=== PATIENT | male | born 1935 | race Caucasian/White ===

== ENCOUNTER 2018-03-21 14:23 | Inpatient (IN) | payer MEDICARE ==
[~2018-03-21] VITALS: Ht 182.9 cm; Wt 83.4 kg
[2018-03-21 15:14] LABS: LYMPHOCYTES 14.1 % (15-50); MCV 91.5 fL (80.0-100.0); MEAN PLATELET VOLUME 10.5 fL (7.4-10.4); NEUTROPHILS 81.1 % (40-80); PLATELET COUNT 197 10x3/uL (130-400); RDW 14.1 % (11.5-14.5); WBC 7.9 10x3/uL (4.8-10.8)
[2018-03-21 15:19] LABS: HEMATOCRIT 18.3 % (42.0-54.0); HEMOGLOBIN 6.4 g/dL (13.5-17.5)
[2018-03-21 15:31] LABS: ALBUMIN 3.3 g/dL (3.4-5.0); ANION GAP 22.1 mmol/L (8-16); BILIRUBIN - TOTAL 0.8 mg/dL (0.2-1.3); CALCIUM 8.5 mg/dL (8.5-10.1); CARBON DIOXIDE 16.5 mmol/L (21.0-32.0); CREATININE - SERUM 2.5 mg/dL (0.6-1.3); POTASSIUM - SERUM 5.6 mmol/L (3.5-5.1); PROTEIN - SERUM 6.2 g/dL (6.4-8.2)
[2018-03-21 15:37] LABS: INR 1.58 (0.85-1.17); PROTIME 18.3 SECONDS (11.6-15.0)
[2018-03-21 16:29] VITALS: BP 97/53
[2018-03-21 17:20] LABS: TOTAL IRON BIND CAPACITY 242 ug/dl (260-445)
[2018-03-21 17:48] LABS: % SATURATION 71 % (15-55); IRON 172 ug/dl (35-150); UNSAT IRON BIND CAPACITY 70 ug/dl (150-375)
[2018-03-21 18:30] VITALS: BP 97/52
--- NOTE | 2018-03-21 18:30 | NUR ---
BLOOD TRANSFUSION CONTINUES. PT REMAINS PALE/WARM/DRY, BREATHING EUPNEIC. NO SIGNS OF TRANSFUSION REACTION AT THIS TIME. WILL CONTINUE TO MONITOR.
--- NOTE | 2018-03-21 19:20 | MORECARE ---
CASE MANAGEMENT DISCHARGE SUMMARY PATIENT: DEONTE DALE UNIT: [id number] ADM DATE: 03/21/18 AGE: 82 : 33 SEX: M ROOM/BED: D.T04 AUTHOR: GATITO SARAVIA PHYSICIAN: REFERRING PHYSICIAN: ABI MAGALLANES MD DATE OF SERVICE: 03/21/18 Discharge Plan Patient Name: DEONTE DALE Facility: [facility]:[place] : 1935 Planned Disposition: Anticipated Discharge Date: 03/23/18 Discharge Date: Expected LOS: 2 Initial Reviewer: [email or web address] Initial Review Date: 03/21/2018 Generated: 03/21/18 8:20 pm Patient Name: DEONTE DALE Page 05126 at 1920 All edits/amendments must be made on the electronic document DICTATION DATE: 03/21/181919 APPRAISAL COORDINATOR: [place] 03/21/181919 RPT#: [id number] DC DATE: STATUS: ADM IN [facility] [address] [place] [address] END OF REPORT
--- NOTE | 2018-03-21 19:33 | MORECARE ---
CASE MANAGEMENT DISCHARGE SUMMARY PATIENT: DEONTE OWENS WOOD UNIT: [id number] ADM DATE: 03/21/18 AGE: 82 : 33 SEX: M ROOM/BED: D.T04 AUTHOR: GATITO SARAVIA PHYSICIAN: REFERRING PHYSICIAN: ABI MAGALLANES MD DATE OF SERVICE: 03/21/18 Discharge Plan Patient Name: DEONTE OWENS Facility: [facility]:[place] : 1935 Planned Disposition: Anticipated Discharge Date: 03/23/18 Discharge Date: Expected LOS: 2 Initial Reviewer: [email or web address] Initial Review Date: 03/21/2018 Generated: 03/21/18 8:33 pm DCPIA - Discharge Planning Initial Assessment Updated by [email or web address]: Helen Minaya on 03/21/18 7:30 pm * Is the patient Alert and Oriented? Yes * PCP No PCP * [place] [facility] [place] * Preadmission Environment Home Alone * ADLs Independent * Equipment Rolling Walker * List name and contact numbers for known caregivers / representatives who currently or will assist patient after discharge: Danni Diana [facility] - [phone] Sergei Owens [facility] - [phone] * Verbal permission to speak to the caregivers and representatives has been obtained from the patient. Yes * Community resources currently utilized Private Duty Care * Please name any agencies selected above. [facility] has been seeing the patient for 3 years. Family lives out of state. If anything is needed she said she will be here. * Additional services required to return to the preadmission environment? No * Can the patient safely return to the preadmission environment? Yes * Has this patient been hospitalized within the prior 30 days at any hospital? No Last DP export: 03/21/18 6:20 p Patient Name: DEONTE OWENS Page [id number] at 1935 All edits/amendments must be made on the electronic document DICTATION DATE: 03/21/181931 STRANDING MACHINE OPERATOR HELPER: [place] 03/21/181931 RPT#: [id number] DC DATE: STATUS: ADM IN [facility] [address] [facility] [place] [address] END OF REPORT
--- NOTE | 2018-03-21 19:39 | MORECARE ---
CASE MANAGEMENT DISCHARGE SUMMARY PATIENT: DEONTE OWENS UNIT: [id number] ADM DATE: 03/21/18 AGE: 82 : 33 SEX: M ROOM/BED: D.T04 AUTHOR: RANI,DOC PHYSICIAN: REFERRING PHYSICIAN: ABI MAGALLANES MD DATE OF SERVICE: 03/21/18 Discharge Plan Patient Name: DEONTE OWENS Facility: [facility]:[place] : 1935 Planned Disposition: Anticipated Discharge Date: 03/23/18 Discharge Date: Expected LOS: 2 Initial Reviewer: [email or web address] Initial Review Date: 03/21/2018 Generated: 03/21/18 8:39 pm DCP- Discharge Planning Updated by [email or web address]: Helen Minaya on 03/21/18 6:[address] Patient Name: DEONTE OWENS Admission Status: ER Accout number: [id number] Admission Date: 03-21-2018 : 1935 Admission Diagnosis: Attending: ABI MAGALLANES Current LOS: 1 Anticipated DC Date: 03-23-2018 Planned Disposition: Primary Insurance: MEDICARE A & B Discharge Planning Comments: CM met with patient and his cg Danni Diana to complete initial dc planning assessment. CM educated patient on the CM role and verbal consent given by patient to complete assessment. Patient lives at home alone but has a cg that comes on Sunday and Sunday for 2 hours a day. At discharge patient plans to return home alone and feels this is a safe discharge. CM discussed availability of home health, rehab services, and medical equipment. CG feels that HH may be a good option since she is only there 2 days a week. CM will continue to follow and will assist as needed with dc plans/needs. Layout Former: Helen Minaya RN, CCM RN, [facility] DCPIA - Discharge Planning Initial Assessment Updated by [email or web address]: Helen Minaya on 03/21/18 7:30 pm * Is the patient Alert and Oriented? Yes * PCP No PCP * Pharmacy [facility] [place] * Preadmission Environment Home Alone * ADLs Independent * Equipment Rolling Walker * List name and contact numbers for known caregivers / representatives who currently or will assist patient after discharge: Danni ye - [phone] Sergei Owens - valerie - [phone] * Verbal permission to speak to the caregivers and representatives has been obtained from the patient. Yes * Community resources currently utilized Private Duty Care * Please name any agencies selected above. [facility] [place] has been seeing the patient for 3 years. Family lives out of state. If anything is needed she said she will be here. * Additional services required to return to the preadmission environment? No * Can the patient safely return to the preadmission environment? Yes * Has this patient been hospitalized within the prior 30 days at any hospital? No Last DP export: 03/21/18 6:33 p Patient Name: DEONTE OWENS Page 28458 at 1941 All edits/amendments must be made on the electronic document DICTATION DATE: 03/21/181938 RUGBY UNION FOOTBALLER: [place] 03/21/181938 RPT#: [id number] DC DATE: STATUS: ADM IN [facility] [address] [place] [address] END OF REPORT
--- NOTE | 2018-03-21 19:56 | NUR ---
DR. MAGALLANES AT PT'S BEDSIDE DISCUSSING PLAN OF CARE WITH PT.
--- NOTE | 2018-03-21 21:29 | NUR ---
PT RESTING, RR EVEN AND UNLABORED, VS WNL, PT AWAKES TO VERBAL STIMULI, DENIES ANY NEEDS AT THIS TIME, WILL CONTINUE TO MONITOR.
--- NOTE | 2018-03-21 23:05 | NUR ---
PT RECIEVED TO RM 2315 VIA STRETCHER FROM ED. AWAKE AND ALERT. DENIES PAIN. REPORTS HAVING LOWER GI BLEED A WEEK AGO BUT SAYS IT RESOLVED. VSS. DENIES PAIN OR NEEDS AT THIS TIME
[2018-03-21 23:22] VITALS: BP 105/64; BMI 21.1
[2018-03-22] VITALS (24 sets, daily range): BP systolic 90–128; BP diastolic 54–93; Ht 182.9 cm; Wt 83.4 kg
[2018-03-22 02:45] LABS: BASOPHILS 0.1 % (0-2); EOSINOPHILS 0 % (0-7); IMMATURE GRANULOCYTES 0.4 % (0-5); LYMPHOCYTES 7.4 % (15-50); MCH 29.9 pg (26.0-34.0); MCHC 33.6 g/dL (31.0-37.0); MEAN PLATELET VOLUME 10.9 fL (7.4-10.4); MONOCYTES 7.5 % (2-11); NEUTROPHILS 84.6 % (40-80); PLATELET COUNT 185 10x3/uL (130-400); RDW 15.6 % (11.5-14.5)
[2018-03-22 02:46] LABS: HEMATOCRIT 24.1 % (42.0-54.0); HEMOGLOBIN 8.1 g/dL (13.5-17.5); MCV 88.9 fL (80.0-100.0); RBC 2.71 10x6/uL (4.20-6.10)
[2018-03-22 02:54] LABS: ALBUMIN 3.5 g/dL (3.4-5.0); BILIRUBIN - TOTAL 1.02 mg/dL (0.2-1.3); CALCIUM 8.8 mg/dL (8.5-10.1); CARBON DIOXIDE 17.3 mmol/L (21.0-32.0); CREATININE - SERUM 2.3 mg/dL (0.6-1.3); PROTEIN - SERUM 6.3 g/dL (6.4-8.2)
[2018-03-22 03:00] LABS: ANION GAP 21.4 mmol/L (8-16); POTASSIUM - SERUM 4.7 mmol/L (3.5-5.1)
--- NOTE | 2018-03-22 08:01 | NUR ---
0700 ASLEEP EASILY AWAKENS SOME CONFUSIOIN NOTED ASSESSMENT COMPLETE
--- NOTE | 2018-03-22 09:37 | NUR ---
7333 DR PRYOR AT BEDSIDE UPDATING PT FOR PLANNED CARE
--- NOTE | 2018-03-22 09:38 | NUR ---
0910 STARTED PRBC UNIT #3
--- NOTE | 2018-03-22 11:24 | NUR ---
1100 PREOP MEDS WERE GIVEN
--- NOTE | 2018-03-22 15:36 | NUR ---
[address] PRYOR
--- NOTE | 2018-03-22 15:36 | NUR ---
1335 EGD COMPLETE INITIATED FREQUENT VS.
--- NOTE | 2018-03-22 15:37 | NUR ---
1510 STARTED 4TH PRBC INFUSION
--- NOTE | 2018-03-22 16:35 | NUR ---
5640 ECHOCARDIOGRAM COMPLETED
--- NOTE | 2018-03-22 19:45 | NUR ---
REPORT REC'D AND CARE ASSUMED, REC'D PT RESTING EYES CLOSED, RESP EVEN AND UNLABORED, BRIEFLY WOKE UP DURING ASSESSMENT AND WENT RIGHT BACK TO SLEEP, O2 @ 2 LITERS VIA NC, O2 SAT 97%, CM-SR WITH PAC'S AT TIMES, RIGHT FOREARM PIV X 2, PROXIMAL IV SALINE LOCKED, DISTAL FOREARM PIV PATENT WITH NS @ 75CC/HR AND PROTONIX @ 10CC/HR OR 8MG/HR, CASTILLO PATENT DRAINING CLEAR YELLOW URINE, PPP, SR UP X 2 , BED IN LOW POSITION, CALL LIGHT IN REACH..
--- NOTE | 2018-03-22 19:49 | NUR ---
1730 CASTILLO CATH PLACEMENT WITHOUT COMPLICATIONS
--- NOTE | 2018-03-22 21:10 | NUR ---
EVENING MEDS GIVEN, PT AWAKE CONFUSED TO TIME OF DAY AND PLACE, REORIENTED AT THIS TIME, PT REPOSITIONED UP IN BED FOR COMFORT, EVENING MEDS GIVEN WITH SIPS OF WATER, NO DIFFICULTY SWALLOWING NOTED, PT MORE ORIENTED AT THIS TIME, DENIES PAIN OR OTHER NEEDS, WILL CONT TO MONITOR FOR CHANGES.
[2018-03-22 21:41] LABS: APPEARANCE CLEAR (CLEAR); BILIRUBIN NEGATIVE (NEGATIVE); COLOR YELLOW (YELLOW); GLUCOSE NEGATIVE (NEGATIVE); KETONE NEGATIVE (NEGATIVE); NITRITE NEGATIVE (NEGATIVE); PROTEIN TRACE mg/dL (NEGATIVE); UROBILINOGEN NORMAL (NORMAL)
[2018-03-22 21:42] LABS: BACTERIA FEW /hpf (NONE SEEN); WHITE CELLS - URINE 0-5 /hpf (0-5)
--- NOTE | 2018-03-22 23:30 | NUR ---
REASSESSMENT COMPLETED, PT PULLING AT CATHETER, WHEN PT CAUTIONED NOT TO, CONFUSED TO TIME AND PLACE, REORIENTED AT THIS TIME, PT REQUESTING SOMETHING TO DRINK, CRANBERRY JUICE PROVIDED ON REQUEST, PT DENIES FURTHER NEEDS, CALL LIGHT IN REACH.
[2018-03-23] VITALS (24 sets, daily range): BP systolic 90–122; BP diastolic 54–94
--- NOTE | 2018-03-23 02:00 | NUR ---
PT PULLED OUT RIGHT FOREARM PIV'S X 2, ARM CLEANED AND DRSG APPLIED, PT DISORIENTED TO TIME AND PLACE ATTEMPTED TO REORIENT AT THIS TIME, REPOSITIONED UP IN BED FOR COMFORT, ICE CHIPS PROVIDED, 20 GAUGE RESITED TO RIGHT UPPER ARM X 1 ATTEMPT, NS AND PROTONIX RESUMED AT PREVIOUSLY STATED RATES, BP STABLE, BED ALARM TURNED ON, SR UP X 2, CALL LIGHT IN REACH.
--- NOTE | 2018-03-23 03:30 | NUR ---
REASSESSMENT COMPLETED, PT CONTINUES TO AWAKEN CONFUSED AND ATTEMPTING TO PULL LINES AND TUBES, REORIENTS EASILY, NO CHANGES FROM PREVIOUS ASSESSMENT, WILL CONT TO MONITOR FOR CHANGES.
--- NOTE | 2018-03-23 04:00 | NUR ---
LAB AT FOR AM LAB DRAW
[2018-03-23 04:32] LABS: MCH 30.5 pg (26.0-34.0); MCHC 34.2 g/dL (31.0-37.0); MCV 89.1 fL (80.0-100.0); MEAN PLATELET VOLUME 10.9 fL (7.4-10.4); PLATELET COUNT 156 10x3/uL (130-400); WBC 16.1 10x3/uL (4.8-10.8)
[2018-03-23 04:42] LABS: HEMATOCRIT 30.1 % (42.0-54.0); HEMOGLOBIN 10.3 g/dL (13.5-17.5); RBC 3.38 10x6/uL (4.20-6.10)
[2018-03-23 04:55] LABS: ALBUMIN 3.1 g/dL (3.4-5.0); ANION GAP 17.6 mmol/L (8-16); BILIRUBIN - TOTAL 1.22 mg/dL (0.2-1.3); CARBON DIOXIDE 19.5 mmol/L (21.0-32.0); CREATININE - SERUM 2.1 mg/dL (0.6-1.3); POTASSIUM - SERUM 4.1 mmol/L (3.5-5.1)
[2018-03-23 05:25] LABS: LYMPHOCYTES 7 % (15-50); MONOCYTES 4 % (2-11); NEUTROPHILS 88 % (40-80); PLATELET ESTIMATE NORMAL; PLATELET MORPHOLOGY GIANT PLTS PRESENT
--- NOTE | 2018-03-23 06:00 | NUR ---
NO VISITORS IN THIS MORNING, PT RESTING IN BED EYES CLOSED, RESP EVEN AND UNLABORED, WILL REPORT TO ONCOMING SHIFT.
[2018-03-23 07:23] LABS: HEPATITIS C ANTIBODY <0.1 (0.0-0.9)
[2018-03-23 08:22] LABS: INR 1.87 (0.85-1.17); PROTIME 21.5 SECONDS (11.6-15.0)
[2018-03-23 10:15] LABS: FOLATE (FOLIC ACID) - SERUM >20.0 ng/mL (>3.0)
--- NOTE | 2018-03-23 11:00 | NUR ---
RESTING WELL NO DISTRESS. DENIES PAIN. LUNCH TRAY SERVED
--- NOTE | 2018-03-23 13:00 | NUR ---
REPOSITIONED IN BED WITH ASSISTANCES. SON CHARLES CALLED UPDATE GIVEN. NO DISTRESS DENIES PAIN IV PATENT NO REDNESS OR SWELLING
--- NOTE | 2018-03-23 15:00 | NUR ---
AWAKES EASILY TO VERBAL STIMULI. HANDS AND FEET CONTINUE TO BE COLD TO TOUCH. BODY WARM. DENIES PAIN NO DISTRESS. ABD SOFT. REORIENTATED NEEDED. TO PLACE AND SITUATION
--- NOTE | 2018-03-23 17:00 | NUR ---
DINNER TRAY SERVED. AWAKES EASILY TO VERBAL STIMULI. NO DISTRESS. DENIES PAIN
--- NOTE | 2018-03-23 19:01 | NUR ---
DR. MAGALLANES HERE STATES OK TO TRANSFER TO FLOOR WITH PHYSICAL THERAPY CONSULT.
--- NOTE | 2018-03-23 19:30 | NUR ---
REPORT REC'D AND CARE ASSUMED, REC'D PT AWAKE, ALERT, ORIENTED TO PERSON AND YEAR, CONFUSED TO PLACE, REORIENTS WITH REMINDING, RIGHT UPPER ARM PIV WITH NS @ 75CC/HR AND PROTONIX @ 10CC/HR, SITE WITHOUT REDNESS OR EDEMA, ABD SOFT BS X 4, PT DENIES PAIN OR NAUSEA, BED IN LOW POSITION, CALL LIGHT IN REACH, BED ALARM ON.
--- NOTE | 2018-03-23 20:45 | NUR ---
PT'S CALL LIGHT ON , PT FRUSTRATED WITH STAFF FOR NOT COMING SOONER, EXPLAINED TO PT THAT CALL LIGHTS WERE ANSWERED QUICKLY POSSIBLE, PT ASSURED THAT HIS CALL LIGHT WAS WORKING CORRECTLY AND TESTED FOR PT COMFORT, PT REQUESTING LINENS STRAIGHTENED, LINENS STRAIGHTENED AND BLANKET OFFERED, PT DENIES NEED FOR BLANKET AT THIS TIME, ASSISTED PT WITH USING TV REMOTE AND PAGE FOR CHANNELS PROVIDED TO PATIENT.
--- NOTE | 2018-03-23 21:05 | NUR ---
EVENING MEDS GIVEN ORDERED, ANSWERED PT'S QUESTIONS REGARDING MEDICATION, PT DENIES FURTHER NEEDS, CALL LIGHT IN REACH, SR UP X 2, BED ALARM ON AND DOOR PULLED CLOSED PER PT REQUEST, WILL MONITOR CLOSELY FOR CHANGES.
--- NOTE | 2018-03-23 23:30 | NUR ---
REASSESSMENT COMPLETED, PT RESTING IN BED EYES CLOSED, EASILY AWAKENS TO VERBAL STIMULI, VSS, WILL CONT TO MONITOR FOR CHANGES.
[2018-03-24] VITALS (23 sets, daily range): BP systolic 99–136; BP diastolic 54–86
--- NOTE | 2018-03-24 02:00 | NUR ---
NO CHANGES IN STATUS AT THIS TIME
--- NOTE | 2018-03-24 04:15 | NUR ---
PT AWAKE ASKING "WHAT TIME IS IT?" TIME PROVIDED, PT REQUESTING SOMETHING TO DRINK, ICE WATER GIVEN, PT DENIES PAIN OR FURTHER NEEDS, BED IN LOW POSITION, CALL LIGHT IN REACH, BED ALARM ON.
--- NOTE | 2018-03-24 06:15 | NUR ---
CM-AFIB AT A RATE OF 130, BP 108/68, PT RESTING IN BED EYES CLOSED, WILL NOTIFY .
--- NOTE | 2018-03-24 06:30 | NUR ---
DR. MAGALLANES PAGED REGARDING AFIB
--- NOTE | 2018-03-24 07:15 | NUR ---
SPOKE WITH DR. GALAN REGARDING ATRIAL FIBRILLATION, NEW ORDERS REC'D, REPORT GIVEN TO ONCOMING SHIFT.
[2018-03-24 08:08] LABS: BASOPHILS 0.1 % (0-2); EOSINOPHILS 0.2 % (0-7); HEMATOCRIT 33.8 % (42.0-54.0); HEMOGLOBIN 11.4 g/dL (13.5-17.5); IMMATURE GRANULOCYTES 0.6 % (0-5); LYMPHOCYTES 10.5 % (15-50); MCH 30.5 pg (26.0-34.0); MCHC 33.7 g/dL (31.0-37.0); MCV 90.4 fL (80.0-100.0); MONOCYTES 9.3 % (2-11); NEUTROPHILS 79.3 % (40-80); PLATELET COUNT 126 10x3/uL (130-400); RBC 3.74 10x6/uL (4.20-6.10); RDW 17.2 % (11.5-14.5); WBC 10.2 10x3/uL (4.8-10.8)
--- NOTE | 2018-03-24 08:30 | NUR ---
CONTINUES GOING IN AND OUT OF ATRIAL FIB RATE 130 TO 70 . DENIES ANY SHORTNESS OF BREATH. DENIES EVER HAVING ANY CHEST PAIN OR PAIN AT ALL. STATES HE DOES GET LIGHT HEADED WHEN HE STANDS UP AND HE IS WEAK ONLY COMPLIANTS OR SYMPTOMS HE STATES HE HAS.
[2018-03-24 08:37] LABS: CALCIUM 7.7 mg/dL (8.5-10.1); CARBON DIOXIDE 18.1 mmol/L (21.0-32.0); CHLORIDE - SERUM 113 mmol/L (98-107); CKMB 9.8 U/L (0.0-3.6); CREATINE KINASE 180 UL (21-232); POTASSIUM - SERUM 3.6 mmol/L (3.5-5.1); SODIUM 143 mmol/L (136-145); THYROID STIMULATING HORMONE 1.49 uIU/mL (0.36-3.74)
[2018-03-24 08:39] LABS: CALC OSMOLALITY 302 mosm/kg (275-300); CREATININE - SERUM 1.4 mg/dL (0.6-1.3); GLUCOSE 105 mg/dL (74-106); UREA NITROGEN 64 mg/dL (7-18); eGFR NON AFRICAN AMERICAN 51 mL/min (90-120)
[2018-03-24 08:40] LABS: TROPONIN-I 16.676 ng/mL (0.000-0.060)
--- NOTE | 2018-03-24 09:28 | NUR ---
DR. VASQUEZ. SON CHARLES CALLED UPDATED ON PATIENT CONDITION.
--- NOTE | 2018-03-24 09:45 | NUR ---
NEW ORDERS FOR CORDARONE FROM DR. COLES. CORDARON BOLUS GIVEN FOLLOW BY A GTT AT 1 MG /MIN FOR 6 HOURS.
--- NOTE | 2018-03-24 10:30 | NUR ---
RATE DOWN TO 100'S. UP IN CHAIR AT BEDSIDE PER PHYSICAL THERAPY. AMBULATE WITH WALKER DID [facility]. SOME LIGHTHEADED NESS WHEN STANDING.
--- NOTE | 2018-03-24 11:30 | NUR ---
RETURNED TO BED FOR ECHO.
--- NOTE | 2018-03-24 13:00 | NUR ---
DR. WHITMORE HERE TALKED WITH MARIOLA
--- NOTE | 2018-03-24 13:30 | NUR ---
LUNCH SERVED ATE FAIR
--- NOTE | 2018-03-24 13:30 | NUR ---
WATCHING FOOTBALL GAME ON TV. STATES HE IS GETTING SHORT OF BREATH AT TIMES. PULSE OX 97%-98%. NO CHANGE IN BREATH SOUNDS. NO DISTRESS NOTED.
--- NOTE | 2018-03-24 15:30 | NUR ---
NAPPING AT INTERVALS NO DISTRESS.
--- NOTE | 2018-03-24 16:30 | NUR ---
CORDARONE TURNED DOWN TO 0.5MG- 16.7 ML HOUR. MONITOR SR WITH FIRST DEGREE BLOCK. ON ROOM AIR WATCHING TV. NO DISTRESS
--- NOTE | 2018-03-24 17:30 | NUR ---
DR. MAGALLANES HERE TALKED WITH PATIENT.
--- NOTE | 2018-03-24 18:00 | NUR ---
DINER TRAY SERVED. STATES HE CAN NOT EAT. ONLY WANTS HIS TEA OFF TRAY
[2018-03-24 19:02] LABS: CREATINE KINASE 149 UL (21-232)
[2018-03-24 19:05] LABS: TROPONIN-I 10.826 ng/mL (0.000-0.060)
[2018-03-25] VITALS (11 sets, daily range): BP systolic 95–137; BP diastolic 56–95
[2018-03-25 02:31] LABS: CKMB 7.8 U/L (0.0-3.6); CREATINE KINASE 137 UL (21-232)
[2018-03-25 02:56] LABS: TROPONIN-I 9.402 ng/mL (0.000-0.060)
--- NOTE | 2018-03-25 07:15 | NUR ---
REPORT RECIEVED, SHIFT ASSESSMENT COMPLETE, PT IS ALERT AND ORIENTED, DENIES ANY NEEDS AT THIS TIME, VSS, CALL LIGHT IN REACH
--- NOTE | 2018-03-25 08:06 | NUR ---
UPDATE GIVEN TO FAMILY OVER PHONE, PASSWORD GIVEN
--- NOTE | 2018-03-25 09:15 | NUR ---
UPDATE GIVEN TO BRIANNA LUCAS TO TRANSFER TO THE FLOOR, AND NEW ORDERS RECIEVED
--- NOTE | 2018-03-25 09:45 | NUR ---
VISITOR AT BEDSIDE, WILL CON'T TO MONITOR
--- NOTE | 2018-03-25 10:10 | NUR ---
NUTRITION F//U PT WITH FAMILY AT BEDSIDE. REPORTS HE DID NOT FEEL LIKE EATING BREAKFAST THIS AM. WILL PROVIDE REG DIET, HONOR FOOD PREFERENCES. RD FOLLOWING
[2018-03-25 10:47] LABS: CKMB 8.6 U/L (0.0-3.6); CREATINE KINASE 141 UL (21-232); TROPONIN-I 7.511 ng/mL (0.000-0.060)
[2018-03-25 11:07] LABS: ALBUMIN 2.7 g/dL (3.4-5.0); BILIRUBIN - DIRECT 0.49 mg/dL (0.00-0.30); BILIRUBIN - INDIRECT 0.45 mg/dL (0.00-1.00); BILIRUBIN - TOTAL 0.94 mg/dL (0.2-1.3); PROTEIN - SERUM 5.6 g/dL (6.4-8.2)
--- NOTE | 2018-03-25 11:23 | NUR ---
PT AT BEDSIDE, PT REFUSING TO WALK AT THIS TIME,
--- NOTE | 2018-03-25 11:36 | NUR ---
REPORT CALLED TO OLIVA ON MED 2
--- NOTE | 2018-03-25 11:51 | NUR ---
TRANSFER FROM ICU BY BED. OREINTED TO ROOM. CALL LIGHT IN REACH. WILL CONT. PLAN OF CARE.
--- NOTE | 2018-03-25 12:41 | NUR ---
HAS CONVERTED TO SR 75.
--- NOTE | 2018-03-25 14:03 | NUR ---
C/O HAVING TROUBLE BREATHING. 02 2L N/C APPLIED. WILL MONITOR.
[2018-03-25] MEDS ORDERED: CELEBREX200 MG PO (16:10)
[2018-03-25] MEDS ORDERED: PLAVIX75 MG PO (16:10)
[2018-03-25] MEDS ORDERED: COREG 3.1253.125 MG PO ×2 (16:10→16:11)
[2018-03-25] MEDS ORDERED: ENTRESTO 49 MG1 EACH PO (16:11)
--- NOTE | 2018-03-25 19:35 | NUR ---
RESUMED CARE OF PT, LYING IN BED REPSIRAITONS EVEN AND UNLABORED ON 2LPM VIA NC. [address] ON TELEMETRY. RIGHT WRIST INFUSING NS @ 75 AND RIGHT AC PROTONIX @ 10. CASTILLO TO GRAVITY. SCDS ON. CALL LIGHT IN REACH. SEE NURSE ASSESSMENT.
[2018-03-26] VITALS: BP 108/63
--- NOTE | 2018-03-26 03:20 | NUR ---
LYING IN BED, RESPIRATIONS EVEN AND UNLABORED. CALL LIGHT IN REACH, WILL CONTINUE WITH PLAN OF CARE.
[2018-03-26 04:00] VITALS: BP 138/80
[2018-03-26 09:10] VITALS: BP 114/59
--- NOTE | 2018-03-26 09:17 | NUR ---
UNABLE TO WALK TO BR WITH 2 PEOPLE ASSIST. PT NOTIFIED TO ASSIST AND TX TODAY FOR STRENGTHENING.
--- NOTE | 2018-03-26 09:56 | NUR ---
AMBULATES TO DOORWAY WITH PT ASSIST. WILL CONT. PLAN OF CARE.
[2018-03-26 11:53] VITALS: BP 101/63
--- NOTE | 2018-03-26 15:01 | CN ---
PATIENT NAME:DEONTE DALE MEDICAL RECORD: [id number] : 31 LOCATION:D.M2 D.2117 ADMIT DATE: 03/21/18 ACCOUNT: [id number] CONSULTING PHYSICIAN: ALINA WHITMORE MD REFERRING PHYSICIAN: ABI MAGALLANES MD DATE OF CONSULTATION: 03/24/2018 HISTORY: An 82-year-old gentleman with history of coronary artery disease, status post intervention in [place], he thinks, approximately 4-6 months ago. He has a history of hypertension. He has been living alone since his with significant weight loss. He was admitted with GI bleed and anemia. He is status post endoscopy and transfusion. Today, acutely went into atrial fibrillation with RVR. Really, no symptomatology. We placed him on Cordarone drip. He is back in normal sinus rhythm. We are seeing him concerning his cardiovascular status. PAST MEDICAL HISTORY: Includes; 1. History of coronary artery disease. 2. Hypertension. 3. Hyperlipidemia. MEDICATIONS: None chronically since . ALLERGIES: None known. SOCIAL HISTORY: Nonsmoker and nondrinker. He does have somebody to check on him couple of times a week. REVIEW OF SYSTEMS: The patient reports easy bruising but reports no swollen glands. The patient reports no fever, no night sweats, no significant weight gain, no significant weight loss. No significant exercise tolerance. The patient reports no dry eyes, no irritation, no vision change. Patient reports no difficulty hearing and no ear pain. Patient reports no frequent nose bleeds or nose and sinus problems. Patient reports on arm pain on exertion. No shortness of breath while lying down. No history of heart murmur. Patient reports no cough, no wheezing or coughing up blood. Patient reports no abdominal pain, no vomiting. Normal appetite. No diarrhea and not vomiting blood. No nausea and no constipation. Patient reports no incontinence. No difficulty urinating. No hematuria. No increased frequency. Patient reports no muscle aches. No weakness, no arthralgias, no back pain. No swelling of the extremities. Patient reports no abnormal mole, no jaundice, no rashes. Reports no loss of consciousness. No weakness and no numbness. No seizures, dizziness, or headaches. The patient reports no depression, no sleep disturbance, feeling safe in a relationship and no alcohol abuse. Patient reports on fatigue. Reports no runny nose or sinus pressure. No itching, no hives, and no frequent sneezing. PHYSICAL EXAMINATION: GENERAL: Pleasant gentleman, in no acute distress. Denies any symptoms at this point. VITAL SIGNS: Blood pressure 106/74. Pulse 62 and regular. HEENT: Normocephalic and atraumatic. NECK: No bruits noted. HEART: Regular. II/ systolic ejection murmur. LUNGS: Clear to auscultation. CONSULT REPORT [id number] DEONTE DALE ABDOMEN: Soft and nontender. Pulses 2+ with no edema. 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 This may be exacerbated by his renal insufficiency. Denies ischemic symptomatology. We will continue Cordarone, switch to p.o. Check echocardiographic study. Further recommendations based on above. TRANSINT:[id number] Voice Confirmation ID: [id number] DOCUMENT ID: [id number] ALINA WHITMORE MD at 1501 CC: [id number] DICTATION DATE: 03/24/18 1212 DUPLIGRAPH OPERATOR: 03/24/18 1651 ADM IN [facility] [address] [place] [address]
--- NOTE | 2018-03-26 15:01 | EC ---
PATIENT:DEONTE DALE DATE OF SERVICE: 03/21/18 SEX: M MEDICAL RECORD: [id number] DATE OF : [birth year] LOCATION:D.M2 D.211 AGE OF PATIENT: 82 ADMISSION DATE: 03/21/18 REFERRING PHYSICIAN: INTERPRETING PHYSICIAN: ALINA WHITMORE MD ECHOCARDIOGRAM REPORT ECHO CHARGES 4 ECHO COMPLETE Date: 03/24/18 CLINICAL DIAGNOSIS: ACS ECHOCARDIOGRAPHIC MEASUREMENTS (adult normal given) AC root (d.<3.7cm) 3.4 cm LV Septum d (<1.2 cm> 1.0 cm Valve Excursion 0.9 cm LV Septum (systole) 1.4 cm Left Atria (s.<4.0cm> 3.9 cm LVPW d(<1.2cm) 1.1 cm RV (d.<2.3cm) 2.5 cm LVPW (sytole) 1.5 cm LV diastole(<5.6CM) 7.2 cm MV E-F(>70mm/sec) cm LV systole 5.9 cm LVOT Diameter 2.1 cm MV exc.(>10mm) cm Est.ejection fraction (50-75%) % DOPPLER: LVIT cm/sec A cm/sec E 72.0 cm/sec LA cm/sec RVSP 54.2 mmHg LVOT 76.0 cm/sec AOP1/2T m/s Asc. Ao 187 cm/sec RVOT 45.0 cm/sec RA cm/sec PA 76.0 cm/sec AV Gradient Peak 14.0 mmHg AV Mean 7.5 mmHg AV Area 1.1 cm MV Gradient Peak 4.5 mmHg MV Mean 1.3 mmHg MV Area cm COMMENTS: [employer] Technician: Sergio [employer] Teacher: 3 Dr. Nevarez TAPE# PACS Pericardial Effusion N DATE OF SERVICE: 03/25/2018 Adequate 2D echo, color flow and spectral Doppler, M-mode No LVH. LV internal dimensions are normal. LV is globally hypokinetic with reduced EF, estimated EF 20% to 25%. Aortic valve is tricuspid. No evidence of stenosis by Doppler interrogation. Left atrium is normal at 3.9 cm. Mitral valve shows no prolapse. Moderate MR. Right-sided chambers appear grossly normal. Moderate TR. ECHOCARDIOGRAM REPORT [id number] DEONTE DALE TRANSINT:[id number] Voice Confirmation ID: [id number] DOCUMENT ID: [id number] ALINA WHITMORE MD at 1501 CC: [id number] DICTATION DATE: 03/25/18 1035 DRAWBRIDGE OPERATOR: 03/25/18 1324 ADM IN [facility] [address] [place] [address]
[2018-03-26] MEDS ORDERED: AMIODARONE HCL200 MG PO (15:02)
[2018-03-26] MEDS ORDERED: PROTONIX40 MG PO (15:03)
--- NOTE | 2018-03-26 15:03 | MORECARE ---
CASE MANAGEMENT DISCHARGE SUMMARY PATIENT: DEONTE OWENS UNIT: [id number] ADM DATE: 03/21/18 AGE: 82 : 33 SEX: M ROOM/BED: D.0166 AUTHOR: RANI,DOC PHYSICIAN: REFERRING PHYSICIAN: ABI MAGALLANES MD DATE OF SERVICE: 03/26/18 Discharge Plan Patient Name: DEONTE OWENS Facility: [facility]:[place] : 1935 Planned Disposition: Inpatient Rehab Anticipated Discharge Date: 03/27/18 Discharge Date: Expected LOS: 6 Initial Reviewer: [email or web address] Initial Review Date: 03/21/2018 Generated: 03/26/18 4:03 pm DCP- Discharge Planning Updated by [email or web address]: Helen Minaya on 03/21/18 6:[address] Patient Name: DEONTE OWENS Admission Status: ER Accout number: [id number] Admission Date: 03-21-2018 : 1935 Admission Diagnosis: Attending: ABI MAGALLANES Current LOS: 1 Anticipated DC Date: 03-23-2018 Planned Disposition: Primary Insurance: MEDICARE A & B Discharge Planning Comments: CM met with patient and his cg Danni Diana to complete initial dc planning assessment. CM educated patient on the CM role and verbal consent given by patient to complete assessment. Patient lives at home alone but has a cg that comes on Sunday and Sunday for 2 hours a day. At discharge patient plans to return home alone and feels this is a safe discharge. CM discussed availability of home health, rehab services, and medical equipment. CG feels that HH may be a good option since she is only there 2 days a week. CM will continue to follow and will assist as needed with dc plans/needs. Adjunct Faculty: Helen Minaya RN, CCM RN, [facility] DCPIA - Discharge Planning Initial Assessment Updated by [email or web address]: Helen Minaya on 03/21/18 7:30 pm * Is the patient Alert and Oriented? Yes * PCP No PCP * Pharm[place] [facility] [place] * Preadmission Environment Home Alone * ADLs Independent * Equipment Rolling Walker * List name and contact numbers for known caregivers / representatives who currently or will assist patient after discharge: Danni Diana - cassi - [phone] Sergei Owens - valerie - [phone] * Verbal permission to speak to the caregivers and representatives has been obtained from the patient. Yes * Community resources currently utilized Private Duty Care * Please name any agencies selected above. [facility] - has been seeing the patient for 3 years. Family lives out of state. If anything is needed she said she will be here. * Additional services required to return to the preadmission environment? No * Can the patient safely return to the preadmission environment? Yes * Has this patient been hospitalized within the prior 30 days at any hospital? No Coverage Notice Reviewer: [email or web address] Ana Tovar Notice Issued Date-Time: 03/26/2018 14:59 Notice Type: IM Discharge Notice Notice Delivered To: Patient Relationship to Patient: Self Garment Presser Name: Delivery Method: HAND - Hand Delivered Lidya Days: Prior Verbal Notification: Recipient Understood Notice: Yes Recipient Signature: Yes Med Rec Note Co-signed by Attending: Coverage Notice Comment: Last DP export: 03/21/18 6:39 p Patient Name: DEONTE OWENS Page [id number] at 1503 All edits/amendments must be made on the electronic document DICTATION DATE: 03/26/181501 TUNG NUT GROWER: [place] 03/26/181501 RPT#: [id number] DC DATE: STATUS: ADM IN [facility] [address] [place] [address] END OF REPORT
[2018-03-26] MEDS ORDERED: CARAFATE1 G PO (15:04)
--- NOTE | 2018-03-26 15:11 | MORECARE ---
CASE MANAGEMENT DISCHARGE SUMMARY PATIENT: DEONTE DALE UNIT: [id number] ADM DATE: 03/21/18 AGE: 82 : 33 SEX: M ROOM/BED: D.2117 AUTHOR: RANIDOC PHYSICIAN: REFERRING PHYSICIAN: ABI MAGALLANES MD DATE OF SERVICE: 03/26/18 Discharge Plan Patient Name: DEONTE DALE Facility: [facility]:[place] : 1935 Planned Disposition: Inpatient Rehab Anticipated Discharge Date: 03/27/18 Discharge Date: Expected LOS: 6 Initial Reviewer: [id number] Initial Review Date: 03/21/2018 Generated: 03/26/18 4:11 pm Comments DCP- Discharge Planning Updated by [id number]: Amanda Tovar on 03/26/18 2:[address] Patient Name: DEONTE DALE Admission Status: ER Accout number: [id number] Admission Date: 03-21-2018 : 1935 Admission Diagnosis:GASTROINTESTINAL HEMORRHAGE, UNSPECIFIED Attending: ABI MAGALLANES Current LOS: 5 Anticipated DC Date: 03-27-2018 Planned Disposition: Inpatient Rehab Primary Insurance: [employer] MEDICARE PPO or HMO Discharge Planning Comments: CM SPOKE WITH DR. MAGALLANES TODAY AND THE PLAN IS FOR INPATIENT REHAB. CM CALLED MURRAY AND SHE IS IN ROOM SEEING PATIENT. CM WILL FOLLOW AND ASSIST NEEDED WITH DC PLANNING/NEEDS. IM SIGNED. Intake Man: Amanda Tovar DCP- Discharge Planning Updated by [id number]: Helen Minaya on 03/21/18 6:[address] Patient Name: DEONTE DALE Admission Status: ER Accout number: [id number] Admission Date: 03-21-2018 : 1935 Admission Diagnosis: Attending: AIB MAGALLANES Current LOS: 1 Anticipated DC Date: 03-23-2018 Planned Disposition: Primary Insurance: MEDICARE A & B Discharge Planning Comments: CM met with patient and his cg Danni Diana to complete initial dc planning assessment. CM educated patient on the CM role and verbal consent given by patient to complete assessment. Patient lives at home alone but has a cg that comes on Sunday and Sunday for 2 hours a day. At discharge patient plans to return home alone and feels this is a safe discharge. CM discussed availability of home health, rehab services, and medical equipment. CG feels that HH may be a good option since she is only there 2 days a week. CM will continue to follow and will assist as needed with dc plans/needs. Intake Man: Helen Minaya RN, CCM RN, [facility] DCPIA - Discharge Planning Initial Assessment Updated by [id number]: Helen Minaya on 03/21/18 7:30 pm * Is the patient Alert and Oriented? Yes * PCP No PCP * [place] [facility] [place] * Preadmission Environment Home Alone * ADLs Independent * Equipment Rolling Walker * List name and contact numbers for known caregivers / representatives who currently or will assist patient after discharge: Danni ye - [phone] Sergei padilla - [phone] * Verbal permission to speak to the caregivers and representatives has been obtained from the patient. Yes * Community resources currently utilized Private Duty Care * Please name any agencies selected above. [facility] - has been seeing the patient for 3 years. Family lives out of state. If anything is needed she said she will be here. * Additional services required to return to the preadmission environment? No * Can the patient safely return to the preadmission environment? Yes * Has this patient been hospitalized within the prior 30 days at any hospital? No Coverage Notice Reviewer: [id number] Ana Tovar Notice Issued Date-Time: 03/26/2018 14:59 Notice Type: IM Discharge Notice Notice Delivered To: Patient Relationship to Patient: Self Leadership Program Internship Name: Delivery Method: HAND - Hand Delivered Lidya Days: Prior Verbal Notification: Recipient Understood Notice: Yes Recipient Signature: Yes Med Rec Note Co-signed by Attending: Coverage Notice Comment: Last DP export: 03/26/18 2:03 p Patient Name: DEONTE DALE Page [id number] at 1511 All edits/amendments must be made on the electronic document DICTATION DATE: 03/26/18 151 ADDICTION PROFESSIONAL: [place] 03/26/181 RPT#: [id number] DC DATE: STATUS: ADM IN [facility] [address] [place] [address] END OF REPORT
--- NOTE | 2018-03-26 15:29 | NUR ---
Rehab Note- Acute Inpatient Rehab prescreen order received. The patient has [employer] insurance and will require a PreAuth prior to an inpatient acute rehab stay. Will need an OT Eval for PreAuth. Will begin PreAuth process. Spoke with MARY Patel. Will follow at this time. Thank you for this referral! Dorinda Bagley RN Clinical Liaison, [facility] Rehab
[2018-03-26 15:52] VITALS: BP 113/56
--- NOTE | 2018-03-26 15:57 | NUR ---
Rehab Note- Have called the business office to verify the patient's payer source, facesheet stating [employer] Medicare, another documentation stating Medicare A & B. Awaiting return call. Have also spoken to MARY Patel. Dorinda Bagley RN Clinical Liaison, [facility] Rehab
--- NOTE | 2018-03-26 16:08 | NUR ---
Rehab Note- Received call back from Ga with the business office and it was verified that the patient does have [employer] Medicare. He will require a PreAuth for an inpatient acute rehab stay. Spoke to MARY Patel to obtain an OT Eval. Will continue to follow. Thank you for this referral! Dorinda Bagley RN Clinical Liaison, [facility] Rehab
--- NOTE | 2018-03-26 19:35 | NUR ---
RECIEVED UP IN BED WITH EYES OPEN AND TV ON. ALERT AND ORIENTED X4. F/C PATENT WITH STRAW COLOR URINE DRAINING TO BEDSIDE DRAINAGE SYSTEM. O2@ 2 LITERS PER N/C. DENIES ANY NEEDS AT THIS TIME.
[2018-03-26 20:00] VITALS: BP 120/71
[2018-03-27] VITALS: BP 126/74
[2018-03-27 04:00] VITALS: BP 103/47
[2018-03-27 07:55] VITALS: BP 122/76
--- NOTE | 2018-03-27 09:48 | NUR ---
IV SL. CASTILLO CATH DCD 300CCC URINE AND 10CC BULB. WILL CONT. PLAN OF CARE.
[2018-03-27 11:14] VITALS: BP 111/88
--- NOTE | 2018-03-27 12:08 | NUR ---
Repositioned in bed. Refuses to eat lunch or to be turned on side at this time. Will cont. to monitor.
--- NOTE | 2018-03-27 14:38 | NUR ---
Nutrition follow-up: Diet: Regular PO Intake ~75% of meals labs reviewed Wt: 179# RDN following.
[2018-03-27 15:33] VITALS: BP 126/72
--- NOTE | 2018-03-27 16:52 | NUR ---
Rehab Note- Have faxed clinicals in to [employer] per faxed request for review for possible authorization for an inpatient acute rehab stay. Will continue to follow at this time. Thank you for this referral! Dorinda Bagley RN Clinical Liaison, [facility] Rehab
--- NOTE | 2018-03-27 17:26 | NUR ---
OT NOTE: PT COMPLETED BED MOB WITH MIN A/CGA. PT COMPLETED SIT TO STAND WITH CGA/MIN A. PT COMPLETED HYGIENE TASK WITH CGA. THANK YOU, KRYSTIAN ROCHA
--- NOTE | 2018-03-27 19:24 | NUR ---
RESUMED CARE OF PT, LYING IN BED RESPIRATIONS EVEN AND UNLABORED ON 2LPM VIA NC. 87 SR ON TELEMETRY. RIGHT WRIST SALINE LOCKED. URINAL AT BEDSIDE. CALL LIGHT IN REACH. SEE NURSE ASSESSMENT.
[2018-03-27 20:00] VITALS: BP 105/67
--- NOTE | 2018-03-27 23:37 | NUR ---
LYING IN BED WITH CALL LIGHT IN REACH. WILL CONTINUE TO MONITOR.
[2018-03-28] VITALS: BP 108/75
[2018-03-28 04:00] VITALS: BP 114/81
--- NOTE | 2018-03-28 07:44 | NUR ---
ROUNDING DONE WITH PATIENT JUST FINISHING TALKING TO HIS SON CHARLES ON THE PHONE. PATIENT IS A DNR SOCE STATUS. ON HEART MONITOR SHOWING ST, HR 111. RIGHT WRIST PIV SEEN WITH SALINE LOCK. ON 2L PER NC. DENIES NEEDS AT THIS TIME. WILL MONITOR.
[2018-03-28 08:25] VITALS: BP 114/70
[2018-03-28 11:33] VITALS: BP 95/68
--- NOTE | 2018-03-28 14:52 | NUR ---
OT NOTE: BED MOB WITH MIN/MOD ASSIST; EDGE OF BED SITTING WITH SPV; SIT TO STAND WITH MIN/MOD ASSIST; SIMPLE GROOMING WITH SET UP KAMI HERNANDEZ, OTR/L
[2018-03-28 16:23] VITALS: BP 115/68
--- NOTE | 2018-03-28 16:42 | MORECARE ---
CASE MANAGEMENT DISCHARGE SUMMARY PATIENT: DEONTE OWENS UNIT: [id number] ADM DATE: 03/21/18 AGE: 82 : 33 SEX: M ROOM/BED: D.9238 AUTHOR: RANIDOC PHYSICIAN: REFERRING PHYSICIAN: ABI MAGALLANES MD DATE OF SERVICE: 03/28/18 Discharge Plan Patient Name: DEONTE OWENS Facility: [facility]:[place] : 1935 Planned Disposition: Inpatient Rehab Anticipated Discharge Date: 03/27/18 Discharge Date: Expected LOS: 6 Initial Reviewer: [id number] Initial Review Date: 03/21/2018 Generated: 03/28/18 5:41 pm Comments DCP- Discharge Planning Updated by [email or web address]: Amanda Tovar on 03/28/18 3:[address] Patient Name: DEONTE OWENS Admission Status: ER Accout number: [id number] Admission Date: 03-21-2018 : 1935 Admission Diagnosis:GASTROINTESTINAL HEMORRHAGE, UNSPECIFIED Attending: ABI MAGALLANES Current LOS: 7 Anticipated DC Date: 03-27-2018 Planned Disposition: Inpatient Rehab Primary Insurance: [employer] MEDICARE PPO or HMO Discharge Planning Comments: CM MET WITH PATIENT AND HIS SON ABOUT DISCHARGE PLANNING. I INFORMED THEM WE ARE WAITING ON AUTH TO GO TO INPT REHAB AND WILL LET THEM KNOW SOON WE KNOW. I ASKED THEM IF THEY WOULD BE INTERESTED IN SNF IF INPT REHAB IS NOT APPROVED AND HE STATES IS NOT SURE. THAT IF HE DID IT WOULD BE GOOD DIPIKA. I TALKED TO THE SON OUTSIDE OF THE ROOM AND HE STATES HE MAY GET HOSPICE INVOLVED IF IT DOESN'T LOOK LIKE HIS DAD WILL HAVE A GOOD RECOVERY. FAMILY WILL CONTACT CM TOMORROW WHEN THEY COME BACK TO THE HOSPITAL. CM WILL FOLLOW AND ASSIST NEEDED WITH DC PLANNING/NEEDS. Mold Sander: Amanda Tovar DCP- Discharge Planning Updated by [id number]: Amanda Tovar on 03/26/18 2:[address] Patient Name: DEONTE OWENS Admission Status: ER Accout number: [id number] Admission Date: 03-21-2018 : 1935 Admission Diagnosis:GASTROINTESTINAL HEMORRHAGE, UNSPECIFIED Attending: ABI MAGALLANES Current LOS: 5 Anticipated DC Date: 03-27-2018 Planned Disposition: Inpatient Rehab Primary Insurance: [employer] MEDICARE PPO or HMO Discharge Planning Comments: CM SPOKE WITH DR. MAGALLANES TODAY AND THE PLAN IS FOR INPATIENT REHAB. CM CALLED MURRAY AND SHE IS IN ROOM SEEING PATIENT. CM WILL FOLLOW AND ASSIST NEEDED WITH DC PLANNING/NEEDS. IM SIGNED. Mold Sander: Amanda Tovar DCP- Discharge Planning Updated by [id number]: Helen Minaya on 03/21/18 6:[address] Patient Name: DEONTE OWENS Admission Status: ER Accout number: [id number] Admission Date: 03-21-2018 : 1935 Admission Diagnosis: Attending: ABI MAGALLANES Current LOS: 1 Anticipated DC Date: 03-23-2018 Planned Disposition: Primary Insurance: MEDICARE A & B Discharge Planning Comments: CM met with patient and his cg Danni Diana to complete initial dc planning assessment. CM educated patient on the CM role and verbal consent given by patient to complete assessment. Patient lives at home alone but has a cg that comes on Sunday and Sunday for 2 hours a day. At discharge patient plans to return home alone and feels this is a safe discharge. CM discussed availability of home health, rehab services, and medical equipment. CG feels that HH may be a good option since she is only there 2 days a week. CM will continue to follow and will assist as needed with dc plans/needs. Mold Sander: Helen Minaya RN, CCM RN, [facility] DCPIA - Discharge Planning Initial Assessment Updated by [email or web address]: Helen Minaya on 03/21/18 7:30 pm * Is the patient Alert and Oriented? Yes * PCP No PCP * [place] [facility] [place] * Preadmission Environment Home Alone * ADLs Independent * Equipment Rolling Walker * List name and contact numbers for known caregivers / representatives who currently or will assist patient after discharge: Danni Diana - cg - [phone] Sergei Owens - [facility] - [phone] * Verbal permission to speak to the caregivers and representatives has been obtained from the patient. Yes * Community resources currently utilized Private Duty Care * Please name any agencies selected above. [facility] - has been seeing the patient for 3 years. Family lives out of state. If anything is needed she said she will be here. * Additional services required to return to the preadmission environment? No * Can the patient safely return to the preadmission environment? Yes * Has this patient been hospitalized within the prior 30 days at any hospital? No Coverage Notice Reviewer: [id number] Ana Tovar Notice Issued Date-Time: 03/26/2018 14:59 Notice Type: IM Discharge Notice Notice Delivered To: Patient Relationship to Patient: Self Configurator Name: Delivery Method: HAND - Hand Delivered Lidya Days: Prior Verbal Notification: Recipient Understood Notice: Yes Recipient Signature: Yes Med Rec Note Co-signed by Attending: Coverage Notice Comment: Last DP export: 03/26/18 2:11 p Patient Name: DEONTE OWENS Page [id number] at 1642 All edits/amendments must be made on the electronic document DICTATION DATE: 03/28/181640 SMOKING PIPE COATER: [place] 03/28/181640 RPT#: [id number] DC DATE: STATUS: ADM IN [facility] [address] [place] [address] END OF REPORT
--- NOTE | 2018-03-28 16:58 | NUR ---
OT NOTE: PT COMPLETED BED MOB WITH SBA. PT COMPLETED SIT TO STAND WITH MIN A. PT COMPLETED HYGIENE TASK WITH MOD A. THANK YOU, KRYSTIAN ROCHA
--- NOTE | 2018-03-28 18:39 | NUR ---
RESTING WITH EYES CLOSED. BED ALARM IN USE.
[2018-03-28 20:00] VITALS: BP 108/58
--- NOTE | 2018-03-28 20:06 | NUR ---
RESUMED CARE OF PT, LYING IN BED RESPIRATIONS EVEN AND UNLABORED ON 2LPM VIA NC. 69 SR ON TELEMETRY. RIGHT WRIST SALINE LOCKED. CALL LIGHT IN REACH. NO NEEDS VOICED AT THIS TIME. SEE NURSE ASSESSMENT.
[2018-03-29] VITALS: BP 110/60
[2018-03-29 04:00] VITALS: BP 114/87
[2018-03-29 06:31] LABS: ANION GAP 15.1 mmol/L (8-16); CALCIUM 7.7 mg/dL (8.5-10.1); CARBON DIOXIDE 18.6 mmol/L (21.0-32.0); CREATININE - SERUM 1.5 mg/dL (0.6-1.3); POTASSIUM - SERUM 3.7 mmol/L (3.5-5.1)
[2018-03-29 07:00] LABS: BASOPHILS 0.1 % (0-2); EOSINOPHILS 0.1 % (0-7); HEMATOCRIT 32.9 % (42.0-54.0); HEMOGLOBIN 10.5 g/dL (13.5-17.5); IMMATURE GRANULOCYTES 0.7 % (0-5); LYMPHOCYTES 6.8 % (15-50); MCH 29.4 pg (26.0-34.0); MCHC 31.9 g/dL (31.0-37.0); MCV 92.2 fL (80.0-100.0); MEAN PLATELET VOLUME 11.1 fL (7.4-10.4); MONOCYTES 9.3 % (2-11); RBC 3.57 10x6/uL (4.20-6.10); RDW 17.4 % (11.5-14.5); WBC 15.8 10x3/uL (4.8-10.8)
[2018-03-29 07:01] LABS: PLATELET COUNT 232 10x3/uL (130-400)
--- NOTE | 2018-03-29 07:36 | NUR ---
ROUNDING DONE WITH PATIENT LAYING ON BED. BED ALARM IS IN USE. ON 2L PER NC. DNR CODE STATUS. ON HEART MONITOR SHOWING SR, HR 72. RIGHT WIRST PIV SEEN WITH SALINE LOCK. BILATERAL SCD'S ARE ON AND IN USE.
[2018-03-29 09:21] VITALS: BP 119/69
--- NOTE | 2018-03-29 12:19 | NUR ---
COMPLETE BED BATH AND LINEN CHANGE DONE R/T PATIENT SMELLING OF URINE.
[2018-03-29 12:52] VITALS: BP 111/73
--- NOTE | 2018-03-29 14:42 | NUR ---
Rehab Note- Received call from MARY Mai tht the patient has been denied. Have note received notification by phone or fax- call made to Asia [place] with [employer] at [phone], spoke with her stated her coworker Karol reviewed the medical record and stated that the note states "spoke with Shantell at the hospital and that he was denied d/t high level goals and therapy needs not being defined in notes and that can be met at a SNF level of care". Called MARY Mai to notify. A peer to peer can be set up by calling [phone] option 4. Thank you for this referral! Dorinda Bagley RN Clinical Liaison, [facility] Rehab
--- NOTE | 2018-03-29 15:35 | NUR ---
FAMILY AT BEDSIDE AT THIS TIME. BED ALARM ON.
[2018-03-29 16:12] VITALS: BP 122/62
--- NOTE | 2018-03-29 16:16 | MORECARE ---
CASE MANAGEMENT DISCHARGE SUMMARY PATIENT: DEONTE DALE UNIT: [id number] ADM DATE: 03/21/18 AGE: 82 : 33 SEX: M ROOM/BED: D.1850 AUTHOR: RANI,DOC PHYSICIAN: REFERRING PHYSICIAN: ABI MAGALLANES MD DATE OF SERVICE: 03/29/18 Discharge Plan Patient Name: DEONTE DALE Facility: [facility]:[place] : 1935 Planned Disposition: Long Term Facility Anticipated Discharge Date: 03/27/18 Discharge Date: Expected LOS: 6 Initial Reviewer: [id number] Initial Review Date: 03/21/2018 Generated: 03/29/18 5:16 pm Comments DCP- Discharge Planning Updated by [email or web address]: Cornel Portillo on 03/29/18 3:[address] Patient Name: DEONTE DALE Encounter No: [id number] : 1935 Primary Insurance: [employer] MEDICARE PPO or HMO Anticipated DC Date: 03-27-2018 Planned Disposition: Long Term Facility External Planned Provider: [facility], MEDICARE REHAB BED DCP follow-up note: CM SPOKE TO MARILUZ CHOWDARY WHO HAS RECEIVED TELEPHONE MESSAGE FROM INSURANCE THAT THEY DENIED INPATIENT REHAB AND RECOMMENDED HALF-WAY REHAB. CM NOTIFIED MURRAY OF INPATIENT REHAB. CM NOTIFIED PT WHO INITIALLY STATED HE WILL APPEAL THIS HIMSELF AND THEN STATED THAT HE WANTS CM TO SPEAK TO HIS SON REGARDING OPTIONS. PT IS WILLING TO CONSIDER HALF-WAY FOR REHAB. CM SPOKE TO DR. MAGALLANES WHO INFORMED CM SHE IS NOT GOING TO DO PEER TO PEER TO APPEAL INSURANCE DECISION AND AGREES WITH HALF-WAY PLACEMENT FOR REHAB. DR. MAGALLANES SPOKE TO PT AND SON IN ROOM. CM NOTIFIED PT AND HIS SON IN ROOM. PT AND SON AGREE FOR REHAB AT [facility] FIRST CHOICE AND [facility]. CHOICE LETTER SIGNED. IMPORTANT MESSAGE FROM MEDICARE PROVIDED AND EXPLAINED. CM NOTIFIED JENNIFER OF [facility], , OF REFERRAL. CM FAXED REFERRAL TO [facility] AT [phone]. CM WAITING ADMISSION DETERMINATION FROM [facility] INSURANCE DETERMINATION FROM PT'S INSURANCE FOR REHAB AT [facility]. Cornel Portillo, CASE MANAGMENT DCP- Discharge Planning Updated by [id number]: Amanda Tovar on 03/28/18 3:[address] Patient Name: DEONTE DAEL Admission Status: ER Accout number: [id number] Admission Date: 03-21-2018 : 1935 Admission Diagnosis:GASTROINTESTINAL HEMORRHAGE, UNSPECIFIED Attending: ABI MAGALLANES Current LOS: 7 Anticipated DC Date: 03-27-2018 Planned Disposition: Inpatient Rehab Primary Insurance: [employer] MEDICARE PPO or HMO Discharge Planning Comments: CM MET WITH PATIENT AND HIS SON ABOUT DISCHARGE PLANNING. I INFORMED THEM WE ARE WAITING ON AUTH TO GO TO INPT REHAB AND WILL LET THEM KNOW SOON WE KNOW. I ASKED THEM IF THEY WOULD BE INTERESTED IN SNF IF INPT REHAB IS NOT APPROVED AND HE STATES IS NOT SURE. THAT IF HE DID IT WOULD BE GOOD DIPIKA. I TALKED TO THE SON OUTSIDE OF THE ROOM AND HE STATES HE MAY GET HOSPICE INVOLVED IF IT DOESN'T LOOK LIKE HIS DAD WILL HAVE A GOOD RECOVERY. FAMILY WILL CONTACT CM TOMORROW WHEN THEY COME BACK TO THE HOSPITAL. CM WILL FOLLOW AND ASSIST NEEDED WITH DC PLANNING/NEEDS. Manager Story: Amanda Tovar DCP- Discharge Planning Updated by [id number]: Amanda Tovar on 03/26/18 2:[address] Patient Name: DEONTE DALE Admission Status: ER Accout number: [id number] Admission Date: 03-21-2018 : 1935 Admission Diagnosis:GASTROINTESTINAL HEMORRHAGE, UNSPECIFIED Attending: ABI MAGALLANES Current LOS: 5 Anticipated DC Date: 03-27-2018 Planned Disposition: Inpatient Rehab Primary Insurance: [employer] MEDICARE PPO or HMO Discharge Planning Comments: CM SPOKE WITH DR. MAGALLANES TODAY AND THE PLAN IS FOR INPATIENT REHAB. CM CALLED MURRAY AND SHE IS IN ROOM SEEING PATIENT. CM WILL FOLLOW AND ASSIST NEEDED WITH DC PLANNING/NEEDS. IM SIGNED. Manager Story: Amanda Tovar DCP- Discharge Planning Updated by [id number]: Helen Minaya on 03/21/18 6:[address] Patient Name: DEONTE DALE Admission Status: ER Accout number: [id number] Admission Date: 03-21-2018 : 4 Admission Diagnosis: Attending: ABI MAGALLANES Current LOS: 1 Anticipated DC Date: 03-23-2018 Planned Disposition: Primary Insurance: MEDICARE A & B Discharge Planning Comments: CM met with patient and his cg Danni Diana to complete initial dc planning assessment. CM educated patient on the CM role and verbal consent given by patient to complete assessment. Patient lives at home alone but has a cg that comes on Sunday and Sunday for 2 hours a day. At discharge patient plans to return home alone and feels this is a safe discharge. CM discussed availability of home health, rehab services, and medical equipment. CG feels that HH may be a good option since she is only there 2 days a week. CM will continue to follow and will assist as needed with dc plans/needs. Manager Story: Helen Minaya RN, CCM RN, [facility] DCPIA - Discharge Planning Initial Assessment Updated by [id number]: Helen Minaya on 03/21/18 7:30 pm * Is the patient Alert and Oriented? Yes * PCP No PCP * [place] [facility] [place] * Preadmission Environment Home Alone * ADLs Independent * Equipment Rolling Walker * List name and contact numbers for known caregivers / representatives who currently or will assist patient after discharge: Danni ye - [phone] Sergei padilla - [phone] * Verbal permission to speak to the caregivers and representatives has been obtained from the patient. Yes * Community resources currently utilized Private Duty Care * Please name any agencies selected above. [facility] - cg has been seeing the patient for 3 years. Family lives out of state. If anything is needed she said she will be here. * Additional services required to return to the preadmission environment? No * Can the patient safely return to the preadmission environment? Yes * Has this patient been hospitalized within the prior 30 days at any hospital? No External Providers External Provider: [facility] Next Contact Date: 03/29/2018 Service Request Date: Service Type: Resolution: Reviewer: Comments: Coverage Notice Reviewer: [id number] Ana Tovar Notice Issued Date-Time: 03/26/2018 14:59 Notice Type: IM Discharge Notice Notice Delivered To: Patient Relationship to Patient: Self Handwriting Expert Name: Delivery Method: HAND - Hand Delivered Lidya Days: Prior Verbal Notification: Recipient Understood Notice: Yes Recipient Signature: Yes Med Rec Note Co-signed by Attending: Coverage Notice Comment: Last DP export: 03/28/18 3:42 p Patient Name: DEONTE DALE Page 72877 at 1616 All edits/amendments must be made on the electronic document DICTATION DATE: 03/29/181614 TRACK REPAIR LABORER: [place] 03/29/181614 RPT#: [id number] DC DATE: STATUS: ADM IN [facility] [address] [place] [address] END OF REPORT
[2018-03-29 19:00] VITALS: BP 105/60
--- NOTE | 2018-03-29 19:30 | NUR ---
PT RESTING IN BED WATCHING TV. PT IS [place] PASS, 2L O2 NC. RIGHT FOREARM/WRIST PIV 22G S/L. PT EATING ICE CHIPS. PT DENIES ANY NEEDS. NO S/S OF DISTRESS. NAME AND DATE PLACED ON BOARD. PT BED ALARM ON AND ACTIVE. PT WILL CALL FOR ASSIST WHEN NEEDED. WILL CPOC
[2018-03-30] VITALS: BP 101/64
--- NOTE | 2018-03-30 | NUR ---
PT ASLEEP, NO S/S OF DISTRESS. RESP EVEN AND UNLABORED. BEDLOW AND CALL LIGHT IN REACH. WILC POC
[2018-03-30 04:00] VITALS: BP 101/65
--- NOTE | 2018-03-30 06:00 | NUR ---
PT RESTING IN BED. REPOSTIONED AND STRAIGHTED UP FOR THE DAY. PT IS AAO. DENIES ANY NEEDS. NO S/S OF DISTRESS. WILL CPOC
--- NOTE | 2018-03-30 09:59 | NUR ---
TELEMETRY ST. UP AMBULATING WITH PT ASSIST. WILL CONT. PLAN OF CARE.
[2018-03-30 10:34] VITALS: BP 116/67
--- NOTE | 2018-03-30 12:30 | NUR ---
TELEMETRY ST. FAMILY AT BS ASSISTING WITH MEAL. CALL LIGHT IN REACH. WILL CONT. PLAN OF CARE.
[2018-03-30 13:06] VITALS: BP 120/77
--- NOTE | 2018-03-30 15:10 | NUR ---
STANDING UP SOB WITH FAMILY ASSIST. BUTT PASTE APPLIED TO ABRRAISION TO RIGHT BUTTOCKS. WILL CONT. PLAN OF CARE.
[2018-03-30 16:17] VITALS: BP 108/67
[2018-03-30 19:54] VITALS: BP 105/60
--- NOTE | 2018-03-30 20:45 | NUR ---
INITIAL ROUNDS AND ASSESSMENT COMPLETED. PT RESTING IN BED. AWAKE AND ALERT.96 SR PER TELEMETRY. O2 @ 2L/NC WITH NON LABORED RESPIRATIONS. SALINE LOCK TO RIGHT WRIST.MONITOR AND CPOC.
--- NOTE | 2018-03-31 00:11 | NUR ---
BEDTIME MEDS GIVEN. PT HAS O2 @ 2L/NC IN PLACE AND SAYS IT IS NOT WORKING. REPOSITIONED O2 AND PT NOW SAYING IT IS WORKING FINE. WILL MONITOR AND CPOC.
[2018-03-31 03:44] VITALS: BP 123/66
[2018-03-31 09:27] VITALS: BP 116/81
[2018-03-31 11:42] VITALS: BP 107/59
[2018-03-31 15:57] VITALS: BP 98/58
[2018-03-31 20:00] VITALS: BP 113/62
--- NOTE | 2018-03-31 20:28 | NUR ---
INITIAL ROUNDS AND ASSESSMENT COMPLETED. PT RESTING IN BED WITH NO DISTRESS NOTED.FALL PRECAUTIONS/BED ALARM IN PLACE. MONITOR AND CPOC.
--- NOTE | 2018-03-31 22:43 | NUR ---
BEDTIME MEDS HAVE BEEN GIVEN. PT RESTING WITH NO DISTRESS. REQUESTED CUP OF ICE PROVIDED. STRAIGHTENED OUT COVERS. NO OTHER NEEDS VOICED. MONITOR AND CPOC.
[2018-04-01 04:00] VITALS: BP 118/70
--- NOTE | 2018-04-01 06:50 | NUR ---
REPORT TO OFF GOING NURSE. PT RESTING WITH NO DISTRESS. MONITOR AND CPOC.
--- NOTE | 2018-04-01 07:30 | NUR ---
RECEIVED PT IN BED AAOX4 RESP UNLABORED DENIES ANY DISCOMFORT AT THIS TIME NAD NOTED
--- NOTE | 2018-04-01 08:40 | MORECARE ---
CASE MANAGEMENT DISCHARGE SUMMARY PATIENT: DEONTE OWENS UNIT: [id number] ADM DATE: 03/21/18 AGE: 82 : 33 SEX: M ROOM/BED: D.6417 AUTHOR: RANI,DOC PHYSICIAN: REFERRING PHYSICIAN: ABI MAGALLANES MD DATE OF SERVICE: 04/01/18 Discharge Plan Patient Name: DEONTE OWENS Facility: [facility]:[place] : 1935 Planned Disposition: Correction Facility Anticipated Discharge Date: 03/27/18 Discharge Date: Expected LOS: 6 Initial Reviewer: [id number] Initial Review Date: 03/21/2018 Generated: 04/01/18 9:40 am Comments DCP- Discharge Planning Updated by [id number]: Cornel Portillo on 04/01/18 7:[address] Patient Name: DEONTE OWENS Encounter No: [id number] : 1935 Primary Insurance: [employer]ETNA MEDICARE PPO or HMO Anticipated DC Date: 03-27-2018 Planned Disposition: Correction Facility External Planned Provider: [facility], MEDICARE REHAB BED DCP follow-up note: CM FAXED REFERRAL UPDATE TO [facility] AT [phone]. CM WAITING ADMISSION DETERMINATION FROM [facility] WELL INSURANCE DETERMINATION FROM PT'S INSURANCE FOR REHAB AT [facility]. Cornel Portillo, CASE MANAGMENT DCP- Discharge Planning Updated by [id number]: Cornel Portillo on 03/29/18 3:[address] Patient Name: DEONTE OWENS Encounter No: [id number] : 1935 Primary Insurance: AETNA MEDICARE PPO or HMO Anticipated DC Date: 03-27-2018 Planned Disposition: Correction Facility External Planned Provider: [facility], MEDICARE REHAB BED DCP follow-up note: CM SPOKE TO MARILUZ CHOWDARY WHO HAS RECEIVED TELEPHONE MESSAGE FROM INSURANCE THAT THEY DENIED INPATIENT REHAB AND RECOMMENDED [facility]. CM NOTIFIED [facility] OF INPATIENT REHAB. CM NOTIFIED PT WHO INITIALLY STATED HE WILL APPEAL THIS HIMSELF AND THEN STATED THAT HE WANTS CM TO SPEAK TO HIS SON REGARDING OPTIONS. PT IS WILLING TO CONSIDER [facility] FOR REHAB. CM SPOKE TO DR. MAGALLANES WHO INFORMED CM SHE IS NOT GOING TO DO PEER TO PEER TO APPEAL INSURANCE DECISION AND AGREES WITH [facility] PLACEMENT FOR REHAB. DR. MAGALLANES SPOKE TO PT AND SON IN ROOM. CM NOTIFIED PT AND HIS SON IN ROOM. PT AND SON AGREE FOR REHAB AT [facility] FIRST CHOICE AND [facility] SECOND CHOICE. CHOICE LETTER SIGNED. IMPORTANT MESSAGE FROM MEDICARE PROVIDED AND EXPLAINED. CM NOTIFIED JENNIFER OF [facility], , OF REFERRAL. CM FAXED REFERRAL TO [facility] AT [phone]. CM WAITING ADMISSION DETERMINATION FROM [facility] WELL INSURANCE DETERMINATION FROM PT'S INSURANCE FOR REHAB AT [facility]. Cornel Portillo, CASE MANAGMENT DCP- Discharge Planning Updated by [id number]: Amanda Tovar on 03/28/18 3:[address] Patient Name: DEONTE OWENS Admission Status: ER Accout number: [id number] Admission Date: 03-21-2018 : 1935 Admission Diagnosis:GASTROINTESTINAL HEMORRHAGE, UNSPECIFIED Attending: ABI MAGALLANES Current LOS: 7 Anticipated DC Date: 03-27-2018 Planned Disposition: Inpatient Rehab Primary Insurance: AETNA MEDICARE PPO or HMO Discharge Planning Comments: CM MET WITH PATIENT AND HIS SON ABOUT DISCHARGE PLANNING. I INFORMED THEM WE ARE WAITING ON AUTH TO GO TO INPT REHAB AND WILL LET THEM KNOW SOON WE KNOW. I ASKED THEM IF THEY WOULD BE INTERESTED IN SNF IF INPT REHAB IS NOT APPROVED AND HE STATES IS NOT SURE. THAT IF HE DID IT WOULD BE GOOD DIPIKA. I TALKED TO THE SON OUTSIDE OF THE ROOM AND HE STATES HE MAY GET HOSPICE INVOLVED IF IT DOESN'T LOOK LIKE HIS DAD WILL HAVE A GOOD RECOVERY. FAMILY WILL CONTACT CM TOMORROW WHEN THEY COME BACK TO THE HOSPITAL. CM WILL FOLLOW AND ASSIST NEEDED WITH DC PLANNING/NEEDS. Service Station Cashier: Amanda Tovar DCP- Discharge Planning Updated by [id number]: Amanda Tovar on 03/26/18 2:[address] Patient Name: DEONTE OWENS Admission Status: ER Accout number: [id number] Admission Date: 03-21-2018 : 1935 Admission Diagnosis:GASTROINTESTINAL HEMORRHAGE, UNSPECIFIED Attending: ABI MAGALLANES Current LOS: 5 Anticipated DC Date: 03-27-2018 Planned Disposition: Inpatient Rehab Primary Insurance: AETNA MEDICARE PPO or HMO Discharge Planning Comments: CM SPOKE WITH DR. MAGALLANES TODAY AND THE PLAN IS FOR INPATIENT REHAB. CM CALLED [facility] AND SHE IS IN ROOM SEEING PATIENT. CM WILL FOLLOW AND ASSIST NEEDED WITH DC PLANNING/NEEDS. IM SIGNED. Service Station Cashier: Amanda Tovar DCP- Discharge Planning Updated by [id number]: Helen Minaya on 03/21/18 6:[address] Patient Name: DEONTE OWENS Admission Status: ER Accout number: [id number] Admission Date: 03-21-2018 : 1935 Admission Diagnosis: Attending: ABI MAGALLANES Current LOS: 1 Anticipated DC Date: 03-23-2018 Planned Disposition: Primary Insurance: MEDICARE A & B Discharge Planning Comments: CM met with patient and his cg Danni Diana to complete initial dc planning assessment. CM educated patient on the CM role and verbal consent given by patient to complete assessment. Patient lives at home alone but has a cg that comes on Sunday and Sunday for 2 hours a day. At discharge patient plans to return home alone and feels this is a safe discharge. CM discussed availability of home health, rehab services, and medical equipment. CG feels that HH may be a good option since she is only there 2 days a week. CM will continue to follow and will assist as needed with dc plans/needs. Service Station Cashier: Helen Minaya RN, CCM RN, [facility] DCPIA - Discharge Planning Initial Assessment Updated by [id number]: Helen Minaya on 03/21/18 7:30 pm * Is the patient Alert and Oriented? Yes * PCP No PCP * [place] [facility] [place] * Preadmission Environment Home Alone * ADLs Independent * Equipment Rolling Walker * List name and contact numbers for known caregivers / representatives who currently or will assist patient after discharge: Danni Diana - - [phone] Sergei Owens - son - [phone] * Verbal permission to speak to the caregivers and representatives has been obtained from the patient. Yes * Community resources currently utilized Private Duty Care * Please name any agencies selected above. [facility] [place] 3 [place]. Family lives out of state. If anything is needed she said she will be here. * Additional services required to return to the preadmission environment? No * Can the patient safely return to the preadmission environment? Yes * Has this patient been hospitalized within the prior 30 days at any hospital? No Coverage Notice Reviewer: [id number] Ana Amandamaegan Tovar Notice Issued Date-Time: 03/26/2018 14:59 Notice Type: IM Discharge Notice Notice Delivered To: Patient Relationship to Patient: Self Gas Manager Name: Delivery Method: HAND - Hand Delivered Lidya Days: Prior Verbal Notification: Recipient Understood Notice: Yes Recipient Signature: Yes Med Rec Note Co-signed by Attending: Coverage Notice Comment: Reviewer: [id number] Ana Portillo Notice Issued Date-Time: 03/29/2018 15:25 Notice Type: IM Discharge Notice Notice Delivered To: Family Member Relationship to Patient: Son Gas Manager Name: SERGEI OWENS Delivery Method: HAND - Hand Delivered Ldiya Days: Prior Verbal Notification: Recipient Understood Notice: Yes Recipient Signature: Yes Med Rec Note Co-signed by Attending: Coverage Notice Comment: Reviewer: [id number] Portillo Notice Issued Date-Time: 03/29/2018 15:25 Notice Type: Patient Choice Letter Notice Delivered To: Family Member Relationship to Patient: Son Gas Manager Name: SERGEI OWENS Delivery Method: HAND - Hand Delivered Lidya Days: Prior Verbal Notification: Recipient Understood Notice: Yes Recipient Signature: Yes Med Rec Note Co-signed by Attending: Coverage Notice Comment: 1- SIRIA 2-[place] Last DP export: 03/29/18 3:16 p Patient Name: DEONTE OWENS Page 13329 at 0840 All edits/amendments must be made on the electronic document DICTATION DATE: 04/01/18839 CABINET ASSEMBLER: [place] 04/01/18 0840 RPT#: [id number] DC DATE: STATUS: ADM IN [facility] [address] [place] [address] END OF REPORT
[2018-04-01 08:56] VITALS: BP 124/61
--- NOTE | 2018-04-01 09:34 | NUR ---
OT NOTE: BED MOB WITH EXT TIME AND MOD ASSIST FOR SUPINE TO SIT ; MOD ASSIST FOR SIT TO STAND. PT REPORTED FEELING VERY WEAK, BUT ABLE TO AMB APPROX 10-12 FT WITH STD WALKER. BACK IN BED WITHOUT ASSIST; ENCOURAGED PT TO SIT UP, HE WAS QUESTIONING WHY HE WAS SO WEAK, HOWEVER, DID NOT FEEL LIKE SITTING UP IN CHAIR; MIN ASSIST WITH SIMPLE GROOMING AND UE DRESSING WITH GOWN. KAMI HERNANDEZ, OTR/L
--- NOTE | 2018-04-01 14:52 | MORECARE ---
CASE MANAGEMENT DISCHARGE SUMMARY PATIENT: DEONTE OWENS UNIT: [id number] ADM DATE: 03/21/18 AGE: 82 : 33 SEX: M ROOM/BED: D.1493 AUTHOR: RANI,DOC PHYSICIAN: REFERRING PHYSICIAN: ABI MAGALLANES MD DATE OF SERVICE: 04/01/18 Discharge Plan Patient Name: DEONTE OWENS Facility: [facility]:[place] : 1935 Planned Disposition: Long-Term Facility Anticipated Discharge Date: 04/02/18 Discharge Date: Expected LOS: 12 Initial Reviewer: [id number] Initial Review Date: 03/21/2018 Generated: 04/01/18 3:51 pm Comments DCP- Discharge Planning Updated by [id number]: Cornel Portillo on 04/01/18 1:[address] Patient Name: DEONTE OWENS Encounter No: [id number] : 1935 Primary Insurance: AETNA MEDICARE PPO or HMO Anticipated DC Date: 03-27-2018 Planned Disposition: Long-Term Facility External Planned Provider: [facility], MEDICARE REHAB BED DCP follow-up note: CM FAXED REFERRAL UPDATE TO [facility] AT [phone]. CM WAITING ADMISSION DETERMINATION FROM [facility] WELL INSURANCE DETERMINATION FROM PT'S INSURANCE FOR REHAB AT [facility]. Cornle Portillo, CASE MANAGMENT Appended by Cornel Portillo on 04/01/2018 14:51 MILL LABORER: CM SPOKE TO PT AND PT'S SON, SERGEI LOVE. BOTH IN AGREEMENT WITH DISCHARGE TO REHAB. SERGEI HAS BEEN TO BOTH [facility] AND [facility], HE PREFERS [place] PLANNED. IMPORTANT MESSAGE FROM MEDICARE PROVIDED AND EXPLAINED. CM WAITING ADMISSION DETERMINATION FROM [facility] WELL INSURANCE DETERMINATION FROM PT'S INSURANCE FOR REHAB AT [facility]. Cornel Portillo, CASE MANAGMENT DCP- Discharge Planning Updated by [id number]: Cornel Portillo on 03/29/18 3:[address] Patient Name: DEONTE OWENS Encounter No: [id number] : 1935 Primary Insurance: AETNA MEDICARE PPO or HMO Anticipated DC Date: 03-27-2018 Planned Disposition: Long-Term Facility External Planned Provider: [facility], MEDICARE REHAB BED DCP follow-up note: CM SPOKE TO RN MARY CHOWDARY WHO HAS RECEIVED TELEPHONE MESSAGE FROM INSURANCE THAT THEY DENIED INPATIENT REHAB AND RECOMMENDED RETIREMENT REHAB. CM NOTIFIED [facility] OF INPATIENT REHAB. CM NOTIFIED PT WHO INITIALLY STATED HE WILL APPEAL THIS HIMSELF AND THEN STATED THAT HE WANTS CM TO SPEAK TO HIS SON REGARDING OPTIONS. PT IS WILLING TO CONSIDER RETIREMENT FOR REHAB. CM SPOKE TO DR. MAGALLANES WHO INFORMED CM SHE IS NOT GOING TO DO PEER TO PEER TO APPEAL INSURANCE DECISION AND AGREES WITH RETIREMENT PLACEMENT FOR REHAB. DR. MAGALLANES SPOKE TO PT AND SON IN ROOM. CM NOTIFIED PT AND HIS SON IN ROOM. PT AND SON AGREE FOR REHAB AT [facility] FIRST CHOICE AND [facility] SECOND CHOICE. CHOICE LETTER SIGNED. IMPORTANT MESSAGE FROM MEDICARE PROVIDED AND EXPLAINED. CM NOTIFIED JENNIFER OF [facility], , OF REFERRAL. CM FAXED REFERRAL TO [facility] AT [phone]. CM WAITING ADMISSION DETERMINATION FROM [facility] WE[facility] INSURANCE DETERMINATION FROM PT'S INSURANCE FOR REHAB AT [facility]. Cornel Portillo, CASE MANAGMENT DCP- Discharge Planning Updated by [id number]: Amanda Tovar on 03/28/18 3:[address] Patient Name: DEONTE OWENS Admission Status: ER Accout number: [id number] Admission Date: 03-21-2018 : 1935 Admission Diagnosis:GASTROINTESTINAL HEMORRHAGE, UNSPECIFIED Attending: ABI MAGALLANES Current LOS: 7 Anticipated DC Date: 03-27-2018 Planned Disposition: Inpatient Rehab Primary Insurance: AETNA MEDICARE PPO or HMO Discharge Planning Comments: CM MET WITH PATIENT AND HIS SON ABOUT DISCHARGE PLANNING. I INFORMED THEM WE ARE WAITING ON AUTH TO GO TO INPT REHAB AND WILL LET THEM KNOW SOON WE KNOW. I ASKED THEM IF THEY WOULD BE INTERESTED IN SNF IF INPT REHAB IS NOT APPROVED AND HE STATES IS NOT SURE. THAT IF HE DID IT WOULD BE GOOD DIPIKA. I TALKED TO THE SON OUTSIDE OF THE ROOM AND HE STATES HE MAY GET HOSPICE INVOLVED IF IT DOESN'T LOOK LIKE HIS DAD WILL HAVE A GOOD RECOVERY. FAMILY WILL CONTACT CM TOMORROW WHEN THEY COME BACK TO THE HOSPITAL. CM WILL FOLLOW AND ASSIST NEEDED WITH DC PLANNING/NEEDS. Bleach Range Operator: Amanda La DCP- Discharge Planning Updated by [id number]: Amanda Tovar on 03/26/18 2:[address] Patient Name: DEONTE OWENS Admission Status: ER Accout number: [id number] Admission Date: 03-21-2018 : 1935 Admission Diagnosis:GASTROINTESTINAL HEMORRHAGE, UNSPECIFIED Attending: ABI MAGALLANES Current LOS: 5 Anticipated DC Date: 03-27-2018 Planned Disposition: Inpatient Rehab Primary Insurance: AETNA MEDICARE PPO or HMO Discharge Planning Comments: CM SPOKE WITH DR. MAGALLANES TODAY AND THE PLAN IS FOR INPATIENT REHAB. CM CALLED [facility] AND SHE IS IN ROOM SEEING PATIENT. CM WILL FOLLOW AND ASSIST NEEDED WITH DC PLANNING/NEEDS. IM SIGNED. Bleach Range Operator: Amanda La DCP- Discharge Planning Updated by [id number]: Helen Minaya on 03/21/18 6:[address] Patient Name: DEONTE OWENS Admission Status: ER Accout number: [id number] Admission Date: 03-21-2018 : 1935 Admission Diagnosis: Attending: ABI MAGALLANES Current LOS: 1 Anticipated DC Date: 03-23-2018 Planned Disposition: Primary Insurance: MEDICARE A & B Discharge Planning Comments: CM met with patient and his cg Danni Diana to complete initial dc planning assessment. CM educated patient on the CM role and verbal consent given by patient to complete assessment. Patient lives at home alone but has a cg that comes on Sunday and Sunday for 2 hours a day. At discharge patient plans to return home alone and feels this is a safe discharge. CM discussed availability of home health, rehab services, and medical equipment. CG feels that HH may be a good option since she is only there 2 days a week. CM will continue to follow and will assist as needed with dc plans/needs. Bleach Range Operator: Helen Minaya RN, CCM RN, CCM DCPIA - Discharge Planning Initial Assessment Updated by [id number]: Helen Minaya on 03/21/18 7:30 pm * Is the patient Alert and Oriented? Yes * PCP No PCP * [place] [facility] [place] * Preadmission Environment Home Alone * ADLs Independent * Equipment Rolling Walker * List name and contact numbers for known caregivers / representatives who currently or will assist patient after discharge: Danni ye - [phone] Sergei Owens - valerie - [phone] * Verbal permission to speak to the caregivers and representatives has been obtained from the patient. Yes * Community resources currently utilized Private Duty Care * Please name any agencies selected above. [facility] has been seeing the patient for 3 years. Family lives out of state. If anything is needed she said she will be here. * Additional services required to return to the preadmission environment? No * Can the patient safely return to the preadmission environment? Yes * Has this patient been hospitalized within the prior 30 days at any hospital? No Coverage Notice Reviewer: [id number] Ana Tovar Notice Issued Date-Time: 03/26/2018 14:59 Notice Type: IM Discharge Notice Notice Delivered To: Patient Relationship to Patient: Self Senior Fund Accountant Name: Delivery Method: HAND - Hand Delivered Lidya Days: Prior Verbal Notification: Recipient Understood Notice: Yes Recipient Signature: Yes Med Rec Note Co-signed by Attending: Coverage Notice Comment: Reviewer: [id number] Portillo Notice Issued Date-Time: 03/29/2018 15:25 Notice Type: Patient Choice Letter Notice Delivered To: Family Member Relationship to Patient: Son Senior Fund Accountant Name: SERGEI OWENS Delivery Method: HAND - Hand Delivered Lidya Days: Prior Verbal Notification: Recipient Understood Notice: Yes Recipient Signature: Yes Med Rec Note Co-signed by Attending: Coverage Notice Comment: Bruno WILLIAM Reviewer: [id number] Ana Portillo Notice Issued Date-Time: 04/01/2018 14:45 Notice Type: IM Discharge Notice Notice Delivered To: Family Member Relationship to Patient: Son Senior Fund Accountant Name: SERGEI OWENS Delivery Method: HAND - Hand Delivered Lidya Days: Prior Verbal Notification: Recipient Understood Notice: Yes Recipient Signature: Yes Med Rec Note Co-signed by Attending: Coverage Notice Comment: Reviewer: [id number] Portillo Notice Issued Date-Time: 03/29/2018 15:25 Notice Type: IM Discharge Notice Notice Delivered To: Family Member Relationship to Patient: Son Senior Fund Accountant Name: SERGEI OWENS Delivery Method: HAND - Hand Delivered Lidya Days: Prior Verbal Notification: Recipient Understood Notice: Yes Recipient Signature: Yes Med Rec Note Co-signed by Attending: Coverage Notice Comment: Last DP export: 04/01/18 7:40 a Patient Name: DEONTE OWENS Page [phone] at 1452 All edits/amendments must be made on the electronic document DICTATION DATE: 04/01/181450 MERCHANDISING INTERNSHIP: [place] 04/01/181450 RPT#: [id number] DC DATE: STATUS: ADM IN [facility] [address] [place] [address] END OF REPORT
[2018-04-01 19:00] VITALS: BP 132/75
--- NOTE | 2018-04-01 19:45 | NUR ---
INITIAL ROUNDS AND ASSESSMENT COMPLETED. PT RESTING IN BED WITH EYES CLOSED. O2 @ 2L/NC WITH NONLABORED RESPIRATIONS. SEE ASSESSMENT. MONITOR AND CPOC.
--- NOTE | 2018-04-01 21:53 | NUR ---
BEDTIME MEDS GIVEN. MONITOR AND CPOC.
--- NOTE | 2018-04-01 22:15 | NUR ---
BEDTIME MEDS GIVEN. PT RESTING WITH NO DISTRESS. O2 @ 2L/NC IN PLACE. VOICES NO NEEDS. MONITOR AND CPOC.
--- NOTE | 2018-04-02 02:11 | NUR ---
RESTING IN BED WITH NO DISTRESS. MONITOR AND CPOC.
[2018-04-02 04:00] VITALS: BP 99/57
--- NOTE | 2018-04-02 06:45 | NUR ---
PT HAS SLEPT WITH NO DISTRESS. HE WAS OFFERED A BED BATH OR SHOWER ASSISTANCE BY [employer] [facility] 4 TIMES AND EACH TIME HE DECLINED. PT FEELS HE IS TOO WEAK. NO CHANGES FROM INITIAL SHIFT ASSESSMENT. WILL MONITOR AND CPOC. REPORT TO ONCOMING NURSE.
[2018-04-02 07:00] VITALS: BP 110/54
--- NOTE | 2018-04-02 07:30 | NUR ---
RECEIVED PT IN BED EYES CLOSED RESP UNLABORED NAD NOTED
--- NOTE | 2018-04-02 09:52 | NUR ---
Rehab Note- Voicemail left from [facility] with [employer] insurance stated they never received information about setting up a peer to peer, but an expedited appeals could be done by calling [phone], reference #[id number]. Any furhter questions can call [phone]. Spoke with MARY Mai. Thank you for this referral! Dorinda Bagley RN Clincial Liaison, [facility] Rehab
--- NOTE | 2018-04-02 11:57 | NUR ---
OT NOTE: PT WAS CLEANED..INCONTINENT OF URINE; PT WITH DIFFICULTY BREATHING AND WAS INSTRUCTED IN BREATHING TECH AND 02 CANULA WAS ADJUSTED PROPERLY. BED MOB WITH MOD ASSIST; INSTRUCTED/EDUCATED ON IMPORTANCE OF SITTING UP VS LIEING IN BED. PT IN AGREEMENT. AMB IN ROOM WITH MIN ASSIST APPROX 10-12 FT WITH RW. VERY FATIGUED AT THIS TIME BUT AGREEABLE TO SIT UP IN CHAIR. INSTRUCTED ON UE AND LE EXS THAT COULD BE PERFORMED WHILE SITTING UP. KAMI HERNANDEZ, OTR/L
--- NOTE | 2018-04-02 12:16 | MORECARE ---
CASE MANAGEMENT DISCHARGE SUMMARY PATIENT: DEONTE OWENS UNIT: [id number] ADM DATE: 03/21/18 AGE: 82 : 33 SEX: M ROOM/BED: D.3983 AUTHOR: RANI,DOC PHYSICIAN: REFERRING PHYSICIAN: ABI MAGALLANES MD DATE OF SERVICE: 04/02/18 Discharge Plan Patient Name: DEONTE OWENS Facility: [facility]:[place] : 1935 Planned Disposition: Senior Living Facility Anticipated Discharge Date: 04/02/18 Discharge Date: Expected LOS: 12 Initial Reviewer: [id number] Initial Review Date: 03/21/2018 Generated: 04/02/18 1:15 pm Comments DCP- Discharge Planning Updated by [email or web address]: Cornel Portillo on 04/01/18 1:[address] Patient Name: DEONTE OWENS Encounter No: [id number] : 1935 Primary Insurance: AETNA MEDICARE PPO or HMO Anticipated DC Date: 03-27-2018 Planned Disposition: Senior Living Facility External Planned Provider: [facility], MEDICARE REHAB BED DCP follow-up note: CM FAXED REFERRAL UPDATE TO [facility] AT [phone]. CM WAITING ADMISSION DETERMINATION FROM [facility] WELL INSURANCE DETERMINATION FROM PT'S INSURANCE FOR REHAB AT [facility]. 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 BOTH IN AGREEMENT WITH DISCHARGE TO REHAB. SERGEI HAS BEEN TO BOTH [facility] AND [facility], HE PREFERS [facility]. IMPORTANT MESSAGE FROM MEDICARE PROVIDED AND EXPLAINED. CM WAITING ADMISSION DETERMINATION FROM [facility] WELL INSURANCE DETERMINATION FROM PT'S INSURANCE FOR REHAB AT [facility]. Cornel Portillo, CASE MANAGMENT DCP- Discharge Planning Updated by [id number]: Cornel Portillo on 03/29/18 3:[address] Patient Name: DEONTE OWENS Encounter No: [id number] : 1935 Primary Insurance: AETNA MEDICARE PPO or HMO Anticipated DC Date: 03-27-2018 Planned Disposition: Senior Living Facility External Planned Provider: [facility], MEDICARE REHAB BED DCP follow-up note: CM SPOKE TO RN MARY CHOWDARY WHO HAS RECEIVED TELEPHONE MESSAGE FROM INSURANCE THAT THEY DENIED INPATIENT REHAB AND RECOMMENDED INTERMEDIATE REHAB. CM NOTIFIED [facility] OF INPATIENT REHAB. CM NOTIFIED PT WHO INITIALLY STATED HE WILL APPEAL THIS HIMSELF AND THEN STATED THAT HE WANTS CM TO SPEAK TO HIS SON REGARDING OPTIONS. PT IS WILLING TO CONSIDER INTERMEDIATE FOR REHAB. CM SPOKE TO DR. MAGALLANES WHO INFORMED CM SHE IS NOT GOING TO DO PEER TO PEER TO APPEAL INSURANCE DECISION AND AGREES WITH INTERMEDIATE PLACEMENT FOR REHAB. DR. MAGALLANES SPOKE TO PT AND SON IN ROOM. CM NOTIFIED PT AND HIS SON IN ROOM. PT AND SON AGREE FOR REHAB AT [facility] FIRST CHOICE AND [facility] SECOND CHOICE. CHOICE LETTER SIGNED. IMPORTANT MESSAGE FROM MEDICARE PROVIDED AND EXPLAINED. CM NOTIFIED JENNIFER OF [facility], , OF REFERRAL. CM FAXED REFERRAL TO [facility] AT [phone]. CM WAITING ADMISSION DETERMINATION FROM [facility] WELL INSURANCE DETERMINATION FROM PT'S INSURANCE FOR REHAB AT [facility]. Cornel Portillo, CASE MANAGMENT DCP- Discharge Planning Updated by [id number]: Amanda Tovar on 03/28/18 3:[address] Patient Name: DEONTE OWENS Admission Status: ER Accout number: [id number] Admission Date: 03-21-2018 : 1935 Admission Diagnosis:GASTROINTESTINAL HEMORRHAGE, UNSPECIFIED Attending: ABI MAGALLANES Current LOS: 7 Anticipated DC Date: 03-27-2018 Planned Disposition: Inpatient Rehab Primary Insurance: AETNA MEDICARE PPO or HMO Discharge Planning Comments: CM MET WITH PATIENT AND HIS SON ABOUT DISCHARGE PLANNING. I INFORMED THEM WE ARE WAITING ON AUTH TO GO TO INPT REHAB AND WILL LET THEM KNOW SOON WE KNOW. I ASKED THEM IF THEY WOULD BE INTERESTED IN SNF IF INPT REHAB IS NOT APPROVED AND HE STATES IS NOT SURE. THAT IF HE DID IT WOULD BE GOOD DIPIKA. I TALKED TO THE SON OUTSIDE OF THE ROOM AND HE STATES HE MAY GET HOSPICE INVOLVED IF IT DOESN'T LOOK LIKE HIS DAD WILL HAVE A GOOD RECOVERY. FAMILY WILL CONTACT CM TOMORROW WHEN THEY COME BACK TO THE HOSPITAL. CM WILL FOLLOW AND ASSIST NEEDED WITH DC PLANNING/NEEDS. Solid Waste Truck Driver: Amanda La DCP- Discharge Planning Updated by [email or web address]: Amanda Tovar on 03/26/18 2:[address] Patient Name: DEOTNE OWENS Admission Status: ER Accout number: [id number] Admission Date: 03-21-2018 : 1935 Admission Diagnosis:GASTROINTESTINAL HEMORRHAGE, UNSPECIFIED Attending: ABI MAGALLANES Current LOS: 5 Anticipated DC Date: 03-27-2018 Planned Disposition: Inpatient Rehab Primary Insurance: AETNA MEDICARE PPO or HMO Discharge Planning Comments: CM SPOKE WITH DR. MAGALLANES TODAY AND THE PLAN IS FOR INPATIENT REHAB. CM CALLED [facility] AND SHE IS IN ROOM SEEING PATIENT. CM WILL FOLLOW AND ASSIST NEEDED WITH DC PLANNING/NEEDS. IM SIGNED. Solid Waste Truck Driver: Amanda La DCP- Discharge Planning Updated by [id number]: Helen Minaya on 03/21/18 6:[address] Patient Name: DEONTE OWENS Admission Status: ER Accout number: [id number] Admission Date: 03-21-2018 : 1935 Admission Diagnosis: Attending: ABI MAGALLANES Current LOS: 1 Anticipated DC Date: 03-23-2018 Planned Disposition: Primary Insurance: MEDICARE A & B Discharge Planning Comments: CM met with patient and his cg Danni Diana to complete initial dc planning assessment. CM educated patient on the CM role and verbal consent given by patient to complete assessment. Patient lives at home alone but has a cg that comes on Sunday and Sunday for 2 hours a day. At discharge patient plans to return home alone and feels this is a safe discharge. CM discussed availability of home health, rehab services, and medical equipment. CG feels that HH may be a good option since she is only there 2 days a week. CM will continue to follow and will assist as needed with dc plans/needs. Solid Waste Truck Driver: Helen Minaya RN, CCM RN, CCM DCPIA - Discharge Planning Initial Assessment Updated by [id number]: Helen Minaya on 03/21/18 7:30 pm * Is the patient Alert and Oriented? Yes * PCP No PCP * [place] [facility] [place] * Preadmission Environment Home Alone * ADLs Independent * Equipment Rolling Walker * List name and contact numbers for known caregivers / representatives who currently or will assist patient after discharge: Danni ye - [phone] Sergei Owens - valerie - [phone] * Verbal permission to speak to the caregivers and representatives has been obtained from the patient. Yes * Community resources currently utilized Private Duty Care * Please name any agencies selected above. [facility] ye has been seeing the patient for 3 years. Family lives out of state. If anything is needed she said she will be here. * Additional services required to return to the preadmission environment? No * Can the patient safely return to the preadmission environment? Yes * Has this patient been hospitalized within the prior 30 days at any hospital? No Coverage Notice Reviewer: [id number] Ana Tovar Notice Issued Date-Time: 03/26/2018 14:59 Notice Type: IM Discharge Notice Notice Delivered To: Patient Relationship to Patient: Self Portfolio Lead Name: Delivery Method: HAND - Hand Delivered Lidya Days: Prior Verbal Notification: Recipient Understood Notice: Yes Recipient Signature: Yes Med Rec Note Co-signed by Attending: Coverage Notice Comment: Reviewer: [id number] Portillo Notice Issued Date-Time: 03/29/2018 15:25 Notice Type: Patient Choice Letter Notice Delivered To: Family Member Relationship to Patient: Son Portfolio Lead Name: SERGEI OWENS Delivery Method: HAND - Hand Delivered Lidya Days: Prior Verbal Notification: Recipient Understood Notice: Yes Recipient Signature: Yes Med Rec Note Co-signed by Attending: Coverage Notice Comment: Bruno WILLIAM Reviewer: [id number] Ana Portillo Notice Issued Date-Time: 04/01/2018 14:45 Notice Type: IM Discharge Notice Notice Delivered To: Family Member Relationship to Patient: Son Portfolio Lead Name: SERGEI OWENS Delivery Method: HAND - Hand Delivered Lidya Days: Prior Verbal Notification: Recipient Understood Notice: Yes Recipient Signature: Yes Med Rec Note Co-signed by Attending: Coverage Notice Comment: Reviewer: [id number] Portillo Notice Issued Date-Time: 03/29/2018 15:25 Notice Type: IM Discharge Notice Notice Delivered To: Family Member Relationship to Patient: Son Portfolio Lead Name: SERGEI OWENS Delivery Method: HAND - Hand Delivered Lidya Days: Prior Verbal Notification: Recipient Understood Notice: Yes Recipient Signature: Yes Med Rec Note Co-signed by Attending: Coverage Notice Comment: Last DP export: 04/01/18 1:51 p Patient Name: DEONTE OWENS Page 37575 at 1216 All edits/amendments must be made on the electronic document DICTATION DATE: 04/02/181214 SHOP 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
--- NOTE | 2018-04-02 12:46 | NUR ---
Nutrition follow-up: Visited with pt during breakfast. Pt eating a good breakfast with no c/o at this time. PO intake of a Regular diet has been ~50% of meals. No new labs to review at this time Wt: 184# Will continue to provide food choices and encourage po intake. RDN following.
[2018-04-02 13:02] VITALS: BP 104/60
--- NOTE | 2018-04-02 16:28 | NUR ---
OT NOTE: PT COMPLETED BED MOB WITH MIN/CGA. PT COMPLETED EOB SITTING WITH CGA. PT COMPLETED SIT TO STAND WITH MIN A. PT COMPLETED HYGIENE TASK WITH MOD A. PT COMPLETED UE AROM AXS. PT IS EASILY FATIGUED AND REQUIRES REST BREAKS. THANK YOU, KRYSTIAN ROCHA
[2018-04-02 16:31] VITALS: BP 104/56
[2018-04-02 19:00] VITALS: BP 110/53
[2018-04-02 19:26] LABS: BASOPHILS 0 % (0-2); EOSINOPHILS 0.1 % (0-7); HEMATOCRIT 35.7 % (42.0-54.0); HEMOGLOBIN 11.4 g/dL (13.5-17.5); IMMATURE GRANULOCYTES 0.3 % (0-5); LYMPHOCYTES 3.9 % (15-50); MCH 29.3 pg (26.0-34.0); MCHC 31.9 g/dL (31.0-37.0); MCV 91.8 fL (80.0-100.0); MEAN PLATELET VOLUME 10.1 fL (7.4-10.4); MONOCYTES 8.4 % (2-11); NEUTROPHILS 87.3 % (40-80); PLATELET COUNT 228 10x3/uL (130-400); RBC 3.89 10x6/uL (4.20-6.10); RDW 17.1 % (11.5-14.5); WBC 14.9 10x3/uL (4.8-10.8)
--- NOTE | 2018-04-02 19:30 | NUR ---
NAME AND DATE PLACED ON BOARD. PT DENIES ANY NEEDS NO S/S OF DISTRESS. PT ON 2L O2 NC. RIGHT WRIST S/L. PT WILL CALL FOR ASSIST WHEN NEEDED. NO S/S OF DISTRESS. WILL CPOC
[2018-04-02 19:53] LABS: ANION GAP 14.5 mmol/L (8-16); CALCIUM 7.8 mg/dL (8.5-10.1); CARBON DIOXIDE 21.2 mmol/L (21.0-32.0); CREATININE - SERUM 1.3 mg/dL (0.6-1.3); POTASSIUM - SERUM 3.7 mmol/L (3.5-5.1)
--- NOTE | 2018-04-02 20:47 | NUR ---
CALLED DR LOCKWOOD REGARDING CHEST XRAY, UNABLE TO DO 2 VIEW. CAN ONLY DO ONE VIEW. SHE WAS READ ABNORMAL LAB RESULTS AND ORDERED A UA. PT HAS NO S/S OF DISTRESS. WILL CONTINUE TO MONITOR. PT GONE FOR CHEST XRAY. WILL CPOC
--- NOTE | 2018-04-02 21:17 | NUR ---
MEDS GIVEN. PT VERBALIZED UNDERSTANDING OF NEED OF UA. PT DENIES ANY NEEDS. NO S/S OF DISTRESS. BEDLOW AND CALL LIGHT IN REACH. O2 NOW ON 3L PER RESP. PT BEDLOW AND CALL LIGHT IN REACH. WILL CPOC
[2018-04-02 23:25] LABS: APPEARANCE CLEAR (CLEAR); BILIRUBIN NEGATIVE (NEGATIVE); COLOR YELLOW (YELLOW); GLUCOSE NEGATIVE (NEGATIVE); KETONE NEGATIVE (NEGATIVE); NITRITE NEGATIVE (NEGATIVE); PROTEIN NEGATIVE (NEGATIVE); SPECIFIC GRAVITY 1.015 (1.005-1.020); UROBILINOGEN NORMAL (NORMAL)
[2018-04-02 23:26] LABS: BACTERIA FEW /hpf (NONE SEEN); EPITHELIAL CELLS 0-5 /hpf (0-5); RED CELLS - URINE 0-5 /hpf (0-5)
[2018-04-03] VITALS: BP 108/71
[2018-04-03 04:00] VITALS: BP 104/56
--- NOTE | 2018-04-03 06:29 | NUR ---
PT RESTING IN BED. BED BATH COMPLETE. PT REPOSITIONED. BEDLOW AND CALL LIGHT IN REACH. DENIES ANY NEEDS. NO S/S OF DISTRESS. WILL CPOC
[2018-04-03 08:08] VITALS: BP 102/54
--- NOTE | 2018-04-03 10:11 | NUR ---
CONSENTS TO HC WITH RADIAL ACCESS ONLY.
--- NOTE | 2018-04-03 11:10 | NUR ---
ASSISTED UP OOB WITH PT ASSIST. RESP UL ON [address] WILL CONT. PLAN OF CARE.
[2018-04-03 12:02] VITALS: BP 104/62
--- NOTE | 2018-04-03 14:09 | MORECARE ---
CASE MANAGEMENT DISCHARGE SUMMARY PATIENT: DEONTE OWENS UNIT: [id number] ADM DATE: 03/21/18 AGE: 82 : 33 SEX: M ROOM/BED: D.6522 AUTHOR: RANI,DOC PHYSICIAN: REFERRING PHYSICIAN: ABI MAGALLANES MD DATE OF SERVICE: 04/03/18 Discharge Plan Patient Name: DEONTE OWENS Facility: [facility]:[place] : 1935 Planned Disposition: Snf Facility Anticipated Discharge Date: 04/02/18 Discharge Date: Expected LOS: 12 Initial Reviewer: [id number] Initial Review Date: 03/21/2018 Generated: 04/03/18 3:09 pm Comments DCP- Discharge Planning Updated by [id number]: Cornel Portillo on 04/01/18 1:[address] Patient Name: DEONTE OWENS Encounter No: [id number] : 1935 Primary Insurance: AETNA MEDICARE PPO or HMO Anticipated DC Date: 03-27-2018 Planned Disposition: Snf Facility External Planned Provider: [facility], MEDICARE REHAB BED DCP follow-up note: CM FAXED REFERRAL UPDATE TO [facility] AT [phone]. CM WAITING ADMISSION DETERMINATION FROM [facility] WELL INSURANCE DETERMINATION FROM PT'S INSURANCE FOR REHAB AT [facility]. 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 BOTH IN AGREEMENT WITH DISCHARGE TO REHAB. SERGEI HAS BEEN TO BOTH [facility] AND [facility], HE PREFERS [place] PLANNED. IMPORTANT MESSAGE FROM MEDICARE PROVIDED AND EXPLAINED. CM WAITING ADMISSION DETERMINATION FROM [facility] WELL INSURANCE DETERMINATION FROM PT'S INSURANCE FOR REHAB AT [facility]. Cornel Portillo, CASE MANAGMENT DCP- Discharge Planning Updated by [id number]: Cornel Portillo on 03/29/18 3:[address] Patient Name: DEONTE OWENS Encounter No: [id number] : 1935 Primary Insurance: AETNA MEDICARE PPO or HMO Anticipated DC Date: 03-27-2018 Planned Disposition: Snf Facility External Planned Provider: [facility], MEDICARE REHAB BED DCP follow-up note: CM SPOKE TO RN MARY CHOWDARY WHO HAS RECEIVED TELEPHONE MESSAGE FROM INSURANCE THAT THEY DENIED INPATIENT REHAB AND RECOMMENDED RESIDENTIAL REHAB. CM NOTIFIED [facility] OF INPATIENT REHAB. CM NOTIFIED PT WHO INITIALLY STATED HE WILL APPEAL THIS HIMSELF AND THEN STATED THAT HE WANTS CM TO SPEAK TO HIS SON REGARDING OPTIONS. PT IS WILLING TO CONSIDER RESIDENTIAL FOR REHAB. CM SPOKE TO DR. MAGALLANES WHO INFORMED CM SHE IS NOT GOING TO DO PEER TO PEER TO APPEAL INSURANCE DECISION AND AGREES WITH RESIDENTIAL PLACEMENT FOR REHAB. DR. MAGALLANES SPOKE TO PT AND SON IN ROOM. CM NOTIFIED PT AND HIS SON IN ROOM. PT AND SON AGREE FOR REHAB AT [facility] FIRST CHOICE AND [facility] SECOND CHOICE. CHOICE LETTER SIGNED. IMPORTANT MESSAGE FROM MEDICARE PROVIDED AND EXPLAINED. CM NOTIFIED JENNIFER OF [facility], , OF REFERRAL. CM FAXED REFERRAL TO [facility] AT [phone]. CM WAITING ADMISSION DETERMINATION FROM [facility] WELL INSURANCE DETERMINATION FROM PT'S INSURANCE FOR REHAB AT [facility]. Cornel Portillo, CASE MANAGMENT DCP- Discharge Planning Updated by [id number]: Amanda Tovar on 03/28/18 3:[address] Patient Name: DEONTE OWENS Admission Status: ER Accout number: [id number] Admission Date: 03-21-2018 : 1935 Admission Diagnosis:GASTROINTESTINAL HEMORRHAGE, UNSPECIFIED Attending: ABI MAGALLANES Current LOS: 7 Anticipated DC Date: 03-27-2018 Planned Disposition: Inpatient Rehab Primary Insurance: AETNA MEDICARE PPO or HMO Discharge Planning Comments: CM MET WITH PATIENT AND HIS SON ABOUT DISCHARGE PLANNING. I INFORMED THEM WE ARE WAITING ON AUTH TO GO TO INPT REHAB AND WILL LET THEM KNOW SOON WE KNOW. I ASKED THEM IF THEY WOULD BE INTERESTED IN SNF IF INPT REHAB IS NOT APPROVED AND HE STATES IS NOT SURE. THAT IF HE DID IT WOULD BE GOOD DIPIKA. I TALKED TO THE SON OUTSIDE OF THE ROOM AND HE STATES HE MAY GET HOSPICE INVOLVED IF IT DOESN'T LOOK LIKE HIS DAD WILL HAVE A GOOD RECOVERY. FAMILY WILL CONTACT CM TOMORROW WHEN THEY COME BACK TO THE HOSPITAL. CM WILL FOLLOW AND ASSIST NEEDED WITH DC PLANNING/NEEDS. Rrts: Amanda La DCP- Discharge Planning Updated by [id number]: Amanda Tovar on 03/26/18 2:[address] Patient Name: DEONTE OWENS Admission Status: ER Accout number: [id number] Admission Date: 03-21-2018 : 1935 Admission Diagnosis:GASTROINTESTINAL HEMORRHAGE, UNSPECIFIED Attending: ABI MAGALLANES Current LOS: 5 Anticipated DC Date: 03-27-2018 Planned Disposition: Inpatient Rehab Primary Insurance: AETNA MEDICARE PPO or HMO Discharge Planning Comments: CM SPOKE WITH DR. MAGALLANES TODAY AND THE PLAN IS FOR INPATIENT REHAB. CM CALLED [facility] AND SHE IS IN ROOM SEEING PATIENT. CM WILL FOLLOW AND ASSIST NEEDED WITH DC PLANNING/NEEDS. IM SIGNED. Rrts: Amanda La DCP- Discharge Planning Updated by [email or web address]: Helen Minaya on 03/21/18 6:[address] Patient Name: DEONTE OWENS Admission Status: ER Accout number: [id number] Admission Date: 03-21-2018 : 1935 Admission Diagnosis: Attending: ABI MAGALLANES Current LOS: 1 Anticipated DC Date: 03-23-2018 Planned Disposition: Primary Insurance: MEDICARE A & B Discharge Planning Comments: CM met with patient and his cg Danni Diana to complete initial dc planning assessment. CM educated patient on the CM role and verbal consent given by patient to complete assessment. Patient lives at home alone but has a cg that comes on Sunday and Sunday for 2 hours a day. At discharge patient plans to return home alone and feels this is a safe discharge. CM discussed availability of home health, rehab services, and medical equipment. CG feels that HH may be a good option since she is only there 2 days a week. CM will continue to follow and will assist as needed with dc plans/needs. Rrts: Helen Minaya RN, CCM RN, CCM DCPIA - Discharge Planning Initial Assessment Updated by [id number]: Helen Minaya on 03/21/18 7:30 pm * Is the patient Alert and Oriented? Yes * PCP No PCP * [place] [facility] [place] * Preadmission Environment Home Alone * ADLs Independent * Equipment Rolling Walker * List name and contact numbers for known caregivers / representatives who currently or will assist patient after discharge: Danni ye - [phone] Sergei Owens - valerie - [phone] * Verbal permission to speak to the caregivers and representatives has been obtained from the patient. Yes * Community resources currently utilized Private Duty Care * Please name any agencies selected above. [facility] has been seeing the patient for 3 years. Family lives out of state. If anything is needed she said she will be here. * Additional services required to return to the preadmission environment? No * Can the patient safely return to the preadmission environment? Yes * Has this patient been hospitalized within the prior 30 days at any hospital? No External Providers External Provider: [facility] Next Contact Date: 03/29/2018 Service Request Date: Service Type: Resolution: Reviewer: Comments: Coverage Notice Reviewer: [id number] Ana Tovar Notice Issued Date-Time: 03/26/2018 14:59 Notice Type: IM Discharge Notice Notice Delivered To: Patient Relationship to Patient: Self Medical Sales Representative Name: Delivery Method: HAND - Hand Delivered Lidya Days: Prior Verbal Notification: Recipient Understood Notice: Yes Recipient Signature: Yes Med Rec Note Co-signed by Attending: Coverage Notice Comment: Reviewer: [id number] Portillo Notice Issued Date-Time: 03/29/2018 15:25 Notice Type: IM Discharge Notice Notice Delivered To: Family Member Relationship to Patient: Son Medical Sales Representative Name: SERGEI OWENS Delivery Method: HAND - Hand Delivered Lidya Days: Prior Verbal Notification: Recipient Understood Notice: Yes Recipient Signature: Yes Med Rec Note Co-signed by Attending: Coverage Notice Comment: Reviewer: [id number] Portillo Notice Issued Date-Time: 03/29/2018 15:25 Notice Type: Patient Choice Letter Notice Delivered To: Family Member Relationship to Patient: Son Medical Sales Representative Name: SERGEI OWENS Delivery Method: HAND - Hand Delivered Lidya Days: Prior Verbal Notification: Recipient Understood Notice: Yes Recipient Signature: Yes Med Rec Note Co-signed by Attending: Coverage Notice Comment: Bruno WILLIAM Reviewer: [id number] Ana Portillo Notice Issued Date-Time: 04/01/2018 14:45 Notice Type: IM Discharge Notice Notice Delivered To: Family Member Relationship to Patient: Son Medical Sales Representative Name: SERGEI OWENS Delivery Method: HAND - Hand Delivered Lidya Days: Prior Verbal Notification: Recipient Understood Notice: Yes Recipient Signature: Yes Med Rec Note Co-signed by Attending: Coverage Notice Comment: Last DP export: 04/02/18 11:16 a Patient Name: DEONTE OWENS Page [id number] at 1409 All edits/amendments must be made on the electronic document DICTATION DATE: 04/03/181407 PREPARATION ROOM WORKER: [place] 04/03/181407 RPT#: [id number] DC DATE: STATUS: ADM IN [facility] [address] [place] [address] END OF REPORT
--- NOTE | 2018-04-03 14:16 | MORECARE ---
CASE MANAGEMENT DISCHARGE SUMMARY PATIENT: DEONTE OWENS UNIT: [id number] ADM DATE: 03/21/18 AGE: 82 : 33 SEX: M ROOM/BED: D.6677 AUTHOR: RANI,DOC PHYSICIAN: REFERRING PHYSICIAN: ABI MAGALLANES MD DATE OF SERVICE: 04/03/18 Discharge Plan Patient Name: DEONTE OWENS Facility: [facility]:[place] : 1935 Planned Disposition: Snf Facility Anticipated Discharge Date: 04/02/18 Discharge Date: Expected LOS: 12 Initial Reviewer: [id number] Initial Review Date: 03/21/2018 Generated: 04/03/18 3:16 pm Comments DCP- Discharge Planning Updated by [email or web address]: Cornel Portillo on 04/03/18 1:[address] Patient Name: DEONTE OWENS Encounter No: [id number] : 1935 Primary Insurance: AETNA MEDICARE PPO or HMO Anticipated DC Date: 04-02-2018 Planned Disposition: Snf Facility External Planned Provider: [facility], MEDICARE REHAB BED DCP follow-up note: CM RECEIVED MESSAGE FROM DENNY RODRIGUEZ ASKING NOW FOR UPDATED THERAPY NOTES. CM FAXED REFERRAL UPDATE TO [facility] AT [phone]. CM WAITING ADMISSION DETERMINATION FROM [facility] WELL INSURANCE DETERMINATION FROM PT'S INSURANCE FOR REHAB AT [facility]. Cornel Portillo, CASE MANAGMENT DCP- Discharge Planning Updated by [id number]: Cornel Portillo on 04/01/18 1:[address] Patient Name: DEONTE OWENS Encounter No: [id number] : 1935 Primary Insurance: AETNA MEDICARE PPO or HMO Anticipated DC Date: 03-27-2018 Planned Disposition: Snf Facility External Planned Provider: [facility], MEDICARE REHAB BED DCP follow-up note: CM FAXED REFERRAL UPDATE TO [facility] AT [phone]. CM WAITING ADMISSION DETERMINATION FROM [facility] WELL INSURANCE DETERMINATION FROM PT'S INSURANCE FOR REHAB AT [facility]. Cornel Portillo, CASE MANAGMENT Appended by Cornel Portillo on 04/01/2018 14:51 DESIGN DIRECTOR: CM SPOKE TO PT AND PT'S SON, SERGEI LOVE. BOTH IN AGREEMENT WITH DISCHARGE TO REHAB. SERGEI HAS BEEN TO BOTH [facility] AND [facility], HE PREFERS [facility] PLANNED. IMPORTANT MESSAGE FROM MEDICARE PROVIDED AND EXPLAINED. CM WAITING ADMISSION DETERMINATION FROM [facility] WELL INSURANCE DETERMINATION FROM PT'S INSURANCE FOR REHAB AT [facility]. Cornel Portillo CASE MANAGMENT DCP- Discharge Planning Updated by [id number]: Cornel Portillo on 03/29/18 3:[address] Patient Name: DEONTE OWENS Encounter No: [id number] : 1935 Primary Insurance: AETNA MEDICARE PPO or HMO Anticipated DC Date: 03-27-2018 Planned Disposition: Snf Facility External Planned Provider: [facility], MEDICARE REHAB BED DCP follow-up note: CM SPOKE TO MARILUZ CHOWDARY WHO HAS RECEIVED TELEPHONE MESSAGE FROM INSURANCE THAT THEY DENIED INPATIENT REHAB AND RECOMMENDED GROUP HOME REHAB. CM NOTIFIED [facility] OF INPATIENT REHAB. CM NOTIFIED PT WHO INITIALLY STATED HE WILL APPEAL THIS HIMSELF AND THEN STATED THAT HE WANTS CM TO SPEAK TO HIS SON REGARDING OPTIONS. PT IS WILLING TO CONSIDER GROUP HOME FOR REHAB. CM SPOKE TO DR. MAGALLANES WHO INFORMED CM SHE IS NOT GOING TO DO PEER TO PEER TO APPEAL INSURANCE DECISION AND AGREES WITH GROUP HOME PLACEMENT FOR REHAB. DR. MAGALLANES SPOKE TO PT AND SON IN ROOM. CM NOTIFIED PT AND HIS SON IN ROOM. PT AND SON AGREE FOR REHAB AT [facility] FIRST CHOICE AND [facility] SECOND CHOICE. CHOICE LETTER SIGNED. IMPORTANT MESSAGE FROM MEDICARE PROVIDED AND EXPLAINED. CM NOTIFIED JENNIFER OF [facility], , OF REFERRAL. CM FAXED REFERRAL TO [facility] AT [phone]. CM WAITING ADMISSION DETERMINATION FROM [facility] WELL INSURANCE DETERMINATION FROM PT'S INSURANCE FOR REHAB AT [facility]. Cornel Portillo, CASE MANAGMENT DCP- Discharge Planning Updated by [id number]: Amanda Tovar on 03/28/18 3:[address] Patient Name: DEONTE OWENS Admission Status: ER Accout number: [id number] Admission Date: 03-21-2018 : 1935 Admission Diagnosis:GASTROINTESTINAL HEMORRHAGE, UNSPECIFIED Attending: ABI MAGALLANES Current LOS: 7 Anticipated DC Date: 03-27-2018 Planned Disposition: Inpatient Rehab Primary Insurance: AETNA MEDICARE PPO or HMO Discharge Planning Comments: CM MET WITH PATIENT AND HIS SON ABOUT DISCHARGE PLANNING. I INFORMED THEM WE ARE WAITING ON AUTH TO GO TO INPT REHAB AND WILL LET THEM KNOW SOON WE KNOW. I ASKED THEM IF THEY WOULD BE INTERESTED IN SNF IF INPT REHAB IS NOT APPROVED AND HE STATES IS NOT SURE. THAT IF HE DID IT WOULD BE GOOD DIPIKA. I TALKED TO THE SON OUTSIDE OF THE ROOM AND HE STATES HE MAY GET HOSPICE INVOLVED IF IT DOESN'T LOOK LIKE HIS DAD WILL HAVE A GOOD RECOVERY. FAMILY WILL CONTACT CM TOMORROW WHEN THEY COME BACK TO THE HOSPITAL. CM WILL FOLLOW AND ASSIST NEEDED WITH DC PLANNING/NEEDS. Literacy Coach: Amanda Tovar DCP- Discharge Planning Updated by [email or web address]: Amanda Tovar on 03/26/18 2:[address] Patient Name: DEONTE OWENS Admission Status: ER Accout number: [id number] Admission Date: 03-21-2018 : 1935 Admission Diagnosis:GASTROINTESTINAL HEMORRHAGE, UNSPECIFIED Attending: ABI MAGALLANES Current LOS: 5 Anticipated DC Date: 03-27-2018 Planned Disposition: Inpatient Rehab Primary Insurance: AETNA MEDICARE PPO or HMO Discharge Planning Comments: CM SPOKE WITH DR. MAGALLANES TODAY AND THE PLAN IS FOR INPATIENT REHAB. CM CALLED [facility] AND SHE IS IN ROOM SEEING PATIENT. CM WILL FOLLOW AND ASSIST NEEDED WITH DC PLANNING/NEEDS. IM SIGNED. Literacy Coach: Amanda Tovar DCP- Discharge Planning Updated by [id number]: Helen Minaya on 03/21/18 6:[address] Patient Name: DEONTE OWENS Admission Status: ER Accout number: [id number] Admission Date: 03-21-2018 : 1935 Admission Diagnosis: Attending: ABI MAGALLANES Current LOS: 1 Anticipated DC Date: 03-23-2018 Planned Disposition: Primary Insurance: MEDICARE A & B Discharge Planning Comments: CM met with patient and his cg Danni Diana to complete initial dc planning assessment. CM educated patient on the CM role and verbal consent given by patient to complete assessment. Patient lives at home alone but has a cg that comes on Sunday and Sunday for 2 hours a day. At discharge patient plans to return home alone and feels this is a safe discharge. CM discussed availability of home health, rehab services, and medical equipment. CG feels that HH may be a good option since she is only there 2 days a week. CM will continue to follow and will assist as needed with dc plans/needs. Literacy Coach: Helen Minaya RN, CCM RN, [facility] DCPIA - Discharge Planning Initial Assessment Updated by [email or web address]: Helen Minaya on 03/21/18 7:30 pm * Is the patient Alert and Oriented? Yes * PCP No PCP * [place] [facility] [place] * Preadmission Environment Home Alone * ADLs Independent * Equipment Rolling Walker * List name and contact numbers for known caregivers / representatives who currently or will assist patient after discharge: Danni Diana cassi - [phone] Sergei Owens - valerie - [phone] * Verbal permission to speak to the caregivers and representatives has been obtained from the patient. Yes * Community resources currently utilized Private Duty Care * Please name any agencies selected above. [facility] - cg has been seeing the patient for 3 years. Family lives out of state. If anything is needed she said she will be here. * Additional services required to return to the preadmission environment? No * Can the patient safely return to the preadmission environment? Yes * Has this patient been hospitalized within the prior 30 days at any hospital? No Coverage Notice Reviewer: [id number] Ana Portillo Notice Issued Date-Time: 04/01/2018 14:45 Notice Type: IM Discharge Notice Notice Delivered To: Family Member Relationship to Patient: Son Fire Control Assistant Name: SERGEI OWENS Delivery Method: HAND - Hand Delivered Lidya Days: Prior Verbal Notification: Recipient Understood Notice: Yes Recipient Signature: Yes Med Rec Note Co-signed by Attending: Coverage Notice Comment: Reviewer: [id number] Ana Portillo Notice Issued Date-Time: 03/29/2018 15:25 Notice Type: IM Discharge Notice Notice Delivered To: Family Member Relationship to Patient: Son Fire Control Assistant Name: SERGEI OWENS Delivery Method: HAND - Hand Delivered Lidya Days: Prior Verbal Notification: Recipient Understood Notice: Yes Recipient Signature: Yes Med Rec Note Co-signed by Attending: Coverage Notice Comment: Reviewer: [id number] - Amanda Tovar Notice Issued Date-Time: 03/26/2018 14:59 Notice Type: IM Discharge Notice Notice Delivered To: Patient Relationship to Patient: Self Fire Control Assistant Name: Delivery Method: HAND - Hand Delivered Lidya Days: Prior Verbal Notification: Recipient Understood Notice: Yes Recipient Signature: Yes Med Rec Note Co-signed by Attending: Coverage Notice Comment: Reviewer: [id number] - Cornel Portillo Notice Issued Date-Time: 03/29/2018 15:25 Notice Type: Patient Choice Letter Notice Delivered To: Family Member Relationship to Patient: Son Fire Control Assistant Name: SERGEI OWENS Delivery Method: HAND - Hand Delivered Lidya Days: Prior Verbal Notification: Recipient Understood Notice: Yes Recipient Signature: Yes Med Rec Note Co-signed by Attending: Coverage Notice Comment: 1- SIRIA Harley-ELPIDIO Last DP export: 04/03/18 1:09 p Patient Name: DEONTE OWENS Page [id number] at 1416 All edits/amendments must be made on the electronic document DICTATION DATE: 04/03/18 1415 CHIEF MEDIA OFFICER: [place] 04/03/18 1415 RPT#: [id number] MO DATE: STATUS: ADM IN [facility] [address] [place] [address] END OF REPORT
[2018-04-03 16:14] VITALS: BP 115/64
--- NOTE | 2018-04-03 19:29 | NUR ---
PT RESTING IN BED. NAME AND DATE PLACED ON BOARD. PT ON 3L O2 NC. PT ASKING FOR ICE CHIPS AND JUICE. PT RECEIVED. FIXED URINAL WITHIN REACH. PT DENIES ANY OTHER NEEDS. NO S/S OF DISTRESS. DENISE COWAN CALL LIGHT IN REACH. WILL CPOC
--- NOTE | 2018-04-03 19:56 | NUR ---
OT NOTE: PT COMPLETED BED MOB WITH MIN A AND EOB SITTING WITH MIN A. PT COMPLETED BUE AROM EXS. PT COMPLETED HYGIENE TASK WITH SET UP. THANK YOU, KRYSTIAN ROCHA
[2018-04-03 20:00] VITALS: BP 106/55
[2018-04-04] VITALS: BP 119/54
[2018-04-04 04:00] VITALS: BP 107/58
--- NOTE | 2018-04-04 05:38 | NUR ---
PT RESTING IN BED. REPOSITIONED, NOURISHMENT OFFERED. PT HAS NO S/S OF DISTRESS. DENIES ANY NEEDS. WILL CPOC
--- NOTE | 2018-04-04 07:10 | NUR ---
BEDBATH GIVEN. PT HAS NO S/S OF DISTRESS. BLADDER ACCIDENT AND BED CHANGED. CALL LIGHT IN REACH., WILL CPOC
--- NOTE | 2018-04-04 07:32 | NUR ---
OT NOTE: ( LATE ENTRY FOR 04/03/18) PT DOING WELL. PERFORMED BED MOB WITH MIN/MOD ASSIST; STATIC SITTING ON EDGE OF BED WITH SPV. EDUCATION ON EXS THAT CAN BE PERFORMED WHILE IN HIS ROOM. PT CONTINUES TO QUESTION HOW HE GOT SO WEAK IN SHORT AMOUNT OF TIME. ENCOURAGED PT TO SIT UP IN CHAIR AND/OR DO EXS IN BED OR CHAIR TO ASSIST WITH STRENGHTENING AND ENDURANCE. KAMI HERNANDEZ, OTR/L
[2018-04-04 08:12] VITALS: BP 122/59
--- NOTE | 2018-04-04 08:15 | MORECARE ---
CASE MANAGEMENT DISCHARGE SUMMARY PATIENT: DEONTE OWENS UNIT: [id number] ADM DATE: 03/21/18 AGE: 82 : 33 SEX: M ROOM/BED: D.2117 AUTHOR: RANI,DOC PHYSICIAN: REFERRING PHYSICIAN: ABI MAGALLANES MD DATE OF SERVICE: 04/04/18 Discharge Plan Patient Name: DEONTE OWENS Facility: [facility]:[place] : 1935 Planned Disposition: Prison Facility Anticipated Discharge Date: 04/04/18 Discharge Date: Expected LOS: 14 Initial Reviewer: [id number] Initial Review Date: 03/21/2018 Generated: 04/04/18 9:15 am Comments DCP- Discharge Planning Updated by [id number]: Cornel Portillo on 04/03/18 1:[address] Patient Name: DEONTE OWENS Encounter No: [id number] : 1935 Primary Insurance: AETNA MEDICARE PPO or HMO Anticipated DC Date: 04-02-2018 Planned Disposition: Prison Facility External Planned Provider: [facility], MEDICARE REHAB BED DCP follow-up note: CM RECEIVED MESSAGE FROM DENNY RODRIGUEZ ASKING NOW FOR UPDATED THERAPY NOTES. CM FAXED REFERRAL UPDATE TO [facility] AT [phone]. CM WAITING ADMISSION DETERMINATION FROM [facility] WELL INSURANCE DETERMINATION FROM PT'S INSURANCE FOR REHAB AT [facility]. Cornel Portillo, CASE MANAGMENT DCP- Discharge Planning Updated by [id number]: Cornel Portillo on 04/01/18 1:[address] Patient Name: DEONTE OWENS Encounter No: [id number] : 1935 Primary Insurance: AETNA MEDICARE PPO or HMO Anticipated DC Date: 03-27-2018 Planned Disposition: Prison Facility External Planned Provider: [facility], MEDICARE REHAB BED DCP follow-up note: CM FAXED REFERRAL UPDATE TO [facility] AT [phone]. CM WAITING ADMISSION DETERMINATION FROM [facility] WELL INSURANCE DETERMINATION FROM PT'S INSURANCE FOR REHAB AT [facility]. Cornel Portillo, CASE MANAGMENT Appended by Cornel Portillo on 04/01/2018 14:51 PERL SOFTWARE ENGINEER: CM SPOKE TO PT AND PT'S SON, SERGEI LOVE. BOTH IN AGREEMENT WITH DISCHARGE TO REHAB. SERGEI HAS BEEN TO BOTH [facility] AND [facility], HE PREFERS [place] PLANNED. IMPORTANT MESSAGE FROM MEDICARE PROVIDED AND EXPLAINED. CM WAITING ADMISSION DETERMINATION FROM [facility] WELL INSURANCE DETERMINATION FROM PT'S INSURANCE FOR REHAB AT [facility]. Cornel Portillo CASE MANAGMENT DCP- Discharge Planning Updated by [id number]: Cornel Portillo on 03/29/18 3:[address] Patient Name: DEONTE OWENS Encounter No: [id number] : 1935 Primary Insurance: AETNA MEDICARE PPO or HMO Anticipated DC Date: 03-27-2018 Planned Disposition: Prison Facility External Planned Provider: [facility], MEDICARE REHAB BED DCP follow-up note: CM SPOKE TO MARILUZ CHOWDARY WHO HAS RECEIVED TELEPHONE MESSAGE FROM INSURANCE THAT THEY DENIED INPATIENT REHAB AND RECOMMENDED INTERMEDIATE REHAB. CM NOTIFIED [facility] OF INPATIENT REHAB. CM NOTIFIED PT WHO INITIALLY STATED HE WILL APPEAL THIS HIMSELF AND THEN STATED THAT HE WANTS CM TO SPEAK TO HIS SON REGARDING OPTIONS. PT IS WILLING TO CONSIDER INTERMEDIATE FOR REHAB. CM SPOKE TO DR. MAGALLANES WHO INFORMED CM SHE IS NOT GOING TO DO PEER TO PEER TO APPEAL INSURANCE DECISION AND AGREES WITH INTERMEDIATE PLACEMENT FOR REHAB. DR. MAGALLANES SPOKE TO PT AND SON IN ROOM. CM NOTIFIED PT AND HIS SON IN ROOM. PT AND SON AGREE FOR REHAB AT [facility] FIRST CHOICE AND [facility] SECOND CHOICE. CHOICE LETTER SIGNED. IMPORTANT MESSAGE FROM MEDICARE PROVIDED AND EXPLAINED. CM NOTIFIED JENNIFER OF [facility], , OF REFERRAL. CM FAXED REFERRAL TO [facility] AT [phone]. CM WAITING ADMISSION DETERMINATION FROM [facility] WELL INSURANCE DETERMINATION FROM PT'S INSURANCE FOR REHAB AT [facility]. Cornel Portillo, CASE MANAGMENT DCP- Discharge Planning Updated by [id number]: Amanda Tovar on 03/28/18 3:[address] Patient Name: DEONTE OWENS Admission Status: ER Accout number: [id number] Admission Date: 03-21-2018 : 1935 Admission Diagnosis:GASTROINTESTINAL HEMORRHAGE, UNSPECIFIED Attending: ABI MAGALLANES Current LOS: 7 Anticipated DC Date: 03-27-2018 Planned Disposition: Inpatient Rehab Primary Insurance: AETNA MEDICARE PPO or HMO Discharge Planning Comments: CM MET WITH PATIENT AND HIS SON ABOUT DISCHARGE PLANNING. I INFORMED THEM WE ARE WAITING ON AUTH TO GO TO INPT REHAB AND WILL LET THEM KNOW SOON WE KNOW. I ASKED THEM IF THEY WOULD BE INTERESTED IN SNF IF INPT REHAB IS NOT APPROVED AND HE STATES IS NOT SURE. THAT IF HE DID IT WOULD BE GOOD DIPIKA. I TALKED TO THE SON OUTSIDE OF THE ROOM AND HE STATES HE MAY GET HOSPICE INVOLVED IF IT DOESN'T LOOK LIKE HIS DAD WILL HAVE A GOOD RECOVERY. FAMILY WILL CONTACT CM TOMORROW WHEN THEY COME BACK TO THE HOSPITAL. CM WILL FOLLOW AND ASSIST NEEDED WITH DC PLANNING/NEEDS. Repairer Cylinder Heads: Amanda Tovar DCP- Discharge Planning Updated by [id number]: Amanda Tovar on 03/26/18 2:[address] Patient Name: DEONTE OWENS Admission Status: ER Accout number: [id number] Admission Date: 03-21-2018 : 1935 Admission Diagnosis:GASTROINTESTINAL HEMORRHAGE, UNSPECIFIED Attending: ABI MAGALLANES Current LOS: 5 Anticipated DC Date: 03-27-2018 Planned Disposition: Inpatient Rehab Primary Insurance: AETNA MEDICARE PPO or HMO Discharge Planning Comments: CM SPOKE WITH DR. MAGALLANES TODAY AND THE PLAN IS FOR INPATIENT REHAB. CM CALLED [facility] AND SHE IS IN ROOM SEEING PATIENT. CM WILL FOLLOW AND ASSIST NEEDED WITH DC PLANNING/NEEDS. IM SIGNED. Repairer Cylinder Heads: Amanda Tovar DCP- Discharge Planning Updated by [id number]: Helen Minaya on 03/21/18 6:[address] Patient Name: DEONTE OWENS Admission Status: ER Accout number: [id number] Admission Date: 03-21-2018 : 1935 Admission Diagnosis: Attending: ABI MAGALLANES Current LOS: 1 Anticipated DC Date: 03-23-2018 Planned Disposition: Primary Insurance: MEDICARE A & B Discharge Planning Comments: CM met with patient and his cg Danni Diana to complete initial dc planning assessment. CM educated patient on the CM role and verbal consent given by patient to complete assessment. Patient lives at home alone but has a cg that comes on Sunday and Sunday for 2 hours a day. At discharge patient plans to return home alone and feels this is a safe discharge. CM discussed availability of home health, rehab services, and medical equipment. CG feels that HH may be a good option since she is only there 2 days a week. CM will continue to follow and will assist as needed with dc plans/needs. Repairer Cylinder Heads: Helen Minaya RN, CCM RN, [facility] DCPIA - Discharge Planning Initial Assessment Updated by [id number]: Helen Minaya on 03/21/18 7:30 pm * Is the patient Alert and Oriented? Yes * PCP No PCP * [place] [facility] [place] * Preadmission Environment Home Alone * ADLs Independent * Equipment Rolling Walker * List name and contact numbers for known caregivers / representatives who currently or will assist patient after discharge: Danni Diana cg - [phone] Sergei Owens - son - [phone] * Verbal permission to speak to the caregivers and representatives has been obtained from the patient. Yes * Community resources currently utilized Private Duty Care * Please name any agencies selected above. [facility] - cg has been seeing the patient for 3 years. Family lives out of state. If anything is needed she said she will be here. * Additional services required to return to the preadmission environment? No * Can the patient safely return to the preadmission environment? Yes * Has this patient been hospitalized within the prior 30 days at any hospital? No Coverage Notice Reviewer: [id number] - Amanda Tovar Notice Issued Date-Time: 03/26/2018 14:59 Notice Type: IM Discharge Notice Notice Delivered To: Patient Relationship to Patient: Self Manager Shipping Name: Delivery Method: HAND - Hand Delivered Lidya Days: Prior Verbal Notification: Recipient Understood Notice: Yes Recipient Signature: Yes Med Rec Note Co-signed by Attending: Coverage Notice Comment: Reviewer: [id number] - Cornel Portillo Notice Issued Date-Time: 03/29/2018 15:25 Notice Type: Patient Choice Letter Notice Delivered To: Family Member Relationship to Patient: Son Manager Shipping Name: SERGEI OWENS Delivery Method: HAND - Hand Delivered Lidya Days: Prior Verbal Notification: Recipient Understood Notice: Yes Recipient Signature: Yes Med Rec Note Co-signed by Attending: Coverage Notice Comment: Bruno WILLIAM Reviewer: [id number] Ana Portillo Notice Issued Date-Time: 04/01/2018 14:45 Notice Type: IM Discharge Notice Notice Delivered To: Family Member Relationship to Patient: Son Manager Shipping Name: SERGEI OWENS Delivery Method: HAND - Hand Delivered Lidya Days: Prior Verbal Notification: Recipient Understood Notice: Yes Recipient Signature: Yes Med Rec Note Co-signed by Attending: Coverage Notice Comment: Reviewer: [id number] Ana Portillo Notice Issued Date-Time: 03/29/2018 15:25 Notice Type: IM Discharge Notice Notice Delivered To: Family Member Relationship to Patient: Son Manager Shipping Name: SERGEI OWENS Delivery Method: HAND - Hand Delivered Lidya Days: Prior Verbal Notification: Recipient Understood Notice: Yes Recipient Signature: Yes Med Rec Note Co-signed by Attending: Coverage Notice Comment: Last DP export: 04/03/18 1:16 p Patient Name: DEONTE OWENS Page [id number] at 0815 All edits/amendments must be made on the electronic document DICTATION DATE: 04/04/18814 BREAKER TABLE WORKER: [place] 04/04/18814 RPT#: [id number] DC DATE: STATUS: ADM IN [facility] [address] [place] [address] END OF REPORT
--- NOTE | 2018-04-04 08:28 | MORECARE ---
CASE MANAGEMENT DISCHARGE SUMMARY PATIENT: DEONTE OWENS UNIT: [id number] ADM DATE: 03/21/18 AGE: 82 : [birth year] SEX: M ROOM/BED: D.4437 AUTHOR: RANI,DOC PHYSICIAN: REFERRING PHYSICIAN: ABI MAGALLANES MD DATE OF SERVICE: 04/04/18 Discharge Plan Patient Name: DEONTE OWENS Facility: [facility]:[place] : 1935 Planned Disposition: Penitentiary Facility Anticipated Discharge Date: 04/04/18 Discharge Date: Expected LOS: 14 Initial Reviewer: [id number] Initial Review Date: 03/21/2018 Generated: 04/04/18 9:28 am Comments DCP- Discharge Planning Updated by [id number]: Cornel Portillo on 04/04/18 7:[address] Patient Name: DEONTE OWENS Encounter No: [id number] : 1935 Primary Insurance: AETNA MEDICARE PPO or HMO Anticipated DC Date: 04-04-2018 Planned Disposition: Penitentiary Facility External Planned Provider: [facility], MEDICARE REHAB BED DCP follow-up note: CM FAXED REFERRAL UPDATE TO [facility] AT [phone]. [facility] WILL ACCEPT PENDING INSURANCE PRIOR AUTHORIZATION FOR REHAB SERVICES. CM WAITING INSURANCE DETERMINATION FROM PT'S INSURANCE FOR REHAB AT [facility]. Cornel Portillo, CASE MANAGMENT DCP- Discharge Planning Updated by [id number]: Cornel Portillo on 04/03/18 1:[address] Patient Name: DEONTE OWENS Encounter No: [id number] : 1935 Primary Insurance: AETNA MEDICARE PPO or HMO Anticipated DC Date: 04-02-2018 Planned Disposition: Penitentiary Facility External Planned Provider: [facility], MEDICARE REHAB BED DCP follow-up note: CM RECEIVED MESSAGE FROM JENNIFER, INSURANCE ASKING NOW FOR UPDATED THERAPY NOTES. CM FAXED REFERRAL UPDATE TO [facility] AT [phone]. CM WAITING ADMISSION DETERMINATION FROM [facility] WELL INSURANCE DETERMINATION FROM PT'S INSURANCE FOR REHAB AT [facility]. Cornel Portillo, CASE MANAGMENT DCP- Discharge Planning Updated by [id number]: Cornel Portillo on 04/01/18 1:[address] Patient Name: DEONTE OWENS Encounter No: [id number] : 1935 Primary Insurance: AETNA MEDICARE PPO or HMO Anticipated DC Date: 03-27-2018 Planned Disposition: Penitentiary Facility External Planned Provider: [facility], MEDICARE REHAB BED DCP follow-up note: CM FAXED REFERRAL UPDATE TO [facility] AT [phone]. CM WAITING ADMISSION DETERMINATION FROM [facility] WELL INSURANCE DETERMINATION FROM PT'S INSURANCE FOR REHAB AT [facility]. Cornel Portillo, CASE MANAGMENT Appended by Cornel Portillo on 04/01/2018 14:51 FISCAL OFFICER: CM SPOKE TO PT AND PT'S SON, SERGEI LOVE. BOTH IN AGREEMENT WITH DISCHARGE TO REHAB. SERGEI HAS BEEN TO BOTH [facility] AND [facility], HE PREFERS [facility] PLANNED. IMPORTANT MESSAGE FROM MEDICARE PROVIDED AND EXPLAINED. CM WAITING ADMISSION DETERMINATION FROM [facility] WELL INSURANCE DETERMINATION FROM PT'S INSURANCE FOR REHAB AT [facility]. Cornel Portillo, CASE MANAGMENT DCP- Discharge Planning Updated by [id number]: Cornel Portillo on 03/29/18 3:[address] Patient Name: DEONTE OWENS Encounter No: [id number] : 1935 Primary Insurance: AETNA MEDICARE PPO or HMO Anticipated DC Date: 03-27-2018 Planned Disposition: Penitentiary Facility External Planned Provider: [facility], MEDICARE REHAB BED DCP follow-up note: CM SPOKE TO MARILUZ CHOWDARY WHO HAS RECEIVED TELEPHONE MESSAGE FROM INSURANCE THAT THEY DENIED INPATIENT REHAB AND RECOMMENDED [facility] REHAB. CM NOTIFIED [facility] OF INPATIENT REHAB. CM NOTIFIED PT WHO INITIALLY STATED HE WILL APPEAL THIS HIMSELF AND THEN STATED THAT HE WANTS CM TO SPEAK TO HIS SON REGARDING OPTIONS. PT IS WILLING TO CONSIDER [facility] FOR REHAB. CM SPOKE TO DR. MAGALLANES WHO INFORMED CM SHE IS NOT GOING TO DO PEER TO PEER TO APPEAL INSURANCE DECISION AND AGREES WITH [facility] PLACEMENT FOR REHAB. DR. MAGALLANES SPOKE TO PT AND SON IN ROOM. CM NOTIFIED PT AND HIS SON IN ROOM. PT AND SON AGREE FOR REHAB AT [facility] FIRST CHOICE AND [facility] SECOND CHOICE. CHOICE LETTER SIGNED. IMPORTANT MESSAGE FROM MEDICARE PROVIDED AND EXPLAINED. CM NOTIFIED JENNIFER OF [facility], , OF REFERRAL. CM FAXED REFERRAL TO [facility] AT [phone]. CM WAITING ADMISSION DETERMINATION FROM [facility] WELL INSURANCE DETERMINATION FROM PT'S INSURANCE FOR REHAB AT [facility]. Cornel Portillo, CASE MANAGMENT DCP- Discharge Planning Updated by [id number]: Amanda Tovar on 03/28/18 3:[address] Patient Name: DEONTE OWENS Admission Status: ER Accout number: [id number] Admission Date: 03-21-2018 : 1935 Admission Diagnosis:GASTROINTESTINAL HEMORRHAGE, UNSPECIFIED Attending: ABI MAGALLANES Current LOS: 7 Anticipated DC Date: 03-27-2018 Planned Disposition: Inpatient Rehab Primary Insurance: AETNA MEDICARE PPO or HMO Discharge Planning Comments: CM MET WITH PATIENT AND HIS SON ABOUT DISCHARGE PLANNING. I INFORMED THEM WE ARE WAITING ON AUTH TO GO TO INPT REHAB AND WILL LET THEM KNOW SOON WE KNOW. I ASKED THEM IF THEY WOULD BE INTERESTED IN SNF IF INPT REHAB IS NOT APPROVED AND HE STATES IS NOT SURE. THAT IF HE DID IT WOULD BE GOOD DIPIKA. I TALKED TO THE SON OUTSIDE OF THE ROOM AND HE STATES HE MAY GET HOSPICE INVOLVED IF IT DOESN'T LOOK LIKE HIS DAD WILL HAVE A GOOD RECOVERY. FAMILY WILL CONTACT CM TOMORROW WHEN THEY COME BACK TO THE HOSPITAL. CM WILL FOLLOW AND ASSIST NEEDED WITH DC PLANNING/NEEDS. Utilization Reviewer: Amanda Tovar DCP- Discharge Planning Updated by [id number]: Amanda Tovar on 03/26/18 2:[address] Patient Name: DEONTE OWENS Admission Status: ER Accout number: [id number] Admission Date: 03-21-2018 : 1935 Admission Diagnosis:GASTROINTESTINAL HEMORRHAGE, UNSPECIFIED Attending: ABI MAGALLANES Current LOS: 5 Anticipated DC Date: 03-27-2018 Planned Disposition: Inpatient Rehab Primary Insurance: AETNA MEDICARE PPO or HMO Discharge Planning Comments: CM SPOKE WITH DR. MAGALLANES TODAY AND THE PLAN IS FOR INPATIENT REHAB. CM CALLED [facility] AND SHE IS IN ROOM SEEING PATIENT. CM WILL FOLLOW AND ASSIST NEEDED WITH DC PLANNING/NEEDS. IM SIGNED. Utilization Reviewer: Amanda Tovar DCP- Discharge Planning Updated by [email or web address]: Helen Minaya on 03/21/18 6:[address] Patient Name: DEONTE OWENS Admission Status: ER Accout number: [id number] Admission Date: 03-21-2018 : 1935 Admission Diagnosis: Attending: ABI MAGALLANES Current LOS: 1 Anticipated DC Date: 03-23-2018 Planned Disposition: Primary Insurance: MEDICARE A & B Discharge Planning Comments: CM met with patient and his cg Danni Diana to complete initial dc planning assessment. CM educated patient on the CM role and verbal consent given by patient to complete assessment. Patient lives at home alone but has a cg that comes on Sunday and Sunday for 2 hours a day. At discharge patient plans to return home alone and feels this is a safe discharge. CM discussed availability of home health, rehab services, and medical equipment. CG feels that HH may be a good option since she is only there 2 days a week. CM will continue to follow and will assist as needed with dc plans/needs. Utilization Reviewer: Helen Minaya RN, CCM RN, [facility] DCPIA - Discharge Planning Initial Assessment Updated by [id number]: Helen Minaya on 03/21/18 7:30 pm * Is the patient Alert and Oriented? Yes * PCP No PCP * [place] [facility] [place] * Preadmission Environment Home Alone * ADLs Independent * Equipment Rolling Walker * List name and contact numbers for known caregivers / representatives who currently or will assist patient after discharge: Danni Diaan - cassi - [phone] eSrgei Owens - son - [phone] * Verbal permission to speak to the caregivers and representatives has been obtained from the patient. Yes * Community resources currently utilized Private Duty Care * Please name any agencies selected above. [facility] - cg has been seeing the patient for 3 years. Family lives out of state. If anything is needed she said she will be here. * Additional services required to return to the preadmission environment? No * Can the patient safely return to the preadmission environment? Yes * Has this patient been hospitalized within the prior 30 days at any hospital? No Coverage Notice Reviewer: [id number] - Amanda Tovar Notice Issued Date-Time: 03/26/2018 14:59 Notice Type: IM Discharge Notice Notice Delivered To: Patient Relationship to Patient: Self Bioinformatics Engineer Name: Delivery Method: HAND - Hand Delivered Lidya Days: Prior Verbal Notification: Recipient Understood Notice: Yes Recipient Signature: Yes Med Rec Note Co-signed by Attending: Coverage Notice Comment: Reviewer: VIVIANA Portillo Notice Issued Date-Time: 03/29/2018 15:25 Notice Type: Patient Choice Letter Notice Delivered To: Family Member Relationship to Patient: Son Bioinformatics Engineer Name: SERGEI OWENS Delivery Method: HAND - Hand Delivered Lidya Days: Prior Verbal Notification: Recipient Understood Notice: Yes Recipient Signature: Yes Med Rec Note Co-signed by Attending: Coverage Notice Comment: Bruno WILLIAM Reviewer: [id number] Portillo Notice Issued Date-Time: 04/01/2018 14:45 Notice Type: IM Discharge Notice Notice Delivered To: Family Member Relationship to Patient: Son Bioinformatics Engineer Name: SERGEI OWENS Delivery Method: HAND - Hand Delivered Lidya Days: Prior Verbal Notification: Recipient Understood Notice: Yes Recipient Signature: Yes Med Rec Note Co-signed by Attending: Coverage Notice Comment: Reviewer: VIVIANA Portillo Notice Issued Date-Time: 03/29/2018 15:25 Notice Type: IM Discharge Notice Notice Delivered To: Family Member Relationship to Patient: Son Bioinformatics Engineer Name: SERGEI OWENS Delivery Method: HAND - Hand Delivered Lidya Days: Prior Verbal Notification: Recipient Understood Notice: Yes Recipient Signature: Yes Med Rec Note Co-signed by Attending: Coverage Notice Comment: Last DP export: 04/04/18 7:15 a Patient Name: DEONTE OWENS Page [id number] at 0828 All edits/amendments must be made on the electronic document DICTATION DATE: 04/04/18827 HOME AND SCHOOL VISITOR: [place] 04/04/18827 RPT#: [id number] DC DATE: STATUS: ADM IN [facility] [address] [place] [address] END OF REPORT
--- NOTE | 2018-04-04 11:30 | NUR ---
UP TO CHAIR WITH PT ASSIST.
[2018-04-04 11:45] LABS: BASOPHILS 0 % (0-2); EOSINOPHILS 0 % (0-7); HEMATOCRIT 33.6 % (42.0-54.0); HEMOGLOBIN 10.6 g/dL (13.5-17.5); IMMATURE GRANULOCYTES 0.3 % (0-5); LYMPHOCYTES 5.7 % (15-50); MCHC 31.5 g/dL (31.0-37.0); MCV 91.8 fL (80.0-100.0); MEAN PLATELET VOLUME 9.7 fL (7.4-10.4); MONOCYTES 4.8 % (2-11); NEUTROPHILS 89.2 % (40-80); PLATELET COUNT 184 10x3/uL (130-400); RBC 3.66 10x6/uL (4.20-6.10); RDW 16.9 % (11.5-14.5); WBC 11.9 10x3/uL (4.8-10.8)
[2018-04-04 11:52] VITALS: BP 120/62
[2018-04-04 11:59] LABS: ANION GAP 15.6 mmol/L (8-16); CALCIUM 7.7 mg/dL (8.5-10.1); CARBON DIOXIDE 20.1 mmol/L (21.0-32.0); CREATININE - SERUM 1.2 mg/dL (0.6-1.3); POTASSIUM - SERUM 3.7 mmol/L (3.5-5.1)
--- NOTE | 2018-04-04 14:21 | NUR ---
AMBULATES WITH PT ASSIST.
--- NOTE | 2018-04-04 14:46 | NUR ---
OT NOTE: FEEDING WITH SET UP; SIMPLE GROOMING WITH SET UP; URINAL USE IN SITTING WITH SET UP. SIT TO STAND WITH MOD ASSIST; AMB WITH P.T. AND PT ABLE TO AMB APPROX 12 FT FOLLOWED BY 4 MIN REST BREAK, THEN BACK TO BED ANOTHER 12 FT; TRANSFERS WITH MIN/MOD ASSIST WITH USE OF RW KAMI HERNANDEZ OTR/Good
[2018-04-04 15:31] VITALS: BP 105/69
--- NOTE | 2018-04-04 15:36 | MORECARE ---
CASE MANAGEMENT DISCHARGE SUMMARY PATIENT: DEONTE OWENS UNIT: [id number] ADM DATE: 03/21/18 AGE: 82 : [birth year] SEX: M ROOM/BED: D.9140 AUTHOR: RANI,DOC PHYSICIAN: REFERRING PHYSICIAN: ABI MAGALLANES MD DATE OF SERVICE: 04/04/18 Discharge Plan Patient Name: DEONTE OWENS Facility: [facility]:[place] : 1935 Planned Disposition: Longterm Facility Anticipated Discharge Date: 04/04/18 Discharge Date: Expected LOS: 14 Initial Reviewer: [id number] Initial Review Date: 03/21/2018 Generated: 04/04/18 4:35 pm Comments DCP- Discharge Planning Updated by [id number]: Valarie Chowdary on 04/04/18 2:[address] RECEIVED A CALL FROM [facility] WITH ANNA MARIE WHO WAS REQUESTING CLINICAL UPDATE FOR PATIENTS STAY. STATING THAT SHE REQUIRES DAILY CLINICALS ON THE PATIENT. I EXPLAINED THAT I WOULD SEND OUT CLINICAL IN ABOUT 10-15 MINUTES. SHE THEN STATED THAT SHE JUST GOT THE SNF REQUEST ON THE PATIENT TODAY AND SHE SHOULD HAVE DETERMINATION TOMORROW. SHE STATED THAT IT LOOKED LIKE THE INFORMATION GOT ROUTED TO THE WRONG DEPARTMENT AND JUST GOT TO HER TODAY. I EXPLAINED THAT WE HAVE BEEN WAITING ON THAT SINCE LAST WEEK, AND SHE STATED THAT THE FAX FOR REQUEST WAS NOT FAXED TO THE INSURANCE COMPANY UNTIL SUNDAY. WE WILL WAIT ON DETERMINATION TOMORROW. DCP- Discharge Planning Updated by [id number]: Cornel Portillo on 04/04/18 7:[address] Patient Name: DEONTE OWENS Encounter No: [id number] : 1935 Primary Insurance: AETNA MEDICARE PPO or HMO Anticipated DC Date: 04-04-2018 Planned Disposition: Longterm Facility External Planned Provider: [facility], MEDICARE REHAB BED DCP follow-up note: CM FAXED REFERRAL UPDATE TO [facility] AT [phone]. [facility] WILL ACCEPT PENDING INSURANCE PRIOR AUTHORIZATION FOR REHAB SERVICES. CM WAITING INSURANCE DETERMINATION FROM PT'S INSURANCE FOR REHAB AT [facility]. Cornel Portillo, CASE MANAGMENT DCP- Discharge Planning Updated by [id number]: Cornel Portillo on 04/03/18 1:[address] Patient Name: DEONTE OWENS Encounter No: [id number] : 1935 Primary Insurance: AETNA MEDICARE PPO or HMO Anticipated DC Date: 04-02-2018 Planned Disposition: Longterm Facility External Planned Provider: [facility], MEDICARE REHAB BED DCP follow-up note: CM RECEIVED MESSAGE FROM JENNIFER INSURANCE ASKING NOW FOR UPDATED THERAPY NOTES. CM FAXED REFERRAL UPDATE TO [facility] AT [phone]. CM WAITING ADMISSION DETERMINATION FROM [facility] WELL INSURANCE DETERMINATION FROM PT'S INSURANCE FOR REHAB AT [facility]. Cornel Portillo CASE MANAGMENT DCP- Discharge Planning Updated by [id number]: Cornel Portillo on 04/01/18 1:[address] Patient Name: DEONTE OWENS Encounter No: [id number] : 1935 Primary Insurance: AETNA MEDICARE PPO or HMO Anticipated DC Date: 03-27-2018 Planned Disposition: Longterm Facility External Planned Provider: [facility], MEDICARE REHAB BED DCP follow-up note: CM FAXED REFERRAL UPDATE TO [facility] AT [phone]. CM WAITING ADMISSION DETERMINATION FROM [facility] WELL INSURANCE DETERMINATION FROM PT'S INSURANCE FOR REHAB AT [facility]. Cornel Portillo, CASE MANAGMENT Appended by Cornel Portillo on 04/01/2018 14:51 EDUCATION AND TRAINING COORDINATOR: CM SPOKE TO PT AND PT'S SON, SERGEI LOVE. BOTH IN AGREEMENT WITH DISCHARGE TO REHAB. SERGEI [facility] BE[facility] TO [facility] AND [facility], HE PREFERS [facility] PLANNED. IMPORTANT MESSAGE FROM MEDICARE PROVIDED AND EXPLAINED. CM WAITING ADMISSION DETERMINATION FROM [facility] WELL INSURANCE DETERMINATION FROM PT'S INSURANCE FOR REHAB AT [facility]. Cornel Portillo CASE MANAGMENT DCP- Discharge Planning Updated by [id number]: Cornel Portillo on 03/29/18 3:[address] Patient Name: DEONTE OWENS Encounter No: [id number] : 1935 Primary Insurance: AETNA MEDICARE PPO or HMO Anticipated DC Date: 03-27-2018 Planned Disposition: Longterm Facility External Planned Provider: [facility], MEDICARE REHAB BED DCP follow-up note: CM SPOKE TO RN MARY CHOWDARY WHO HAS RECEIVED TELEPHONE MESSAGE FROM INSURANCE THAT THEY DENIED INPATIENT REHAB AND RECOMMENDED [facility] REHAB. CM NOTIFIED [facility] OF INPATIENT REHAB. CM NOTIFIED PT WHO INITIALLY STATED HE WILL APPEAL THIS HIMSELF AND THEN STATED THAT HE WANTS CM TO SPEAK TO HIS SON REGARDING OPTIONS. PT IS WILLING TO CONSIDER [facility] FOR REHAB. CM SPOKE TO DR. MAGALLANES WHO INFORMED CM SHE IS NOT GOING TO DO PEER TO PEER TO APPEAL INSURANCE DECISION AND AGREES WITH [facility] PLACEMENT FOR REHAB. DR. MAGALLANES SPOKE TO PT AND SON IN ROOM. CM NOTIFIED PT AND HIS SON IN ROOM. PT AND SON AGREE FOR REHAB AT [facility] FIRST CHOICE AND [facility] SECOND CHOICE. CHOICE LETTER SIGNED. IMPORTANT MESSAGE FROM MEDICARE PROVIDED AND EXPLAINED. CM NOTIFIED JENNIFER OF [facility], , OF REFERRAL. CM FAXED REFERRAL TO [facility] AT [phone]. CM WAITING ADMISSION DETERMINATION FROM [facility] WELL INSURANCE DETERMINATION FROM PT'S INSURANCE FOR REHAB AT [facility]. Cornel Portillo, CASE MANAGMENT DCP- Discharge Planning Updated by [email or web address]: Amanda Tovar on 03/28/18 3:[address] Patient Name: DEONTE OWENS Admission Status: ER Accout number: [id number] Admission Date: 03-21-2018 : 1935 Admission Diagnosis:GASTROINTESTINAL HEMORRHAGE, UNSPECIFIED Attending: ABI MAGALLANES Current LOS: 7 Anticipated DC Date: 03-27-2018 Planned Disposition: Inpatient Rehab Primary Insurance: AETNA MEDICARE PPO or HMO Discharge Planning Comments: CM MET WITH PATIENT AND HIS SON ABOUT DISCHARGE PLANNING. I INFORMED THEM WE ARE WAITING ON AUTH TO GO TO INPT REHAB AND WILL LET THEM KNOW SOON WE KNOW. I ASKED THEM IF THEY WOULD BE INTERESTED IN SNF IF INPT REHAB IS NOT APPROVED AND HE STATES IS NOT SURE. THAT IF HE DID IT WOULD BE GOOD DIPIKA. I TALKED TO THE SON OUTSIDE OF THE ROOM AND HE STATES HE MAY GET HOSPICE INVOLVED IF IT DOESN'T LOOK LIKE HIS DAD WILL HAVE A GOOD RECOVERY. FAMILY WILL CONTACT MARY TOMORROW WHEN THEY COME BACK TO THE HOSPITAL. CM WILL FOLLOW AND ASSIST NEEDED WITH DC PLANNING/NEEDS. Border Patrol Agent: Amanda La DCP- Discharge Planning Updated by [id number]: Amanda Tovar on 03/26/18 2:[address] Patient Name: DEONTE OWENS Admission Status: ER Accout number: [id number] Admission Date: 03-21-2018 : 1935 Admission Diagnosis:GASTROINTESTINAL HEMORRHAGE, UNSPECIFIED Attending: ABI MAGALLANES Current LOS: 5 Anticipated DC Date: 03-27-2018 Planned Disposition: Inpatient Rehab Primary Insurance: AETNA MEDICARE PPO or HMO Discharge Planning Comments: CM SPOKE WITH DR. MAGALLANES TODAY AND THE PLAN IS FOR INPATIENT REHAB. CM CALLED [facility] AND SHE IS IN ROOM SEEING PATIENT. CM WILL FOLLOW AND ASSIST NEEDED WITH DC PLANNING/NEEDS. IM SIGNED. Border Patrol Agent: Amanda La DCP- Discharge Planning Updated by [id number]: Helen Minaya on 03/21/18 6:[address] Patient Name: DEONTE OWENS Admission Status: ER Accout number: [id number] Admission Date: 03-21-2018 : 1935 Admission Diagnosis: Attending: ABI MAGALLANES Current LOS: 1 Anticipated DC Date: 03-23-2018 Planned Disposition: Primary Insurance: MEDICARE A & B Discharge Planning Comments: CM met with patient and his cg Danni Diana to complete initial dc planning assessment. CM educated patient on the CM role and verbal consent given by patient to complete assessment. Patient lives at home alone but has a cg that comes on Sunday and Sunday for 2 hours a day. At discharge patient plans to return home alone and feels this is a safe discharge. CM discussed availability of home health, rehab services, and medical equipment. CG feels that HH may be a good option since she is only there 2 days a week. CM will continue to follow and will assist as needed with dc plans/needs. Border Patrol Agent: Helen Minaya RN, CCM RN, CCM DCPIA - Discharge Planning Initial Assessment Updated by [id number]: Helen Minaya on 03/21/18 7:30 pm * Is the patient Alert and Oriented? Yes * PCP No PCP * Pharmacy [facility] [place] * Preadmission Environment Home Alone * ADLs Independent * Equipment Rolling Walker * List name and contact numbers for known caregivers / representatives who currently or will assist patient after discharge: Danni ye - [phone] Sergei Owens - valerie - [phone] * Verbal permission to speak to the caregivers and representatives has been obtained from the patient. Yes * Community resources currently utilized Private Duty Care * Please name any agencies selected above. [facility] has been seeing the patient for 3 years. Family lives out of state. If anything is needed she said she will be here. * Additional services required to return to the preadmission environment? No * Can the patient safely return to the preadmission environment? Yes * Has this patient been hospitalized within the prior 30 days at any hospital? No Coverage Notice Reviewer: [id number] Ana Tovar Notice Issued Date-Time: 03/26/2018 14:59 Notice Type: IM Discharge Notice Notice Delivered To: Patient Relationship to Patient: Self Awake Overnight Counselor Name: Delivery Method: HAND - Hand Delivered Lidya Days: Prior Verbal Notification: Recipient Understood Notice: Yes Recipient Signature: Yes Med Rec Note Co-signed by Attending: Coverage Notice Comment: Reviewer: [id number] Portillo Notice Issued Date-Time: 03/29/2018 15:25 Notice Type: Patient Choice Letter Notice Delivered To: Family Member Relationship to Patient: Son Awake Overnight Counselor Name: SERGEI OWENS Delivery Method: HAND - Hand Delivered Lidya Days: Prior Verbal Notification: Recipient Understood Notice: Yes Recipient Signature: Yes Med Rec Note Co-signed by Attending: Coverage Notice Comment: Bruno WILLIAM Reviewer: [id number] Portillo Notice Issued Date-Time: 04/01/2018 14:45 Notice Type: IM Discharge Notice Notice Delivered To: Family Member Relationship to Patient: Son Awake Overnight Counselor Name: SERGEI OWENS Delivery Method: HAND - Hand Delivered Liyda Days: Prior Verbal Notification: Recipient Understood Notice: Yes Recipient Signature: Yes Med Rec Note Co-signed by Attending: Coverage Notice Comment: Reviewer: [id number] Portillo Notice Issued Date-Time: 03/29/2018 15:25 Notice Type: IM Discharge Notice Notice Delivered To: Family Member Relationship to Patient: Son Awake Overnight Counselor Name: SERGEI OWENS Delivery Method: HAND - Hand Delivered Lidya Days: Prior Verbal Notification: Recipient Understood Notice: Yes Recipient Signature: Yes Med Rec Note Co-signed by Attending: Coverage Notice Comment: Last DP export: 04/04/18 7:28 a Patient Name: DEONTE OWENS Page 32371 at 1536 All edits/amendments must be made on the electronic document DICTATION DATE: 04/04/181534 SPOUT POSITIONER: [place] 04/04/181534 RPT#: [id number] DC DATE: STATUS: ADM IN [facility] [address] [place] [address] END OF REPORT
--- NOTE | 2018-04-04 15:57 | NUR ---
OT NOTE: PT COMPLETED BUE AROM EXS. PT COMPLETED HYGIENE WITH MIN A. THANK YOU, KRYSTIAN ROCHA
[2018-04-04 20:00] VITALS: BP 119/62
--- NOTE | 2018-04-04 22:55 | NUR ---
NIGHT MEDS GIVEN .PT REPOSTIONED. 3L O2 NC. PT WILL CALL FOR ASSIST WHEN NEEDED. WILL CPOC
--- NOTE | 2018-04-05 03:00 | NUR ---
PT ASLEEP. RESP EVEN, ACCESSORY MUSCLES USED. PT HAS 3L O2 NC, NO S/S OF DISTRESS. BEDLOW AND CALL LIGHT IN REACH. ALARM ON AND ACTIVE. HEELS ELEVATED FOR SWELLING. WILL CPOC
--- NOTE | 2018-04-05 06:45 | NUR ---
PT CLEANED DUE TO SPILLING URINAL IN BED. PT HAS SMALL SORE ON BUTTOCK. CLEANED AND PLACED MOISTURE BARRIER. PT REPOSITIONED. 3L O2 NC. NOURISHMENT OFFERED. PT DENIES ANY NEEDS. NO S/S OF DISTRESS. BEDLOW AND CALL LIGHT IN REACH. WILL CPOC
[2018-04-05 07:50] LABS: ANION GAP 16.9 mmol/L (8-16); CALCIUM 8.2 mg/dL (8.5-10.1); CARBON DIOXIDE 18.7 mmol/L (21.0-32.0); CREATININE - SERUM 1.3 mg/dL (0.6-1.3); POTASSIUM - SERUM 3.6 mmol/L (3.5-5.1)
[2018-04-05 07:51] LABS: BASOPHILS 0.1 % (0-2); EOSINOPHILS 0.3 % (0-7); HEMATOCRIT 37.1 % (42.0-54.0); HEMOGLOBIN 11.7 g/dL (13.5-17.5); IMMATURE GRANULOCYTES 0.2 % (0-5); LYMPHOCYTES 8.2 % (15-50); MCH 29.1 pg (26.0-34.0); MCHC 31.5 g/dL (31.0-37.0); MCV 92.3 fL (80.0-100.0); MEAN PLATELET VOLUME 10.5 fL (7.4-10.4); MONOCYTES 8.6 % (2-11); NEUTROPHILS 82.6 % (40-80); PLATELET COUNT 220 10x3/uL (130-400); RBC 4.02 10x6/uL (4.20-6.10); RDW 16.7 % (11.5-14.5); WBC 14.7 10x3/uL (4.8-10.8)
[2018-04-05 08:39] VITALS: BP 140/87
--- NOTE | 2018-04-05 09:16 | NUR ---
AMBULATES WITH PT ASSIST. UP TO CHAIR WITH CALL LIGHT IN REACH. WILL CONT. PLAN OF CARE.
--- NOTE | 2018-04-05 10:04 | MORECARE ---
CASE MANAGEMENT DISCHARGE SUMMARY PATIENT: DEONTE OWENS UNIT: [id number] ADM DATE: 03/21/18 AGE: 82 : [birth year] SEX: M ROOM/BED: D.9597 AUTHOR: RANI,DOC PHYSICIAN: REFERRING PHYSICIAN: ABI MAGALLANES MD DATE OF SERVICE: 04/05/18 Discharge Plan Patient Name: DEONTE OWENS Facility: [facility]:[place] : 1935 Planned Disposition: Prison Facility Anticipated Discharge Date: 04/04/18 Discharge Date: Expected LOS: 14 Initial Reviewer: [id number] Initial Review Date: 03/21/2018 Generated: 04/05/18 11:04 am Comments DCP- Discharge Planning Updated by [id number]: Cornel Portillo on 04/05/18 8:[address] Patient Name: DEONTE OWENS Encounter No: [id number] : 1935 Primary Insurance: [employer] MEDICARE PPO or HMO Anticipated DC Date: 04-04-2018 Planned Disposition: Prison Facility External Planned Provider: [facility], MEDICARE REHAB BED CM FAXED REFERRAL UPDATE TO [facility] AT [phone]. [facility] WILL ACCEPT PENDING INSURANCE PRIOR AUTHORIZATION FOR REHAB SERVICES. CM SPOKE TO PT WHO IS IN AGREEMENT WITH REHAB AT [facility]. IMPORTANT MESSAGE FROM MEDICARE PROVIDED AND EXPLAINED. CM WAITING INSURANCE DETERMINATION FROM PT'S INSURANCE FOR REHAB AT [facility]. Cornel Portillo, CASE MANAGMENT DCP- Discharge Planning Updated by [id number]: Valarie Chowdary on 04/04/18 2:[address] RECEIVED A CALL FROM [facility] WITH ANNA MARIE WHO WAS REQUESTING CLINICAL UPDATE FOR PATIENTS STAY. STATING THAT SHE REQUIRES DAILY CLINICALS ON THE PATIENT. I EXPLAINED THAT I WOULD SEND OUT CLINICAL IN ABOUT 10-15 MINUTES. SHE THEN STATED THAT SHE JUST GOT THE SNF REQUEST ON THE PATIENT TODAY AND SHE SHOULD HAVE DETERMINATION TOMORROW. SHE STATED THAT IT LOOKED LIKE THE INFORMATION GOT ROUTED TO THE WRONG DEPARTMENT AND JUST GOT TO HER TODAY. I EXPLAINED THAT WE HAVE BEEN WAITING ON THAT SINCE LAST WEEK, AND SHE STATED THAT THE FAX FOR REQUEST WAS NOT FAXED TO THE INSURANCE COMPANY UNTIL SUNDAY. WE WILL WAIT ON DETERMINATION TOMORROW. DCP- Discharge Planning Updated by [id number]: Cornel Portillo on 04/04/18 7:[address] Patient Name: DEONTE OWENS Encounter No: [id number] : 1935 Primary Insurance: [employer] MEDICARE PPO or HMO Anticipated DC Date: 04-04-2018 Planned Disposition: Prison Facility External Planned Provider: [facility], MEDICARE REHAB BED DCP follow-up note: CM FAXED REFERRAL UPDATE TO [facility] AT [phone]. [facility] WILL ACCEPT PENDING INSURANCE PRIOR AUTHORIZATION FOR REHAB SERVICES. CM WAITING INSURANCE DETERMINATION FROM PT'S INSURANCE FOR REHAB AT [facility]. Cornel Portillo, CASE MANAGMENT DCP- Discharge Planning Updated by [id number]: Cornel Portillo on 04/03/18 1:[address] Patient Name: DEONTE OWENS Encounter No: [id number] : 1935 Primary Insurance: [employer] MEDICARE PPO or HMO Anticipated DC Date: 04-02-2018 Planned Disposition: Prison Facility External Planned Provider: [facility], MEDICARE REHAB BED DCP follow-up note: CM RECEIVED MESSAGE FROM DENNY RODRIGUEZ ASKING NOW FOR UPDATED THERAPY NOTES. CM FAXED REFERRAL UPDATE TO [facility] AT [phone]. CM WAITING ADMISSION DETERMINATION FROM [facility] WELL INSURANCE DETERMINATION FROM PT'S INSURANCE FOR REHAB AT [facility]. Cornel Portillo, CASE MANAGMENT DCP- Discharge Planning Updated by [id number]: Cornel Portillo on 04/01/18 1:[address] Patient Name: DEONTE OWENS Encounter No: [id number] : 1935 Primary Insurance: [employer] MEDICARE PPO or HMO Anticipated DC Date: 03-27-2018 Planned Disposition: Prison Facility External Planned Provider: [facility], MEDICARE REHAB BED DCP follow-up note: CM FAXED REFERRAL UPDATE TO [facility] AT [phone]. CM WAITING ADMISSION DETERMINATION FROM [facility] WELL INSURANCE DETERMINATION FROM PT'S INSURANCE FOR REHAB AT [facility]. Cornel Portillo, CASE MANAGMENT Appended by Cornel Portillo on 04/01/2018 14:51 [employer] REP: CM SPOKE TO PT AND PT'S SON, SERGEI LOVE. BOTH IN AGREEMENT WITH DISCHARGE TO REHAB. SERGEI HAS BEEN TO BOTH [facility] AND [facility], HE PREFERS [facility] PLANNED. IMPORTANT MESSAGE FROM MEDICARE PROVIDED AND EXPLAINED. CM WAITING ADMISSION DETERMINATION FROM [facility] WELL INSURANCE DETERMINATION FROM PT'S INSURANCE FOR REHAB AT [facility]. Cornel Portillo, CASE MANAGMENT DCP- Discharge Planning Updated by [id number]: Cornel Portillo on 03/29/18 3:[address] Patient Name: DEONTE OWENS Encounter No: [id number] : 1935 Primary Insurance: [employer] MEDICARE PPO or HMO Anticipated DC Date: 03-27-2018 Planned Disposition: Prison Facility External Planned Provider: [facility], MEDICARE REHAB BED DCP follow-up note: CM SPOKE TO MARILUZ CHOWDARY WHO HAS RECEIVED TELEPHONE MESSAGE FROM INSURANCE THAT THEY DENIED INPATIENT REHAB AND RECOMMENDED [facility] REHAB. CM NOTIFIED [facility] OF INPATIENT REHAB. CM NOTIFIED PT WHO INITIALLY STATED HE WILL APPEAL THIS HIMSELF AND THEN STATED THAT HE WANTS CM TO SPEAK TO HIS SON REGARDING OPTIONS. PT IS WILLING TO CONSIDER [facility] FOR REHAB. CM SPOKE TO DR. MAGALLANES WHO INFORMED CM SHE IS NOT GOING TO DO PEER TO PEER TO APPEAL INSURANCE DECISION AND AGREES WITH [facility] PLACEMENT FOR REHAB. DR. MAGALLANES SPOKE TO PT AND SON IN ROOM. CM NOTIFIED PT AND HIS SON IN ROOM. PT AND SON AGREE FOR REHAB AT [facility] FIRST CHOICE AND [facility] SECOND CHOICE. CHOICE LETTER SIGNED. IMPORTANT MESSAGE FROM MEDICARE PROVIDED AND EXPLAINED. CM NOTIFIED JENNIFER OF [facility], , OF REFERRAL. CM FAXED REFERRAL TO [facility] AT [phone]. CM WAITING ADMISSION DETERMINATION FROM [facility] WELL INSURANCE DETERMINATION FROM PT'S INSURANCE FOR REHAB AT [facility]. Cornel Portillo, CASE MANAGMENT DCP- Discharge Planning Updated by [id number]: Amanda Tovar on 03/28/18 3:[address] Patient Name: DEONTE OWENS Admission Status: ER Accout number: [id number] Admission Date: 03-21-2018 : 1935 Admission Diagnosis:GASTROINTESTINAL HEMORRHAGE, UNSPECIFIED Attending: ABI MAGALLANES Current LOS: 7 Anticipated DC Date: 03-27-2018 Planned Disposition: Inpatient Rehab Primary Insurance: A[employer] MEDICARE PPO or HMO Discharge Planning Comments: CM MET WITH PATIENT AND HIS SON ABOUT DISCHARGE PLANNING. I INFORMED THEM WE ARE WAITING ON AUTH TO GO TO INPT REHAB AND WILL LET THEM KNOW SOON WE KNOW. I ASKED THEM IF THEY WOULD BE INTERESTED IN SNF IF INPT REHAB IS NOT APPROVED AND HE STATES IS NOT SURE. THAT IF HE DID IT WOULD BE GOOD DIPIKA. I TALKED TO THE SON OUTSIDE OF THE ROOM AND HE STATES HE MAY GET HOSPICE INVOLVED IF IT DOESN'T LOOK LIKE HIS DAD WILL HAVE A GOOD RECOVERY. FAMILY WILL CONTACT CM TOMORROW WHEN THEY COME BACK TO THE HOSPITAL. CM WILL FOLLOW AND ASSIST NEEDED WITH DC PLANNING/NEEDS. Benchroom Shop Optician: Amanda Tovar DCP- Discharge Planning Updated by [id number]: Amanda Tovar on 03/26/18 2:[address] Patient Name: DEONTE OWENS Admission Status: ER Accout number: [id number] Admission Date: 03-21-2018 : 1935 Admission Diagnosis:GASTROINTESTINAL HEMORRHAGE, UNSPECIFIED Attending: ABI MAGALLANES Current LOS: 5 Anticipated DC Date: 03-27-2018 Planned Disposition: Inpatient Rehab Primary Insurance: AET[employer] MEDICARE PPO or HMO Discharge Planning Comments: CM SPOKE WITH DR. MAGALLANES TODAY AND THE PLAN IS FOR INPATIENT REHAB. CM CALLED [facility] AND SHE IS IN ROOM SEEING PATIENT. CM WILL FOLLOW AND ASSIST NEEDED WITH DC PLANNING/NEEDS. IM SIGNED. Benchroom Shop Optician: Amanda Tovar DCP- Discharge Planning Updated by [id number]: Helen Minaya on 03/21/18 6:[address] Patient Name: DEONTE OWENS Admission Status: ER Accout number: [id number] Admission Date: 03-21-2018 : 1935 Admission Diagnosis: Attending: ABI MAGALLANES Current LOS: 1 Anticipated DC Date: 03-23-2018 Planned Disposition: Primary Insurance: MEDICARE A & B Discharge Planning Comments: CM met with patient and his cg Danni Clayton to complete initial dc planning assessment. CM educated patient on the CM role and verbal consent given by patient to complete assessment. Patient lives at home alone but has a cg that comes on Sunday and Sunday for 2 hours a day. At discharge patient plans to return home alone and feels this is a safe discharge. CM discussed availability of home health, rehab services, and medical equipment. CG feels that HH may be a good option since she is only there 2 days a week. CM will continue to follow and will assist as needed with dc plans/needs. Benchroom Shop Optician: Helen Minaya RN, CCM RN, [facility] DCPIA - Discharge Planning Initial Assessment Updated by [id number]: Helen Minaya on 03/21/18 7:30 pm * Is the patient Alert and Oriented? Yes * PCP No PCP * [place] [facility] [place] * Preadmission Environment Home Alone * ADLs Independent * Equipment Rolling Walker * List name and contact numbers for known caregivers / representatives who currently or will assist patient after discharge: Danni Diana cg - [phone] Sergei Owens - son - [phone] * Verbal permission to speak to the caregivers and representatives has been obtained from the patient. Yes * Community resources currently utilized Private Duty [facility] * Please name any agencies selected above. [facility] - cg has been seeing the patient for 3 years. Family [place] of [place]. If anything is needed she said she will be here. * Additional services required to return to the preadmission environment? No * Can the patient safely return to the preadmission environment? Yes * Has this patient been hospitalized within the prior 30 days at any hospital? No Coverage Notice Reviewer: [id number] - Amanda Tovar Notice Issued Date-Time: 03/26/2018 14:59 Notice Type: IM Discharge Notice Notice Delivered To: Patient Relationship to Patient: Self Solar Sales Ambassador Name: Delivery Method: HAND - Hand Delivered Lidya Days: Prior Verbal Notification: Recipient Understood Notice: Yes Recipient Signature: Yes Med Rec Note Co-signed by Attending: Coverage Notice Comment: Reviewer: [id number] - Cornel Portillo Notice Issued Date-Time: 03/29/2018 15:25 Notice Type: Patient Choice Letter Notice Delivered To: Family Member Relationship to Patient: Son Solar Sales Ambassador Name: SERGEI OWENS Delivery Method: HAND - Hand Delivered Lidya Days: Prior Verbal Notification: Recipient Understood Notice: Yes Recipient Signature: Yes Med Rec Note Co-signed by Attending: Coverage Notice Comment: Bruno WILLIAM Reviewer: [id number] Portillo Notice Issued Date-Time: 04/01/2018 14:45 Notice Type: IM Discharge Notice Notice Delivered To: Family Member Relationship to Patient: Son Solar Sales Ambassador Name: SERGEI OWENS Delivery Method: HAND - Hand Delivered Lidya Days: Prior Verbal Notification: Recipient Understood Notice: Yes Recipient Signature: Yes Med Rec Note Co-signed by Attending: Coverage Notice Comment: Reviewer: VIVIANA Portillo Notice Issued Date-Time: 03/29/2018 15:25 Notice Type: IM Discharge Notice Notice Delivered To: Family Member Relationship to Patient: Son Solar Sales Ambassador Name: SERGEI OWENS Delivery Method: HAND - Hand Delivered Lidya Days: Prior Verbal Notification: Recipient Understood Notice: Yes Recipient Signature: Yes Med Rec Note Co-signed by Attending: Coverage Notice Comment: Reviewer: VIVIANA Portillo Notice Issued Date-Time: 04/05/2018 9:50 Notice Type: IM Discharge Notice Notice Delivered To: Patient Relationship to Patient: Solar Sales Ambassador Name: Delivery Method: - Lidya Days: Prior Verbal Notification: Recipient Understood Notice: Yes Recipient Signature: Med Rec Note Co-signed by Attending: Coverage Notice Comment: REFUSED SIGNATURE Last DP export: 04/04/18 2:36 p Patient Name: DEONTE OWENS Page [id number] at 1004 All edits/amendments must be made on the electronic document DICTATION DATE: 04/05/18 1003 CASTING ASSISTANT: [place] 04/05/18 1003 RPT#: [id number] DC DATE: STATUS: ADM IN [facility] [address] [place] [address] END OF REPORT
--- NOTE | 2018-04-05 10:07 | NUR ---
ASSISTED TO BR BY PT/OT. WILL CONT. PPLAN OF CARE.
--- NOTE | 2018-04-05 10:11 | NUR ---
LRG BANDIAD APPLIED TO SKIN TEAR RIGHT BOWMAN. LRG BM NOTED.
--- NOTE | 2018-04-05 10:50 | MORECARE ---
CASE MANAGEMENT DISCHARGE SUMMARY PATIENT: DEONTE OWENS UNIT: [id number] ADM DATE: 03/21/18 AGE: 82 : [birth year] SEX: M ROOM/BED: D.2659 AUTHOR: RANI,DOC PHYSICIAN: REFERRING PHYSICIAN: ABI MAGALLANES MD DATE OF SERVICE: 04/05/18 Discharge Plan Patient Name: DEONTE OWENS Facility: [facility]:[place] : 1935 Planned Disposition: Usp Facility Anticipated Discharge Date: 04/04/18 Discharge Date: Expected LOS: 14 Initial Reviewer: [id number] Initial Review Date: 03/21/2018 Generated: 04/05/18 11:50 am Comments DCP- Discharge Planning Updated by [id number]: Valarie Chowdary on 04/05/18 9:[address] RECEIVED A VOICEMAIL FROM [facility] WITH ANNA MARIE. SHE STATED THAT SHE HAS PASSED THE AUTHORIZATION OFF TO JAVIER IN THE SNF DEPARTMENT, BUT WANTED TO MAKE SURE THAT WE ALSO HAD THE INFORMATION SO THAT THE PATIENT COULD GET MOVING. SHE STATED THAT THE INSULATION SPRAYER HAS AUTHED THE PATIENT FOR 5 DAYS OF SNF (04/05-04/09), AND THE AUTH IS GOOD FOR 48 HOURS. SHE GAVE A SNF AUTH # [id number]. SHE HAS REQUESTED THAT I ASK THE PRISON TO SEND CLINICAL UPDATES TO THE SNF DEPARTMENT AT FAX, . IF THERE ARE ANY QUESTIONS, WE CAN CALL HER AT [phone]. I PAGED DR MAGALLANES AT [phone]. SPOKE WITH HER, AND SHE IS AFRAID THAT THE PATIENT MIGHT HAVE AN INFECTION BREWING. SHE STATED THAT HE IS TACHYPNEIC AND HAS ELEVATED WBC'S. SHE STATED THAT SHE WAS GOING TO GET SOME ABG'S AND TALK TO DR BRADEN, AND SEE WHAT HE THOUGH. THE PATIENT MAY NOT DISCHARGE TODAY. WILL WAIT FOR DETERMINATION. DCP- Discharge Planning Updated by [id number]: Cornel Portillo on 04/05/18 8:[address] Patient Name: DEONTE OWENS Encounter No: [id number] : 1935 Primary Insurance: AETNA MEDICARE PPO or HMO Anticipated DC Date: 04-04-2018 Planned Disposition: Usp Facility External Planned Provider: [facility], MEDICARE REHAB BED CM FAXED REFERRAL UPDATE TO [facility] AT [phone]. [facility] WILL ACCEPT PENDING INSURANCE PRIOR AUTHORIZATION FOR REHAB SERVICES. CM SPOKE TO PT WHO IS IN AGREEMENT WITH REHAB AT [facility]. IMPORTANT MESSAGE FROM MEDICARE PROVIDED AND EXPLAINED. CM WAITING INSURANCE DETERMINATION FROM PT'S INSURANCE FOR REHAB AT [facility]. Cornel Portillo, CASE MANAGMENT DCP- Discharge Planning Updated by [id number]: Valarie Amos on 04/04/18 2:[address] RECEIVED A CALL FROM [facility] WITH ANNA MARIE WHO WAS REQUESTING CLINICAL UPDATE FOR PATIENTS STAY. STATING THAT SHE REQUIRES DAILY CLINICALS ON THE PATIENT. I EXPLAINED THAT I WOULD SEND OUT CLINICAL IN ABOUT 10-15 MINUTES. SHE THEN STATED THAT SHE JUST GOT THE SNF REQUEST ON THE PATIENT TODAY AND SHE SHOULD HAVE DETERMINATION TOMORROW. SHE STATED THAT IT LOOKED LIKE THE INFORMATION GOT ROUTED TO THE WRONG DEPARTMENT AND JUST GOT TO HER TODAY. I EXPLAINED THAT WE HAVE BEEN WAITING ON THAT SINCE LAST WEEK, AND SHE STATED THAT THE FAX FOR REQUEST WAS NOT FAXED TO THE INSURANCE COMPANY UNTIL SUNDAY. WE WILL WAIT ON DETERMINATION TOMORROW. DCP- Discharge Planning Updated by [id number]: Cornel Portillo on 04/04/18 7:[address] Patient Name: DEONTE OWENS Encounter No: [id number] : 1935 Primary Insurance: AETNA MEDICARE PPO or HMO Anticipated DC Date: 04-04-2018 Planned Disposition: Usp Facility External Planned Provider: [facility], MEDICARE REHAB BED DCP follow-up note: CM FAXED REFERRAL UPDATE TO [facility] AT [phone]. [facility] WILL ACCEPT PENDING INSURANCE PRIOR AUTHORIZATION FOR REHAB SERVICES. CM WAITING INSURANCE DETERMINATION FROM PT'S INSURANCE FOR REHAB AT [facility]. Cornel Portillo, CASE MANAGMENT DCP- Discharge Planning Updated by [id number]: Cornel Portillo on 04/03/18 1:[address] Patient Name: DEONTE OWENS Encounter No: [id number] : 1935 Primary Insurance: AETNA MEDICARE PPO or HMO Anticipated DC Date: 04-02-2018 Planned Disposition: Usp Facility External Planned Provider: [facility], MEDICARE REHAB BED DCP follow-up note: CM RECEIVED MESSAGE FROM DENNY RODRIGUEZ ASKING NOW FOR UPDATED THERAPY NOTES. CM FAXED REFERRAL UPDATE TO [facility] AT [phone]. CM WAITING ADMISSION DETERMINATION FROM [facility] WELL INSURANCE DETERMINATION FROM PT'S INSURANCE FOR REHAB AT [facility]. Cornel Portillo CASE MANAGMENT DCP- Discharge Planning Updated by [id number]: Cornel Portillo on 04/01/18 1:[address] Patient Name: DEONTE OWENS Encounter No: [id number] : 1935 Primary Insurance: AETNA MEDICARE PPO or HMO Anticipated DC Date: 03-27-2018 Planned Disposition: Usp Facility External Planned Provider: [facility], MEDICARE REHAB BED DCP follow-up note: CM FAXED REFERRAL UPDATE TO [facility] AT [phone]. CM WAITING ADMISSION DETERMINATION FROM [facility] WELL INSURANCE DETERMINATION FROM PT'S INSURANCE FOR REHAB AT [facility]. Cornel Portillo CASE MANAGMENT Appended by Cornel Portillo on 04/01/2018 14:51 JUNIOR ACCOUNTANT: CM SPOKE TO PT AND PT'S SON, SERGEI LOVE. BOTH IN AGREEMENT WITH DISCHARGE TO REHAB. SERGEI HAS BEEN TO BOTH [facility] AND [facility], HE PREFERS [facility] PLANNED. IMPORTANT MESSAGE FROM MEDICARE PROVIDED AND EXPLAINED. CM WAITING ADMISSION DETERMINATION FROM [facility] WELL INSURANCE DETERMINATION FROM PT'S INSURANCE FOR REHAB AT [facility]. Cornel Portillo CASE MANAGMENT DCP- Discharge Planning Updated by [id number]: Cornel Portillo on 03/29/18 3:[address] Patient Name: DEONTE OWENS Encounter No: [id number] : 1935 Primary Insurance: AETNA MEDICARE PPO or HMO Anticipated DC Date: 03-27-2018 Planned Disposition: Usp Facility External Planned Provider: [facility], MEDICARE REHAB BED DCP follow-up note: CM SPOKE TO MARILUZ CHOWDARY WHO HAS RECEIVED TELEPHONE MESSAGE FROM INSURANCE THAT THEY DENIED INPATIENT REHAB AND RECOMMENDED [facility] RE[facility]AB. CM NOTIFIED [facility] OF INPATIENT REHAB. CM NOTIFIED PT WHO INITIALLY STATED HE WILL APPEAL THIS HIMSELF AND THEN STATED THAT HE WANTS CM TO SPEAK TO HIS SON REGARDING OPTIONS. PT IS WILLING TO CONSIDER [facility] FOR REHAB. CM SPOKE TO DR. MAGALLANES WHO INFORMED CM SHE IS NOT GOING TO DO PEER TO PEER TO APPEAL INSURANCE DECISION AND AGREES WITH [facility] PLACEMENT FOR REHAB. DR. MAGALLANES SPOKE TO PT AND SON IN ROOM. CM NOTIFIED PT AND HIS SON IN ROOM. PT AND SON AGREE FOR REHAB AT [facility] FIRST CHOICE AND [facility] SECOND CHOICE. CHOICE LETTER SIGNED. IMPORTANT MESSAGE FROM MEDICARE PROVIDED AND EXPLAINED. CM NOTIFIED JENNIFER OF [facility], , OF REFERRAL. CM FAXED REFERRAL TO [facility] AT [phone]. CM WAITING ADMISSION DETERMINATION FROM [facility] WELL INSURANCE DETERMINATION FROM PT'S INSURANCE FOR REHAB AT [facility]. Cornel Portillo, CASE MANAGMENT DCP- Discharge Planning Updated by [id number]: Amanda Tovar on 03/28/18 3:[address] Patient Name: DEONTE OWENS Admission Status: ER Accout number: [id number] Admission Date: 03-21-2018 : 1935 Admission Diagnosis:GASTROINTESTINAL HEMORRHAGE, UNSPECIFIED Attending: ABI MAGALLANES Current LOS: 7 Anticipated DC Date: 03-27-2018 Planned Disposition: Inpatient Rehab Primary Insurance: AETNA MEDICARE PPO or HMO Discharge Planning Comments: CM MET WITH PATIENT AND HIS SON ABOUT DISCHARGE PLANNING. I INFORMED THEM WE ARE WAITING ON AUTH TO GO TO INPT REHAB AND WILL LET THEM KNOW SOON WE KNOW. I ASKED THEM IF THEY WOULD BE INTERESTED IN SNF IF INPT REHAB IS NOT APPROVED AND HE STATES IS NOT SURE. THAT IF HE DID IT WOULD BE GOOD DIPIKA. I TALKED TO THE SON OUTSIDE OF THE ROOM AND HE STATES HE MAY GET HOSPICE INVOLVED IF IT DOESN'T LOOK LIKE HIS DAD WILL HAVE A GOOD RECOVERY. FAMILY WILL CONTACT CM TOMORROW WHEN THEY COME BACK TO THE HOSPITAL. CM WILL FOLLOW AND ASSIST NEEDED WITH DC PLANNING/NEEDS. Rehab Care Assistant: Amanda Tovar DCP- Discharge Planning Updated by [id number]: Amanda Tovar on 03/26/18 2:[address] Patient Name: DEONTE OWENS Admission Status: ER Accout number: [id number] Admission Date: 03-21-2018 : 1935 Admission Diagnosis:GASTROINTESTINAL HEMORRHAGE, UNSPECIFIED Attending: ABI MAGALLANES Current LOS: 5 Anticipated DC Date: 03-27-2018 Planned Disposition: Inpatient Rehab Primary Insurance: AETNA MEDICARE PPO or HMO Discharge Planning Comments: CM SPOKE WITH DR. MAGALLANES TODAY AND THE PLAN IS FOR INPATIENT REHAB. CM CALLED [facility] AND SHE IS IN ROOM SEEING PATIENT. CM WILL FOLLOW AND ASSIST NEEDED WITH DC PLANNING/NEEDS. IM SIGNED. Rehab Care Assistant: Amanda Tovar DCP- Discharge Planning Updated by [id number]: Helen Minaya on 03/21/18 6:[address] Patient Name: DEONTE OWENS Admission Status: ER Accout number: [id number] Admission Date: 03-21-2018 : 1935 Admission Diagnosis: Attending: ABI MAGALLANES Current LOS: 1 Anticipated DC Date: 03-23-2018 Planned Disposition: Primary Insurance: MEDICARE A & B Discharge Planning Comments: CM met with patient and his cg Danni Diana to complete initial dc planning assessment. CM educated patient on the CM role and verbal consent given by patient to complete assessment. Patient lives at home alone but has a cg that comes on Sunday and Sunday for 2 hours a day. At discharge patient plans to return home alone and feels this is a safe discharge. CM discussed availability of home health, rehab services, and medical equipment. CG feels that HH may be a good option since she is only there 2 days a week. CM will continue to follow and will assist as needed with dc plans/needs. Rehab Care Assistant: Helen Minaya RN, CCM RN, CCM DCPIA - Discharge Planning Initial Assessment Updated by [id number]: Helen Minaya on 03/21/18 7:30 pm * Is the patient Alert and Oriented? Yes * PCP No PCP * [place] [facility] [place] * Preadmission Environment Home Alone * ADLs Independent * Equipment Rolling Walker * List name and contact numbers for known caregivers / representatives who currently or will assist patient after discharge: Danni Diana - - [phone] [facility]i [facility] - [phone] * Verbal permission to speak to the caregivers and representatives has been obtained from the patient. Yes * Community resources currently utilized Private Duty Care * Please name any agencies selected above. [facility] has been seeing the patient for 3 years. Family [place] of [place]. If anything is needed she said she will be here. * Additional services required to return to the preadmission environment? No * Can the patient safely return to the preadmission environment? Yes * Has this patient been hospitalized within the prior 30 days at any hospital? No Coverage Notice Reviewer: [id number] Ana Tovar Notice Issued Date-Time: 03/26/2018 14:59 Notice Type: IM Discharge Notice Notice Delivered To: Patient Relationship to Patient: Self Special Tester Name: Delivery Method: HAND - Hand Delivered Lidya Days: Prior Verbal Notification: Recipient Understood Notice: Yes Recipient Signature: Yes Med Rec Note Co-signed by Attending: Coverage Notice Comment: Reviewer: VIVIANA Portillo Notice Issued Date-Time: 03/29/2018 15:25 Notice Type: Patient Choice Letter Notice Delivered To: Family Member Relationship to Patient: Son Special Tester Name: SERGEI OWENS Delivery Method: HAND - Hand Delivered Lidya Days: Prior Verbal Notification: Recipient Understood Notice: Yes Recipient Signature: Yes Med Rec Note Co-signed by Attending: Coverage Notice Comment: Bruno WILLIAM Reviewer: [id number] Portillo Notice Issued Date-Time: 04/01/2018 14:45 Notice Type: IM Discharge Notice Notice Delivered To: Family Member Relationship to Patient: Son Special Tester Name: SERGEI OWENS Delivery Method: HAND - Hand Delivered Lidya Days: Prior Verbal Notification: Recipient Understood Notice: Yes Recipient Signature: Yes Med Rec Note Co-signed by Attending: Coverage Notice Comment: Reviewer: VIVIANA Portillo Notice Issued Date-Time: 03/29/2018 15:25 Notice Type: IM Discharge Notice Notice Delivered To: Family Member Relationship to Patient: Son Special Tester Name: SERGEI OWENS Delivery Method: HAND - Hand Delivered Liday Days: Prior Verbal Notification: Recipient Understood Notice: Yes Recipient Signature: Yes Med Rec Note Co-signed by Attending: Coverage Notice Comment: Reviewer: VIVIANA Portillo Notice Issued Date-Time: 04/05/2018 9:50 Notice Type: IM Discharge Notice Notice Delivered To: Patient Relationship to Patient: Special Tester Name: Delivery Method: - Lidya Days: Prior Verbal Notification: Recipient Understood Notice: Yes Recipient Signature: Med Rec Note Co-signed by Attending: Coverage Notice Comment: REFUSED SIGNATURE Last DP export: 04/05/18 9:04 a Patient Name: DEONTE OWENS Page [phone] at 1050 All edits/amendments must be made on the electronic document DICTATION DATE: 04/05/18 105 RADIO OFFICER: [place] 04/05/18 1050 RPT#: [id number] DC DATE: STATUS: ADM IN [facility] [address] [place] [address] END OF REPORT
[2018-04-05 11:36] VITALS: BP 118/71
--- NOTE | 2018-04-05 12:01 | MORECARE ---
CASE MANAGEMENT DISCHARGE SUMMARY PATIENT: DEONTE OWENS UNIT: [id number] ADM DATE: 03/21/18 AGE: 82 : 31 SEX: M ROOM/BED: D.9067 AUTHOR: RANI,DOC PHYSICIAN: REFERRING PHYSICIAN: ABI MAGALLANES MD DATE OF SERVICE: 04/05/18 Discharge Plan Patient Name: DEONTE OWENS Facility: [facility]:[place] : 1935 Planned Disposition: Retirement Facility Anticipated Discharge Date: 04/04/18 Discharge Date: Expected LOS: 14 Initial Reviewer: [id number] Initial Review Date: 03/21/2018 Generated: 04/05/18 1:01 pm Comments DCP- Discharge Planning Updated by [id number]: Denise Freeman on 04/05/18 10:[address] Patient Name: DEONTE OWENS Encounter No: [id number] : 1935 Primary Insurance: AETNA MEDICARE PPO or HMO Anticipated DC Date: 04-04-2018 Planned Disposition: Retirement Facility External Planned Provider: [facility], MEDICARE REHAB BED CM FAXED REFERRAL UPDATE TO [facility] AT [phone]. [facility] WILL ACCEPT PENDING INSURANCE PRIOR AUTHORIZATION FOR REHAB SERVICES. CM SPOKE TO PT WHO IS IN AGREEMENT WITH REHAB AT [facility]. IMPORTANT MESSAGE FROM MEDICARE PROVIDED AND EXPLAINED. CM WAITING INSURANCE DETERMINATION FROM PT'S INSURANCE FOR REHAB AT [facility]. Denise Freeman, CASE MANAGMENT Appended by Denise Freeman on 04/05/2018 11:55 WRAPPER LAYER AND EXAMINER SOFT WORK: CM CALLED AND SPOKE TO BERNIE AT [facility], THEY RECEIVED INSURANCE AUTHORIZATION FOR PT TO ENTER [facility] IN THE NEXT 48 HOURS FOR NURSING HOME REHAB. IF PT DOES NOT ENTER IN THE NEXT 48 HOURS, PT WILL REQUIRE NEW AUTHORIZATION FOR REHAB SERVICES. CM NOTIFEID BERNIE OF DR. MAGALLANES NEEDING TO LOOK AT PT AGAIN TODAY AND POSSIBLE KEEP OVERNIGHT DUE TO INCREASED WHITE BLOOD CELL COUNT. FOR DISCHARGE TO [facility] FOR REHAB IN THE NEXT 48 HOURS, FAX DISCHARGE INFORMATION TO [facility] AT [phone]. NURSE REPORT TO BE CALLED TO [facility] AT [phone]. [facility] TO ARRANGE VAN TRANSPORT. DENISE FREEMAN, CASE MANAGEMENT DCP- Discharge Planning Updated by [id number]: Valarie Chowdary on 04/05/18 9:[address] RECEIVED A VOICEMAIL FROM [facility] WITH ANNA MARIE. SHE STATED THAT SHE HAS PASSED THE AUTHORIZATION OFF TO JAVIER IN THE SNF DEPARTMENT, BUT WANTED TO MAKE SURE THAT WE ALSO HAD THE INFORMATION SO THAT THE PATIENT COULD GET MOVING. SHE STATED THAT THE [employer] HAS AUTHED THE PATIENT FOR 5 DAYS OF SNF (04/05-04/09), AND THE AUTH IS GOOD FOR 48 HOURS. SHE GAVE A SNF AUTH # [id number]. SHE HAS REQUESTED THAT I ASK THE CORRECTION TO SEND CLINICAL UPDATES TO THE SNF DEPARTMENT AT FAX, . IF THERE ARE ANY QUESTIONS, WE CAN CALL HER AT [phone]. I PAGED DR MAGALLANES AT [phone]. SPOKE WITH HER, AND SHE IS AFRAID THAT THE PATIENT MIGHT HAVE AN INFECTION BREWING. SHE STATED THAT HE IS TACHYPNEIC AND HAS ELEVATED WBC'S. SHE STATED THAT SHE WAS GOING TO GET SOME ABG'S AND TALK TO DR BRADEN, AND SEE WHAT HE THOUGH. THE PATIENT MAY NOT DISCHARGE TODAY. WILL WAIT FOR DETERMINATION. DCP- Discharge Planning Updated by [id number]: Valarie Chowdary on 04/04/18 2:[address] RECEIVED A CALL FROM [facility] WITH ANNA MARIE WHO WAS REQUESTING CLINICAL UPDATE FOR PATIENTS STAY. STATING THAT SHE REQUIRES DAILY CLINICALS ON THE PATIENT. I EXPLAINED THAT I WOULD SEND OUT CLINICAL IN ABOUT 10-15 MINUTES. SHE THEN STATED THAT SHE JUST GOT THE SNF REQUEST ON THE PATIENT TODAY AND SHE SHOULD HAVE DETERMINATION TOMORROW. SHE STATED THAT IT LOOKED LIKE THE INFORMATION GOT ROUTED TO THE WRONG DEPARTMENT AND JUST GOT TO HER TODAY. I EXPLAINED THAT WE HAVE BEEN WAITING ON THAT SINCE LAST WEEK, AND SHE STATED THAT THE FAX FOR REQUEST WAS NOT FAXED TO THE INSURANCE COMPANY UNTIL SUNDAY. WE WILL WAIT ON DETERMINATION TOMORROW. DCP- Discharge Planning Updated by [id number]: Denise Freeman on 04/04/18 7:[address] Patient Name: DEONTE OWENS Encounter No: [id number] : 1935 Primary Insurance: AETNA MEDICARE PPO or HMO Anticipated DC Date: 04-04-2018 Planned Disposition: Retirement Facility External Planned Provider: [facility], MEDICARE REHAB BED DCP follow-up note: CM FAXED REFERRAL UPDATE TO [facility] AT [phone]. [facility] WILL ACCEPT PENDING INSURANCE PRIOR AUTHORIZATION FOR REHAB SERVICES. CM WAITING INSURANCE DETERMINATION FROM PT'S INSURANCE FOR REHAB AT [facility]. Denise Freeman, CASE MANAGMENT DCP- Discharge Planning Updated by [id number]: Denise Freeman on 04/03/18 1:[address] Patient Name: DEONTE OWENS Encounter No: [id number] : 1935 Primary Insurance: AETNA MEDICARE PPO or HMO Anticipated DC Date: 04-02-2018 Planned Disposition: Retirement Facility External Planned Provider: [facility], MEDICARE REHAB BED DCP follow-up note: CM RECEIVED MESSAGE FROM [employer] ASKING NOW FOR UPDATED THERAPY NOTES. CM FAXED REFERRAL UPDATE TO [facility] AT [phone]. CM WAITING ADMISSION DETERMINATION FROM [facility] WELL INSURANCE DETERMINATION FROM PT'S INSURANCE FOR REHAB AT [facility]. Denise Freeman CASE MANAGMENT DCP- Discharge Planning Updated by [id number]: Denise Freeman on 04/01/18 1:[address] Patient Name: DEONTE OWENS Encounter No: [id number] : 1935 Primary Insurance: AETNA MEDICARE PPO or HMO Anticipated DC Date: 03-27-2018 Planned Disposition: Retirement Facility External Planned Provider: [facility], MEDICARE REHAB BED DCP follow-up note: CM FAXED REFERRAL UPDATE TO [facility] AT [phone]. CM WAITING ADMISSION DETERMINATION FROM [facility] WELL INSURANCE DETERMINATION FROM PT'S INSURANCE FOR REHAB AT [facility]. Denise Freeman, CASE MANAGMENT Appended by Denise Freeman on 04/01/2018 14:51 WRAPPER LAYER AND EXAMINER SOFT WORK: CM SPOKE TO PT AND PT'S SON, SERGEI LOVE. BOTH IN AGREEMENT WITH DISCHARGE TO REHAB. SERGEI HAS BEEN TO BOTH [facility] AND [facility], HE PREFERS [place] PLANNED. IMPORTANT MESSAGE FROM MEDICARE PROVIDED AND EXPLAINED. CM WAITING ADMISSION DETERMINATION FROM [facility] WELL INSURANCE DETERMINATION FROM PT'S INSURANCE FOR REHAB AT [facility]. Denise Freeman CASE MANAGMENT DCP- Discharge Planning Updated by [id number]: Denise Freeman on 03/29/18 3:[address] Patient Name: DEONTE OWENS Encounter No: [id number] : 1935 Primary Insurance: AETNA MEDICARE PPO or HMO Anticipated DC Date: 03-27-2018 Planned Disposition: Retirement Facility External Planned Provider: [facility], MEDICARE REHAB BED DCP follow-up note: CM SPOKE TO RN MARY CHOWDARY WHO HAS RECEIVED TELEPHONE MESSAGE FROM INSURANCE THAT THEY DENIED INPATIENT REHAB AND RECOMMENDED NURSING HOME REHAB. CM NOTIFIED [facility] OF INPATIENT REHAB. CM NOTIFIED PT WHO INITIALLY STATED HE WILL APPEAL THIS HIMSELF AND THEN STATED THAT HE WANTS CM TO SPEAK TO HIS SON REGARDING OPTIONS. PT IS WILLING TO CONSIDER NURSING HOME FOR REHAB. CM SPOKE TO DR. MAGALLANES WHO INFORMED CM SHE IS NOT GOING TO DO PEER TO PEER TO APPEAL INSURANCE DECISION AND AGREES WITH NURSING HOME PLACEMENT FOR REHAB. DR. MAGALLANES SPOKE TO PT AND SON IN ROOM. CM NOTIFIED PT AND HIS SON IN ROOM. PT AND SON AGREE FOR REHAB AT [facility] FIRST CHOICE AND [facility] CHO[facility]. CHOICE LETTER SIGNED. IMPORTANT MESSAGE FROM MEDICARE PROVIDED AND EXPLAINED. CM NOTIFIED JENN[facility] OF [facility], , OF REFERRAL. CM FAXED REFERRAL TO [facility] AT [phone]. CM WAITING ADMISSION DETERMINATION FROM [facility] WELL INSURANCE DETERMINATION FROM PT'S INSURANCE FOR REHAB AT [facility]. Denise Freeman, CASE MANAGMENT DCP- Discharge Planning Updated by [id number]: Amanda Tovar on 03/28/18 3:[address] Patient Name: DEONTE OWENS Admission Status: ER Accout number: [id number] Admission Date: 03-21-2018 : 1935 Admission Diagnosis:GASTROINTESTINAL HEMORRHAGE, UNSPECIFIED Attending: ABI MAGALLANES Current LOS: 7 Anticipated DC Date: 03-27-2018 Planned Disposition: Inpatient Rehab Primary Insurance: AETNA MEDICARE PPO or HMO Discharge Planning Comments: CM MET WITH PATIENT AND HIS SON ABOUT DISCHARGE PLANNING. I INFORMED THEM WE ARE WAITING ON AUTH TO GO TO INPT REHAB AND WILL LET THEM KNOW SOON WE KNOW. I ASKED THEM IF THEY WOULD BE INTERESTED IN SNF IF INPT REHAB IS NOT APPROVED AND HE STATES IS NOT SURE. THAT IF HE DID IT WOULD BE GOOD DIPIKA. I TALKED TO THE SON OUTSIDE OF THE ROOM AND HE STATES HE MAY GET HOSPICE INVOLVED IF IT DOESN'T LOOK LIKE HIS DAD WILL HAVE A GOOD RECOVERY. FAMILY WILL CONTACT CM TOMORROW WHEN THEY COME BACK TO THE HOSPITAL. CM WILL FOLLOW AND ASSIST NEEDED WITH DC PLANNING/NEEDS. Sand Molder: Amanda Tovar DCP- Discharge Planning Updated by [id number]: Amanda Tovar on 03/26/18 2:[address] Patient Name: DEONTE OWENS Admission Status: ER Accout number: [id number] Admission Date: 03-21-2018 : 1935 Admission Diagnosis:GASTROINTESTINAL HEMORRHAGE, UNSPECIFIED Attending: ABI MAGALLANES Current LOS: 5 Anticipated DC Date: 03-27-2018 Planned Disposition: Inpatient Rehab Primary Insurance: AETNA MEDICARE PPO or HMO Discharge Planning Comments: CM SPOKE WITH DR. MAGALLANES TODAY AND THE PLAN IS FOR INPATIENT REHAB. CM CALLED [facility] AND SHE IS IN ROOM SEEING PATIENT. CM WILL FOLLOW AND ASSIST NEEDED WITH DC PLANNING/NEEDS. IM SIGNED. Sand Molder: Amanda Tovar DCP- Discharge Planning Updated by [id number]: Helen Minaya on 03/21/18 6:[address] Patient Name: DEONTE OWENS Admission Status: ER Accout number: [id number] Admission Date: 03-21-2018 : 1935 Admission Diagnosis: Attending: ABI MAGALLANES Current LOS: 1 Anticipated DC Date: 03-23-2018 Planned Disposition: Primary Insurance: MEDICARE A & B Discharge Planning Comments: CM met with patient and his cg Danni Diana to complete initial dc planning assessment. CM educated patient on the CM role and verbal consent given by patient to complete assessment. Patient lives at home alone but has a cg that comes on Sunday and Sunday for 2 hours a day. At discharge patient plans to return home alone and feels this is a safe discharge. CM discussed availability of home health, rehab services, and medical equipment. CG feels that HH may be a good option since she is only there 2 days a week. CM will continue to follow and will assist as needed with dc plans/needs. Sand Molder: Helen Minaya RN, CCM RN, [facility] DCPIA - Discharge Planning Initial Assessment Updated by [id number]: Helen Minaya on 03/21/18 7:30 pm * Is the patient Alert and Oriented? Yes * PCP No PCP * [place] [facility] [place] * Preadmission Environment Home Alone * ADLs Independent * Equipment Rolling Walker * List name and contact numbers for known caregivers / representatives who currently or will assist patient after discharge: Danni Diana - cg - [phone] Sergei Owens - son - [phone] * Verbal permission to speak to the caregivers and representatives has been obtained from the patient. Yes * Community resources currently utilized Private Duty Care * Please name any agencies selected above. [facility] - has been seeing the patient for 3 years. Family [place] out of [place]. If anything is needed she said she will be here. * Additional services required to return to the preadmission environment? No * Can the patient safely return to the preadmission environment? Yes * Has this patient been hospitalized within the prior 30 days at any hospital? No Coverage Notice Reviewer: [id number] Ana Tovar Notice Issued Date-Time: 03/26/2018 14:59 Notice Type: IM Discharge Notice Notice Delivered To: Patient Relationship to Patient: Self Branch Service Associate Name: Delivery Method: HAND - Hand Delivered Lidya Days: Prior Verbal Notification: Recipient Understood Notice: Yes Recipient Signature: Yes Med Rec Note Co-signed by Attending: Coverage Notice Comment: Reviewer: [id number] Ana Freeman Notice Issued Date-Time: 03/29/2018 15:25 Notice Type: Patient Choice Letter Notice Delivered To: Family Member Relationship to Patient: Son Branch Service Associate Name: SERGEI OWENS Delivery Method: HAND - Hand Delivered Lidya Days: Prior Verbal Notification: Recipient Understood Notice: Yes Recipient Signature: Yes Med Rec Note Co-signed by Attending: Coverage Notice Comment: Bruno WILLIAM Reviewer: [id number] Ana Freeman Notice Issued Date-Time: 04/01/2018 14:45 Notice Type: IM Discharge Notice Notice Delivered To: Family Member Relationship to Patient: Son Branch Service Associate Name: SERGEI OWENS Delivery Method: HAND - Hand Delivered Lidya Days: Prior Verbal Notification: Recipient Understood Notice: Yes Recipient Signature: Yes Med Rec Note Co-signed by Attending: Coverage Notice Comment: Reviewer: [id number] Freeman Notice Issued Date-Time: 03/29/2018 15:25 Notice Type: IM Discharge Notice Notice Delivered To: Family Member Relationship to Patient: Son Branch Service Associate Name: SERGEI OWENS Delivery Method: HAND - Hand Delivered Lidya Days: Prior Verbal Notification: Recipient Understood Notice: Yes Recipient Signature: Yes Med Rec Note Co-signed by Attending: Coverage Notice Comment: Reviewer: VIVIANA Freeman Notice Issued Date-Time: 04/05/2018 9:50 Notice Type: IM Discharge Notice Notice Delivered To: Patient Relationship to Patient: Branch Service Associate Name: Delivery Method: - Lidya Days: Prior Verbal Notification: Recipient Understood Notice: Yes Recipient Signature: Med Rec Note Co-signed by Attending: Coverage Notice Comment: REFUSED SIGNATURE Last DP export: 04/05/18 9:50 a Patient Name: DEONTE OWENS Page [id number] at 1201 All edits/amendments must be made on the electronic document DICTATION DATE: 04/05/18 1201 MANAGER HYDRAULIC: [place] 04/05/18 1201 RPT#: [id number] DC DATE: STATUS: ADM IN [facility] [address] [place] [address] END OF REPORT
--- NOTE | 2018-04-05 12:45 | NUR ---
OT NOTE: BED MOB WITH MOD ASSIST; STATIC SITTING WITH MIN ASSIST. PT REPORTS HAVING PROBLEMS BREATHING THIS AM. ABLE TO AMB FROM BED TO HALLWAY APPROX 10 FT, FOLLOWED BY SIT DOWN REST BREAK OF APPROX 5 MIN, THEN AMB BACK TO CHAIR. PT STRUGGLING WITH AMBULATION...HE BECOMES EXTREMELY SOB AND FATIGUED WITH VERY SHORT DISTANCES; LONG RECOVERY TIME. AFTER SITTING IN CHAIR APPROX 5 MIN, HAD PT PERFORM UE AND LE EXS X 10 REPS X 1 SET; PT VERY FATIGUED FOLLOWING UE EXS. AGAIN, 3-4 MIN RECOVERY TIME FOR 1 SET OF EXS. ASSISTED PT TO BATHROOM WITH WALKER AND MOD ASSIST X 2, HOWEVER, FOLLOWING TOILETING, PT REQUIRED MAX ASSIST WITH AMB 4 STEPS BACK TO CHAIR. KAMI HERNANDEZ, OTR/L
--- NOTE | 2018-04-05 15:33 | NUR ---
BACK TO BED WITH PT ASSIST.
[2018-04-05 15:50] VITALS: BP 100/73
--- NOTE | 2018-04-05 15:56 | MORECARE ---
CASE MANAGEMENT DISCHARGE SUMMARY PATIENT: DEONTE OWENS UNIT: [id number] ADM DATE: 03/21/18 AGE: 82 : 31 SEX: M ROOM/BED: D.0932 AUTHOR: RANI,DOC PHYSICIAN: REFERRING PHYSICIAN: ABI MAGALLANES MD DATE OF SERVICE: 04/05/18 Discharge Plan Patient Name: DEONTE OWENS Facility: [facility]:[place] : 1935 Planned Disposition: Correction Facility Anticipated Discharge Date: 04/06/18 Discharge Date: Expected LOS: 16 Initial Reviewer: [id number] Initial Review Date: 03/21/2018 Generated: 04/05/18 4:56 pm Comments DCP- Discharge Planning Updated by [id number]: Denise Freeman on 04/05/18 10:[address] Patient Name: DEONTE OWENS Encounter No: [id number] : 1935 Primary Insurance: AETNA MEDICARE PPO or HMO Anticipated DC Date: 04-04-2018 Planned Disposition: Correction Facility External Planned Provider: [facility], MEDICARE REHAB BED CM FAXED REFERRAL UPDATE TO [facility] AT [phone]. [facility] WILL ACCEPT PENDING INSURANCE PRIOR AUTHORIZATION FOR REHAB SERVICES. CM SPOKE TO PT WHO IS IN AGREEMENT WITH REHAB AT [facility]. IMPORTANT MESSAGE FROM MEDICARE PROVIDED AND EXPLAINED. CM WAITING INSURANCE DETERMINATION FROM PT'S INSURANCE FOR REHAB AT [facility]. Denise Freeman, CASE MANAGMENT Appended by Denise Freeman on 04/05/2018 11:55 LIVESTOCK JUDGING COACH: CM CALLED AND SPOKE TO BERNIE AT [facility], THEY RECEIVED INSURANCE AUTHORIZATION FOR PT TO ENTER [facility] IN THE NEXT 48 HOURS FOR LONGTERM REHAB. IF PT DOES NOT ENTER IN THE NEXT 48 HOURS, PT WILL REQUIRE NEW AUTHORIZATION FOR REHAB SERVICES. CM NOTIFEID BERNIE OF DR. MAGALLANES NEEDING TO LOOK AT PT AGAIN TODAY AND POSSIBLE KEEP OVERNIGHT DUE TO INCREASED WHITE BLOOD CELL COUNT. FOR DISCHARGE TO [facility] FOR REHAB IN THE NEXT 48 HOURS, FAX DISCHARGE INFORMATION TO [facility] AT [phone]. NURSE REPORT TO BE CALLED TO [facility] AT [phone]. [facility] TO ARRANGE VAN TRANSPORT. DENISE FREEMAN, CASE MANAGEMENT DCP- Discharge Planning Updated by [id number]: Valarie Chowdary on 04/05/18 9:[address] RECEIVED A VOICEMAIL FROM [facility] WITH ANNA MARIE. SHE STATED THAT SHE HAS PASSED THE AUTHORIZATION OFF TO JAVIER IN THE SNF DEPARTMENT, BUT WANTED TO MAKE SURE THAT WE ALSO HAD THE INFORMATION SO THAT THE PATIENT COULD GET MOVING. SHE STATED THAT THE LIFE INSURANCE UNDERWRITER HAS AUTHED THE PATIENT FOR 5 DAYS OF SNF (04/05-04/09), AND THE AUTH IS GOOD FOR 48 HOURS. SHE GAVE A SNF AUTH # [id number]. SHE HAS REQUESTED THAT I ASK THE SNF TO SEND CLINICAL UPDATES TO THE SNF DEPARTMENT AT FAX, . IF THERE ARE ANY QUESTIONS, WE CAN CALL HER AT [phone]. I PAGED DR MAGALLANES AT [phone]. SPOKE WITH HER, AND SHE IS AFRAID THAT THE PATIENT MIGHT HAVE AN INFECTION BREWING. SHE STATED THAT HE IS TACHYPNEIC AND HAS ELEVATED WBC'S. SHE STATED THAT SHE WAS GOING TO GET SOME ABG'S AND TALK TO DR BRADEN, AND SEE WHAT HE THOUGH. THE PATIENT MAY NOT DISCHARGE TODAY. WILL WAIT FOR DETERMINATION. DCP- Discharge Planning Updated by [id number]: Valarie Chowdary on 04/04/18 2:[address] RECEIVED A CALL FROM [facility] WITH ANNA MARIE WHO WAS REQUESTING CLINICAL UPDATE FOR PATIENTS STAY. STATING THAT SHE REQUIRES DAILY CLINICALS ON THE PATIENT. I EXPLAINED THAT I WOULD SEND OUT CLINICAL IN ABOUT 10-15 MINUTES. SHE THEN STATED THAT SHE JUST GOT THE SNF REQUEST ON THE PATIENT TODAY AND SHE SHOULD HAVE DETERMINATION TOMORROW. SHE STATED THAT IT LOOKED LIKE THE INFORMATION GOT ROUTED TO THE WRONG DEPARTMENT AND JUST GOT TO HER TODAY. I EXPLAINED THAT WE HAVE BEEN WAITING ON THAT SINCE LAST WEEK, AND SHE STATED THAT THE FAX FOR REQUEST WAS NOT FAXED TO THE INSURANCE COMPANY UNTIL SUNDAY. WE WILL WAIT ON DETERMINATION TOMORROW. DCP- Discharge Planning Updated by [id number]: Denise Freeman on 04/04/18 7:[address] Patient Name: DEONTE OWENS Encounter No: [id number] : 1935 Primary Insurance: AETNA MEDICARE PPO or HMO Anticipated DC Date: 04-04-2018 Planned Disposition: Correction Facility External Planned Provider: [facility], MEDICARE REHAB BED DCP follow-up note: CM FAXED REFERRAL UPDATE TO [facility] AT [phone]. [facility] WILL ACCEPT PENDING INSURANCE PRIOR AUTHORIZATION FOR REHAB SERVICES. CM WAITING INSURANCE DETERMINATION FROM PT'S INSURANCE FOR REHAB AT [facility]. Denise Freeman, CASE MANAGMENT DCP- Discharge Planning Updated by [id number]: Denise Freeman on 04/03/18 1:[address] Patient Name: DEONTE OWENS Encounter No: [id number] : 1935 Primary Insurance: AETNA MEDICARE PPO or HMO Anticipated DC Date: 04-02-2018 Planned Disposition: Correction Facility External Planned Provider: [facility], MEDICARE REHAB BED DCP follow-up note: CM RECEIVED MESSAGE FROM [employer] ASKING NOW FOR UPDATED THERAPY NOTES. CM FAXED REFERRAL UPDATE TO [facility] AT [phone]. CM WAITING ADMISSION DETERMINATION FROM [facility] WELL INSURANCE DETERMINATION FROM PT'S INSURANCE FOR REHAB AT [facility]. Denise Freeman CASE MANAGMENT DCP- Discharge Planning Updated by [id number]: Denise Freeman on 04/01/18 1:[address] Patient Name: DEONTE OWENS Encounter No: [id number] : 1935 Primary Insurance: AETNA MEDICARE PPO or HMO Anticipated DC Date: 03-27-2018 Planned Disposition: Correction Facility External Planned Provider: [facility], MEDICARE REHAB BED DCP follow-up note: CM FAXED REFERRAL UPDATE TO [facility] AT [phone]. CM WAITING ADMISSION DETERMINATION FROM [facility] WELL INSURANCE DETERMINATION FROM PT'S INSURANCE FOR REHAB AT [facility]. Denise Freeman, CASE MANAGMENT Appended by Denise Freeman on 04/01/2018 14:51 LIVESTOCK JUDGING COACH: CM SPOKE TO PT AND PT'S SON, SERGEI LOVE. BOTH IN AGREEMENT WITH DISCHARGE TO REHAB. SERGEI HAS BEEN TO BOTH [facility] AND [facility], HE PREFERS [place] PLANNED. IMPORTANT MESSAGE FROM MEDICARE PROVIDED AND EXPLAINED. CM WAITING ADMISSION DETERMINATION FROM [facility] WELL INSURANCE DETERMINATION FROM PT'S INSURANCE FOR REHAB AT [facility]. Denise Freeman CASE MANAGMENT DCP- Discharge Planning Updated by [id number]: Denise Freeman on 03/29/18 3:[address] Patient Name: DEONTE OWENS Encounter No: [id number] : 1935 Primary Insurance: AETNA MEDICARE PPO or HMO Anticipated DC Date: 03-27-2018 Planned Disposition: Correction Facility External Planned Provider: [facility], MEDICARE REHAB BED DCP follow-up note: CM SPOKE TO RN MARY CHOWDARY WHO HAS RECEIVED TELEPHONE MESSAGE FROM INSURANCE THAT THEY DENIED INPATIENT REHAB AND RECOMMENDED LONGTERM REHAB. CM NOTIFIED [facility] OF INPATIENT REHAB. CM NOTIFIED PT WHO INITIALLY STATED HE WILL APPEAL THIS HIMSELF AND THEN STATED THAT HE WANTS CM TO SPEAK TO HIS SON REGARDING OPTIONS. PT IS WILLING TO CONSIDER LONGTERM FOR REHAB. CM SPOKE TO DR. MAGALLANES WHO INFORMED CM SHE IS NOT GOING TO DO PEER TO PEER TO APPEAL INSURANCE DECISION AND AGREES WITH LONGTERM PLACEMENT FOR REHAB. DR. MAGALLANES SPOKE TO PT AND SON IN ROOM. CM NOTIFIED PT AND HIS SON IN ROOM. PT AND SON AGREE FOR REHAB AT [facility] FIRST CHOICE AND [facility]. CHOICE LETTER SIGNED. IMPORTANT MESSAGE FROM MEDICARE PROVIDED AND EXPLAINED. CM NOTIFIED JENNIFER OF [facility], , OF REFERRAL. CM FAXED REFERRAL TO [facility] AT [phone]. CM WAITING ADMISSION DETERMINATION FROM [facility] WELL INSURANCE DETERMINATION FROM PT'S INSURANCE FOR REHAB AT [facility]. Denise Freeman, CASE MANAGMENT DCP- Discharge Planning Updated by [id number]: Amanda Tovar on 03/28/18 3:[address] Patient Name: DEONTE OWENS Admission Status: ER Accout number: [id number] Admission Date: 03-21-2018 : 1935 Admission Diagnosis:GASTROINTESTINAL HEMORRHAGE, UNSPECIFIED Attending: ABI MAGALLANES Current LOS: 7 Anticipated DC Date: 03-27-2018 Planned Disposition: Inpatient Rehab Primary Insurance: AETNA MEDICARE PPO or HMO Discharge Planning Comments: CM MET WITH PATIENT AND HIS SON ABOUT DISCHARGE PLANNING. I INFORMED THEM WE ARE WAITING ON AUTH TO GO TO INPT REHAB AND WILL LET THEM KNOW SOON WE KNOW. I ASKED THEM IF THEY WOULD BE INTERESTED IN SNF IF INPT REHAB IS NOT APPROVED AND HE STATES IS NOT SURE. THAT IF HE DID IT WOULD BE GOOD DIPIKA. I TALKED TO THE SON OUTSIDE OF THE ROOM AND HE STATES HE MAY GET HOSPICE INVOLVED IF IT DOESN'T LOOK LIKE HIS DAD WILL HAVE A GOOD RECOVERY. FAMILY WILL CONTACT CM TOMORROW WHEN THEY COME BACK TO THE HOSPITAL. CM WILL FOLLOW AND ASSIST NEEDED WITH DC PLANNING/NEEDS. Pottery Striper: Amanda Tovar DCP- Discharge Planning Updated by [id number]: Amanda Tovar on 03/26/18 2:[address] Patient Name: DEONTE OWENS Admission Status: ER Accout number: [id number] Admission Date: 03-21-2018 : 1935 Admission Diagnosis:GASTROINTESTINAL HEMORRHAGE, UNSPECIFIED Attending: ABI MAGALLANES Current LOS: 5 Anticipated DC Date: 03-27-2018 Planned Disposition: Inpatient Rehab Primary Insurance: AETNA MEDICARE PPO or HMO Discharge Planning Comments: CM SPOKE WITH DR. MAGALLANES TODAY AND THE PLAN IS FOR INPATIENT REHAB. CM CALLED [facility] AND SHE IS IN ROOM SEEING PATIENT. CM WILL FOLLOW AND ASSIST NEEDED WITH DC PLANNING/NEEDS. IM SIGNED. Pottery Striper: Amanda Tovar DCP- Discharge Planning Updated by [id number]: Helen Minaya on 03/21/18 6:[address] Patient Name: DEONTE OWENS Admission Status: ER Accout number: [id number] Admission Date: 03-21-2018 : 1935 Admission Diagnosis: Attending: ABI MAGALLANES Current LOS: 1 Anticipated DC Date: 03-23-2018 Planned Disposition: Primary Insurance: MEDICARE A & B Discharge Planning Comments: CM met with patient and his cg Danni Diana to complete initial dc planning assessment. CM educated patient on the CM role and verbal consent given by patient to complete assessment. Patient lives at home alone but has a cg that comes on Sunday and Sunday for 2 hours a day. At discharge patient plans to return home alone and feels this is a safe discharge. CM discussed availability of home health, rehab services, and medical equipment. CG feels that HH may be a good option since she is only there 2 days a week. CM will continue to follow and will assist as needed with dc plans/needs. Pottery Striper: Helen Minaya RN, CCM RN, [facility] DCPIA - Discharge Planning Initial Assessment Updated by [id number]: Helen Minaya on 03/21/18 7:30 pm * Is the patient Alert and Oriented? Yes * PCP No PCP * [place] [facility] [place] * Preadmission Environment Home Alone * ADLs Independent * Equipment Rolling Walker * List name and contact numbers for known caregivers / representatives who currently or will assist patient after discharge: Danni Diana - cg - [phone] Sergei Owens - son - [phone] * Verbal permission to speak to the caregivers and representatives has been obtained from the patient. Yes * Community resources currently utilized Private Duty Care * Please name any agencies selected above. [facility] - has been seeing the patient for 3 years. Family [place] of [place]. If anything is needed she said she will be here. * Additional services required to return to the preadmission environment? No * Can the patient safely return to the preadmission environment? Yes * Has this patient been hospitalized within the prior 30 days at any hospital? No Coverage Notice Reviewer: [id number] Ana Tovar Notice Issued Date-Time: 03/26/2018 14:59 Notice Type: IM Discharge Notice Notice Delivered To: Patient Relationship to Patient: Self Chair And Couch Maker Name: Delivery Method: HAND - Hand Delivered Lidya Days: Prior Verbal Notification: Recipient Understood Notice: Yes Recipient Signature: Yes Med Rec Note Co-signed by Attending: Coverage Notice Comment: Reviewer: [id number] Ana Freeman Notice Issued Date-Time: 03/29/2018 15:25 Notice Type: Patient Choice Letter Notice Delivered To: Family Member Relationship to Patient: Son Chair And Couch Maker Name: SERGEI OWENS Delivery Method: HAND - Hand Delivered Lidya Days: Prior Verbal Notification: Recipient Understood Notice: Yes Recipient Signature: Yes Med Rec Note Co-signed by Attending: Coverage Notice Comment: Bruno WILLIAM Reviewer: [id number] Ana Freeman Notice Issued Date-Time: 04/01/2018 14:45 Notice Type: IM Discharge Notice Notice Delivered To: Family Member Relationship to Patient: Son Chair And Couch Maker Name: SERGEI OWENS Delivery Method: HAND - Hand Delivered Lidya Days: Prior Verbal Notification: Recipient Understood Notice: Yes Recipient Signature: Yes Med Rec Note Co-signed by Attending: Coverage Notice Comment: Reviewer: VIVIANA Freeman Notice Issued Date-Time: 03/29/2018 15:25 Notice Type: IM Discharge Notice Notice Delivered To: Family Member Relationship to Patient: Son Chair And Couch Maker Name: SERGEI OWENS Delivery Method: HAND - Hand Delivered Lidya Days: Prior Verbal Notification: Recipient Understood Notice: Yes Recipient Signature: Yes Med Rec Note Co-signed by Attending: Coverage Notice Comment: Reviewer: VIVIANA Freeman Notice Issued Date-Time: 04/05/2018 9:50 Notice Type: IM Discharge Notice Notice Delivered To: Patient Relationship to Patient: Chair And Couch Maker Name: Delivery Method: - Lidya Days: Prior Verbal Notification: Recipient Understood Notice: Yes Recipient Signature: Med Rec Note Co-signed by Attending: Coverage Notice Comment: REFUSED SIGNATURE Last DP export: 04/05/18 11:01 a Patient Name: DEONTE OWENS Page [phone] at 1556 All edits/amendments must be made on the electronic document DICTATION DATE: 04/05/18 1555 FOOTBALL PAD REPAIRER: [place] 04/05/18 1555 RPT#: [id number] DC DATE: STATUS: ADM IN [facility] [address] [place] [address] END OF REPORT
--- NOTE | 2018-04-05 16:04 | MORECARE ---
CASE MANAGEMENT DISCHARGE SUMMARY PATIENT: DEONTE OWENS UNIT: [id number] ADM DATE: 03/21/18 AGE: 82 : 33 SEX: M ROOM/BED: D.2117 AUTHOR: RANI,DOC PHYSICIAN: REFERRING PHYSICIAN: ABI MAGALLANES MD DATE OF SERVICE: 04/05/18 Discharge Plan Patient Name: DEONTE OWENS Facility: [facility]:[place] : 1935 Planned Disposition: Half-Way Facility Anticipated Discharge Date: 04/06/18 Discharge Date: Expected LOS: 16 Initial Reviewer: [id number] Initial Review Date: 03/21/2018 Generated: 04/05/18 5:04 pm Comments DCP- Discharge Planning Updated by [id number]: Denise Freeman on 04/05/18 2:[address] Patient Name: DEONTE OWENS Encounter No: [id number] : 1935 Primary Insurance: AETNA MEDICARE PPO or HMO Anticipated DC Date: 04-06-2018 Planned Disposition: Half-Way Facility External Planned Provider: [facility], MEDICARE REHAB BED DCP follow-up note: CM RECEIVED MESSAGE FROM DR. MAGALLANES, PT CAN DISCHARGE TOMORROW AFTER ANTIBIOTICS, TO REHAB AT [facility]. CM CALLED AND NOTIFIED BERNIE AT [facility] WHO ARRANGED VAN MAIL SORTER AND DELIVERY WITH OXYGEN FOR 1400 HOURS 04-06-18. PT AND SON NOTIFIED IN ROOM, BOTH IN AGREEMENT WITH DISCHARGE TO REHAB TOMORROW AT 1400 HOURS. FOR DISCHARGE ON 04-06-18, FAX DISCHARGE INFORMATION TO [facility] AT [phone]. NURSE REPORT TO BE CALLED TO [facility] AT [phone]. [facility] VAN TO MAIL SORTER AND DELIVERY PT AT 1400 HOURS. HEATHER Fields DCP- Discharge Planning Updated by [id number]: Denise Freeman on 04/05/18 10:[address] Patient Name: DEONTE OWENS Encounter No: [id number] : 1935 Primary Insurance: AETNA MEDICARE PPO or HMO Anticipated DC Date: 04-04-2018 Planned Disposition: Half-Way Facility External Planned Provider: [facility], MEDICARE REHAB BED CM FAXED REFERRAL UPDATE TO [facility] AT [phone]. [facility] WILL ACCEPT PENDING INSURANCE PRIOR AUTHORIZATION FOR REHAB SERVICES. CM SPOKE TO PT WHO IS IN AGREEMENT WITH REHAB AT [facility]. IMPORTANT MESSAGE FROM MEDICARE PROVIDED AND EXPLAINED. CM WAITING INSURANCE DETERMINATION FROM PT'S INSURANCE FOR REHAB AT [facility]. Denise Freeman, CASE MANAGMENT Appended by Denise Freeman on 04/05/2018 11:55 VAT SKIMMER: CM CALLED AND SPOKE TO BERNIE AT [facility], THEY RECEIVED INSURANCE AUTHORIZATION FOR PT TO ENTER [facility] IN THE NEXT 48 HOURS FOR [facility]. IF PT DOES NOT ENTER IN THE NEXT 48 HOURS, PT WILL REQUIRE NEW AUTHORIZATION FOR REHAB SERVICES. CM NOTIFEID BERNIE OF DR. MAGALLANES NEEDING TO LOOK AT PT AGAIN TODAY AND POSSIBLE KEEP OVERNIGHT DUE TO INCREASED WHITE BLOOD CELL COUNT. FOR DISCHARGE TO [facility] FOR REHAB IN THE NEXT 48 HOURS, FAX DISCHARGE INFORMATION TO [facility] AT [phone]. NURSE REPORT TO BE CALLED TO [facility] AT [phone]. [facility] TO ARRANGE VAN TRANSPORT. DENISE FREEMAN, CASE MANAGEMENT DCP- Discharge Planning Updated by [id number]: Valarie Amos on 04/05/18 9:[address] RECEIVED A VOICEMAIL FROM [facility] ALEXIS THRASHER. SHE STATED THAT SHE HAS PASSED THE AUTHORIZATION OFF TO JAVIER IN THE SNF DEPARTMENT, BUT WANTED TO MAKE SURE THAT WE ALSO HAD THE INFORMATION SO THAT THE PATIENT COULD GET MOVING. SHE STATED THAT THE FREIGHT RATE ANALYST HAS AUTHED THE PATIENT FOR 5 DAYS OF SNF (04/05-04/09), AND THE AUTH IS GOOD FOR 48 HOURS. SHE GAVE A SNF AUTH # [id number]. SHE HAS REQUESTED THAT I ASK THE [facility] TO SEND CLINICAL UPDATES TO THE SNF DEPARTMENT AT FAX, . IF THERE ARE ANY QUESTIONS, WE CAN CALL HER AT [phone]. I PAGED DR MAGALLANES AT [phone]. SPOKE WITH HER, AND SHE IS AFRAID THAT THE PATIENT MIGHT HAVE AN INFECTION BREWING. SHE STATED THAT HE IS TACHYPNEIC AND HAS ELEVATED WBC'S. SHE STATED THAT SHE WAS GOING TO GET SOME ABG'S AND TALK TO DR BRADEN, AND SEE WHAT HE THOUGH. THE PATIENT MAY NOT DISCHARGE TODAY. WILL WAIT FOR DETERMINATION. DCP- Discharge Planning Updated by [id number]: Valarie Chowdary on 04/04/18 2:[address] RECEIVED A CALL FROM [facility] WITH ANNA MARIE WHO WAS REQUESTING CLINICAL UPDATE FOR PATIENTS STAY. STATING THAT SHE REQUIRES DAILY CLINICALS ON THE PATIENT. I EXPLAINED THAT I WOULD SEND OUT CLINICAL IN ABOUT 10-15 MINUTES. SHE THEN STATED THAT SHE JUST GOT THE SNF REQUEST ON THE PATIENT TODAY AND SHE SHOULD HAVE DETERMINATION TOMORROW. SHE STATED THAT IT LOOKED LIKE THE INFORMATION GOT ROUTED TO THE WRONG DEPARTMENT AND JUST GOT TO HER TODAY. I EXPLAINED THAT WE HAVE BEEN WAITING ON THAT SINCE LAST WEEK, AND SHE STATED THAT THE FAX FOR REQUEST WAS NOT FAXED TO THE INSURANCE COMPANY UNTIL SUNDAY. WE WILL WAIT ON DETERMINATION TOMORROW. DCP- Discharge Planning Updated by [id number]: Denise Freeman on 04/04/18 7:[address] Patient Name: DEONTE OWENS Encounter No: [id number] : 1935 Primary Insurance: AETNA MEDICARE PPO or HMO Anticipated DC Date: 04-04-2018 Planned Disposition: Half-Way Facility External Planned Provider: [facility], MEDICARE REHAB BED DCP follow-up note: CM FAXED REFERRAL UPDATE TO [facility] AT [phone]. [facility] WILL ACCEPT PENDING INSURANCE PRIOR AUTHORIZATION FOR REHAB SERVICES. CM WAITING INSURANCE DETERMINATION FROM PT'S INSURANCE FOR REHAB AT [facility]. Denise Freeman, CASE MANAGMENT DCP- Discharge Planning Updated by [id number]: Denise Freeman on 04/03/18 1:[address] Patient Name: DEONTE OWENS Encounter No: [id number] : 1935 Primary Insurance: AETNA MEDICARE PPO or HMO Anticipated DC Date: 04-02-2018 Planned Disposition: Half-Way Facility External Planned Provider: [facility], MEDICARE REHAB BED DCP follow-up note: CM RECEIVED MESSAGE FROM JENNIFER, INSURANCE ASKING NOW FOR UPDATED THERAPY NOTES. CM FAXED REFERRAL UPDATE TO [facility] AT [phone]. CM WAITING ADMISSION DETERMINATION FROM [facility] WELL INSURANCE DETERMINATION FROM PT'S INSURANCE FOR REHAB AT [facility]. Denise Freeman, CASE MANAGMENT DCP- Discharge Planning Updated by [id number]: Denise Freeman on 04/01/18 1:[address] Patient Name: DEONTE OWENS Encounter No: [id number] : 1935 Primary Insurance: AETNA MEDICARE PPO or HMO Anticipated DC Date: 03-27-2018 Planned Disposition: Half-Way Facility External Planned Provider: [facility], MEDICARE REHAB BED DCP follow-up note: CM FAXED REFERRAL UPDATE TO [facility] AT [phone]. CM WAITING ADMISSION DETERMINATION FROM [facility] WELL INSURANCE DETERMINATION FROM PT'S INSURANCE FOR REHAB AT [facility]. Denise Freeman, CASE MANAGMENT Appended by Denise Freeman on 04/01/2018 14:51 VAT SKIMMER: CM SPOKE TO PT AND PT'S SON, SERGEI LOVE. BOTH IN AGREEMENT WITH DISCHARGE TO REHAB. SERGEI HAS BEEN TO BOTH [facility] AND [facility], HE PREFERS [facility]. IMPORTANT MESSAGE FROM MEDICARE PROVIDED AND EXPLAINED. CM WAITING ADMISSION DETERMINATION FROM [facility] WELL INSURANCE DETERMINATION FROM PT'S INSURANCE FOR REHAB AT [facility]. Denise Freeman, CASE MANAGMENT DCP- Discharge Planning Updated by [id number]: Denise Freeman on 03/29/18 3:[address] Patient Name: DEONTE OWENS Encounter No: [id number] : 1935 Primary Insurance: AETNA MEDICARE PPO or HMO Anticipated DC Date: 03-27-2018 Planned Disposition: Half-Way Facility External Planned Provider: [facility], MEDICARE REHAB BED DCP follow-up note: CM SPOKE TO MARILUZ CHOWDARY WHO HAS RECEIVED TELEPHONE MESSAGE FROM INSURANCE THAT THEY DENIED INPATIENT REHAB AND RECOMMENDED [facility]. CM NOTIFIED [facility] OF INPATIENT REHAB. CM NOTIFIED PT WHO INITIALLY STATED HE WILL APPEAL THIS HIMSELF AND THEN STATED THAT HE WANTS CM TO SPEAK TO HIS SON REGARDING OPTIONS. PT IS WILLING TO CONSIDER [facility] FOR REHAB. CM SPOKE TO DR. MAGALLANES WHO INFORMED CM SHE IS NOT GOING TO DO PEER TO PEER TO APPEAL INSURANCE DECISION AND AGREES WITH [facility] PLACEMENT FOR REHAB. DR. MAGALLANES SPOKE TO PT AND SON IN ROOM. CM NOTIFIED PT AND HIS SON IN ROOM. PT AND SON AGREE FOR REHAB AT [facility] FIRST CHOICE AND [facility]OND CHOICE. CHOICE LETTER SIGNED. IMPORTANT MESSAGE FROM MEDICARE PROVIDED AND EXPLAINED. CM NOTIFIED JENNIFER OF [facility], , OF REFERRAL. CM FAXED REFERRAL TO [facility] AT [phone]. CM WAITING ADMISSION DETERMINATION FROM [facility] WELL INSURANCE DETERMINATION FROM PT'S INSURANCE FOR REHAB AT [facility]. Denise Freeman, CASE MANAGMENT DCP- Discharge Planning Updated by [id number]: Amanda Tovar on 03/28/18 3:[address] Patient Name: DEONTE OWENS Admission Status: ER Accout number: [id number] Admission Date: 03-21-2018 : 1935 Admission Diagnosis:GASTROINTESTINAL HEMORRHAGE, UNSPECIFIED Attending: ABI MAGALLANES Current LOS: 7 Anticipated DC Date: 03-27-2018 Planned Disposition: Inpatient Rehab Primary Insurance: AETNA MEDICARE PPO or HMO Discharge Planning Comments: CM MET WITH PATIENT AND HIS SON ABOUT DISCHARGE PLANNING. I INFORMED THEM WE ARE WAITING ON AUTH TO GO TO INPT REHAB AND WILL LET THEM KNOW SOON WE KNOW. I ASKED THEM IF THEY WOULD BE INTERESTED IN SNF IF INPT REHAB IS NOT APPROVED AND HE STATES IS NOT SURE. THAT IF HE DID IT WOULD BE GOOD DIPIKA. I TALKED TO THE SON OUTSIDE OF THE ROOM AND HE STATES HE MAY GET HOSPICE INVOLVED IF IT DOESN'T LOOK LIKE HIS DAD WILL HAVE A GOOD RECOVERY. FAMILY WILL CONTACT CM TOMORROW WHEN THEY COME BACK TO THE HOSPITAL. CM WILL FOLLOW AND ASSIST NEEDED WITH DC PLANNING/NEEDS. Coroner'S Juror: Amanda Tovar DCP- Discharge Planning Updated by [id number]: Amanda Tovar on 03/26/18 2:[address] Patient Name: DEONTE OWENS Admission Status: ER Accout number: [id number] Admission Date: 03-21-2018 : 1935 Admission Diagnosis:GASTROINTESTINAL HEMORRHAGE, UNSPECIFIED Attending: ABI MAGALLANES Current LOS: 5 Anticipated DC Date: 03-27-2018 Planned Disposition: Inpatient Rehab Primary Insurance: AETNA MEDICARE PPO or HMO Discharge Planning Comments: CM SPOKE WITH DR. MAGALLANES TODAY AND THE PLAN IS FOR INPATIENT REHAB. CM CALLED [facility] AND SHE IS IN ROOM SEEING PATIENT. CM WILL FOLLOW AND ASSIST NEEDED WITH DC PLANNING/NEEDS. IM SIGNED. Coroner'S Juror: Amanda Tovar DCP- Discharge Planning Updated by [id number]: Helen Minaya on 03/21/18 6:[address] Patient Name: DEONTE OWENS Admission Status: ER Accout number: [id number] Admission Date: 03-21-2018 : 1935 Admission Diagnosis: Attending: ABI MAGALLANES Current LOS: 1 Anticipated DC Date: 03-23-2018 Planned Disposition: Primary Insurance: MEDICARE A & B Discharge Planning Comments: CM met with patient and his cg Danni Diana to complete initial dc planning assessment. CM educated patient on the CM role and verbal consent given by patient to complete assessment. Patient lives at home alone but has a cg that comes on Sunday and Sunday for 2 hours a day. At discharge patient plans to return home alone and feels this is a safe discharge. CM discussed availability of home health, rehab services, and medical equipment. CG feels that HH may be a good option since she is only there 2 days a week. CM will continue to follow and will assist as needed with dc plans/needs. Coroner'S Juror: Helen Minaya RN, CCM RN, [facility] DCPIA - Discharge Planning Initial Assessment Updated by [id number]: Helen Minaya on 03/21/18 7:30 pm * Is the patient Alert and Oriented? Yes * PCP No PCP * [place] [facility] [place] * Preadmission Environment Home Alone * ADLs Independent * Equipment Rolling Walker * List name and contact numbers for known caregivers / representatives who currently or will assist patient after discharge: Danni Diana - cg - [phone] Sergei Owens - son - [phone] * Verbal permission to speak to the caregivers and representatives has been obtained from the patient. Yes * Community resources currently utilized Private Duty Care * Please name any agencies selected above. [facility] - cg has been seeing the patient for 3 years. Family [place] out of [place]. If anything is needed she said she will be here. * Additional services required to return to the preadmission environment? No * Can the patient safely return to the preadmission environment? Yes * Has this patient been hospitalized within the prior 30 days at any hospital? No Coverage Notice Reviewer: [id number] - Amanda Tovar Notice Issued Date-Time: 03/26/2018 14:59 Notice Type: IM Discharge Notice Notice Delivered To: Patient Relationship to Patient: Self Order Schedule Clerk Name: Delivery Method: HAND - Hand Delivered Lidya Days: Prior Verbal Notification: Recipient Understood Notice: Yes Recipient Signature: Yes Med Rec Note Co-signed by Attending: Coverage Notice Comment: Reviewer: VIVIANA Freeman Notice Issued Date-Time: 03/29/2018 15:25 Notice Type: Patient Choice Letter Notice Delivered To: Family Member Relationship to Patient: Son Order Schedule Clerk Name: SERGEI OWENS Delivery Method: HAND - Hand Delivered Lidya Days: Prior Verbal Notification: Recipient Understood Notice: Yes Recipient Signature: Yes Med Rec Note Co-signed by Attending: Coverage Notice Comment: Bruno WILLIAM Reviewer: VIVIANA Freeman Notice Issued Date-Time: 04/01/2018 14:45 Notice Type: IM Discharge Notice Notice Delivered To: Family Member Relationship to Patient: Son Order Schedule Clerk Name: SERGEI OWENS Delivery Method: HAND - Hand Delivered Lidya Days: Prior Verbal Notification: Recipient Understood Notice: Yes Recipient Signature: Yes Med Rec Note Co-signed by Attending: Coverage Notice Comment: Reviewer: VIVIANA Freeman Notice Issued Date-Time: 03/29/2018 15:25 Notice Type: IM Discharge Notice Notice Delivered To: Family Member Relationship to Patient: Son Order Schedule Clerk Name: SERGEI OWENS Delivery Method: HAND - Hand Delivered Lidya Days: Prior Verbal Notification: Recipient Understood Notice: Yes Recipient Signature: Yes Med Rec Note Co-signed by Attending: Coverage Notice Comment: Reviewer: VIVIANA Freeman Notice Issued Date-Time: 04/05/2018 9:50 Notice Type: IM Discharge Notice Notice Delivered To: Patient Relationship to Patient: Order Schedule Clerk Name: Delivery Method: - Lidya Days: Prior Verbal Notification: Recipient Understood Notice: Yes Recipient Signature: Med Rec Note Co-signed by Attending: Coverage Notice Comment: REFUSED SIGNATURE Last DP export: 04/05/18 2:56 p Patient Name: DEONTE OWENS Page [phone] at 1604 All edits/amendments must be made on the electronic document DICTATION DATE: 04/05/181603 DIRECTOR [facility]: [place] 04/05/181603 RPT#: [id number] DC DATE: STATUS: ADM IN [facility] [address] [place] [address] END OF REPORT
[2018-04-05 20:06] VITALS: BP 123/58
--- NOTE | 2018-04-05 20:07 | NUR ---
INITIAL ROUNDS COMPLETED AT 1905 HRS. PT HAS C/O SOB. O2 PLACED BACK IN NARES AND PT PULLED UP IN BED. O2 SAT 98% ON 2LNC. ASSESSMENT COMPLETED AT 1945 HRS. PT STATES HE HAS SOB. O2 SAT 97% ON 2LNC. PT PULLED UP IN BED. VSS. LUNGS DIMINISHED IN BASES BILAT. ROQUE. BRUISES NOTED TO BILAT ARMS. 1+ PEDAL EDEMA NOTED. STAGE 2 NOTED TO L BUTTOCKS 4.5CM X 0.25 CM. SR UP X2, CALL LIGHT WITHIN REACH.
--- NOTE | 2018-04-05 23:06 | NUR ---
PM MEDS GIVEN. PT CURRENTLY RESTING WTIH EYES CLOSED. RESP EVEN AND REGULAR. SR UPX2, CALL LIGHT WITHIN REACH.
[2018-04-06 00:38] VITALS: BP 126/67
--- NOTE | 2018-04-06 01:41 | NUR ---
PT RESTING WITH EYES CLOSED. RESP EVEN AND REGULAR. SR UP X2, CALL LIGHT WITHIN REACH.
--- NOTE | 2018-04-06 04:18 | NUR ---
PT RESTING WITH EYES CLOSED. RESP EVEN AND REGULAR. SR UP X2, CALL LIGHT WITHIN REACH.
[2018-04-06 04:29] VITALS: BP 116/73
--- NOTE | 2018-04-06 05:57 | NUR ---
VSS THROUGHOUT NIGHT. O2 SAT GREATER TAHTN 96% ALL THROUGHOUT THE SHIFT. NEEDS MET; WILL CONTINUE TO MONITOR.
[2018-04-06 06:13] LABS: BASOPHILS 0.1 % (0-2); EOSINOPHILS 0.2 % (0-7); HEMATOCRIT 35.8 % (42.0-54.0); HEMOGLOBIN 11.2 g/dL (13.5-17.5); IMMATURE GRANULOCYTES 0.2 % (0-5); LYMPHOCYTES 4.2 % (15-50); MCH 28.9 pg (26.0-34.0); MCHC 31.3 g/dL (31.0-37.0); MCV 92.5 fL (80.0-100.0); MEAN PLATELET VOLUME 10.2 fL (7.4-10.4); MONOCYTES 10.2 % (2-11); NEUTROPHILS 85.1 % (40-80); PLATELET COUNT 196 10x3/uL (130-400); RBC 3.87 10x6/uL (4.20-6.10); RDW 16.7 % (11.5-14.5); WBC 13.3 10x3/uL (4.8-10.8)
[2018-04-06] MEDS ORDERED: PROTONIX40 MG PO (10:07)
[2018-04-06] MEDS ORDERED: ALDACTONE25 MG PO (10:07)
[2018-04-06] MEDS ORDERED: AMIODARONE HCL200 MG PO (10:07)
[2018-04-06] MEDS ORDERED: CARAFATE1 G PO (10:07)
[2018-04-06] MEDS ORDERED: COREG6.25 MG PO (10:07)
[2018-04-06] MEDS ORDERED: MAXIPIME 2 GM/D52 G1 IVPB (10:07)
[2018-04-06] MEDS ORDERED: FUROSEMIDE10 MG/M1 IV (10:07)
[2018-04-06 10:50] VITALS: BP 129/42
--- NOTE | 2018-04-06 14:34 | NUR ---
REVIEWED DISCHARGE INSTRUCTIONS WITH PT AND SON BOTH STATES UNDERSTANDING COPY GIVEN SALINE LOCK DCD WITH IV CATHETER INTACT SITE FREE OF REDNESS OR EDEMA PT DICHARGED IN STABLE CONDITION WITH ALL PERSONAL BELONGINGS LEFT VIA W/C WITH [facility] staff and family
--- NOTE | 2018-04-09 07:44 | MORECARE ---
CASE MANAGEMENT DISCHARGE SUMMARY PATIENT: DEONTE OWENS UNIT: [id number] ADM DATE: 03/21/18 AGE: 82 : 33 SEX: M ROOM/BED: D.2117 AUTHOR: RANIDOC PHYSICIAN: REFERRING PHYSICIAN: ABI MAGALLANES MD DATE OF SERVICE: 04/09/18 Discharge Plan Patient Name: DEONTE OWENS Facility: [facility]:[place] : 1935 Planned Disposition: Fdc Facility Anticipated Discharge Date: 04/06/18 Discharge Date: 04/06/2018 Expected LOS: 16 Initial Reviewer: [id number] Initial Review Date: 03/21/2018 Generated: 04/09/18 8:43 am Comments DCP- Discharge Planning Updated by [id number]: Denise Freeman on 04/05/18 2:[address] Patient Name: DEONTE OWENS Encounter No: [id number] : 1935 Primary Insurance: AETNA MEDICARE PPO or HMO Anticipated DC Date: 04-06-2018 Planned Disposition: Fdc Facility External Planned Provider: [facility], MEDICARE REHAB BED DCP follow-up note: CM RECEIVED MESSAGE FROM DR. MAGALLANES, PT CAN DISCHARGE TOMORROW AFTER ANTIBIOTICS, TO REHAB AT [facility]. CM CALLED AND NOTIFIED BERNIE AT [facility] WHO ARRANGED VAN DRILLING FIELD SPECIALIST WITH OXYGEN FOR 1400 HOURS 04-06-18. PT AND SON NOTIFIED IN ROOM, BOTH IN AGREEMENT WITH DISCHARGE TO REHAB TOMORROW AT 1400 HOURS. FOR DISCHARGE ON 04-06-18, FAX DISCHARGE INFORMATION TO [facility] AT [phone]. NURSE REPORT TO BE CALLED TO [facility] AT [phone]. [facility] VAN TO DRILLING FIELD SPECIALIST PT AT 1400 HOURS. HEATHER Fields DCP- Discharge Planning Updated by [id number]: Denise Freeman on 04/05/18 10:[address] Patient Name: DEONTE OWENS Encounter No: [id number] : 1935 Primary Insurance: AETNA MEDICARE PPO or HMO Anticipated DC Date: 04-04-2018 Planned Disposition: Fdc Facility External Planned Provider: [facility], MEDICARE REHAB BED CM FAXED REFERRAL UPDATE TO [facility] AT [phone]. [facility] WILL ACCEPT PENDING INSURANCE PRIOR AUTHORIZATION FOR REHAB SERVICES. CM SPOKE TO PT WHO IS IN AGREEMENT WITH REHAB AT [facility]. IMPORTANT MESSAGE FROM MEDICARE PROVIDED AND EXPLAINED. CM WAITING INSURANCE DETERMINATION FROM PT'S INSURANCE FOR REHAB AT [facility]. Denise Freeman, CASE MANAGMENT Appended by Denise Freeman on 04/05/2018 11:55 GATE SUPERVISOR: CM CALLED AND SPOKE TO BERNIE AT [facility], THEY RECEIVED INSURANCE AUTHORIZATION FOR PT TO ENTER [facility] IN THE NEXT 48 HOURS FOR LONGTERM REHAB. IF PT DOES NOT ENTER IN THE NEXT 48 HOURS, PT WILL REQUIRE NEW AUTHORIZATION FOR REHAB SERVICES. CM NOTIFEID BERNIE OF DR. MAGALLANES NEEDING TO LOOK AT PT AGAIN TODAY AND POSSIBLE KEEP OVERNIGHT DUE TO INCREASED WHITE BLOOD CELL COUNT. FOR DISCHARGE TO [facility] FOR REHAB IN THE NEXT 48 HOURS, FAX DISCHARGE INFORMATION TO [facility] AT [phone]. NURSE REPORT TO BE CALLED TO [facility] AT [phone]. [facility] TO ARRANGE VAN TRANSPORT. DENISE FREEMAN, CASE MANAGEMENT DCP- Discharge Planning Updated by [id number]: Valarie Amos on 04/05/18 9:[address] RECEIVED A VOICEMAIL FROM [facility] ALEXIS THRASHER. SHE STATED THAT SHE HAS PASSED THE AUTHORIZATION OFF TO JAVIER IN THE SNF DEPARTMENT, BUT WANTED TO MAKE SURE THAT WE ALSO HAD THE INFORMATION SO THAT THE PATIENT COULD GET MOVING. SHE STATED THAT THE [employer] HAS AUTHED THE PATIENT FOR 5 DAYS OF SNF (04/05-04/09), AND THE AUTH IS GOOD FOR 48 HOURS. SHE GAVE A SNF AUTH # [id number]. SHE HAS REQUESTED THAT I ASK THE HALF-WAY TO SEND CLINICAL UPDATES TO THE SNF DEPARTMENT AT FAX, . IF THERE ARE ANY QUESTIONS, WE CAN CALL HER AT [phone]. I PAGED DR MAGALLANES AT [phone]. SPOKE WITH HER, AND SHE IS AFRAID THAT THE PATIENT MIGHT HAVE AN INFECTION BREWING. SHE STATED THAT HE IS TACHYPNEIC AND HAS ELEVATED WBC'S. SHE STATED THAT SHE WAS GOING TO GET SOME ABG'S AND TALK TO DR BRADEN, AND SEE WHAT HE THOUGH. THE PATIENT MAY NOT DISCHARGE TODAY. WILL WAIT FOR DETERMINATION. DCP- Discharge Planning Updated by [id number]: Valarie Chowdary on 04/04/18 2:[address] RECEIVED A CALL FROM [facility] WITH [facility] WHO WAS REQUESTING CLINICAL UPDATE FOR PATIENTS STAY. STATING THAT SHE REQUIRES DAILY CLINICALS ON THE PATIENT. I EXPLAINED THAT I WOULD SEND OUT CLINICAL IN ABOUT 10-15 MINUTES. SHE THEN STATED THAT SHE JUST GOT THE SNF REQUEST ON THE PATIENT TODAY AND SHE SHOULD HAVE DETERMINATION TOMORROW. SHE STATED THAT IT LOOKED LIKE THE INFORMATION GOT ROUTED TO THE WRONG DEPARTMENT AND JUST GOT TO HER TODAY. I EXPLAINED THAT WE HAVE BEEN WAITING ON THAT SINCE LAST WEEK, AND SHE STATED THAT THE FAX FOR REQUEST WAS NOT FAXED TO THE INSURANCE COMPANY UNTIL SUNDAY. WE WILL WAIT ON DETERMINATION TOMORROW. DCP- Discharge Planning Updated by [id number]: Denise Freeman on 04/04/18 7:[address] Patient Name: DEONTE NOS Encounter No: [id number] : 1935 Primary Insurance: AETNA MEDICARE PPO or HMO Anticipated DC Date: 04-04-2018 Planned Disposition: Fdc Facility External Planned Provider: [facility], MEDICARE REHAB [facility] DCP follow-up note: CM FAXED REFERRAL UPDATE TO [facility] AT [phone]. [facility] WILL ACCEPT PENDING INSURANCE PRIOR AUTHORIZATION FOR REHAB SERVICES. CM WAITING INSURANCE DETERMINATION FROM PT'S INSURANCE FOR REHAB AT [facility]. Denise Freeman, CASE MANAGMENT DCP- Discharge Planning Updated by [id number]: Denise Freeman on 04/03/18 1:[address] Patient Name: DEONTE OWENS Encounter No: [id number] : 1935 Primary Insurance: AETNA MEDICARE PPO or HMO Anticipated DC Date: 04-02-2018 Planned Disposition: Fdc Facility External Planned Provider: [facility], MEDICARE REHAB BED DCP follow-up note: CM RECEIVED MESSAGE FROM [employer]ENNIFER INSURANCE ASKING NOW FOR UPDATED THERAPY NOTES. CM FAXED REFERRAL UPDATE TO [facility] AT [phone]. CM WAITING ADMISSION DETERMINATION FROM [facility] WELL INSURANCE DETERMINATION FROM PT'S INSURANCE FOR REHAB AT [facility]. Denise Freeman, CASE MANAGMENT DCP- Discharge Planning Updated by [id number]: Denise Freeman on 04/01/18 1:[address] Patient Name: DEONTE OWENS Encounter No: [id number] : 1935 Primary Insurance: AETNA MEDICARE PPO or HMO Anticipated DC Date: 03-27-2018 Planned Disposition: Fdc Facility External Planned Provider: [facility], MEDICARE REHAB BED DCP follow-up note: CM FAXED REFERRAL UPDATE TO [facility] AT [phone]. CM WAITING ADMISSION DETERMINATION FROM [facility] WELL INSURANCE DETERMINATION FROM PT'S INSURANCE FOR REHAB AT [facility]. Denise Freeman, CASE MANAGMENT Appended by Denise Freeman on 04/01/2018 14:51 GATE SUPERVISOR: CM SPOKE TO PT AND PT'S SON, SERGEI LOVE. BOTH IN AGREEMENT WITH DISCHARGE TO REHAB. SERGEI HAS BEEN TO BOTH [facility] AND [facility], HE PREFERS COMBS PLANNED. IMPORTANT MESSAGE FROM MEDICARE PROVIDED AND EXPLAINED. CM WAITING ADMISSION DETERMINATION FROM [facility] WELL INSURANCE DETERMINATION FROM PT'S INSURANCE FOR REHAB AT [facility]. Denise Freeman, CASE MANAGMENT DCP- Discharge Planning Updated by [id number]: Denise Freeman on 03/29/18 3:[address] Patient Name: DEONTE OWENS Encounter No: [id number] : 1935 Primary Insurance: AETNA MEDICARE PPO or HMO Anticipated DC Date: 03-27-2018 Planned Disposition: Fdc Facility External Planned Provider: [facility], MEDICARE REHAB BED DCP follow-up note: CM SPOKE TO MARILUZ CHOWDARY WHO HAS RECEIVED TELEPHONE MESSAGE FROM INSURANCE THAT THEY DENIED INPATIENT REHAB AND RECOMMENDED LONGTERM REHAB. CM NOTIFIED [facility] OF INPATIENT REHAB. CM NOTIFIED PT WHO INITIALLY STATED HE WILL APPEAL THIS HIMSELF AND THEN STATED THAT HE WANTS CM TO SPEAK TO HIS SON REGARDING OPTIONS. PT IS WILLING TO CONSIDER LONGTERM FOR REHAB. CM SPOKE TO DR. MAGALLANES WHO INFORMED MARY SHE IS NOT GOING TO DO PEER TO PEER TO APPEAL INSURANCE DECISION AND AGREES WITH LONGTERM PLACEMENT FOR REHAB. DR. MAGALLANES SPOKE TO PT AND SON IN ROOM. CM NOTIFIED PT AND HIS SON IN ROOM. PT AND SON AGREE FOR REHAB AT [facility] FIRST CHOICE AND [facility] SECOND CHOICE. CHOICE LETTER SIGNED. IMPORTANT MESSAGE FROM MEDICARE PROVIDED AND EXPLAINED. CM NOTIFIED JENNIFER OF [facility], , OF REFERRAL. CM FAXED REFERRAL TO [facility] AT [phone]. CM WAITING ADMISSION DETERMINATION FROM [facility] WELL INSURANCE DETERMINATION FROM PT'S INSURANCE FOR REHAB AT [facility]. Denise Freeman, CASE MANAGMENT DCP- Discharge Planning Updated by [id number]: Amanda Tovar on 03/28/18 3:[address] Patient Name: DEONTE OWENS Admission Status: ER Accout number: [id number] Admission Date: 03-21-2018 : 1935 Admission Diagnosis:GASTROINTESTINAL HEMORRHAGE, UNSPECIFIED Attending: ABI MAGALLANES Current LOS: 7 Anticipated DC Date: 03-27-2018 Planned Disposition: Inpatient Rehab Primary Insurance: AETNA MEDICARE PPO or HMO Discharge Planning Comments: CM MET WITH PATIENT AND HIS SON ABOUT DISCHARGE PLANNING. I INFORMED THEM WE ARE WAITING ON AUTH TO GO TO INPT REHAB AND WILL LET THEM KNOW SOON WE KNOW. I ASKED THEM IF THEY WOULD BE INTERESTED IN SNF IF INPT REHAB IS NOT APPROVED AND HE STATES IS NOT SURE. THAT IF HE DID IT WOULD BE GOOD DIPIKA. I TALKED TO THE SON OUTSIDE OF THE ROOM AND HE STATES HE MAY GET HOSPICE INVOLVED IF IT DOESN'T LOOK LIKE HIS DAD WILL HAVE A GOOD RECOVERY. FAMILY WILL CONTACT CM TOMORROW WHEN THEY COME BACK TO THE HOSPITAL. CM WILL FOLLOW AND ASSIST NEEDED WITH DC PLANNING/NEEDS. Adjunct History Instructor: Amanda Tovar DCP- Discharge Planning Updated by [id number]: Amanda Tovar on 03/26/18 2:[address] Patient Name: DEONTE OWENS Admission Status: ER Accout number: [id number] Admission Date: 03-21-2018 : 1935 Admission Diagnosis:GASTROINTESTINAL HEMORRHAGE, UNSPECIFIED Attending: ABI MAGALLANES Current LOS: 5 Anticipated DC Date: 03-27-2018 Planned Disposition: Inpatient Rehab Primary Insurance: AETNA MEDICARE PPO or HMO Discharge Planning Comments: CM SPOKE WITH DR. MAGALLANES TODAY AND THE PLAN IS FOR INPATIENT REHAB. CM CALLED [facility] AND SHE IS IN ROOM SEEING PATIENT. CM WILL FOLLOW AND ASSIST NEEDED WITH DC PLANNING/NEEDS. IM SIGNED. Adjunct History Instructor: Amanda Tovar DCP- Discharge Planning Updated by [id number]: Helen Minaya on 03/21/18 6:[address] Patient Name: DEONTE OWENS Admission Status: ER Accout number: [id number] Admission Date: 03-21-2018 : 1935 Admission Diagnosis: Attending: ABI MAGALLANES Current LOS: 1 Anticipated DC Date: 03-23-2018 Planned Disposition: Primary Insurance: MEDICARE A & B Discharge Planning Comments: CM met with patient and his cg Danni Diana to complete initial dc planning assessment. CM educated patient on the CM role and verbal consent given by patient to complete assessment. Patient lives at home alone but has a cg that comes on Sunday and Sunday for 2 hours a day. At discharge patient plans to return home alone and feels this is a safe discharge. CM discussed availability of home health, rehab services, and medical equipment. CG feels that HH may be a good option since she is only there 2 days a week. CM will continue to follow and will assist as needed with dc plans/needs. Adjunct History Instructor: Helen Minaya RN, CCM RN, [facility] DCPIA - Discharge Planning Initial Assessment Updated by [id number]: Helen Minaya on 03/21/18 7:30 pm * Is the patient Alert and Oriented? Yes * PCP No PCP * [place] [facility] [place] * Preadmission Environment Home Alone * ADLs Independent * Equipment Rolling Walker * List name and contact numbers for known caregivers / representatives who currently or will assist patient after discharge: Danni Diana - cg - [phone] Sergei Owens - son - [phone] * Verbal permission to speak to the caregivers and representatives has been obtained from the patient. Yes * Community resources currently utilized [facility] * Please name any agencies selected above. [facility] - cg has been seeing the patient for 3 years. Family [place] out of [place]. If anything is needed she said she will be here. * Additional services required to return to the preadmission environment? No * Can the patient safely return to the preadmission environment? Yes * Has this patient been hospitalized within the prior 30 days at any hospital? No Coverage Notice Reviewer: [id number] Ana Tovar Notice Issued Date-Time: 03/26/2018 14:59 Notice Type: IM Discharge Notice Notice Delivered To: Patient Relationship to Patient: Self Vision Care Associate Name: Delivery Method: HAND - Hand Delivered Lidya Days: Prior Verbal Notification: Recipient Understood Notice: Yes Recipient Signature: Yes Med Rec Note Co-signed by Attending: Coverage Notice Comment: Reviewer: VIVIANA Freeman Notice Issued Date-Time: 03/29/2018 15:25 Notice Type: IM Discharge Notice Notice Delivered To: Family Member Relationship to Patient: Son Vision Care Associate Name: SERGEI OWENS Delivery Method: HAND - Hand Delivered Lidya Days: Prior Verbal Notification: Recipient Understood Notice: Yes Recipient Signature: Yes Med Rec Note Co-signed by Attending: Coverage Notice Comment: Reviewer: VIVIANA Freeman Notice Issued Date-Time: 03/29/2018 15:25 Notice Type: Patient Choice Letter Notice Delivered To: Family Member Relationship to Patient: Son Vision Care Associate Name: SERGEI OWENS Delivery Method: HAND - Hand Delivered Lidya Days: Prior Verbal Notification: Recipient Understood Notice: Yes Recipient Signature: Yes Med Rec Note Co-signed by Attending: Coverage Notice Comment: Bruno WILLIAM Reviewer: VIVIANA Freeman Notice Issued Date-Time: 04/01/2018 14:45 Notice Type: IM Discharge Notice Notice Delivered To: Family Member Relationship to Patient: Son Vision Care Associate Name: SERGEI OWENS Delivery Method: HAND - Hand Delivered Lidya Days: Prior Verbal Notification: Recipient Understood Notice: Yes Recipient Signature: Yes Med Rec Note Co-signed by Attending: Coverage Notice Comment: Reviewer: VIVIANA Freeman Notice Issued Date-Time: 04/05/2018 9:50 Notice Type: IM Discharge Notice Notice Delivered To: Patient Relationship to Patient: Vision Care Associate Name: Delivery Method: - Lidya Days: Prior Verbal Notification: Recipient Understood Notice: Yes Recipient Signature: Med Rec Note Co-signed by Attending: Coverage Notice Comment: REFUSED SIGNATURE Last DP export: 04/05/18 3:04 p Patient Name: DEONTE OWENS Page 83817 at 0744 All edits/amendments must be made on the electronic document DICTATION DATE: 04/09/1843 PAPER SALES MANAGER: [place] 04/09/18 0743 RPT#: [id number] DC DATE:04/06/18 STATUS: DIS IN [facility] [address] [place] [address] END OF REPORT
== END 2018-04-06 14:34 | DRG 377 ==
LOC: D.ER 14:23 → D.EDHOLD 17:12 → D.ICU 17:12 → D.M2 17:12 → D.ICU 21:46 → D.M2 03-25 11:50
PROVIDERS: Family Medicine; Internal Medicine Gastroenterology; ADMIT Family Medicine
PROC: 0DB98ZX Excision of Duodenum, Via Natural or Artificial Opening Endoscopic, Diagnostic (ICD-10-PCS; 2018-03-22)
PROC: 0DB78ZX Excision of Stomach, Pylorus, Via Natural or Artificial Opening Endoscopic, Diagnostic (ICD-10-PCS; principal; 2018-03-22 09:00)
DX: K25.4 Chronic or unspecified gastric ulcer with hemorrhage (principal); I21.A1 Myocardial infarction type 2; J18.9 Pneumonia, unspecified organism; D62 Acute posthemorrhagic anemia; N39.0 Urinary tract infection, site not specified; K44.9 Diaphragmatic hernia without obstruction or gangrene; K29.71 Gastritis, unspecified, with bleeding; K31.7 Polyp of stomach and duodenum; I48.91 Unspecified atrial fibrillation; E87.5 Hyperkalemia; I25.10 Atherosclerotic heart disease of native coronary artery without angina pectoris; Z95.5 Presence of coronary angioplasty implant and graft; R35.0 Frequency of micturition; N28.9 Disorder of kidney and ureter, unspecified; I50.9 Heart failure, unspecified; I25.5 Ischemic cardiomyopathy; R26.9 Unspecified abnormalities of gait and mobility

== ENCOUNTER 2018-04-08 13:02 | Inpatient (IN) | payer MEDICARE ==
[~2018-04-08] VITALS: Ht 182.9 cm; Wt 86.4 kg
[~2018-04-08 13:02] MED LIST: ALDACTONE25 MG PO; AMIODARONE HCL200 MG PO; CARAFATE1 G PO; CELEBREX200 MG PO; COREG 3.1253.125 MG PO; COREG6.25 MG PO; ENTRESTO 49 MG1 EACH PO; FUROSEMIDE10 MG/M1 IV; MAXIPIME 2 GM/D52 G1 IVPB; PLAVIX75 MG PO; PROTONIX40 MG PO
[2018-04-08 14:40] LABS: BASOPHILS 0.1 % (0-2); EOSINOPHILS 0.6 % (0-7); HEMATOCRIT 35.7 % (42.0-54.0); HEMOGLOBIN 11.2 g/dL (13.5-17.5); IMMATURE GRANULOCYTES 0.3 % (0-5); LYMPHOCYTES 5.9 % (15-50); MCH 29.2 pg (26.0-34.0); MCHC 31.4 g/dL (31.0-37.0); MEAN PLATELET VOLUME 10.6 fL (7.4-10.4); MONOCYTES 6.4 % (2-11); NEUTROPHILS 86.7 % (40-80); PLATELET COUNT 166 10x3/uL (130-400); RBC 3.84 10x6/uL (4.20-6.10); RDW 16.4 % (11.5-14.5); WBC 11.4 10x3/uL (4.8-10.8)
[2018-04-08 15:41] LABS: APTT 28.6 SECONDS (22.8-39.4); INR 1.48 (0.85-1.17); PROTIME 17.4 SECONDS (11.6-15.0)
[2018-04-08 15:42] LABS: D-DIMER-QUANTITATIVE 2.78 ug/mLFEU (0.20-0.54)
[2018-04-08 15:45] LABS: ALBUMIN 2.3 g/dL (3.4-5.0); ALKALINE PHOSPHATASE 67 U/L (46-116); ALT (SGPT) 98 U/L (10-68); BILIRUBIN - TOTAL 0.84 mg/dL (0.2-1.3); CALC OSMOLALITY 282 mosm/kg (275-300); CALCIUM 7.7 mg/dL (8.5-10.1); CARBON DIOXIDE 23.4 mmol/L (21.0-32.0); CHLORIDE - SERUM 106 mmol/L (98-107); CREATININE - SERUM 1.4 mg/dL (0.6-1.3); GLUCOSE 104 mg/dL (74-106); POTASSIUM - SERUM 4.1 mmol/L (3.5-5.1); PROTEIN - SERUM 5.2 g/dL (6.4-8.2); SODIUM 137 mmol/L (136-145); UREA NITROGEN 37 mg/dL (7-18); eGFR NON AFRICAN AMERICAN 51 mL/min (90-120)
[2018-04-08 16:00] LABS: CKMB 6.3 U/L (0.0-3.6); CREATINE KINASE 45 UL (21-232)
[2018-04-08 16:28] LABS: PRO BNP 83346 pg/mL (0-450); TROPONIN-I 0.648 ng/mL (0.000-0.060)
[2018-04-08 19:00] VITALS: BP 118/65
--- NOTE | 2018-04-08 19:44 | MORECARE ---
CASE MANAGEMENT DISCHARGE SUMMARY PATIENT: DEONTE DALE UNIT: [id number] ADM DATE: 04/08/18 AGE: 82 : 33 SEX: M ROOM/BED: D.E13 AUTHOR: GATITO SARAVIA PHYSICIAN: REFERRING PHYSICIAN: ALMAZ ALEXANDER MD DATE OF SERVICE: 04/08/18 Discharge Plan Patient Name: DEONTE DALE Facility: [facility]:[place] : 1935 Planned Disposition: Anticipated Discharge Date: Discharge Date: Expected LOS: Initial Reviewer: [id number] Initial Review Date: 04/08/2018 Generated: 04/08/18 8:44 pm Patient Name: DEONTE DALE Page 20072 at 1944 All edits/amendments must be made on the electronic document DICTATION DATE: 04/08/181942 MACHINE HAMPER MAKER: [place] 04/08/181942 RPT#: [id number] DC DATE: STATUS: ADM IN [facility] [address] [place] [address] END OF REPORT
--- NOTE | 2018-04-08 20:04 | MORECARE ---
CASE MANAGEMENT DISCHARGE SUMMARY PATIENT: DEONTE DALE UNIT: [id number] ADM DATE: 04/08/18 AGE: 82 : 33 SEX: M ROOM/BED: D.E13 AUTHOR: GATITO SARAVIA PHYSICIAN: REFERRING PHYSICIAN: ALMAZ ALEXANDER MD DATE OF SERVICE: 04/08/18 Discharge Plan Patient Name: DEONTE DALE Facility: [facility]:[place] : 1935 Planned Disposition: Anticipated Discharge Date: Discharge Date: Expected LOS: Initial Reviewer: [email or web address] Initial Review Date: 04/08/2018 Generated: 04/08/18 9:04 pm Last DP export: 04/08/18 6:44 p Patient Name: DEONTE DALE Page 50772 at 2003 All edits/amendments must be made on the electronic document DICTATION DATE: 04/08/182003 DIRECTOR OF SERVICES: [place] 04/08/182003 RPT#: [id number] DC DATE: STATUS: ADM IN [facility] [address] [place] [address] END OF REPORT
[2018-04-08 20:45] VITALS: BP 116/64
[2018-04-08 21:21] VITALS: BP 116/71
[2018-04-08 21:42] VITALS: BP 107/64; BMI 26.2
[2018-04-09] MEDS ORDERED: PLAVIX75 MG PO (00:12)
[2018-04-09] MEDS ORDERED: COREG 3.1253.125 MG PO (00:12)
[2018-04-09] MEDS ORDERED: CELEBREX200 MG PO (00:13)
[2018-04-09 04:55] VITALS: BP 102/64
[2018-04-09 05:30] LABS: BASOPHILS 0.1 % (0-2); HEMATOCRIT 37.1 % (42.0-54.0); HEMOGLOBIN 11.5 g/dL (13.5-17.5); IMMATURE GRANULOCYTES 0.4 % (0-5); LYMPHOCYTES 7.9 % (15-50); MCH 28.5 pg (26.0-34.0); MCV 92.1 fL (80.0-100.0); MEAN PLATELET VOLUME 9.6 fL (7.4-10.4); NEUTROPHILS 81.6 % (40-80); PLATELET COUNT 162 10x3/uL (130-400); RBC 4.03 10x6/uL (4.20-6.10); RDW 16.3 % (11.5-14.5)
[2018-04-09 05:47] LABS: WBC 8.2 10x3/uL (4.8-10.8)
[2018-04-09 06:11] LABS: ALBUMIN 2.3 g/dL (3.4-5.0); ALKALINE PHOSPHATASE 69 U/L (46-116); ALT (SGPT) 93 U/L (10-68); BILIRUBIN - TOTAL 1.04 mg/dL (0.2-1.3); CALC OSMOLALITY 285 mosm/kg (275-300); CALCIUM 7.6 mg/dL (8.5-10.1); CARBON DIOXIDE 26.3 mmol/L (21.0-32.0); CHLORIDE - SERUM 106 mmol/L (98-107); CKMB 5.9 U/L (0.0-3.6); CREATINE KINASE 47 UL (21-232); CREATININE - SERUM 1.3 mg/dL (0.6-1.3); GLUCOSE 82 mg/dL (74-106); POTASSIUM - SERUM 3.6 mmol/L (3.5-5.1); PROTEIN - SERUM 5.2 g/dL (6.4-8.2); SODIUM 140 mmol/L (136-145); UREA NITROGEN 34 mg/dL (7-18); eGFR NON AFRICAN AMERICAN 56 mL/min (90-120)
[2018-04-09 06:28] LABS: TROPONIN-I 0.649 ng/mL (0.000-0.060)
[2018-04-09 06:59] LABS: PRO BNP 109979 pg/mL (0-450)
[2018-04-09 08:02] VITALS: BP 117/71
[2018-04-09 10:13] VITALS: BMI 26.1
[2018-04-09 12:20] VITALS: BP 113/65
[2018-04-09 14:10] VITALS: Ht 182.9 cm; Wt 86.4 kg
[2018-04-09 15:18] VITALS: BP 110/60
[2018-04-09 20:00] VITALS: BP 88/46
[2018-04-10] VITALS: BP 97/48
[2018-04-10 04:00] VITALS: BP 104/50
[2018-04-10 04:43] LABS: BASOPHILS 0.1 % (0-2); EOSINOPHILS 2.1 % (0-7); HEMATOCRIT 35.3 % (42.0-54.0); HEMOGLOBIN 10.8 g/dL (13.5-17.5); IMMATURE GRANULOCYTES 0.3 % (0-5); MCH 28.1 pg (26.0-34.0); MCHC 30.6 g/dL (31.0-37.0); MCV 91.7 fL (80.0-100.0); MONOCYTES 10.5 % (2-11); PLATELET COUNT 169 10x3/uL (130-400); RBC 3.85 10x6/uL (4.20-6.10); RDW 16.2 % (11.5-14.5); WBC 9.3 10x3/uL (4.8-10.8)
[2018-04-10 05:03] LABS: ANION GAP 10.8 mmol/L (8-16); CALCIUM 7.7 mg/dL (8.5-10.1); CARBON DIOXIDE 28.3 mmol/L (21.0-32.0); CREATININE - SERUM 1.6 mg/dL (0.6-1.3); POTASSIUM - SERUM 4.1 mmol/L (3.5-5.1)
[2018-04-10 08:58] VITALS: BP 96/51
[2018-04-10 11:55] VITALS: BP 73/31
[2018-04-10 15:55] VITALS: BP 100/53
[2018-04-10 20:00] VITALS: BP 99/48
[2018-04-11] VITALS (7 sets, daily range): BP systolic 81–94; BP diastolic 44–53
[2018-04-11 05:58] LABS: BASOPHILS 0.1 % (0-2); EOSINOPHILS 1.7 % (0-7); HEMATOCRIT 34.3 % (42.0-54.0); HEMOGLOBIN 10.7 g/dL (13.5-17.5); IMMATURE GRANULOCYTES 0.1 % (0-5); LYMPHOCYTES 8.9 % (15-50); MCH 28.5 pg (26.0-34.0); MCHC 31.2 g/dL (31.0-37.0); MCV 91.2 fL (80.0-100.0); MEAN PLATELET VOLUME 9.8 fL (7.4-10.4); MONOCYTES 11.7 % (2-11); NEUTROPHILS 77.5 % (40-80); PLATELET COUNT 156 10x3/uL (130-400); RBC 3.76 10x6/uL (4.20-6.10); RDW 16.4 % (11.5-14.5); WBC 7.3 10x3/uL (4.8-10.8)
[2018-04-11 06:06] LABS: CALCIUM 7.6 mg/dL (8.5-10.1); CARBON DIOXIDE 27.2 mmol/L (21.0-32.0); CREATININE - SERUM 1.9 mg/dL (0.6-1.3); POTASSIUM - SERUM 4.2 mmol/L (3.5-5.1)
[2018-04-11 08:45] LABS: INR 1.29 (0.85-1.17); PROTIME 15.6 SECONDS (11.6-15.0)
--- NOTE | 2018-04-11 16:07 | MORECARE ---
CASE MANAGEMENT DISCHARGE SUMMARY PATIENT: DEONTE DALE UNIT: [id number] ADM DATE: 04/08/18 AGE: 82 : 33 SEX: M ROOM/BED: D.2110 AUTHOR: GATITO SARAVIA PHYSICIAN: REFERRING PHYSICIAN: ALMAZ ALXEANDER MD DATE OF SERVICE: 04/11/18 Discharge Plan Patient Name: DEONTE DALE Facility: [facility]:[place] : 1935 Planned Disposition: Anticipated Discharge Date: Discharge Date: Expected LOS: Initial Reviewer: [id number] Initial Review Date: 04/08/2018 Generated: 04/11/18 5:07 pm External Providers External Provider: [facility] Next Contact Date: 04/12/2018 Service Request Date: Service Type: Resolution: Reviewer: Comments: Coverage Notice Reviewer: [id number] Ana Portillo Notice Issued Date-Time: 04/11/2018 13:10 Notice Type: IM Discharge Notice Notice Delivered To: Patient Relationship to Patient: Turning And Beading Machine Operator Name: Delivery Method: HAND - Hand Delivered Lidya Days: Prior Verbal Notification: Recipient Understood Notice: Yes Recipient Signature: Yes Med Rec Note Co-signed by Attending: Coverage Notice Comment: Last DP export: 04/08/18 7:04 p Patient Name: DEONTE DALE Page 66455 at 1607 All edits/amendments must be made on the electronic document DICTATION DATE: 04/11/18 160 TYPE COPY EXAMINER: [place] 04/11/18 1606 RPT#: [id number] DC DATE: STATUS: ADM IN [facility] [address] [place] [address] END OF REPORT
--- NOTE | 2018-04-11 16:26 | MORECARE ---
CASE MANAGEMENT DISCHARGE SUMMARY PATIENT: DEONTE DALE UNIT: [id number] ADM DATE: 04/08/18 AGE: 82 : 33 SEX: M ROOM/BED: D.2110 AUTHOR: RANI,DOC PHYSICIAN: REFERRING PHYSICIAN: ALMAZ ALEXANDER MD DATE OF SERVICE: 04/11/18 Discharge Plan Patient Name: DEONTE DALE Facility: [facility]:[place] : 1935 Planned Disposition: Assisted Facility Anticipated Discharge Date: 04/12/18 Discharge Date: Expected LOS: 4 Initial Reviewer: [id number] Initial Review Date: 04/08/2018 Generated: 04/11/18 5:26 pm DCPIA - Discharge Planning Initial Assessment Updated by [email or web address]: Cornel Portillo on 04/11/18 4:20 pm * Is the patient Alert and Oriented? Yes * How many steps to enter\exit or inside your home? NONE * PCP NONE * Pharmacy [facility] * Preadmission Environment Assisted Facility * Facility Name [facility] * ADLs Partial Dependent * Partial ADLs (Assistance needed) Ambulation Bathing Medication Management Transfers * Equipment Rolling Walker * Other Equipment ROLLING WALKER AT HOME [facility] CURRENTLY PROVIDING EQUIPMENT FOR REHAB SERVICES IN FACILITY * List name and contact numbers for known caregivers / representatives who currently or will assist patient after discharge: CYN KOENIG, CAREGIVER, CHARLES DALE, SON, * Verbal permission to speak to the caregivers and representatives has been obtained from the patient. Yes * Community resources currently utilized None * Please name any agencies selected above. NONE * Additional services required to return to the preadmission environment? No * Can the patient safely return to the preadmission environment? Yes * Has this patient been hospitalized within the prior 30 days at any hospital? Yes Coverage Notice Reviewer: [id number] Ana Portillo Notice Issued Date-Time: 04/11/2018 13:10 Notice Type: IM Discharge Notice Notice Delivered To: Patient Relationship to Patient: Electrolysis Operator Name: Delivery Method: HAND - Hand Delivered Lidya Days: Prior Verbal Notification: Recipient Understood Notice: Yes Recipient Signature: Yes Med Rec Note Co-signed by Attending: Coverage Notice Comment: Last DP export: 04/11/18 3:07 p Patient Name: DEONTE DALE Page 93431 at 1626 All edits/amendments must be made on the electronic document DICTATION DATE: 04/11/181625 STYLE ADVISOR: [place] 04/11/181625 RPT#: [id number] DC DATE: STATUS: ADM IN [facility] [address] [place] [address] END OF REPORT
--- NOTE | 2018-04-11 16:36 | MORECARE ---
CASE MANAGEMENT DISCHARGE SUMMARY PATIENT: DEONTE DALE UNIT: [id number] ADM DATE: 04/08/18 AGE: 82 : 33 SEX: M ROOM/BED: D.2110 AUTHOR: RANIDOC PHYSICIAN: REFERRING PHYSICIAN: ALMAZ ALEXANDER MD DATE OF SERVICE: 04/11/18 Discharge Plan Patient Name: DEONTE DALE Facility: [facility]:[place] : 1935 Planned Disposition: Alf Facility Anticipated Discharge Date: 04/12/18 Discharge Date: Expected LOS: 4 Initial Reviewer: [id number] Initial Review Date: 04/08/2018 Generated: 04/11/18 5:36 pm Comments DCP- Discharge Planning Updated by [id number]: Cornel Portillo on 04/11/18 3:[address] Patient Name: DEONTE DALE Admission Status: ER Accout number: [id number] Admission Date: 04-08-2018 : 1935 Admission Diagnosis:SHORTNESS OF BREATH Attending: ALMAZ ALEXANDER Current LOS: 3 Anticipated DC Date: 04-12-2018 Planned Disposition: Alf Facility Primary Insurance: AETNA MEDICARE PPO or HMO PLANNED EXTERNAL PROVIDER: [facility], MEDICARE REHAB BED Discharge Planning Comments: CM MET WITH PT IN ROOM TO DISCUSS DISCHARGE PLANNING AND NEEDS. PT REPORTS LIVING AT HOME INDEPENDENTLY AND ALONE. PT HAD PRIVATE CAREGIVING SERVICES AT HOME FROM [facility] ON MONDAYS AND FOR 2 HOURS PER DAY. PT WAS DISCHARGED AFTER LAST HOSPITAL STAY TO [facility] FOR REHAB AND IF DECLINED BY INPATIENT REHAB, PT UNDERSTANDS HIS INSURANCE HAS TO APPROVE. PT WANTS TO RETURN THERE FOR CONTINUED REHAB. PT HAS A ROLLING WALKER AT HOME WITH NO MEDICAL EQUIPMENT PROVIDER PREFERENCE. IMPORTANT MESSAGE FROM MEDICARE PROVIDED AND EXPLAINED. CM REVIEWED INPATIENT REHAB NOTES AND CALLED ERICKA WHO ADVISED THAT PT HAS NOT PROGRESSED WITH THERAPY SINCE LAST HOSPITAL STAY AND IS APPROPRIATE FOR NURSING HOME REHAB RETURN. CM NOTIFIED PT WHO IS IN AGREEMENT WITH DISCHARGE BACK TO [facility] FOR CONTINUED REHAB. CM CALLED JENNIFER, CLINICAL LIAISON FOR [facility], , ASKED FOR ASSESSMENT FOR REHAB ADMISSION. CM FAXED REFERRAL TO [facility] VIA [employer] AT [phone]. CM WAITING INSURANCE AUTHORIZATION FROM PT'S INSURANCE FOR ADMISSION BACK TO REHAB AT [facility]. Park Guard: Cornel Portillo DCPIA - Discharge Planning Initial Assessment Updated by [id number]: Cornel Portillo on 04/11/18 4:20 pm * Is the patient Alert and Oriented? Yes * How many steps to enter\exit or inside your home? NONE * PCP NONE * Pharmacy [facility] * Preadmission Environment Alf Facility * [facility] Name [facility] * ADLs Partial Dependent * Partial ADLs (Assistance needed) Ambulation Bathing Medication Management Transfers * Equipment Rolling Walker * Other Equipment ROLLING WALKER AT HOME [facility] CURRENTLY PROVIDING EQUIPMENT FOR REHAB SERVICES IN FACILITY * List name and contact numbers for known caregivers / representatives who currently or will assist patient after discharge: CYN LIBERTY, CAREGIVER, CHARLES DALE, SON, * Verbal permission to speak to the caregivers and representatives has been obtained from the patient. Yes * Community resources currently utilized None * Please name any agencies selected above. NONE * Additional services required to return to the preadmission environment? No * Can the patient safely return to the preadmission environment? Yes * Has this patient been hospitalized within the prior 30 days at any hospital? Yes Coverage Notice Reviewer: [id number] - Cornel Portillo Notice Issued Date-Time: 04/11/2018 13:10 Notice Type: IM Discharge Notice Notice Delivered To: Patient Relationship to Patient: Collating Machine Operator Name: Delivery Method: HAND - Hand Delivered Lidya Days: Prior Verbal Notification: Recipient Understood Notice: Yes Recipient Signature: Yes Med Rec Note Co-signed by Attending: Coverage Notice Comment: Last DP export: 04/11/18 3:26 p Patient Name: DEONTE DALE Page 96329 at 1636 All edits/amendments must be made on the electronic document DICTATION DATE: 04/11/181634 PLASTIC SHEETS SUPERVISOR: [place] 04/11/181634 RPT#: [id number] CO DATE: STATUS: ADM IN [facility] [address] [place] [address] END OF REPORT
[2018-04-12] VITALS: BP 106/63
[2018-04-12 04:00] VITALS: BP 125/90
[2018-04-12 05:28] LABS: INR 1.25 (0.85-1.17); PROTIME 15.2 SECONDS (11.6-15.0)
[2018-04-12 05:30] LABS: ANION GAP 12.7 mmol/L (8-16); APTT 34.3 SECONDS (22.8-39.4); CALCIUM 8.5 mg/dL (8.5-10.1); CARBON DIOXIDE 27.5 mmol/L (21.0-32.0); CREATININE - SERUM 2.4 mg/dL (0.6-1.3); POTASSIUM - SERUM 5.2 mmol/L (3.5-5.1)
[2018-04-12 05:38] LABS: BASOPHILS 0.1 % (0-2); EOSINOPHILS 0.6 % (0-7); HEMATOCRIT 37.4 % (42.0-54.0); HEMOGLOBIN 11.9 g/dL (13.5-17.5); IMMATURE GRANULOCYTES 0.3 % (0-5); LYMPHOCYTES 5.3 % (15-50); MCH 29.1 pg (26.0-34.0); MCHC 31.8 g/dL (31.0-37.0); MCV 91.4 fL (80.0-100.0); MEAN PLATELET VOLUME 9.9 fL (7.4-10.4); MONOCYTES 8.7 % (2-11); PLATELET COUNT 173 10x3/uL (130-400); RBC 4.09 10x6/uL (4.20-6.10); RDW 16.7 % (11.5-14.5)
[2018-04-12 05:39] LABS: WBC 13.8 10x3/uL (4.8-10.8)
[2018-04-12 09:02] VITALS: BP 100/63
[2018-04-12 13:48] VITALS: BP 106/63
[2018-04-12 16:38] VITALS: BP 103/62
--- NOTE | 2018-04-12 19:47 | MORECARE ---
CASE MANAGEMENT DISCHARGE SUMMARY PATIENT: DEONTE DALE UNIT: [id number] ADM DATE: 04/08/18 AGE: 82 : 33 SEX: M ROOM/BED: D.2110 AUTHOR: RANI,DOC PHYSICIAN: REFERRING PHYSICIAN: ALMAZ ALEXANDER MD DATE OF SERVICE: 04/12/18 Discharge Plan Patient Name: DEONTE DALE Facility: [facility]:[place] : 1935 Planned Disposition: Snf Facility Anticipated Discharge Date: 04/12/18 Discharge Date: Expected LOS: 4 Initial Reviewer: [id number] Initial Review Date: 04/08/2018 Generated: 04/12/18 8:47 pm Comments DCP- Discharge Planning Updated by [id number]: Cornel Portillo on 04/11/18 3:[address] Patient Name: DEONTE DALE Admission Status: ER Accout number: [id number] Admission Date: 04-08-2018 : 1935 Admission Diagnosis:SHORTNESS OF BREATH Attending: ALMAZ ALEXANDER Current LOS: 3 Anticipated DC Date: 04-12-2018 Planned Disposition: Snf Facility Primary Insurance: AETNA MEDICARE PPO or HMO PLANNED EXTERNAL PROVIDER: [facility], MEDICARE REHAB BED Discharge Planning Comments: CM MET WITH PT IN ROOM TO DISCUSS DISCHARGE PLANNING AND NEEDS. PT REPORTS LIVING AT HOME INDEPENDENTLY AND ALONE. PT HAD PRIVATE CAREGIVING SERVICES AT HOME FROM [facility] ON MONDAYS AND FOR 2 HOURS PER DAY. PT WAS DISCHARGED AFTER LAST HOSPITAL STAY TO [facility] FOR REHAB AND IF DECLINED BY INPATIENT REHAB, PT UNDERSTANDS HIS INSURANCE HAS TO APPROVE. PT WANTS TO RETURN THERE FOR CONTINUED REHAB. PT HAS A ROLLING WALKER AT HOME WITH NO MEDICAL EQUIPMENT PROVIDER PREFERENCE. IMPORTANT MESSAGE FROM MEDICARE PROVIDED AND EXPLAINED. CM REVIEWED INPATIENT REHAB NOTES AND CALLED ERICKA WHO ADVISED THAT PT HAS NOT PROGRESSED WITH THERAPY SINCE LAST HOSPITAL STAY AND IS APPROPRIATE FOR ASSISTED REHAB RETURN. CM NOTIFIED PT WHO IS IN AGREEMENT WITH DISCHARGE BACK TO [facility] FOR CONTINUED REHAB. CM CALLED JENNIFER, CLINICAL LIAISON FOR [facility], , ASKED FOR ASSESSMENT FOR REHAB ADMISSION. CM FAXED REFERRAL TO [facility] VIA [employer] AT [phone]. CM WAITING INSURANCE AUTHORIZATION FROM PT'S INSURANCE FOR ADMISSION BACK TO REHAB AT [facility]. University Services Program Associate: Cornel Portillo DCPIA - Discharge Planning Initial Assessment Updated by [id number]: Cornel Portillo on 04/11/18 4:20 pm * Is the patient Alert and Oriented? Yes * How many steps to enter\exit or inside your home? NONE * PCP NONE * Pharmacy [facility] * Preadmission Environment Snf Facility * [facility] * ADLs Partial Dependent * Partial ADLs (Assistance needed) Ambulation Bathing Medication Management Transfers * Equipment Rolling Walker * Other Equipment ROLLING WALKER AT HOME [facility] CURRENTLY PROVIDING EQUIPMENT FOR REHAB SERVICES IN FACILITY * List name and contact numbers for known caregivers / representatives who currently or will assist patient after discharge: CYN LIBERTY, CAREGIVER, CHARLES DALE, SON, * Verbal permission to speak to the caregivers and representatives has been obtained from the patient. Yes * Community resources currently utilized None * Please name any agencies selected above. NONE * Additional services required to return to the preadmission environment? No * Can the patient safely return to the preadmission environment? Yes * Has this patient been hospitalized within the prior 30 days at any hospital? 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
[2018-04-12 20:00] VITALS: BP 88/46
[2018-04-13 00:55] LABS: APPEARANCE HAZY (CLEAR); BILIRUBIN NEGATIVE (NEGATIVE); COLOR YELLOW (YELLOW); GLUCOSE NEGATIVE (NEGATIVE); KETONE NEGATIVE (NEGATIVE); NITRITE NEGATIVE (NEGATIVE); PROTEIN NEGATIVE (NEGATIVE); SPECIFIC GRAVITY 1.005 (1.005-1.020); UROBILINOGEN NORMAL (NORMAL)
[2018-04-13 01:00] LABS: BACTERIA NONE SEEN /hpf (NONE SEEN); EPITHELIAL CELLS NSEEN /hpf (0-5); RED CELLS - URINE 25-50 /hpf (0-5); WHITE CELLS - URINE NSEEN /hpf (0-5)
[2018-04-13 04:00] VITALS: BP 106/71
[2018-04-13 06:07] LABS: ANION GAP 16.7 mmol/L (8-16); CALCIUM 8.5 mg/dL (8.5-10.1); CARBON DIOXIDE 24.5 mmol/L (21.0-32.0); CREATININE - SERUM 2.5 mg/dL (0.6-1.3)
[2018-04-13 06:09] LABS: POTASSIUM - SERUM 4.2 mmol/L (3.5-5.1)
[2018-04-13 06:30] LABS: BASOPHILS 0.1 % (0-2); EOSINOPHILS 0.1 % (0-7); HEMATOCRIT 33.9 % (42.0-54.0); HEMOGLOBIN 10.7 g/dL (13.5-17.5); IMMATURE GRANULOCYTES 0.2 % (0-5); LYMPHOCYTES 6.6 % (15-50); MCH 28.8 pg (26.0-34.0); MCHC 31.6 g/dL (31.0-37.0); MCV 91.4 fL (80.0-100.0); MEAN PLATELET VOLUME 9.8 fL (7.4-10.4); MONOCYTES 8.8 % (2-11); NEUTROPHILS 84.2 % (40-80); PLATELET COUNT 155 10x3/uL (130-400); RBC 3.71 10x6/uL (4.20-6.10); RDW 16.7 % (11.5-14.5); WBC 10.5 10x3/uL (4.8-10.8)
[2018-04-13 09:40] VITALS: BP 101/68
[2018-04-13 13:51] VITALS: BP 98/63
[2018-04-13 17:02] VITALS: BP 109/74
[2018-04-13 20:00] VITALS: BP 124/57
[2018-04-14] VITALS (7 sets, daily range): BP systolic 85–146; BP diastolic 39–102
[2018-04-14 05:44] LABS: BASOPHILS 0.1 % (0-2); EOSINOPHILS 0 % (0-7); HEMATOCRIT 39.3 % (42.0-54.0); HEMOGLOBIN 12.4 g/dL (13.5-17.5); IMMATURE GRANULOCYTES 0.3 % (0-5); LYMPHOCYTES 5.4 % (15-50); MCH 28.9 pg (26.0-34.0); MCHC 31.6 g/dL (31.0-37.0); MCV 91.6 fL (80.0-100.0); MONOCYTES 9.1 % (2-11); NEUTROPHILS 85.1 % (40-80); RBC 4.29 10x6/uL (4.20-6.10); RDW 16.9 % (11.5-14.5); WBC 11.9 10x3/uL (4.8-10.8)
[2018-04-14 05:57] LABS: PLATELET COUNT 200 10x3/uL (130-400)
[2018-04-14 06:15] LABS: CALCIUM 8.9 mg/dL (8.5-10.1); CARBON DIOXIDE 18.7 mmol/L (21.0-32.0); CREATININE - SERUM 2.4 mg/dL (0.6-1.3)
[2018-04-14 06:16] LABS: POTASSIUM - SERUM 5.7 mmol/L (3.5-5.1)
[2018-04-15 03:50] VITALS: BP 109/64
[2018-04-15 05:46] LABS: BASOPHILS 0 % (0-2); EOSINOPHILS 0 % (0-7); HEMATOCRIT 36.3 % (42.0-54.0); HEMOGLOBIN 11.3 g/dL (13.5-17.5); IMMATURE GRANULOCYTES 0.3 % (0-5); LYMPHOCYTES 6.7 % (15-50); MCH 28.4 pg (26.0-34.0); MCHC 31.1 g/dL (31.0-37.0); MCV 91.2 fL (80.0-100.0); MEAN PLATELET VOLUME 10.7 fL (7.4-10.4); MONOCYTES 6.7 % (2-11); NEUTROPHILS 86.3 % (40-80); RBC 3.98 10x6/uL (4.20-6.10); RDW 16.8 % (11.5-14.5); WBC 12.4 10x3/uL (4.8-10.8)
[2018-04-15 05:47] LABS: PLATELET COUNT 157 10x3/uL (130-400)
[2018-04-15 06:09] LABS: APTT 40.2 SECONDS (22.8-39.4); INR 1.52 (0.85-1.17); PROTIME 17.7 SECONDS (11.6-15.0)
[2018-04-15 06:10] LABS: CALCIUM 8.7 mg/dL (8.5-10.1)
[2018-04-15 06:16] LABS: ANION GAP 14.4 mmol/L (8-16); CARBON DIOXIDE 27.8 mmol/L (21.0-32.0); POTASSIUM - SERUM 4.2 mmol/L (3.5-5.1)
--- NOTE | 2018-04-15 09:08 | MORECARE ---
CASE MANAGEMENT DISCHARGE SUMMARY PATIENT: DEONTE DALE UNIT: [id number] ADM DATE: 04/08/18 AGE: 82 : 33 SEX: M ROOM/BED: D.2110 AUTHOR: RANIDOC PHYSICIAN: REFERRING PHYSICIAN: ALMAZ ALEXANDER MD DATE OF SERVICE: 04/15/18 Discharge Plan Patient Name: DEONTE DALE Facility: [facility]:[place] : 1935 Planned Disposition: Alf Facility Anticipated Discharge Date: 04/16/18 Discharge Date: Expected LOS: 8 Initial Reviewer: [id number] Initial Review Date: 04/08/2018 Generated: 04/15/18 10:08 am Comments DCP- Discharge Planning Updated by [id number]: Cornel Portillo on 04/15/18 8:[address] Patient Name: DEONTE DALE Encounter No: [id number] : 1935 Primary Insurance: AETNA MEDICARE PPO or HMO Anticipated DC Date: 04-12-2018 Planned Disposition: [facility], MEDICARE REHAB BED Discharge Planning Comments: CM RECEIVED MESSAGE FROM JENNIFER, CLINICAL LIAISON FOR [facility], , INSURANCE AUTHORIZATION RECEIVED FOR ADMISSION TO REHAB AT [facility]. FOR DISCHARGE, FAX DISCHARGE INFORMATION TO [facility] AT [phone]. NURSE REPORT TO BE CALLED TO [facility] AT [phone]. Excavating Supervisor: Cornel Portillo DCP- Discharge Planning Updated by [id number]: Cornel Portillo on 04/11/18 3:[address] Patient Name: DEONTE DALE Admission Status: ER Accout number: [id number] Admission Date: 04-08-2018 : 1935 Admission Diagnosis:SHORTNESS OF BREATH Attending: ALMAZ ALEXANDER Current LOS: 3 Anticipated DC Date: 04-12-2018 Planned Disposition: Alf Facility Primary Insurance: AETNA MEDICARE PPO or HMO PLANNED EXTERNAL PROVIDER: [facility], MEDICARE REHAB BED Discharge Planning Comments: CM MET WITH PT IN ROOM TO DISCUSS DISCHARGE PLANNING AND NEEDS. PT REPORTS LIVING AT HOME INDEPENDENTLY AND ALONE. PT HAD PRIVATE CAREGIVING SERVICES AT HOME FROM [facility] ON MONDAYS AND SUNDAY'S FOR 2 HOURS PER DAY. PT WAS DISCHARGED AFTER LAST HOSPITAL STAY TO [facility] FOR REHAB AND IF DECLINED BY INPATIENT REHAB, PT UNDERSTANDS HIS INSURANCE HAS TO APPROVE. PT WANTS TO RETURN THERE FOR CONTINUED REHAB. PT HAS A ROLLING WALKER AT HOME WITH NO MEDICAL EQUIPMENT PROVIDER PREFERENCE. IMPORTANT MESSAGE FROM MEDICARE PROVIDED AND EXPLAINED. CM REVIEWED INPATIENT REHAB NOTES AND CALLED ERICKA WHO ADVISED THAT PT HAS NOT PROGRESSED WITH THERAPY SINCE LAST HOSPITAL STAY AND IS APPROPRIATE FOR HALF-WAY REHAB RETURN. CM NOTIFIED PT WHO IS IN AGREEMENT WITH DISCHARGE BACK TO [facility] FOR CONTINUED REHAB. CM CALLED JENNIFER, CLINICAL LIAISON FOR [facility], , ASKED FOR ASSESSMENT FOR REHAB ADMISSION. CM FAXED REFERRAL TO [facility] VIA [employer] AT [phone]. CM WAITING INSURANCE AUTHORIZATION FROM PT'S INSURANCE FOR ADMISSION BACK TO REHAB AT [facility]. Excavating Supervisor: Cornel Portillo DCPIA - Discharge Planning Initial Assessment Updated by [email or web address]: Cornel Portillo on 04/11/18 4:20 pm * Is the patient Alert and Oriented? Yes * How many steps to enter\exit or inside your home? NONE * PCP NONE * Pharmacy [facility] * Preadmission Environment Alf Facility * Facility Name [facility] * ADLs Partial Dependent * Partial ADLs (Assistance needed) Ambulation Bathing Medication Management Transfers * Equipment Rolling Walker * Other Equipment ROLLING WALKER AT HOME [facility] CURRENTLY PROVIDING EQUIPMENT FOR REHAB SERVICES IN FACILITY * List name and contact numbers for known caregivers / representatives who currently or will assist patient after discharge: CYN KOENIG, CAREGIVER, CHARLES DALE, SON, * Verbal permission to speak to the caregivers and representatives has been obtained from the patient. Yes * Community resources currently utilized None * Please name any agencies selected above. NONE * Additional services required to return to the preadmission environment? No * Can the patient safely return to the preadmission environment? Yes * Has this patient been hospitalized within the prior 30 days at any hospital? Yes Coverage Notice Reviewer: [id number] - Cornel Portillo Notice Issued Date-Time: 04/11/2018 13:10 Notice Type: IM Discharge Notice Notice Delivered To: Patient Relationship to Patient: Bisque Kiln Placer Name: Delivery Method: HAND - Hand Delivered Lidya Days: Prior Verbal Notification: Recipient Understood Notice: Yes Recipient Signature: Yes Med Rec Note Co-signed by Attending: Coverage Notice Comment: Last DP export: 04/12/18 6:47 pm Patient Name: DEONTE DALE Page 60478 at 0908 All edits/amendments must be made on the electronic document DICTATION DATE: 04/15/18907 [place]SCAST DIRECTOR: DM 04/15/18907 RPT#: [id number] DC DATE: STATUS: ADM IN [facility] [address] [place] [address] END OF REPORT
--- NOTE | 2018-04-15 14:08 | MORECARE ---
CASE MANAGEMENT DISCHARGE SUMMARY PATIENT: DEONTE DALE UNIT: [id number] ADM DATE: 04/08/18 AGE: 82 : 33 SEX: M ROOM/BED: D.2110 AUTHOR: RANIDOC PHYSICIAN: REFERRING PHYSICIAN: ALMAZ ALEXANDER MD DATE OF SERVICE: 04/15/18 Discharge Plan Patient Name: DEONTE DALE Facility: [facility]:[place] : 1935 Planned Disposition: Jail Facility Anticipated Discharge Date: 04/16/18 Discharge Date: Expected LOS: 8 Initial Reviewer: [id number] Initial Review Date: 04/08/2018 Generated: 04/15/18 3:08 pm Comments DCP- Discharge Planning Updated by [id number]: Cornel Portillo on 04/15/18 1:[address] Patient Name: DEONTE DALE Encounter No: [id number] : 1935 Primary Insurance: AETNA MEDICARE PPO or HMO Anticipated DC Date: 04-16-2018 Planned Disposition: Jail Facility External Planned Provider: [facility], MEDICARE REHAB BED Discharge Planning Comments: CM NOTIFIED JENNIFER CLINICAL LIAISON FOR [facility], , THAT PT IS HAVING PROCEDURE TODAY. CM FAXED HOSPITAL UPDATE TO [facility]ODRIGUE[facility] AT [phone]. FOR DISCHARGE, FAX DISCHARGE INFORMATION TO [facility] AT [phone]. NURSE REPORT TO BE CALLED TO [facility] AT [phone]. Termite Treater Helper: Cornel Portillo DCP- Discharge Planning Updated by [id number]: Cornel Portillo on 04/15/18 8:[address] Patient Name: DEONTE DALE Encounter No: [id number] : 1935 Primary Insurance: AETNA MEDICARE PPO or HMO Anticipated DC Date: 04-12-2018 Planned Disposition: [facility], MEDICARE REHAB BED Discharge Planning Comments: CM RECEIVED MESSAGE FROM JENNIFER CLINICAL LIAISON FOR [facility], , INSURANCE AUTHORIZATION RECEIVED FOR ADMISSION TO REHAB AT [facility]. FOR DISCHARGE, FAX DISCHARGE INFORMATION TO [facility] AT [phone]. NURSE REPORT TO BE CALLED TO [facility] AT [phone]. Termite Treater Helper: Cornel Portillo DCP- Discharge Planning Updated by [id number]: Cornel Portillo on 04/11/18 3:[address] Patient Name: DEONTE DALE Admission Status: ER Accout number: [id number] Admission Date: 04-08-2018 : 1935 Admission Diagnosis:SHORTNESS OF BREATH Attending: ALMAZ ALEXANDER Current LOS: 3 Anticipated DC Date: 04-12-2018 Planned Disposition: Jail Facility Primary Insurance: AETNA MEDICARE PPO or HMO PLANNED EXTERNAL PROVIDER: [facility], MEDICARE REHAB BED Discharge Planning Comments: CM MET WITH PT IN ROOM TO DISCUSS DISCHARGE PLANNING AND NEEDS. PT REPORTS LIVING AT HOME INDEPENDENTLY AND ALONE. PT HAD PRIVATE CAREGIVING SERVICES AT HOME FROM [facility] ON MONDAYS AND FOR 2 HOURS PER DAY. PT WAS DISCHARGED AFTER LAST HOSPITAL STAY TO [facility] FOR REHAB AND IF DECLINED BY INPATIENT REHAB, PT UNDERSTANDS HIS INSURANCE HAS TO APPROVE. PT WANTS TO RETURN THERE FOR CONTINUED REHAB. PT HAS A ROLLING WALKER AT HOME WITH NO MEDICAL EQUIPMENT PROVIDER PREFERENCE. IMPORTANT MESSAGE FROM MEDICARE PROVIDED AND EXPLAINED. CM REVIEWED INPATIENT REHAB NOTES AND CALLED ERICKA WHO ADVISED THAT PT HAS NOT PROGRESSED WITH THERAPY SINCE LAST HOSPITAL STAY AND IS APPROPRIATE FOR PENITENTIARY REHAB RETURN. CM NOTIFIED PT WHO IS IN AGREEMENT WITH DISCHARGE BACK TO [facility] FOR CONTINUED REHAB. CM CALLED JENNIFRE, CLINICAL LIAISON FOR [facility], , ASKED FOR ASSESSMENT FOR REHAB ADMISSION. CM FAXED REFERRAL TO [facility] VIA [employer]ENN[employer]ER AT [phone]. CM WAITING INSURANCE AUTHORIZATION FROM PT'S INSURANCE FOR ADMISSION BACK TO REHAB AT [facility]. Termite Treater Helper: Cornel Portillo DCPIA - Discharge Planning Initial Assessment Updated by [id number]: Cornel Portillo on 04/11/18 4:20 pm * Is the patient Alert and Oriented? Yes * How many steps to enter\exit or inside your home? NONE * PCP NONE * Pharmacy [facility] [place] * Preadmission Environment Jail Facility * Facility Name [facility] * ADLs Partial Dependent * Partial ADLs (Assistance needed) Ambulation Bathing Medication Management Transfers * Equipment Rolling Walker * Other Equipment ROLLING WALKER AT HOME [facility] CURRENTLY PROVIDING EQUIPMENT FOR REHAB SERVICES IN FACILITY * List name and contact numbers for known caregivers / representatives who currently or will assist patient after discharge: CYN KOENIG, CAREGIVER, CHARLES DALE, SON, * Verbal permission to speak to the caregivers and representatives has been obtained from the patient. Yes * Community resources currently utilized None * Please name any agencies selected above. NONE * Additional services required to return to the preadmission environment? No * Can the patient safely return to the preadmission environment? Yes * Has this patient been hospitalized within the prior 30 days at any hospital? 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 [address] [place] [address] END OF REPORT
[2018-04-15 20:00] VITALS: BP 108/62
[2018-04-16] VITALS: BP 109/77
[2018-04-16 04:00] VITALS: BP 130/77
[2018-04-16 05:42] LABS: BASOPHILS 0.1 % (0-2); EOSINOPHILS 0 % (0-7); HEMATOCRIT 39.9 % (42.0-54.0); HEMOGLOBIN 12.4 g/dL (13.5-17.5); IMMATURE GRANULOCYTES 0.5 % (0-5); MCH 28.9 pg (26.0-34.0); MCHC 31.1 g/dL (31.0-37.0); MEAN PLATELET VOLUME 10.7 fL (7.4-10.4); MONOCYTES 6.6 % (2-11); NEUTROPHILS 86.8 % (40-80); RBC 4.29 10x6/uL (4.20-6.10); RDW 17.1 % (11.5-14.5)
[2018-04-16 06:12] LABS: PLATELET COUNT 226 10x3/uL (130-400); WBC 17.4 10x3/uL (4.8-10.8)
[2018-04-16 06:20] LABS: ALBUMIN 2.7 g/dL (3.4-5.0); ANION GAP 16.5 mmol/L (8-16); BILIRUBIN - TOTAL 1.38 mg/dL (0.2-1.3); CALCIUM 8.8 mg/dL (8.5-10.1); CARBON DIOXIDE 25.9 mmol/L (21.0-32.0); CREATININE - SERUM 1.8 mg/dL (0.6-1.3); POTASSIUM - SERUM 4.4 mmol/L (3.5-5.1); PROTEIN - SERUM 6.7 g/dL (6.4-8.2)
[2018-04-16 16:08] VITALS: BP 126/83
[2018-04-16 20:00] VITALS: BP 90/48
[2018-04-17] VITALS: BP 90/50
[2018-04-17 04:00] VITALS: BP 99/60
[2018-04-17 05:11] LABS: BASOPHILS 0 % (0-2); EOSINOPHILS 0.3 % (0-7); HEMATOCRIT 34.5 % (42.0-54.0); HEMOGLOBIN 10.5 g/dL (13.5-17.5); IMMATURE GRANULOCYTES 0.2 % (0-5); LYMPHOCYTES 5.6 % (15-50); MCH 28.2 pg (26.0-34.0); MCHC 30.4 g/dL (31.0-37.0); MCV 92.7 fL (80.0-100.0); MEAN PLATELET VOLUME 10.6 fL (7.4-10.4); MONOCYTES 5.6 % (2-11); NEUTROPHILS 88.3 % (40-80); RBC 3.72 10x6/uL (4.20-6.10); RDW 16.5 % (11.5-14.5)
[2018-04-17 05:32] LABS: PLATELET COUNT 156 10x3/uL (130-400)
[2018-04-17 05:45] LABS: ALBUMIN 2.3 g/dL (3.4-5.0); ANION GAP 11.6 mmol/L (8-16); BILIRUBIN - TOTAL 1.05 mg/dL (0.2-1.3); CALCIUM 7.8 mg/dL (8.5-10.1); CARBON DIOXIDE 29.3 mmol/L (21.0-32.0); CREATININE - SERUM 1.4 mg/dL (0.6-1.3); POTASSIUM - SERUM 3.9 mmol/L (3.5-5.1); PROTEIN - SERUM 5.8 g/dL (6.4-8.2)
[2018-04-17 08:22] VITALS: BP 107/62
[2018-04-17 11:59] VITALS: BP 118/70
--- NOTE | 2018-04-17 16:04 | MORECARE ---
CASE MANAGEMENT DISCHARGE SUMMARY PATIENT: DEONTE DALE UNIT: [id number] ADM DATE: 04/08/18 AGE: 82 : 33 SEX: M ROOM/BED: D.2110 AUTHOR: RANI,DOC PHYSICIAN: REFERRING PHYSICIAN: ALMAZ ALEXANDER MD DATE OF SERVICE: 04/17/18 Discharge Plan Patient Name: DEONTE DALE Facility: [facility]:[place] : 1935 Planned Disposition: Halfway Facility Anticipated Discharge Date: 04/16/18 Discharge Date: Expected LOS: 8 Initial Reviewer: [id number] Initial Review Date: 04/08/2018 Generated: 04/17/18 5:04 pm Comments DCP- Discharge Planning Updated by [id number]: Valarie Trinidad on 04/17/18 2:[address] SPOKE WITH MIR Lowry CM WITH ANNA MARIE. .QUESTIONED IF THE PATIENT HAS HOSPICE BENEFITS. EXPLAINED THAT HE HAS TAKEN A TURN FOR THE WORSE AND NOW THE SON JUST WANTS TO TAKE HIM HOME WITH HOSPICE. SHE STATED THAT IF THEY CHOOSE THAT OPTION, THEN HIS PLAN WILL REVERT BACK TO THE REGULAR FEDERAL MEDICARE AND HE WILL HAVE THAT HOSPICE BENEFIT. I THANKED HER FOR HER TIME AND EXPLAINED THAT IF THAT IS THE ROAD WE ARE VENTURING DOWN FOR SURE, I WOULD CALL BACK AND LET HER KNOW. DCP- Discharge Planning Updated by [id number]: Cornel Portillo on 04/15/18 1:[address] Patient Name: DEONTE DALE Encounter No: [id number] : 1935 Primary Insurance: AETNA MEDICARE PPO or HMO Anticipated DC Date: 04-16-2018 Planned Disposition: Halfway Facility External Planned Provider: [facility], MEDICARE REHAB BED Discharge Planning Comments: MARY NOTIFIED JENNIFER, CLINICAL LIAISON FOR [facility], , THAT PT IS HAVING PROCEDURE TODAY. CM FAXED HOSPITAL UPDATE TO [facility]ODR[facility] AT [phone]. FOR DISCHARGE, FAX DISCHARGE INFORMATION TO [facility] AT [phone]. NURSE REPORT TO BE CALLED TO [facility] AT [phone]. Political Worker: Cornel Portillo DCP- Discharge Planning Updated by [id number]: Cornel Portillo on 04/15/18 8:[address] Patient Name: DEONTE DALE Encounter No: [id number] : 1935 Primary Insurance: AETNA MEDICARE PPO or HMO Anticipated DC Date: 04-12-2018 Planned Disposition: [facility] Discharge Planning Comments: CM RECEIVED MESSAGE FROM JENNIFER CLINICAL LIAISON FOR [facility], , INSURANCE AUTHORIZATION RECEIVED FOR ADMISSION TO REHAB AT [facility]. FOR DISCHARGE, FAX DISCHARGE INFORMATION TO [facility] AT [phone]. NURSE REPORT TO BE CALLED TO [facility] AT [phone]. Political Worker: Cornel Portillo [facility]- Discharge Planning Updated by [id number]: Cornel Portillo on 04/11/18 3:[address] Patient Name: DEONTE DALE Admission Status: ER Accout number: [id number] Admission Date: 04-08-2018 : 1935 Admission Diagnosis:SHORTNESS OF BREATH Attending: ALMAZ ALEXANDER Current LOS: 3 Anticipated DC Date: 04-12-2018 Planned Disposition: Halfway Facility Primary Insurance: AETNA MEDICARE PPO or HMO PLANNED EXTERNAL PROVIDER: [facility] Discharge Planning Comments: CM MET WITH PT IN ROOM TO DISCUSS DISCHARGE PLANNING AND NEEDS. PT REPORTS LIVING AT HOME INDEPENDENTLY AND ALONE. PT HAD PRIVATE CAREGIVING SERVICES AT HOME FROM [facility] ON MONDAYS AND FOR 2 HOURS PER DAY. PT WAS DISCHARGED AFTER LAST HOSPITAL STAY TO [facility] FOR REHAB AND IF DECLINED BY INPATIENT REHAB, PT UNDERSTANDS HIS INSURANCE HAS TO APPROVE. PT WANTS TO RETURN THERE FOR CONTINUED REHAB. PT HAS A ROLLING WALKER AT HOME WITH NO MEDICAL EQUIPMENT PROVIDER PREFERENCE. IMPORTANT MESSAGE FROM MEDICARE PROVIDED AND EXPLAINED. CM REVIEWED INPATIENT REHAB NOTES AND CALLED ERICKA WHO ADVISED THAT PT HAS NOT PROGRESSED WITH THERAPY SINCE LAST HOSPITAL STAY AND IS APPROPRIATE FOR FDC REHAB RETURN. CM NOTIFIED PT WHO IS IN AGREEMENT WITH DISCHARGE BACK TO [facility] FOR CONTINUED REHAB. CM CALLED JENNIFER CLINICAL LIAISON FOR [facility], , ASKED FOR ASSESSMENT FOR REHAB ADMISSION. CM FAXED REFERRAL TO [facility] VIA [employer] AT [phone]. CM WAITING INSURANCE AUTHORIZATION FROM PT'S INSURANCE FOR ADMISSION BACK TO REHAB AT [facility]. Political Worker: Cornel Portillo DCPIA - Discharge Planning Initial Assessment Updated by [email or web address]: Cornel Portillo on 04/11/18 4:20 pm * Is the patient Alert and Oriented? Yes * How many steps to enter\exit or inside your home? NONE * PCP NONE * Pharmacy [facility] * Preadmission Environment Halfway Facility * Facility Name [facility] * ADLs Partial Dependent * Partial ADLs (Assistance needed) Ambulation Bathing Medication Management Transfers * Equipment Rolling Walker * Other Equipment ROLLING WALKER AT HOME [facility] CURRENTLY PROVIDING EQUIPMENT FOR REHAB SERVICES IN FACILITY * List name and contact numbers for known caregivers / representatives who currently or will assist patient after discharge: CYN KOENIG, CAREGIVER, CHARLES DALE, SON, * Verbal permission to speak to the caregivers and representatives has been obtained from the patient. Yes * Community resources currently utilized None * Please name any agencies selected above. NONE * Additional services required to return to the preadmission environment? No * Can the patient safely return to the preadmission environment? Yes * Has this patient been hospitalized within the prior 30 days at any hospital? 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
[2018-04-17 20:10] VITALS: BP 98/56
[2018-04-18] VITALS: BP 95/57
[2018-04-18 04:00] VITALS: BP 94/52
[2018-04-18 05:50] LABS: BASOPHILS 0 % (0-2); EOSINOPHILS 0.3 % (0-7); HEMATOCRIT 32.7 % (42.0-54.0); IMMATURE GRANULOCYTES 0.5 % (0-5); LYMPHOCYTES 6.5 % (15-50); MCH 28.3 pg (26.0-34.0); MCHC 30.6 g/dL (31.0-37.0); MCV 92.6 fL (80.0-100.0); MEAN PLATELET VOLUME 10.5 fL (7.4-10.4); MONOCYTES 7.1 % (2-11); NEUTROPHILS 85.6 % (40-80); PLATELET COUNT 146 10x3/uL (130-400); RBC 3.53 10x6/uL (4.20-6.10); RDW 16.5 % (11.5-14.5)
[2018-04-18 06:34] LABS: ALBUMIN 2.1 g/dL (3.4-5.0); ANION GAP 9.3 mmol/L (8-16); BILIRUBIN - TOTAL 1.06 mg/dL (0.2-1.3); CALCIUM 7.8 mg/dL (8.5-10.1); CARBON DIOXIDE 31.7 mmol/L (21.0-32.0); CREATININE - SERUM 1.3 mg/dL (0.6-1.3); PROTEIN - SERUM 5.4 g/dL (6.4-8.2)
[2018-04-18 09:33] VITALS: BP 104/69
--- NOTE | 2018-04-18 10:12 | MORECARE ---
CASE MANAGEMENT DISCHARGE SUMMARY PATIENT: DEONTE DALE UNIT: [id number] ADM DATE: 04/08/18 AGE: 83 : 33 SEX: M ROOM/BED: D.2110 AUTHOR: RANI,DOC PHYSICIAN: REFERRING PHYSICIAN: ALMAZ ALEXANDER MD DATE OF SERVICE: 04/18/18 Discharge Plan Patient Name: DEONTE DALE Facility: [facility]:[place] : 1935 Planned Disposition: Hospice Home Anticipated Discharge Date: 04/18/18 Discharge Date: Expected LOS: 10 Initial Reviewer: [id number] Initial Review Date: 04/08/2018 Generated: 04/18/18 11:12 am Comments DCP- Discharge Planning Updated by [id number]: Valarie Trinidad on 04/17/18 2:[address] SPOKE WITH MIR Lowry CM WITH ANNA MARIE. .QUESTIONED IF THE PATIENT HAS HOSPICE BENEFITS. EXPLAINED THAT HE HAS TAKEN A TURN FOR THE WORSE AND NOW THE SON JUST WANTS TO TAKE HIM HOME WITH HOSPICE. SHE STATED THAT IF THEY CHOOSE THAT OPTION, THEN HIS PLAN WILL REVERT BACK TO THE REGULAR FEDERAL MEDICARE AND HE WILL HAVE THAT HOSPICE BENEFIT. I THANKED HER FOR HER TIME AND EXPLAINED THAT IF THAT IS THE ROAD WE ARE VENTURING DOWN FOR SURE, I WOULD CALL BACK AND LET HER KNOW. DCP- Discharge Planning Updated by [id number]: Cornel Portillo on 04/15/18 1:[address] Patient Name: DEONTE DALE Encounter No: [id number] : 1935 Primary Insurance: AETNA MEDICARE PPO or HMO Anticipated DC Date: 04-16-2018 Planned Disposition: Senior Care Facility External Planned Provider: [facility], MEDICARE REHAB BED Discharge Planning Comments: AMRY NOTIFIED JENNIFER, CLINICAL LIAISON FOR [facility], , THAT PT IS HAVING PROCEDURE TODAY. CM FAXED HOSPITAL UPDATE TO [facility] AT [phone]. FOR DISCHARGE, FAX DISCHARGE INFORMATION TO [facility] AT [phone]. NURSE REPORT TO BE CALLED TO [facility] AT [phone]. Certified Respiratory Therapist: Cornel Portillo DCP- Discharge Planning Updated by [id number]: Cornel Portillo on 04/15/18 8:[address] Patient Name: DEONTE DALE Encounter No: [id number] : 1935 Primary Insurance: AETNA MEDICARE PPO or HMO Anticipated DC Date: 04-12-2018 Planned Disposition: [facility], MEDICARE REHAB BED Discharge Planning Comments: CM RECEIVED MESSAGE FROM JENNIFER CLINICAL LIAISON FOR [facility], , INSURANCE AUTHORIZATION RECEIVED FOR ADMISSION TO REHAB AT [facility]. FOR DISCHARGE, FAX DISCHARGE INFORMATION TO [facility] AT [phone]. NURSE REPORT TO BE CALLED TO [facility] AT [phone]. Certified Respiratory Therapist: Cornel Portillo ARP- Discharge Planning Updated by [id number]: Cornel Portillo on 04/11/18 3:[address] Patient Name: DEONTE DALE Admission Status: ER Accout number: [id number] Admission Date: 04-08-2018 : 1935 Admission Diagnosis:SHORTNESS OF BREATH Attending: ALMAZ ALEXANDER Current LOS: 3 Anticipated DC Date: 04-12-2018 Planned Disposition: Senior Care Facility Primary Insurance: AETNA MEDICARE PPO or HMO PLANNED EXTERNAL PROVIDER: [facility], [facility] Discharge Planning Comments: CM MET WITH PT IN ROOM TO DISCUSS DISCHARGE PLANNING AND NEEDS. PT REPORTS LIVING AT HOME INDEPENDENTLY AND ALONE. PT HAD PRIVATE CAREGIVING SERVICES AT HOME FROM [facility] ON MONDAYS AND FOR 2 HOURS PER DAY. PT WAS DISCHARGED AFTER LAST HOSPITAL STAY TO [facility] FOR REHAB AND IF DECLINED BY INPATIENT REHAB, PT UNDERSTANDS HIS INSURANCE HAS TO APPROVE. PT WANTS TO RETURN THERE FOR CONTINUED REHAB. PT HAS A ROLLING WALKER AT HOME WITH NO MEDICAL EQUIPMENT PROVIDER PREFERENCE. IMPORTANT MESSAGE FROM MEDICARE PROVIDED AND EXPLAINED. CM REVIEWED INPATIENT REHAB NOTES AND CALLED ERICKA WHO ADVISED THAT PT HAS NOT PROGRESSED WITH THERAPY SINCE LAST HOSPITAL STAY AND IS APPROPRIATE FOR PENITENTIARY REHAB RETURN. CM NOTIFIED PT WHO IS IN AGREEMENT WITH DISCHARGE BACK TO [facility] FOR CONTINUED REHAB. CM CALLED JENNIFER CLINICAL LIAISON FOR [facility], , ASKED FOR ASSESSMENT FOR REHAB ADMISSION. CM FAXED REFERRAL TO [facility] VIA [employer] AT [phone]. CM WAITING INSURANCE AUTHORIZATION FROM PT'S INSURANCE FOR ADMISSION BACK TO REHAB AT [facility]. Certified Respiratory Therapist: Cornel Portillo DCPIA - Discharge Planning Initial Assessment Updated by [id number]: Cornel Portillo on 04/11/18 4:20 pm * Is the patient Alert and Oriented? Yes * How many steps to enter\exit or inside your home? NONE * PCP NONE * Pharmacy [facility] * Preadmission Environment Senior Care Facility * Facility Name [facility] * ADLs Partial Dependent * Partial ADLs (Assistance needed) Ambulation Bathing Medication Management Transfers * Equipment Rolling Walker * Other Equipment ROLLING WALKER AT HOME [facility] CURRENTLY PROVIDING EQUIPMENT FOR REHAB SERVICES IN FACILITY * List name and contact numbers for known caregivers / representatives who currently or will assist patient after discharge: CYN KOENIG, CAREGIVER, CHARLES DALE, SON, * Verbal permission to speak to the caregivers and representatives has been obtained from the patient. Yes * Community resources currently utilized None * Please name any agencies selected above. NONE * Additional services required to return to the preadmission environment? No * Can the patient safely return to the preadmission environment? Yes * Has this patient been hospitalized within the prior 30 days at any hospital? Yes Coverage Notice Reviewer: [id number] - Cornel Portillo Notice Issued Date-Time: 04/11/2018 13:10 Notice Type: IM Discharge Notice Notice Delivered To: Patient Relationship to Patient: Drill Operator Name: Delivery Method: HAND - Hand Delivered Lidya Days: Prior Verbal Notification: Recipient Understood Notice: Yes Recipient Signature: Yes Med Rec Note Co-signed by Attending: Coverage Notice Comment: Last DP export: 04/17/18 3:04 pm Patient Name: DEONTE DALE Page 38432 at 1012 All edits/amendments must be made on the electronic document DICTATION DATE: 04/18/18 1011 ELECTRONIC ASSEMBLER: [place] 04/18/18 1011 RPT#: [id number] [place] DATE: STATUS: ADM IN [facility] [address] [place] [address] END OF REPORT
--- NOTE | 2018-04-18 10:36 | MORECARE ---
CASE MANAGEMENT DISCHARGE SUMMARY PATIENT: DEONTE DALE UNIT: [id number] ADM DATE: 04/08/18 AGE: 83 : 33 SEX: M ROOM/BED: D.2110 AUTHOR: RANI,DOC PHYSICIAN: REFERRING PHYSICIAN: ALMAZ ALEXANDER MD DATE OF SERVICE: 04/18/18 Discharge Plan Patient Name: DEONTE DALE Facility: [facility]:[place] : 1935 Planned Disposition: Hospice Home Anticipated Discharge Date: 04/18/18 Discharge Date: Expected LOS: 10 Initial Reviewer: [id number] Initial Review Date: 04/08/2018 Generated: 04/18/18 11:36 am Comments DCP- Discharge Planning Updated by [id number]: Cornel Portillo on 04/18/18 9:[address] Patient Name: DEONTE DALE Encounter No: [id number] : 1935 Primary Insurance: AETNA MEDICARE PPO or HMO Anticipated DC Date: 04-18-2018 Planned Disposition: Hospice Home External Planned Provider: [facility] DCP follow-up note: CM RECEIVED CALL FROM DIGNA OF [facility] WHO REPORTS THAT THEY HAVE EVALUATED PT LAST NIGHT AND PT HAS ASKED FOR HOSPICE AT HOME, THEY ARE IN PROCESS OF DELIVERY MEDICAL EQUIPMENT TODAY TO HOME. DIGNA WILL CALL CM WHEN THEY ARE COMPLETED WITH MEDICAL EQUIPMENT DELIVERY AND READY TO ADMIT PT AT HOME TODAY. CM SPOKE TO PT IN ROOM. PT REPORTS HE HAS DISCUSSED HOSPICE WITH HIS DOCTOR, SON AND OPTED FOR [facility] AT HOME. THEY ARE SETTING UP EQUIPMENT FOR PT TO DISCHARGE TODAY FOR HOME HOSPICE. PT SIGNED CONSENT FOR HOME HOSPICE WITH [facility]. IMPORTANT MESSAGE FROM MEDICARE PROVIDED AND EXPLAINED. CM WAITING ON MEDICAL EQUIPMENT DELIVERY COMPLETION FOR HOME HOSPICE WITH [facility]. CM TO CONTINUE TO FOLLOW AND ASSIST NEEDED. Cornel Portillo, CASE MANAGEMENT DCP- Discharge Planning Updated by [id number]: Valarie Trinidad on 04/17/18 2:[address] SPOKE WITH MIR Lowry CM WITH ANNA MARIE. .QUESTIONED IF THE PATIENT HAS HOSPICE BENEFITS. EXPLAINED THAT HE HAS TAKEN A TURN FOR THE WORSE AND NOW THE SON JUST WANTS TO TAKE HIM HOME WITH HOSPICE. SHE STATED THAT IF THEY CHOOSE THAT OPTION, THEN HIS PLAN WILL REVERT BACK TO THE REGULAR FEDERAL MEDICARE AND HE WILL HAVE THAT HOSPICE BENEFIT. I THANKED HER FOR HER TIME AND EXPLAINED THAT IF THAT IS THE ROAD WE ARE VENTURING DOWN FOR SURE, I WOULD CALL BACK AND LET HER KNOW. DCP- Discharge Planning Updated by [id number]: Cornel Portillo on 04/15/18 1:[address] Patient Name: DEONTE DALE Encounter No: [id number] : 1935 Primary Insurance: AETNA MEDICARE PPO or HMO Anticipated DC Date: 04-16-2018 Planned Disposition: [facility] Facility External Planned Provider: [facility], MEDICARE REHAB BED Discharge Planning Comments: CM NOTIFIED JENNIFER CLINICAL LIAISON FOR [facility], , THAT PT IS HAVING PROCEDURE TODAY. CM FAXED HOSPITAL UPDATE TO [facility] [place] AT [phone]. FOR DISCHARGE, FAX DISCHARGE INFORMATION TO [facility] AT [phone]. NURSE REPORT TO BE CALLED TO [facility] AT [phone]. Plastic Roller: Cornel Portillo DCP- Discharge Planning Updated by [id number]: Cornel Portillo on 04/15/18 8:[address] Patient Name: DEONTE DALE Encounter No: [id number] : 1935 Primary Insurance: AETNA MEDICARE PPO or HMO Anticipated DC Date: 04-12-2018 Planned Disposition: [facility], MEDICARE REHAB BED Discharge Planning Comments: CM RECEIVED MESSAGE FROM JENNIFER CLINICAL LIAISON FOR [facility], , INSURANCE AUTHORIZATION RECEIVED FOR ADMISSION TO REHAB AT [facility]. FOR DISCHARGE, FAX DISCHARGE INFORMATION TO [facility] AT [phone]. NURSE REPORT TO BE CALLED TO [facility] AT [phone]. Plastic Roller: Cornel Portillo DCP- Discharge Planning Updated by [id number]: Cornel Portillo on 04/11/18 3:[address] Patient Name: DEONTE DALE Admission Status: ER Accout number: [id number] Admission Date: 04-08-2018 : 1935 Admission Diagnosis:SHORTNESS OF BREATH Attending: ALMAZ ALEXANDER Current LOS: 3 Anticipated DC Date: 04-12-2018 Planned Disposition: [facility] Facility Primary Insurance: AETNA MEDICARE PPO or HMO PLANNED EXTERNAL PROVIDER: [facility] REHAB BED Discharge Planning Comments: CM MET WITH PT IN ROOM TO DISCUSS DISCHARGE PLANNING AND NEEDS. PT REPORTS LIVING AT HOME INDEPENDENTLY AND ALONE. PT HAD PRIVATE CAREGIVING SERVICES AT HOME FROM [facility] ON MONDAYS AND SUNDAY'S FOR 2 HOURS PER DAY. PT WAS DISCHARGED AFTER LAST HOSPITAL STAY TO [facility] FOR REHAB AND IF DECLINED BY INPATIENT REHAB, PT UNDERSTANDS HIS INSURANCE HAS TO APPROVE. PT WANTS TO RETURN THERE FOR CONTINUED REHAB. PT HAS A ROLLING WALKER AT HOME WITH NO MEDICAL EQUIPMENT PROVIDER PREFERENCE. IMPORTANT MESSAGE FROM MEDICARE PROVIDED AND EXPLAINED. CM REVIEWED INPATIENT REHAB NOTES AND CALLED ERICKA WHO ADVISED THAT PT HAS NOT PROGRESSED WITH THERAPY SINCE LAST HOSPITAL STAY AND IS APPROPRIATE FOR LONG-TERM REHAB RETURN. CM NOTIFIED PT WHO IS IN AGREEMENT WITH DISCHARGE BACK TO [facility] FOR CONTINUED REHAB. CM CALLED JENNIFER, CLINICAL LIAISON FOR [facility], , ASKED FOR ASSESSMENT FOR REHAB ADMISSION. CM FAXED REFERRAL TO [facility] VIA [facility] AT [phone]. CM WAITING INSURANCE AUTHORIZATION FROM PT'S INSURANCE FOR ADMISSION BACK TO REHAB AT [facility]. Plastic Roller: Cornel Portillo VTPIA - Discharge Planning Initial Assessment Updated by [id number]: Cornel Portillo on 04/11/18 4:20 pm * Is the patient Alert and Oriented? Yes * How many steps to enter\exit or inside your home? NONE * PCP NONE * Pharmacy [facility] * Preadmission Environment [facility] Facility * Facility Name [facility] * ADLs Partial Dependent * Partial ADLs (Assistance needed) Ambulation Bathing Medication Management Transfers * Equipment Rolling Walker * Other Equipment ROLLING WALKER AT HOME [facility] CURRENTLY PROVIDING EQUIPMENT FOR REHAB SERVICES IN FACILITY * List name and contact numbers for known caregivers / representatives who currently or will assist patient after discharge: CYN KOENIG, CAREGIVER, CHARLES DALE, SON, * Verbal permission to speak to the caregivers and representatives has been obtained from the patient. Yes * Community resources currently utilized None * Please name any agencies selected above. NONE * Additional services required to return to the preadmission environment? No * Can the patient safely return to the preadmission environment? Yes * Has this patient been hospitalized within the prior 30 days at any hospital? Yes Coverage Notice Reviewer: [id number] Portillo Notice Issued Date-Time: 04/11/2018 13:10 Notice Type: IM Discharge Notice Notice Delivered To: Patient Relationship to Patient: Conversion Developer Name: Delivery Method: HAND - Hand Delivered Lidya Days: Prior Verbal Notification: Recipient Understood Notice: Yes Recipient Signature: Yes Med Rec Note Co-signed by Attending: Coverage Notice Comment: Reviewer: [id number] Portillo Notice Issued Date-Time: 04/18/2018 9:35 Notice Type: Patient Choice Letter Notice Delivered To: Patient Relationship to Patient: Conversion Developer Name: Delivery Method: HAND - Hand Delivered Lidya Days: Prior Verbal Notification: Recipient Understood Notice: Yes Recipient Signature: Yes Med Rec Note Co-signed by Attending: Coverage Notice Comment: [facility] Reviewer: [id number] Portillo Notice Issued Date-Time: 04/18/2018 9:35 Notice Type: IM Discharge Notice Notice Delivered To: Patient Relationship to Patient: Conversion Developer Name: Delivery Method: HAND - Hand Delivered Lidya Days: Prior Verbal Notification: Recipient Understood Notice: Yes Recipient Signature: Yes Med Rec Note Co-signed by Attending: Coverage Notice Comment: Last DP export: 04/18/18 9:12 am Patient Name: DEONTE DALE Page 32320 at 1036 All edits/amendments must be made on the electronic document DICTATION DATE: 04/18/18 1036 CONSULTING NETWORKING ENGINEER: [place] 04/18/18 1036 RPT#: [id number] DC DATE: STATUS: ADM IN [facility] [address] [place] [address] END OF REPORT
--- NOTE | 2018-04-18 11:20 | MORECARE ---
CASE MANAGEMENT DISCHARGE SUMMARY PATIENT: DEONTE DALE UNIT: [id number] ADM DATE: 04/08/18 AGE: 83 : 33 SEX: M ROOM/BED: D.2110 AUTHOR: RANI,DOC PHYSICIAN: REFERRING PHYSICIAN: ALMAZ ALEXANDER MD DATE OF SERVICE: 04/18/18 Discharge Plan Patient Name: DEONTE DALE Facility: [facility]:[place] : 1935 Planned Disposition: Hospice Home Anticipated Discharge Date: 04/18/18 Discharge Date: Expected LOS: 10 Initial Reviewer: [id number] Initial Review Date: 04/08/2018 Generated: 04/18/18 12:20 pm Comments DCP- Discharge Planning Updated by [id number]: Cornel Portillo on 04/18/18 9:[address] Patient Name: DEONTE DALE Encounter No: [id number] : 1935 Primary Insurance: AETNA MEDICARE PPO or HMO Anticipated DC Date: 04-18-2018 Planned Disposition: Hospice Home External Planned Provider: [facility] DCP follow-up note: CM RECEIVED CALL FROM DIGNA OF [facility] WHO REPORTS THAT THEY HAVE EVALUATED PT LAST NIGHT AND PT HAS ASKED FOR HOSPICE AT HOME, THEY ARE IN PROCESS OF DELIVERY MEDICAL EQUIPMENT TODAY TO HOME. DIGNA WILL CALL CM WHEN THEY ARE COMPLETED WITH MEDICAL EQUIPMENT DELIVERY AND READY TO ADMIT PT AT HOME TODAY. CM SPOKE TO PT IN ROOM. PT REPORTS HE HAS DISCUSSED HOSPICE WITH HIS DOCTOR, SON AND OPTED FOR [facility] AT HOME. THEY ARE SETTING UP EQUIPMENT FOR PT TO DISCHARGE TODAY FOR HOME HOSPICE. PT SIGNED CONSENT FOR HOME HOSPICE WITH [facility]. IMPORTANT MESSAGE FROM MEDICARE PROVIDED AND EXPLAINED. CM WAITING ON MEDICAL EQUIPMENT DELIVERY COMPLETION FOR HOME HOSPICE WITH [facility]. CM TO CONTINUE TO FOLLOW AND ASSIST NEEDED. Cornel Portillo, CASE MANAGEMENT DCP- Discharge Planning Updated by [id number]: Valarie Trinidad on 04/17/18 2:[address] SPOKE WITH MIR Lowry CM WITH ANNA MARIE. .QUESTIONED IF THE PATIENT HAS HOSPICE BENEFITS. EXPLAINED THAT HE HAS TAKEN A TURN FOR THE WORSE AND NOW THE SON JUST WANTS TO TAKE HIM HOME WITH HOSPICE. SHE STATED THAT IF THEY CHOOSE THAT OPTION, THEN HIS PLAN WILL REVERT BACK TO THE REGULAR FEDERAL MEDICARE AND HE WILL HAVE THAT HOSPICE BENEFIT. I THANKED HER FOR HER TIME AND EXPLAINED THAT IF THAT IS THE ROAD WE ARE VENTURING DOWN FOR SURE, I WOULD CALL BACK AND LET HER KNOW. DCP- Discharge Planning Updated by [id number]: Cornel Portillo on 04/15/18 1:[address] Patient Name: DEONTE DALE Encounter No: [id number] : 1935 Primary Insurance: AETNA MEDICARE PPO or HMO Anticipated DC Date: 04-16-2018 Planned Disposition: Retirement Facility External Planned Provider: [facility], MEDICARE REHAB BED Discharge Planning Comments: CM NOTIFIED JENNIFER CLINICAL LIAISON FOR [facility], , THAT PT IS HAVING PROCEDURE TODAY. CM FAXED HOSPITAL UPDATE TO [facility] [place] AT [phone]. FOR DISCHARGE, FAX DISCHARGE INFORMATION TO [facility] AT [phone]. NURSE REPORT TO BE CALLED TO [facility] AT [phone]. Production Machine Operator: Cornel Portillo DCP- Discharge Planning Updated by [id number]: Cornel Portillo on 04/15/18 8:[address] Patient Name: DEONTE DALE Encounter No: [id number] : 1935 Primary Insurance: AETNA MEDICARE PPO or HMO Anticipated DC Date: 04-12-2018 Planned Disposition: [facility], MEDICARE REHAB BED Discharge Planning Comments: CM RECEIVED MESSAGE FROM JENNIFER CLINICAL LIAISON FOR [facility], , INSURANCE AUTHORIZATION RECEIVED FOR ADMISSION TO REHAB AT [facility]. FOR DISCHARGE, FAX DISCHARGE INFORMATION TO [facility] AT [phone]. NURSE REPORT TO BE CALLED TO [facility] AT [phone]. Production Machine Operator: Cornel Portillo DCP- Discharge Planning Updated by [id number]: Cornel Portillo on 04/11/18 3:[address] Patient Name: DEONTE DALE Admission Status: ER Accout number: [id number] Admission Date: 04-08-2018 : 1935 Admission Diagnosis:SHORTNESS OF BREATH Attending: ALMAZ ALEXANDER Current LOS: 3 Anticipated DC Date: 04-12-2018 Planned Disposition: Retirement Facility Primary Insurance: AETNA MEDICARE PPO or HMO PLANNED EXTERNAL PROVIDER: [facility], MEDICARE REHAB BED Discharge Planning Comments: CM MET WITH PT IN ROOM TO DISCUSS DISCHARGE PLANNING AND NEEDS. PT REPORTS LIVING AT HOME INDEPENDENTLY AND ALONE. PT HAD PRIVATE CAREGIVING SERVICES AT HOME FROM [facility] ON MONDAYS AND SUNDAY'S FOR 2 HOURS PER DAY. PT WAS DISCHARGED AFTER LAST HOSPITAL STAY TO [facility] FOR REHAB AND IF DECLINED BY INPATIENT REHAB, PT UNDERSTANDS HIS INSURANCE HAS TO APPROVE. PT WANTS TO RETURN THERE FOR CONTINUED REHAB. PT HAS A ROLLING WALKER AT HOME WITH NO MEDICAL EQUIPMENT PROVIDER PREFERENCE. IMPORTANT MESSAGE FROM MEDICARE PROVIDED AND EXPLAINED. CM REVIEWED INPATIENT REHAB NOTES AND CALLED ERICKA WHO ADVISED THAT PT HAS NOT PROGRESSED WITH THERAPY SINCE LAST HOSPITAL STAY AND IS APPROPRIATE FOR USP REHAB RETURN. CM NOTIFIED PT WHO IS IN AGREEMENT WITH DISCHARGE BACK TO [facility] FOR CONTINUED REHAB. CM CALLED JENNIFER, CLINICAL LIAISON FOR [facility], , ASKED FOR ASSESSMENT FOR REHAB ADMISSION. CM FAXED REFERRAL TO [facility] AT [phone]. CM WAITING INSURANCE AUTHORIZATION FROM PT'S INSURANCE FOR ADMISSION BACK TO REHAB AT [facility]. Production Machine Operator: Cornel Portillo NYPIA - Discharge Planning Initial Assessment Updated by [id number]: Cornel Portillo on 04/18/18 11:19 am * Is the patient Alert and Oriented? Yes * How many steps to enter\exit or inside your home? NONE * PCP NONE * Pharmacy [facility] * Preadmission Environment Retirement Facility * Facility Name [facility] * ADLs Partial Dependent * Partial ADLs (Assistance needed) Ambulation Bathing Medication Management Transfers * Equipment Rolling Walker * Other Equipment ROLLING WALKER AT HOME [facility] CURRENTLY PROVIDING EQUIPMENT FOR REHAB SERVICES IN FACILITY * List name and contact numbers for known caregivers / representatives who currently or will assist patient after discharge: CYN KOENIG, CAREGIVER, CHARLES DALE, SON, * Verbal permission to speak to the caregivers and representatives has been obtained from the patient. Yes * Community resources currently utilized None * Please name any agencies selected above. NONE * Additional services required to return to the preadmission environment? No * Can the patient safely return to the preadmission environment? Yes * Has this patient been hospitalized within the prior 30 days at any hospital? Yes Coverage Notice Reviewer: [id number] Portillo Notice Issued Date-Time: 04/11/2018 13:10 Notice Type: IM Discharge Notice Notice Delivered To: Patient Relationship to Patient: Visualization Developer Name: Delivery Method: HAND - Hand Delivered Lidya Days: Prior Verbal Notification: Recipient Understood Notice: Yes Recipient Signature: Yes Med Rec Note Co-signed by Attending: Coverage Notice Comment: Reviewer: [id number] Portillo Notice Issued Date-Time: 04/18/2018 9:35 Notice Type: Patient Choice Letter Notice Delivered To: Patient Relationship to Patient: Visualization Developer Name: Delivery Method: HAND - Hand Delivered Lidya Days: Prior Verbal Notification: Recipient Understood Notice: Yes Recipient Signature: Yes Med Rec Note Co-signed by Attending: Coverage Notice Comment: [facility] Reviewer: [id number] Portillo Notice Issued Date-Time: 04/18/2018 9:35 Notice Type: IM Discharge Notice Notice Delivered To: Patient Relationship to Patient: Visualization Developer Name: Delivery Method: HAND - Hand Delivered Lidya Days: Prior Verbal Notification: Recipient Understood Notice: Yes Recipient Signature: Yes Med Rec Note Co-signed by Attending: Coverage Notice Comment: Last DP export: 04/18/18 9:36 am Patient Name: DEONTE DALE Page 71475 at 1120 All edits/amendments must be made on the electronic document DICTATION DATE: 04/18/18 112 FAX MACHINE REPAIRER: [place] 04/18/18 1120 RPT#: [id number] DC DATE: STATUS: ADM IN [facility] [address] [place] [address] END OF REPORT
--- NOTE | 2018-04-18 12:06 | MORECARE ---
CASE MANAGEMENT DISCHARGE SUMMARY PATIENT: DEONTE DALE UNIT: [id number] ADM DATE: 04/08/18 AGE: 83 : 33 SEX: M ROOM/BED: D.2110 AUTHOR: RANI,DOC PHYSICIAN: REFERRING PHYSICIAN: ALMAZ ALEXANDER MD DATE OF SERVICE: 04/18/18 Discharge Plan Patient Name: DEONTE DALE Facility: [facility]:[place] : 1935 Planned Disposition: Hospice Home Anticipated Discharge Date: 04/18/18 Discharge Date: Expected LOS: 10 Initial Reviewer: [id number] Initial Review Date: 04/08/2018 Generated: 04/18/18 1:06 pm Comments DCP- Discharge Planning Updated by [id number]: Denise Freeman on 04/18/18 11:[address] Patient Name: DEONTE DALE Encounter No: [id number] : 1935 Primary Insurance: AETNA MEDICARE PPO or HMO Anticipated DC Date: 04-18-2018 Planned Disposition: Hospice Home External Planned Provider: [facility] DCP follow-up note: CM RECEIVED CALL FROM [facility] WHO REPORTS THAT THEY HAVE EVALUATED PT LAST NIGHT AND PT HAS ASKED FOR HOSPICE AT HOME, THEY ARE IN PROCESS OF DELIVERY MEDICAL EQUIPMENT TODAY TO HOME. DIGNA WILL CALL CM WHEN THEY ARE COMPLETED WITH MEDICAL EQUIPMENT DELIVERY AND READY TO ADMIT PT AT HOME TODAY. CM SPOKE TO PT IN ROOM. PT REPORTS HE HAS DISCUSSED HOSPICE WITH HIS DOCTOR, SON AND OPTED FOR [facility] AT HOME. THEY ARE SETTING UP EQUIPMENT FOR PT TO DISCHARGE TODAY FOR HOME HOSPICE. PT SIGNED CONSENT FOR HOME HOSPICE WITH [facility]. IMPORTANT MESSAGE FROM MEDICARE PROVIDED AND EXPLAINED. CM WAITING ON MEDICAL EQUIPMENT DELIVERY COMPLETION FOR HOME HOSPICE WITH [facility]. CM TO CONTINUE TO FOLLOW AND ASSIST NEEDED. Denise Freeman, CASE MANAGEMENT Appended by Denise Freeman on 04/18/2018 12:03 PACKAGER AND STRAPPER: CM SPOKE TO PT'S SON, CHARLES, WHO INFORMED CM THAT HE (CHARLES), WOULD LIKE TO WAIT AND SEE IF PT WILL IMPROVE AND GO TO REHAB AT [facility] AND IF HE DOESN'T, THEN HOME WITH [facility]. CM SPOKE TO DIGNA OF [facility] WHO HAD MET WITH PT AND CAREGIVER IN ROOM, PT IS NOW WANTING TO THINK ABOUT HOSPICE AND HAS NOT MADE FIRM DECISION AT THIS TIME. CM WAITING PT TO DECIDE IF HE WANTS REHAB SERVICES AT [facility] OR HOME HOSPICE WITH [facility]. DENISE FREEMAN, CASE MANAGEMENT DCP- Discharge Planning Updated by [id number]: Valarie Trinidad on 04/17/18 2:[address] SPOKE WITH MIR Lowry CM WITH [facility]. .QUESTIONED IF THE PATIENT HAS HOSPICE BENEFITS. EXPLAINED THAT HE HAS TAKEN A TURN FOR THE WORSE AND NOW THE SON JUST WANTS TO TAKE HIM HOME WITH HOSPICE. SHE STATED THAT IF THEY CHOOSE THAT OPTION, THEN HIS PLAN WILL REVERT BACK TO THE REGULAR FEDERAL MEDICARE AND HE WILL HAVE THAT HOSPICE BENEFIT. I THANKED HER FOR HER TIME AND EXPLAINED THAT IF THAT IS THE ROAD WE ARE VENTURING DOWN FOR SURE, I WOULD CALL BACK AND LET HER KNOW. DCP- Discharge Planning Updated by [id number]: Denise Freeman on 04/15/18 1:[address] Patient Name: DEONTE DALE Encounter No: [id number] : 1935 Primary Insurance: AETNA MEDICARE PPO or HMO Anticipated DC Date: 04-16-2018 Planned Disposition: Senior Care Facility External Planned Provider: [facility], MEDICARE REHAB BED Discharge Planning Comments: CM NOTIFIED JENNIFER [facility]INICAL LIAISON FOR [facility], , THAT PT IS HAVING PROCEDURE TODAY. CM FAXED HOSPITAL UPDATE TO [facility]IS [facility]ENN[facility] AT [phone]. FOR DISCHARGE, FAX DISCHARGE INFORMATION TO [facility] AT [phone]. NURSE REPORT TO BE CALLED TO [facility] AT [phone]. Paper Conservator: Denise Freeman DCP- Discharge Planning Updated by [id number]: Denise Freeman on 04/15/18 8:[address] Patient Name: DEONTE DALE Encounter No: [id number] : 1935 Primary Insurance: AETNA MEDICARE PPO or HMO Anticipated DC Date: 04-12-2018 Planned Disposition: [facility], MEDICARE REHAB BED Discharge Planning Comments: CM RECEIVED MESSAGE FROM [facility] FOR [facility], , INSURANCE AUTHORIZATION RECEIVED FOR ADMISSION TO REHAB AT [facility]. FOR DISCHARGE, FAX DISCHARGE INFORMATION TO [facility] AT [phone]. NURSE REPORT TO BE CALLED TO [facility] AT [phone]. Paper Conservator: Denise Freeman DCP- Discharge Planning Updated by [id number]: Denise Freeman on 04/11/18 3:[address] Patient Name: DEONTE DALE Admission Status: ER Accout number: [id number] Admission Date: 04-08-2018 : 1935 Admission Diagnosis:SHORTNESS OF BREATH Attending: ALMAZ ALEXANDER Current LOS: 3 Anticipated DC Date: 04-12-2018 Planned Disposition: Senior Care Facility Primary Insurance: AETNA MEDICARE PPO or HMO PLANNED EXTERNAL PROVIDER: [facility], MEDICARE REHAB BED Discharge Planning Comments: CM MET WITH PT IN ROOM TO DISCUSS DISCHARGE PLANNING AND NEEDS. PT REPORTS LIVING AT HOME INDEPENDENTLY AND ALONE. PT HAD PRIVATE CAREGIVING SERVICES AT HOME FROM [facility] ON MONDAYS AND FOR 2 HOURS PER DAY. PT WAS DISCHARGED AFTER LAST HOSPITAL STAY TO [facility] FOR REHAB AND IF DECLINED BY INPATIENT REHAB, PT UNDERSTANDS HIS INSURANCE HAS TO APPROVE. PT WANTS TO RETURN THERE FOR CONTINUED REHAB. PT HAS A ROLLING WALKER AT HOME WITH NO MEDICAL EQUIPMENT PROVIDER PREFERENCE. IMPORTANT MESSAGE FROM MEDICARE PROVIDED AND EXPLAINED. CM REVIEWED INPATIENT REHAB NOTES AND CALLED [facility] WHO ADVISED THAT PT HAS NOT PROGRESSED WITH THERAPY SINCE LAST HOSPITAL STAY AND IS APPROPRIATE FOR DETENTION REHAB RETURN. CM NOTIFIED PT WHO IS IN AGREEMENT WITH DISCHARGE BACK TO [facility] FOR CONTINUED REHAB. CM CALLED JENNIFER, CLINICAL LIAISON FOR [facility], , ASKED FOR ASSESSMENT FOR REHAB ADMISSION. CM FAXED REFERRAL TO [facility] VIA JENNIFER AT [phone]. CM WAITING INSURANCE AUTHORIZATION FROM PT'S INSURANCE FOR ADMISSION BACK TO REHAB AT [facility]. Paper Conservator: Denise Freeman DCPIA - Discharge Planning Initial Assessment Updated by [id number]: Denise Freeman on 04/18/18 11:19 am * Is the patient Alert and Oriented? Yes * How many steps to enter\exit or inside your home? NONE * PCP NONE * Pharmacy [facility] * Preadmission Environment Senior Care Facility * Facility Name [facility] * ADLs Partial Dependent * Partial ADLs (Assistance needed) Ambulation Bathing Medication Management Transfers * Equipment Rolling Walker * Other Equipment ROLLING WALKER AT HOME [facility] CURRENTLY PROVIDING EQUIPMENT FOR REHAB SERVICES IN FACILITY * List name and contact numbers for known caregivers / representatives who currently or will assist patient after discharge: CYN KOENIG, CAREGIVER, CHARLES DALE, SON, * Verbal permission to speak to the caregivers and representatives has been obtained from the patient. Yes * Community resources currently utilized None * Please name any agencies selected above. NONE * Additional services required to return to the preadmission environment? No * Can the patient safely return to the preadmission environment? Yes * Has this patient been hospitalized within the prior 30 days at any hospital? Yes Coverage Notice Reviewer: VIVIANA Freeman Notice Issued Date-Time: 04/11/2018 13:10 Notice Type: IM Discharge Notice Notice Delivered To: Patient Relationship to Patient: Innersole Fitter Name: Delivery Method: HAND - Hand Delivered Lidya Days: Prior Verbal Notification: Recipient Understood Notice: Yes Recipient Signature: Yes Med Rec Note Co-signed by Attending: Coverage Notice Comment: Reviewer: VIVIANA Freeman Notice Issued Date-Time: 04/18/2018 9:35 Notice Type: Patient Choice Letter Notice Delivered To: Patient Relationship to Patient: Innersole Fitter Name: Delivery Method: HAND - Hand Delivered Lidya Days: Prior Verbal Notification: Recipient Understood Notice: Yes Recipient Signature: Yes Med Rec Note Co-signed by Attending: Coverage Notice Comment: [facility] Reviewer: [id number] Freeman Notice Issued Date-Time: 04/18/2018 9:35 Notice Type: IM Discharge Notice Notice Delivered To: Patient Relationship to Patient: Innersole Fitter Name: Delivery Method: HAND - Hand Delivered Lidya Days: Prior Verbal Notification: Recipient Understood Notice: Yes Recipient Signature: Yes Med Rec Note Co-signed by Attending: Coverage Notice Comment: Last DP export: 04/18/18 10:20 am Patient Name: DEONTE DALE Page 76023 at 1206 All edits/amendments must be made on the electronic document DICTATION DATE: 04/18/181204 GLOBAL EXPANSION SALES DIRECTOR: [place] 04/18/181204 RPT#: [id number] DC DATE: STATUS: ADM IN [facility] [address] [place] [address] END OF REPORT
[2018-04-18 17:44] VITALS: BP 102/67
[2018-04-18 20:00] VITALS: BP 98/58
[2018-04-19 00:36] VITALS: BP 98/53
[2018-04-19 04:00] VITALS: BP 99/60
[2018-04-19 05:02] LABS: BASOPHILS 0.2 % (0-2); EOSINOPHILS 0.7 % (0-7); HEMOGLOBIN 10.1 g/dL (13.5-17.5); IMMATURE GRANULOCYTES 0.7 % (0-5); LYMPHOCYTES 11.4 % (15-50); MCH 28.5 pg (26.0-34.0); MCHC 30.6 g/dL (31.0-37.0); MEAN PLATELET VOLUME 10.1 fL (7.4-10.4); MONOCYTES 7.8 % (2-11); NEUTROPHILS 79.2 % (40-80); PLATELET COUNT 150 10x3/uL (130-400); RBC 3.55 10x6/uL (4.20-6.10); RDW 16.2 % (11.5-14.5); WBC 5.6 10x3/uL (4.8-10.8)
[2018-04-19 05:13] LABS: ALBUMIN 2.1 g/dL (3.4-5.0); ANION GAP 10.8 mmol/L (8-16); BILIRUBIN - TOTAL 0.83 mg/dL (0.2-1.3); CALCIUM 7.8 mg/dL (8.5-10.1); CARBON DIOXIDE 30.8 mmol/L (21.0-32.0); CREATININE - SERUM 1.5 mg/dL (0.6-1.3); POTASSIUM - SERUM 4.6 mmol/L (3.5-5.1); PROTEIN - SERUM 5.5 g/dL (6.4-8.2)
[2018-04-19 07:49] VITALS: BP 97/55
--- NOTE | 2018-04-19 07:56 | MORECARE ---
CASE MANAGEMENT DISCHARGE SUMMARY PATIENT: DEONTE DALE UNIT: [id number] ADM DATE: 04/08/18 AGE: 83 : 33 SEX: M ROOM/BED: D.2110 AUTHOR: RANI,DOC PHYSICIAN: REFERRING PHYSICIAN: ALMAZ ALEXANDER MD DATE OF SERVICE: 04/19/18 Discharge Plan Patient Name: DEONTE DALE Facility: [facility]:[place] : 1935 Planned Disposition: Hospice Home Anticipated Discharge Date: 04/18/18 Discharge Date: Expected LOS: 10 Initial Reviewer: [id number] Initial Review Date: 04/08/2018 Generated: 04/19/18 8:56 am Comments DCP- Discharge Planning Updated by [id number]: Denise Freeman on 04/18/18 11:[address] Patient Name: DEONTE DALE Encounter No: [id number] : 1935 Primary Insurance: AETNA MEDICARE PPO or HMO Anticipated DC Date: 04-18-2018 Planned Disposition: Hospice Home External Planned Provider: [facility] DCP follow-up note: CM RECEIVED CALL FROM [facility] WHO REPORTS THAT THEY HAVE EVALUATED PT LAST NIGHT AND PT HAS ASKED FOR HOSPICE AT HOME, THEY ARE IN PROCESS OF DELIVERY MEDICAL EQUIPMENT TODAY TO HOME. [facility] WILL CALL CM WHEN THEY ARE COMPLETED WITH MEDICAL EQUIPMENT DELIVERY AND READY TO ADMIT PT AT HOME TODAY. CM SPOKE TO PT IN ROOM. PT REPORTS HE HAS DISCUSSED HOSPICE WITH HIS DOCTOR, SON AND OPTED FOR [facility]. THEY ARE SETTING UP EQUIPMENT FOR PT TO DISCHARGE TODAY FOR HOME HOSPICE. PT SIGNED CONSENT FOR HOME HOSPICE WITH [facility]. IMPORTANT MESSAGE FROM MEDICARE PROVIDED AND EXPLAINED. CM WAITING ON MEDICAL EQUIPMENT DELIVERY COMPLETION FOR HOME HOSPICE WITH [facility]. CM TO CONTINUE TO FOLLOW AND ASSIST NEEDED. Denise Freeman, CASE MANAGEMENT Appended by Denise Freeman on 04/18/2018 12:03 DRUGLESS PHYSICIAN: CM SPOKE TO PT'S SON, CHARLES, WHO INFORMED CM THAT HE (CHARLES), WOULD LIKE TO WAIT AND SEE IF PT WILL IMPROVE AND GO TO REHAB AT [facility] AND IF HE DOESN'T, THEN HOME WITH [facility]. CM SPOKE TO DIGNA OF [facility] WHO HAD MET WITH PT AND CAREGIVER IN ROOM, PT IS NOW WANTING TO THINK ABOUT HOSPICE AND HAS NOT MADE FIRM DECISION AT THIS TIME. CM WAITING PT TO DECIDE IF HE WANTS REHAB SERVICES AT [facility] OR HOME HOSPICE WITH [facility]. DENISE FREEMAN, CASE MANAGEMENT DCP- Discharge Planning Updated by [id number]: Valarie Trinidad on 04/17/18 2:[address] SPOKE WITH MIR Lowry CM WITH [facility]. .QUESTIONED IF THE PATIENT HAS HOSPICE BENEFITS. EXPLAINED THAT HE HAS TAKEN A TURN FOR THE WORSE AND NOW THE SON JUST WANTS TO TAKE HIM HOME WITH HOSPICE. SHE STATED THAT IF THEY CHOOSE THAT OPTION, THEN HIS PLAN WILL REVERT BACK TO THE REGULAR FEDERAL MEDICARE AND HE WILL HAVE THAT HOSPICE BENEFIT. I THANKED HER FOR HER TIME AND EXPLAINED THAT IF THAT IS THE ROAD WE ARE VENTURING DOWN FOR SURE, I WOULD CALL BACK AND LET HER KNOW. DCP- Discharge Planning Updated by [id number]: Denise Freeman on 04/15/18 1:[address] Patient Name: DEONTE DALE Encounter No: [id number] : 1935 Primary Insurance: AETNA MEDICARE PPO or HMO Anticipated DC Date: 04-16-2018 Planned Disposition: Senior Care Facility External Planned Provider: [facility], MEDICARE REHAB BED Discharge Planning Comments: CM NOTIFIED JENNIFER CLINICAL LIAISON FOR [facility], , THAT PT IS HAVING PROCEDURE TODAY. CM FAXED HOSPITAL UPDATE TO [facility] AT [phone]. FOR DISCHARGE, FAX DISCHARGE INFORMATION TO [facility] AT [phone]. NURSE REPORT TO BE CALLED TO [facility] AT [phone]. Credit Controller: Denise Freeman DCP- Discharge Planning Updated by [id number]: Denise Freeman on 04/15/18 8:[address] Patient Name: DEONTE DALE Encounter No: [id number] : 1935 Primary Insurance: AETNA MEDICARE PPO or HMO Anticipated DC Date: 04-12-2018 Planned Disposition: [facility], MEDICARE REHAB BED Discharge Planning Comments: CM RECEIVED MESSAGE FROM [facility] FOR [facility], , INSURANCE AUTHORIZATION RECEIVED FOR ADMISSION TO REHAB AT [facility]. FOR DISCHARGE, FAX DISCHARGE INFORMATION TO [facility] AT [phone]. NURSE REPORT TO BE CALLED TO [facility] AT [phone]. Credit Controller: Denise Freeman DCP- Discharge Planning Updated by [id number]: Denise Freeman on 04/11/18 3:[address] Patient Name: DEONTE DALE Admission Status: ER Accout number: [id number] Admission Date: 04-08-2018 : 1935 Admission Diagnosis:SHORTNESS OF BREATH Attending: ALMAZ ALEXANDER Current LOS: 3 Anticipated DC Date: 04-12-2018 Planned Disposition: Senior Care Facility Primary Insurance: AETNA MEDICARE PPO or HMO PLANNED EXTERNAL PROVIDER: [facility], MEDICARE REHAB BED Discharge Planning Comments: CM MET WITH PT IN ROOM TO DISCUSS DISCHARGE PLANNING AND NEEDS. PT REPORTS LIVING AT HOME INDEPENDENTLY AND ALONE. PT HAD PRIVATE CAREGIVING SERVICES AT HOME FROM [facility] ON MONDAYS AND FOR 2 HOURS PER DAY. PT WAS DISCHARGED AFTER LAST HOSPITAL STAY TO [facility] FOR REHAB AND IF DECLINED BY INPATIENT REHAB, PT UNDERSTANDS HIS INSURANCE HAS TO APPROVE. PT WANTS TO RETURN THERE FOR CONTINUED REHAB. PT HAS A ROLLING WALKER AT HOME WITH NO MEDICAL EQUIPMENT PROVIDER PREFERENCE. IMPORTANT MESSAGE FROM MEDICARE PROVIDED AND EXPLAINED. CM REVIEWED INPATIENT REHAB NOTES AND CALLED [facility] WHO ADVISED THAT PT HAS NOT PROGRESSED WITH THERAPY SINCE LAST HOSPITAL STAY AND IS APPROPRIATE FOR [facility] REHAB RETURN. CM NOTIFIED PT WHO IS IN AGREEMENT WITH DISCHARGE BACK TO [facility] FOR CONTINUED REHAB. CM CALLED JENNIFER, CLINICAL LIAISON FOR [facility], , ASKED FOR ASSESSMENT FOR REHAB ADMISSION. CM FAXED REFERRAL TO [facility] VIA JENNIFER AT [phone]. CM WAITING INSURANCE AUTHORIZATION FROM PT'S INSURANCE FOR ADMISSION BACK TO REHAB AT [facility]. Credit Controller: Denise Freeman DCPIA - Discharge Planning Initial Assessment Updated by [id number]: Denise Freeman on 04/18/18 11:19 am * Is the patient Alert and Oriented? Yes * How many steps to enter\exit or inside your home? NONE * PCP NONE * Pharmacy [facility] * Preadmission Environment Senior Care Facility * Facility Name [facility] * ADLs Partial Dependent * Partial ADLs (Assistance needed) Ambulation Bathing Medication Management Transfers * Equipment Rolling Walker * Other Equipment ROLLING WALKER AT HOME [facility] CURRENTLY PROVIDING EQUIPMENT FOR REHAB SERVICES IN FACILITY * List name and contact numbers for known caregivers / representatives who currently or will assist patient after discharge: CYN KOENIG, CAREGIVER, CHARLES DAEL, SON, * Verbal permission to speak to the caregivers and representatives has been obtained from the patient. Yes * Community resources currently utilized None * Please name any agencies selected above. NONE * Additional services required to return to the preadmission environment? No * Can the patient safely return to the preadmission environment? Yes * Has this patient been hospitalized within the prior 30 days at any hospital? Yes Coverage Notice Reviewer: VIVIANA Freeman Notice Issued Date-Time: 04/11/2018 13:10 Notice Type: IM Discharge Notice Notice Delivered To: Patient Relationship to Patient: Business Services Vice President Name: Delivery Method: HAND - Hand Delivered Lidya Days: Prior Verbal Notification: Recipient Understood Notice: Yes Recipient Signature: Yes Med Rec Note Co-signed by Attending: Coverage Notice Comment: Reviewer: VIVIANA Freeman Notice Issued Date-Time: 04/18/2018 9:35 Notice Type: Patient Choice Letter Notice Delivered To: Patient Relationship to Patient: Business Services Vice President Name: Delivery Method: HAND - Hand Delivered Lidya Days: Prior Verbal Notification: Recipient Understood Notice: Yes Recipient Signature: Yes Med Rec Note Co-signed by Attending: Coverage Notice Comment: [facility] Reviewer: [id number] Freeman Notice Issued Date-Time: 04/18/2018 9:35 Notice Type: IM Discharge Notice Notice Delivered To: Patient Relationship to Patient: Business Services Vice President Name: Delivery Method: HAND - Hand Delivered Lidya Days: Prior Verbal Notification: Recipient Understood Notice: Yes Recipient Signature: Yes Med Rec Note Co-signed by Attending: Coverage Notice Comment: Last DP export: 04/18/18 11:06 am Patient Name: DEONTE DALE Page 75563 at 0756 All edits/amendments must be made on the electronic document DICTATION DATE: 04/19/18754 JACQUARD PLATE MAKER: [place] 04/19/18754 RPT#: [id number] DC DATE: STATUS: ADM IN [address] [place] [address] END OF REPORT
--- NOTE | 2018-04-19 08:14 | MORECARE ---
CASE MANAGEMENT DISCHARGE SUMMARY PATIENT: DEONTE DALE UNIT: [id number] ADM DATE: 04/08/18 AGE: 83 : 33 SEX: M ROOM/BED: D.2110 AUTHOR: GATITO SARAVIA PHYSICIAN: REFERRING PHYSICIAN: ALMAZ ALEXANDER MD DATE OF SERVICE: 04/19/18 Discharge Plan Patient Name: DEONTE DALE Facility: [facility]:[place] : 1935 Planned Disposition: Hospice Home Anticipated Discharge Date: 04/18/18 Discharge Date: Expected LOS: 10 Initial Reviewer: [id number] Initial Review Date: 04/08/2018 Generated: 04/19/18 9:14 am Comments DCP- Discharge Planning Updated by [id number]: Cornel Freeman on 04/19/18 7:[address] Patient Name: DEONTE DALE Encounter No: [id number] : 1935 Primary Insurance: [employer] MEDICARE PPO or HMO Anticipated DC Date: 04-18-2018 Planned Disposition: Hospice Home External Planned Provider: [facility] DCP follow-up note: CM FAXED UPDATE TO [facility] AT [phone]. IF PT DECIDES FOR CONTINUED REHAB AT [facility], HIS INSURANCE REQUIRES PRIOR AUTHORIZATION FOR SERVICES. CM WAITING PT TO DECIDE IF HE WANTS REHAB SERVICES AT [facility] OR HOME HOSPICE WITH [facility]. CM WILL CONTINUE TO FOLLOW AND ASSIST IF NEEDED. HEATHER CALDERON DCP- Discharge Planning Updated by [id number]: Cornel Freeman on 04/18/18 11:[address] Patient Name: DEONTE DALE Encounter No: [id number] : 1935 Primary Insurance: [employer] MEDICARE PPO or HMO Anticipated DC Date: 04-18-2018 Planned Disposition: Hospice Home External Planned Provider: [facility] DCP follow-up note: CM RECEIVED CALL FROM DIGNA OF [facility] WHO REPORTS THAT THEY HAVE EVALUATED PT LAST NIGHT AND PT HAS ASKED FOR HOSPICE AT HOME, THEY ARE IN PROCESS OF DELIVERY MEDICAL EQUIPMENT TODAY TO HOME. DIGNA WILL CALL CM WHEN THEY ARE COMPLETED WITH MEDICAL EQUIPMENT DELIVERY AND READY TO ADMIT PT AT HOME TODAY. CM SPOKE TO PT IN ROOM. PT REPORTS HE HAS DISCUSSED HOSPICE WITH HIS DOCTOR, SON AND OPTED FOR [facility]. THEY ARE SETTING UP EQUIPMENT FOR PT TO DISCHARGE TODAY FOR HOME HOSPICE. PT SIGNED CONSENT FOR HOME HOSPICE WITH [facility]. IMPORTANT MESSAGE FROM MEDICARE PROVIDED AND EXPLAINED. CM WAITING ON MEDICAL EQUIPMENT DELIVERY COMPLETION FOR HOME HOSPICE WITH [facility]. CM TO CONTINUE TO FOLLOW AND ASSIST NEEDED. Cornel Freeman, CASE MANAGEMENT Appended by Cornel Freeman on 04/18/2018 12:03 YEAST WASHER: MARY SPOKE TO PT'S SON, CHARLES, WHO INFORMED CM THAT HE (CHARLES), WOULD LIKE TO WAIT AND SEE IF PT WILL IMPROVE AND GO TO REHAB AT [facility] AND IF HE DOESN'T, THEN HOME WITH [facility]. CM SPOKE TO DIGNA OF [facility] WHO HAD MET WITH PT AND CAREGIVER IN ROOM, PT IS NOW WANTING TO THINK ABOUT HOSPICE AND HAS NOT MADE FIRM DECISION AT THIS TIME. CM WAITING PT TO DECIDE IF HE WANTS REHAB SERVICES AT [facility] OR HOME HOSPICE WITH [facility]. CORNEL FREEMAN, CASE MANAGEMENT DCP- Discharge Planning Updated by [id number]: Valarie Trinidad on 04/17/18 2:[address] SPOKE WITH MIR Lowry CM WITH [employer]. .QUESTIONED IF THE PATIENT HAS HOSPICE BENEFITS. EXPLAINED THAT HE HAS TAKEN A TURN FOR THE WORSE AND NOW THE SON JUST WANTS TO TAKE HIM HOME WITH HOSPICE. SHE STATED THAT IF THEY CHOOSE THAT OPTION, THEN HIS PLAN WILL REVERT BACK TO THE REGULAR FEDERAL MEDICARE AND HE WILL HAVE THAT HOSPICE BENEFIT. I THANKED HER FOR HER TIME AND EXPLAINED THAT IF THAT IS THE ROAD WE ARE VENTURING DOWN FOR SURE, I WOULD CALL BACK AND LET HER KNOW. DCP- Discharge Planning Updated by [id number]: Cornel Freeman on 04/15/18 1:[address] Patient Name: DEONTE DALE Encounter No: [id number] : 1935 Primary Insurance: [employer] MEDICARE PPO or HMO Anticipated DC Date: 04-16-2018 Planned Disposition: [facility] Facility External Planned Provider: [facility], MEDICARE REHAB BED Discharge Planning Comments: CM NOTIFIED JENNIFER, CLINICAL LIAISON FOR [facility], , THAT PT IS HAVING PROCEDURE TODAY. CM FAXED HOSPITAL UPDATE TO [facility] AT [phone]. FOR DISCHARGE, FAX DISCHARGE INFORMATION TO [facility] AT [phone]. NURSE REPORT TO BE CALLED TO [facility] AT [phone]. Generator Mechanic: Cornel Freeman DCP- Discharge Planning Updated by [id number]: Cornel Freeman on 04/15/18 8:[address] Patient Name: DEONTE DALE Encounter No: [id number] : 1935 Primary Insurance: [employer] MEDICARE PPO or HMO Anticipated DC Date: 04-12-2018 Planned Disposition: [facility], MEDICARE REHAB BED Discharge Planning Comments: CM RECEIVED MESSAGE FROM JENNIFER CLINICAL LIAISON FOR [facility], , INSURANCE AUTHORIZATION RECEIVED FOR ADMISSION TO REHAB AT [facility]. FOR DISCHARGE, FAX DISCHARGE INFORMATION TO [facility] AT [phone]. NURSE REPORT TO BE CALLED TO [facility] AT [phone]. Generator Mechanic: Cornel Freeman [facility]- Discharge Planning Updated by [id number]: Cornel Freeman on 04/11/18 3:[address] Patient Name: DEONTE DALE Admission Status: ER Accout number: [id number] Admission Date: 04-08-2018 : 1935 Admission Diagnosis:SHORTNESS OF BREATH Attending: ALMAZ ALEXANDER Current LOS: 3 Anticipated DC Date: 04-12-2018 Planned Disposition: [facility] Facility Primary Insurance: [employer] MEDICARE PPO or HMO PLANNED EXTERNAL PROVIDER: [facility] Discharge Planning Comments: CM MET WITH PT IN ROOM TO DISCUSS DISCHARGE PLANNING AND NEEDS. PT REPORTS LIVING AT HOME INDEPENDENTLY AND ALONE. PT HAD PRIVATE CAREGIVING SERVICES AT HOME FROM [facility] ON MONDAYS AND SUNDAY'S FOR 2 HOURS PER DAY. PT WAS DISCHARGED AFTER LAST HOSPITAL STAY TO [facility] FOR REHAB AND IF DECLINED BY INPATIENT REHAB, PT UNDERSTANDS HIS INSURANCE HAS TO APPROVE. PT WANTS TO RETURN THERE FOR CONTINUED REHAB. PT HAS A ROLLING WALKER AT HOME WITH NO MEDICAL EQUIPMENT PROVIDER PREFERENCE. IMPORTANT MESSAGE FROM MEDICARE PROVIDED AND EXPLAINED. CM REVIEWED INPATIENT REHAB NOTES AND CALLED ERICKA WHO ADVISED THAT PT HAS NOT PROGRESSED WITH THERAPY SINCE LAST HOSPITAL STAY AND IS APPROPRIATE FOR INTERMEDIATE REHAB RETURN. CM NOTIFIED PT WHO IS IN AGREEMENT WITH DISCHARGE BACK TO [facility] FOR CONTINUED REHAB. CM CALLED JENNIFER, CLINICAL LIAISON FOR [facility], , ASKED FOR ASSESSMENT FOR REHAB ADMISSION. CM FAXED REFERRAL TO [facility]IA JENNIFER AT [phone]. CM WAITING INSURANCE AUTHORIZATION FROM PT'S INSURANCE FOR ADMISSION BACK TO REHAB AT [facility]. Generator Mechanic: Cornel Freeman DCPIA - Discharge Planning Initial Assessment Updated by [id number]: Cornel Freeman on 04/18/18 11:19 am * Is the patient Alert and Oriented? Yes * How many steps to enter\exit or inside your home? NONE * PCP NONE * Pharmacy [facility] * Preadmission Environment [facility] Facility * Facility Name [facility] * ADLs Partial Dependent * Partial ADLs (Assistance needed) Ambulation Bathing Medication Management Transfers * Equipment Rolling Walker * Other Equipment ROLLING WALKER AT HOME [facility] CURRENTLY PROVIDING EQUIPMENT FOR REHAB SERVICES IN FACILITY * List name and contact numbers for known caregivers / representatives who currently or will assist patient after discharge: CYN KOENIG, CAREGIVER, CHARLES DALE, SON, * Verbal permission to speak to the caregivers and representatives has been obtained from the patient. Yes * Community resources currently utilized None * Please name any agencies selected above. NONE * Additional services required to return to the preadmission environment? No * Can the patient safely return to the preadmission environment? Yes * Has this patient been hospitalized within the prior 30 days at any hospital? Yes Coverage Notice Reviewer: [id number] Ana Freeman Notice Issued Date-Time: 04/18/2018 9:35 Notice Type: Patient Choice Letter Notice Delivered To: Patient Relationship to Patient: Bean Picker Name: Delivery Method: HAND - Hand Delivered Lidya Days: Prior Verbal Notification: Recipient Understood Notice: Yes Recipient Signature: Yes Med Rec Note Co-signed by Attending: Coverage Notice Comment: [facility] Reviewer: [id number] Ana Freeman Notice Issued Date-Time: 04/18/2018 9:35 Notice Type: IM Discharge Notice Notice Delivered To: Patient Relationship to Patient: Bean Picker Name: Delivery Method: HAND - Hand Delivered Lidya Days: Prior Verbal Notification: Recipient Understood Notice: Yes Recipient Signature: Yes Med Rec Note Co-signed by Attending: Coverage Notice Comment: Reviewer: [id number] - Cornel Freeman Notice Issued Date-Time: 04/11/2018 13:10 Notice Type: IM Discharge Notice Notice Delivered To: Patient Relationship to Patient: Bean Picker Name: Delivery Method: HAND - Hand Delivered Lidya Days: Prior Verbal Notification: Recipient Understood Notice: Yes Recipient Signature: Yes Med Rec Note Co-signed by Attending: Coverage Notice Comment: Last DP export: 04/19/18 6:56 am Patient Name: DEONTE DALE Page 60583 at 0814 All edits/amendments must be made on the electronic document DICTATION DATE: 04/19/18813 SALES INSPECTOR: [place] 04/19/18813 RPT#: [id number] DC DATE: STATUS: ADM IN [facility] [address] [place] [address] END OF REPORT
[2018-04-19 11:25] VITALS: BP 92/58
[2018-04-19 11:26] LABS: ANA REFLEX - DIRECT Negative (Negative)
[2018-04-19 15:33] VITALS: BP 99/54
[2018-04-19 19:55] VITALS: BP 110/62
[2018-04-20] VITALS (7 sets, daily range): BP systolic 92–137; BP diastolic 53–79
[2018-04-20 05:30] LABS: BASOPHILS 0.2 % (0-2); EOSINOPHILS 0.6 % (0-7); HEMATOCRIT 32.5 % (42.0-54.0); IMMATURE GRANULOCYTES 0.6 % (0-5); LYMPHOCYTES 14.6 % (15-50); MCH 28.4 pg (26.0-34.0); MCHC 30.8 g/dL (31.0-37.0); MCV 92.3 fL (80.0-100.0); MEAN PLATELET VOLUME 10.4 fL (7.4-10.4); MONOCYTES 9.9 % (2-11); NEUTROPHILS 74.1 % (40-80); PLATELET COUNT 152 10x3/uL (130-400); RBC 3.52 10x6/uL (4.20-6.10); RDW 16.2 % (11.5-14.5); WBC 5.3 10x3/uL (4.8-10.8)
[2018-04-20 05:49] LABS: ALBUMIN 2.2 g/dL (3.4-5.0); ANION GAP 13.9 mmol/L (8-16); BILIRUBIN - TOTAL 0.64 mg/dL (0.2-1.3); CALCIUM 7.6 mg/dL (8.5-10.1); CARBON DIOXIDE 27.2 mmol/L (21.0-32.0); CREATININE - SERUM 1.4 mg/dL (0.6-1.3); POTASSIUM - SERUM 4.1 mmol/L (3.5-5.1); PROTEIN - SERUM 5.6 g/dL (6.4-8.2)
[2018-04-21 03:53] VITALS: BP 119/63
[2018-04-21 08:20] VITALS: BP 125/71
--- NOTE | 2018-04-21 16:29 | MORECARE ---
CASE MANAGEMENT DISCHARGE SUMMARY PATIENT: DEONTE DALE UNIT: [id number] ADM DATE: 04/08/18 AGE: 83 : 33 SEX: M ROOM/BED: D.2110 AUTHOR: RANI,DOC PHYSICIAN: REFERRING PHYSICIAN: ALMAZ ALEXANDER MD DATE OF SERVICE: 04/21/18 Discharge Plan Patient Name: DEONTE DALE Facility: [facility]:[place] : 1935 Planned Disposition: Hospice Home Anticipated Discharge Date: 04/18/18 Discharge Date: Expected LOS: 10 Initial Reviewer: [id number] Initial Review Date: 04/08/2018 Generated: 04/21/18 5:29 pm Comments DCP- Discharge Planning Updated by [id number]: Rola Nails on 04/21/18 3:[address] On 04/20/18 patient states he wants to [facility] to [facility]. CM obtained Patient Choice and faxed required information to [facility]. [facility] signed. 04/21/18 order for patient to go [facility] at discharge. Patient Choice signed. Patient's insurance requires prior authorization before he can be admitted there. Patient has changed his mind about place of disposition several times. Required information faxed. Rola Nails RN DCP- Discharge Planning Updated by [id number]: Denise Freeman on 04/19/18 7:[address] Patient Name: DEONTE DALE Encounter No: [id number] : 1935 Primary Insurance: [employer] MEDICARE PPO or HMO Anticipated DC Date: 04-18-2018 Planned Disposition: Hospice Home External Planned Provider: [facility] DCP follow-up note: CM FAXED UPDATE TO [facility] AT [phone]. IF PT DECIDES FOR CONTINUED REHAB AT [facility], HIS INSURANCE REQUIRES PRIOR AUTHORIZATION FOR SERVICES. CM WAITING PT TO DECIDE IF HE WANTS REHAB SERVICES AT [facility] OR HOME HOSPICE WITH [facility]. CM WILL CONTINUE TO FOLLOW AND ASSIST IF NEEDED. DENISE FREEMAN CASE MANAGEMENT DCP- Discharge Planning Updated by [id number]: Denise Freeman on 04/18/18 11:[address] Patient Name: DEONTE DALE Encounter No: [id number] : 1935 Primary Insurance: [employer] MEDICARE PPO or HMO Anticipated DC Date: 04-18-2018 Planned Disposition: Hospice Home External Planned Provider: [facility] DCP follow-up note: CM RECEIVED CALL FROM DIGNA OF [facility] WHO REPORTS THAT THEY HAVE EVALUATED PT LAST NIGHT AND PT HAS ASKED FOR HOSPICE AT HOME, THEY ARE IN PROCESS OF DELIVERY MEDICAL EQUIPMENT TODAY TO HOME. DIGNA WILL CALL CM WHEN THEY ARE COMPLETED WITH MEDICAL EQUIPMENT DELIVERY AND READY TO ADMIT PT AT HOME TODAY. CM SPOKE TO PT IN ROOM. PT REPORTS HE HAS DISCUSSED HOSPICE WITH HIS DOCTOR, SON AND OPTED FOR [facility]. THEY ARE SETTING UP EQUIPMENT FOR PT TO DISCHARGE TODAY FOR HOME HOSPICE. PT SIGNED CONSENT FOR HOME HOSPICE WITH [facility]. IMPORTANT MESSAGE FROM MEDICARE PROVIDED AND EXPLAINED. CM WAITING ON MEDICAL EQUIPMENT DELIVERY COMPLETION FOR HOME HOSPICE WITH [facility]. CM TO CONTINUE TO FOLLOW AND ASSIST NEEDED. Denise Freeman, CASE MANAGEMENT Appended by Denise Freeman on 04/18/2018 12:03 PROGRAM COORDINATOR FOR RESIDENCE LIFE: MARY SPOKE TO PT'S SON, CHARLES, WHO INFORMED CM THAT HE (CHARLES), WOULD LIKE TO WAIT AND SEE IF PT WILL IMPROVE AND GO TO REHAB AT [facility] AND IF HE DOESN'T, THEN HOME WITH [facility]. CM SPOKE TO DIGNA OF [facility] WHO HAD MET WITH PT AND CAREGIVER IN ROOM, PT IS NOW WANTING TO THINK ABOUT HOSPICE AND HAS NOT MADE FIRM DECISION AT THIS TIME. CM WAITING PT TO DECIDE IF HE WANTS REHAB SERVICES AT [facility] OR HOME HOSPICE WITH [facility]. DENISE FREEMAN, CASE MANAGEMENT DCP- Discharge Planning Updated by [id number]: Valarie Trinidad on 04/17/18 2:[address] SPOKE WITH MIR Lowry CM WITH [employer]. .QUESTIONED IF THE PATIENT HAS HOSPICE BENEFITS. EXPLAINED THAT HE HAS TAKEN A TURN FOR THE WORSE AND NOW THE SON JUST WANTS TO TAKE HIM HOME WITH HOSPICE. SHE STATED THAT IF THEY CHOOSE THAT OPTION, THEN HIS PLAN WILL REVERT BACK TO THE REGULAR FEDERAL MEDICARE AND HE WILL HAVE THAT HOSPICE BENEFIT. I THANKED HER FOR HER TIME AND EXPLAINED THAT IF THAT IS THE ROAD WE ARE VENTURING DOWN FOR SURE, I WOULD CALL BACK AND LET HER KNOW. DCP- Discharge Planning Updated by [id number]: Denise Freeman on 04/15/18 1:[address] Patient Name: DEONTE DALE Encounter No: [id number] : 1935 Primary Insurance: [employer] MEDICARE PPO or HMO Anticipated DC Date: 04-16-2018 Planned Disposition: Shelter Facility External Planned Provider: [facility], MEDICARE REHAB BED Discharge Planning Comments: CM NOTIFIED JENNIFER CLINICAL LIAISON FOR [facility], , THAT PT IS HAVING PROCEDURE TODAY. CM FAXED HOSPITAL UPDATE TO [facility] AT [phone]. FOR DISCHARGE, FAX DISCHARGE INFORMATION TO [facility] AT [phone]. NURSE REPORT TO BE CALLED TO [facility] AT [phone]. Multiple Pressure Riveter Operator: Denise Freeman DCP- Discharge Planning Updated by [id number]: Denise Freeman on 04/15/18 8:[address] Patient Name: DEONTE DALE Encounter No: [id number] : 1935 Primary Insurance: [employer] MEDICARE PPO or HMO Anticipated DC Date: 04-12-2018 Planned Disposition: [facility], MEDICARE REHAB BED Discharge Planning Comments: CM RECEIVED MESSAGE FROM JENNIFER CLINICAL LIAISON FOR [facility], , INSURANCE AUTHORIZATION RECEIVED FOR ADMISSION TO REHAB AT [facility]. FOR DISCHARGE, FAX DISCHARGE INFORMATION TO [facility] AT [phone]. NURSE REPORT TO BE CALLED TO [facility] AT [phone]. Multiple Pressure Riveter Operator: Denise Freeman DCP- Discharge Planning Updated by [id number]: Denise Freeman on 04/11/18 3:[address] Patient Name: DEONTE DALE Admission Status: ER Accout number: [id number] Admission Date: 04-08-2018 : 1935 Admission Diagnosis:SHORTNESS OF BREATH Attending: ALMAZ ALEXANDER Current LOS: 3 Anticipated DC Date: 04-12-2018 Planned Disposition: Shelter Facility Primary Insurance: [employer] MEDICARE PPO or HMO PLANNED EXTERNAL PROVIDER: [facility], MEDICARE REHAB BED Discharge Planning Comments: CM MET WITH PT IN ROOM TO DISCUSS DISCHARGE PLANNING AND NEEDS. PT REPORTS LIVING AT HOME INDEPENDENTLY AND ALONE. PT HAD PRIVATE CAREGIVING SERVICES AT HOME FROM [facility] ON MONDAYS AND FOR 2 HOURS PER DAY. PT WAS DISCHARGED AFTER LAST HOSPITAL STAY TO [facility] FOR REHAB AND IF DECLINED BY INPATIENT REHAB, PT UNDERSTANDS HIS INSURANCE HAS TO APPROVE. PT WANTS TO RETURN THERE FOR CONTINUED REHAB. PT HAS A ROLLING WALKER AT HOME WITH NO MEDICAL EQUIPMENT PROVIDER PREFERENCE. IMPORTANT MESSAGE FROM MEDICARE PROVIDED AND EXPLAINED. CM REVIEWED INPATIENT REHAB NOTES AND CALLED ERICKA WHO ADVISED THAT PT HAS NOT PROGRESSED WITH THERAPY SINCE LAST HOSPITAL STAY AND IS APPROPRIATE FOR SENIOR CARE REHAB RETURN. CM NOTIFIED PT WHO IS IN AGREEMENT WITH DISCHARGE BACK TO [facility] FOR CONTINUED REHAB. CM CALLED JENNIFER, CLINICAL LIAISON FOR [facility], , ASKED FOR ASSESSMENT FOR REHAB ADMISSION. CM FAXED REFERRAL TO [facility] VIA JENNIFER AT [phone]. CM WAITING INSURANCE AUTHORIZATION FROM PT'S INSURANCE FOR ADMISSION BACK TO REHAB AT [facility]. Multiple Pressure Riveter Operator: Denise Freeman DCPIA - Discharge Planning Initial Assessment Updated by [id number]: Denise Freeman on 04/18/18 11:19 am * Is the patient Alert and Oriented? Yes * How many steps to enter\exit or inside your home? NONE * PCP NONE * Pharmacy [facility] * Preadmission Environment Shelter Facility * Facility Name [facility] * ADLs Partial Dependent * Partial ADLs (Assistance needed) Ambulation Bathing Medication Management Transfers * Equipment Rolling Walker * Other Equipment ROLLING WALKER AT HOME [facility] CURRENTLY PROVIDING EQUIPMENT FOR REHAB SERVICES IN FACILITY * List name and contact numbers for known caregivers / representatives who currently or will assist patient after discharge: CYN KOENIG, CAREGIVER, CHARLES DALE, SON, * Verbal permission to speak to the caregivers and representatives has been obtained from the patient. Yes * Community resources currently utilized None * Please name any agencies selected above. NONE * Additional services required to return to the preadmission environment? No * Can the patient safely return to the preadmission environment? Yes * Has this patient been hospitalized within the prior 30 days at any hospital? Yes Coverage Notice Reviewer: [id number] Freeman Notice Issued Date-Time: 04/11/2018 13:10 Notice Type: IM Discharge Notice Notice Delivered To: Patient Relationship to Patient: Academic Computing Director Name: Delivery Method: HAND - Hand Delivered Lidya Days: Prior Verbal Notification: Recipient Understood Notice: Yes Recipient Signature: Yes Med Rec Note Co-signed by Attending: Coverage Notice Comment: Reviewer: VIVIANA Freeman Notice Issued Date-Time: 04/18/2018 9:35 Notice Type: Patient Choice Letter Notice Delivered To: Patient Relationship to Patient: Academic Computing Director Name: Delivery Method: HAND - Hand Delivered Lidya Days: Prior Verbal Notification: Recipient Understood Notice: Yes Recipient Signature: Yes Med Rec Note Co-signed by Attending: Coverage Notice Comment: [facility] Reviewer: [id number] Freeman Notice Issued Date-Time: 04/18/2018 9:35 Notice Type: IM Discharge Notice Notice Delivered To: Patient Relationship to Patient: Academic Computing Director Name: Delivery Method: HAND - Hand Delivered Lidya Days: Prior Verbal Notification: Recipient Understood Notice: Yes Recipient Signature: Yes Med Rec Note Co-signed by Attending: Coverage Notice Comment: Last DP export: 04/19/18 7:14 am Patient Name: DEONTE DALE Page 71439 at 1629 All edits/amendments must be made on the electronic document DICTATION DATE: 04/21/181627 OUTCOMES SPECIALIST: [place] 04/21/181627 RPT#: [id number] DC DATE: STATUS: ADM IN [facility] [address] [place] [address] END OF REPORT
[2018-04-21 21:15] VITALS: BP 104/53
[2018-04-22 01:40] VITALS: BP 114/70
[2018-04-22 04:10] LABS: BASOPHILS 0.1 % (0-2); EOSINOPHILS 1.1 % (0-7); HEMATOCRIT 35.7 % (42.0-54.0); HEMOGLOBIN 11.1 g/dL (13.5-17.5); IMMATURE GRANULOCYTES 0.4 % (0-5); LYMPHOCYTES 8.7 % (15-50); MCH 28.1 pg (26.0-34.0); MCHC 31.1 g/dL (31.0-37.0); MCV 90.4 fL (80.0-100.0); MEAN PLATELET VOLUME 10.4 fL (7.4-10.4); MONOCYTES 8.2 % (2-11); NEUTROPHILS 81.5 % (40-80); RBC 3.95 10x6/uL (4.20-6.10); RDW 15.7 % (11.5-14.5)
[2018-04-22 04:16] LABS: PLATELET COUNT 183 10x3/uL (130-400); WBC 7.5 10x3/uL (4.8-10.8)
[2018-04-22 04:25] LABS: ANION GAP 12.4 mmol/L (8-16); CALCIUM 7.7 mg/dL (8.5-10.1); CARBON DIOXIDE 29.4 mmol/L (21.0-32.0); CREATININE - SERUM 1.3 mg/dL (0.6-1.3); MAGNESIUM - SERUM 1.9 mg/dL (1.8-2.4); POTASSIUM - SERUM 3.8 mmol/L (3.5-5.1)
[2018-04-22 04:56] VITALS: BP 95/62
[2018-04-22 07:45] VITALS: BP 124/70
--- NOTE | 2018-04-22 08:05 | MORECARE ---
CASE MANAGEMENT DISCHARGE SUMMARY PATIENT: DEONTE OWENS UNIT: [id number] ADM DATE: 04/08/18 AGE: 83 : 33 SEX: M ROOM/BED: D.2110 AUTHOR: RANI,DOC PHYSICIAN: REFERRING PHYSICIAN: ALMAZ ALEXANDER MD DATE OF SERVICE: 04/22/18 Discharge Plan Patient Name: DEONTE OWENS Facility: [facility]:[place] : 1935 Planned Disposition: [facility] Facility Anticipated Discharge Date: 04/22/18 Discharge Date: Expected LOS: 14 Initial Reviewer: [id number] Initial Review Date: 04/08/2018 Generated: 04/22/18 9:05 am Comments DCP- Discharge Planning Updated by [email or web address]: Rola Naisl on 04/21/18 3:[address] On 04/20/18 patient states he wants to [facility] to [facility]. CM obtained Patient Choice and faxed required information to [facility]. [facility] signed. 04/21/18 order for patient to go [facility] at discharge. Patient Choice signed. Patient's insurance requires prior authorization before he can be admitted there. Patient has changed his mind about place of disposition several times. Required information faxed. Rola Nails RN DCP- Discharge Planning Updated by [id number]: Denise Freeman on 04/19/18 7:[address] Patient Name: DEONTE OWENS Encounter No: [id number] : 1935 Primary Insurance: [employer] MEDICARE PPO or HMO Anticipated DC Date: 04-18-2018 Planned Disposition: Hospice Home External Planned Provider: [facility] DCP follow-up note: CM FAXED UPDATE TO [facility] AT [phone]. IF PT DECIDES FOR CONTINUED REHAB AT [facility], HIS INSURANCE REQUIRES PRIOR AUTHORIZATION FOR SERVICES. CM WAITING PT TO DECIDE IF HE WANTS REHAB SERVICES AT [facility] OR HOME HOSPICE WITH [facility]. CM WILL CONTINUE TO FOLLOW AND ASSIST IF NEEDED. DENISE FREEMAN CASE MANAGEMENT DCP- Discharge Planning Updated by [id number]: Denise Freeman on 04/18/18 11:[address] Patient Name: DEONTE OWENS Encounter No: [id number] : 1935 Primary Insurance: [employer] MEDICARE PPO or HMO Anticipated DC Date: 04-18-2018 Planned Disposition: Hospice Home External Planned Provider: [facility] DCP follow-up note: CM RECEIVED CALL FROM DIGNA OF [facility] WHO REPORTS THAT THEY HAVE EVALUATED PT LAST NIGHT AND PT HAS ASKED FOR HOSPICE AT HOME, THEY ARE IN PROCESS OF DELIVERY MEDICAL EQUIPMENT TODAY TO HOME. DIGNA WILL CALL CM WHEN THEY ARE COMPLETED WITH MEDICAL EQUIPMENT DELIVERY AND READY TO ADMIT PT AT HOME TODAY. CM SPOKE TO PT IN ROOM. PT REPORTS HE HAS DISCUSSED HOSPICE WITH HIS DOCTOR, SON AND OPTED FOR [facility]. THEY ARE SETTING UP EQUIPMENT FOR PT TO DISCHARGE TODAY FOR HOME HOSPICE. PT SIGNED CONSENT FOR HOME HOSPICE WITH [facility]. IMPORTANT MESSAGE FROM MEDICARE PROVIDED AND EXPLAINED. CM WAITING ON MEDICAL EQUIPMENT DELIVERY COMPLETION FOR HOME HOSPICE WITH [facility]. CM TO CONTINUE TO FOLLOW AND ASSIST NEEDED. Denise Freeman, CASE MANAGEMENT Appended by Denise Freeman on 04/18/2018 12:03 RECEIVER SETTER: MARY SPOKE TO PT'S SON, CHARLES, WHO INFORMED CM THAT HE (CHARLES), WOULD LIKE TO WAIT AND SEE IF PT WILL IMPROVE AND GO TO REHAB AT [facility] AND IF HE DOESN'T, THEN HOME WITH [facility]. CM SPOKE TO DIGNA OF [facility] WHO HAD MET WITH PT AND CAREGIVER IN ROOM, PT IS NOW WANTING TO THINK ABOUT HOSPICE AND HAS NOT MADE FIRM DECISION AT THIS TIME. CM WAITING PT TO DECIDE IF HE WANTS REHAB SERVICES AT [facility] OR HOME HOSPICE WITH [facility]. DENISE FREEMAN, CASE MANAGEMENT DCP- Discharge Planning Updated by [id number]: Valarie Trinidad on 04/17/18 2:[address] SPOKE WITH MIR Lowry CM WITH [employer]. .QUESTIONED IF THE PATIENT HAS HOSPICE BENEFITS. EXPLAINED THAT HE HAS TAKEN A TURN FOR THE WORSE AND NOW THE SON JUST WANTS TO TAKE HIM HOME WITH HOSPICE. SHE STATED THAT IF THEY CHOOSE THAT OPTION, THEN HIS PLAN WILL REVERT BACK TO THE REGULAR FEDERAL MEDICARE AND HE WILL HAVE THAT HOSPICE BENEFIT. I THANKED HER FOR HER TIME AND EXPLAINED THAT IF THAT IS THE ROAD WE ARE VENTURING DOWN FOR SURE, I WOULD CALL BACK AND LET HER KNOW. DCP- Discharge Planning Updated by [id number]: Denise Freeman on 04/15/18 1:[address] Patient Name: DEONTE OWENS Encounter No: [id number] : 1935 Primary Insurance: [employer] MEDICARE PPO or HMO Anticipated DC Date: 04-16-2018 Planned Disposition: [facility] Facility External Planned Provider: [facility], MEDICARE REHAB BED Discharge Planning Comments: CM NOTIFIED JENNIFER CL[facility]ICAL LIAISON FOR [facility], , THAT PT IS HAVING PROCEDURE TODAY. CM FAXED HOSPITAL UPDATE TO [facility] [place] AT [phone]. FOR DISCHARGE, FAX DISCHARGE INFORMATION TO [facility] AT [phone]. NURSE REPORT TO BE CALLED TO [facility] AT [phone]. Vp Ad Products And Planning: Denise Freeman DCP- Discharge Planning Updated by [id number]: Denise Freeman on 04/15/18 8:[address] Patient Name: DEONTE OWENS Encounter No: [id number] : 3 Primary Insurance: [employer]ETNA MEDICARE PPO or HMO Anticipated DC Date: 04-12-2018 Planned Disposition: [facility], MEDICARE REHAB BED Discharge Planning Comments: CM RECEIVED MESSAGE FROM [facility] FOR [facility], , INSURANCE AUTHORIZATION RECEIVED FOR ADMISSION TO REHAB AT [facility]. FOR DISCHARGE, FAX DISCHARGE INFORMATION TO [facility] AT [phone]. NURSE REPORT TO BE CALLED TO [facility] AT [phone]. Vp Ad Products And Planning: Denise Freeman DCP- Discharge Planning Updated by [id number]: Denise Freeman on 04/11/18 3:[address] Patient Name: DEONTE OWENS Admission Status: ER Accout number: [id number] Admission Date: 04-08-2018 : 1935 Admission Diagnosis:SHORTNESS OF BREATH Attending: ALMAZ ALEXANDER Current LOS: 3 Anticipated DC Date: 04-12-2018 Planned Disposition: [facility] Facility Primary Insurance: [employer] MEDICARE PPO or HMO PLANNED EXTERNAL PROVIDER: [facility], MEDICARE REHAB BED Discharge Planning Comments: CM MET WITH PT IN ROOM TO DISCUSS DISCHARGE PLANNING AND NEEDS. PT REPORTS LIVING AT HOME INDEPENDENTLY AND ALONE. PT HAD PRIVATE CAREGIVING SERVICES AT HOME FROM [facility] ON MONDAYS AND FOR 2 HOURS PER DAY. PT WAS DISCHARGED AFTER LAST HOSPITAL STAY TO [facility] FOR REHAB AND IF DECLINED BY INPATIENT REHAB, PT UNDERSTANDS HIS INSURANCE HAS TO APPROVE. PT WANTS TO RETURN THERE FOR CONTINUED REHAB. PT HAS A ROLLING WALKER AT HOME WITH NO MEDICAL EQUIPMENT PROVIDER PREFERENCE. IMPORTANT MESSAGE FROM MEDICARE PROVIDED AND EXPLAINED. CM REVIEWED INPATIENT REHAB NOTES AND CALLED ERICKA WHO ADVISED THAT PT HAS NOT PROGRESSED WITH THERAPY SINCE LAST HOSPITAL STAY AND IS APPROPRIATE FOR [facility] REHAB RETURN. CM NOTIFIED PT WHO IS IN AGREEMENT WITH DISCHARGE BACK TO [facility] FOR CONTINUED REHAB. CM CALLED JENNIFER, CLINICAL LIAISON FOR [facility], , ASKED FOR ASSESSMENT FOR REHAB ADMISSION. CM FAXED REFERRAL TO [facility] AT [phone]. CM WAITING INSURANCE AUTHORIZATION FROM PT'S INSURANCE FOR ADMISSION BACK TO REHAB AT [facility]. Vp Ad Products And Planning: Denise Freeman DCPIA - Discharge Planning Initial Assessment Updated by [id number]: Denise Freeman on 04/18/18 11:19 am * Is the patient Alert and Oriented? Yes * How many steps to enter\exit or inside your home? NONE * PCP NONE * Pharmacy [facility] * Preadmission Environment [facility] Facility * Facility Name [facility] * ADLs Partial Dependent * Partial ADLs (Assistance needed) Ambulation Bathing Medication Management Transfers * Equipment Rolling Walker * Other Equipment ROLLING WALKER AT HOME [facility] CURRENTLY PROVIDING EQUIPMENT FOR REHAB SERVICES IN FACILITY * List name and contact numbers for known caregivers / representatives who currently or will assist patient after discharge: CYN KOENIG, CAREGIVER, CHARLES OWENS, SON, * Verbal permission to speak to the caregivers and representatives has been obtained from the patient. Yes * Community resources currently utilized None * Please name any agencies selected above. NONE * Additional services required to return to the preadmission environment? No * Can the patient safely return to the preadmission environment? Yes * Has this patient been hospitalized within the prior 30 days at any hospital? Yes Coverage Notice Reviewer: [id number] Freeman Notice Issued Date-Time: 04/11/2018 13:10 Notice Type: IM Discharge Notice Notice Delivered To: Patient Relationship to Patient: Plant Packer Name: Delivery Method: HAND - Hand Delivered Lidya Days: Prior Verbal Notification: Recipient Understood Notice: Yes Recipient Signature: Yes Med Rec Note Co-signed by Attending: Coverage Notice Comment: Reviewer: VIVIANA Freeman Notice Issued Date-Time: 04/18/2018 9:35 Notice Type: Patient Choice Letter Notice Delivered To: Patient Relationship to Patient: Plant Packer Name: Delivery Method: HAND - Hand Delivered Lidya Days: Prior Verbal Notification: Recipient Understood Notice: Yes Recipient Signature: Yes Med Rec Note Co-signed by Attending: Coverage Notice Comment: [facility] Reviewer: VIVIANA Freeman Notice Issued Date-Time: 04/18/2018 9:35 Notice Type: IM Discharge Notice Notice Delivered To: Patient Relationship to Patient: Plant Packer Name: Delivery Method: HAND - Hand Delivered Lidya Days: Prior Verbal Notification: Recipient Understood Notice: Yes Recipient Signature: Yes Med Rec Note Co-signed by Attending: Coverage Notice Comment: Reviewer: [id number] Nails Notice Issued Date-Time: 04/20/2018 17:51 Notice Type: IM Admission Notice Notice Delivered To: Patient Relationship to Patient: Self Plant Packer Name: Deonte Owens Delivery Method: - Lidya Days: Prior Verbal Notification: Recipient Understood Notice: Recipient Signature: Med Rec Note Co-signed by Attending: Coverage Notice Comment: Reviewer: [id number] Nails Notice Issued Date-Time: 04/21/2018 17:51 Notice Type: Patient Choice Letter Notice Delivered To: Patient Relationship to Patient: Self Plant Packer Name: Deonte Owens Delivery Method: - Lidya Days: Prior Verbal Notification: Recipient Understood Notice: Recipient Signature: Med Rec Note Co-signed by Attending: Coverage Notice Comment: Last DP export: 04/21/18 3:29 p Patient Name: DEONTE OWENS Page 53630 at 0805 All edits/amendments must be made on the electronic document DICTATION DATE: 04/22/18 0805 EDUCATIONAL RESOURCE CENTER TEACHER: [place] 04/22/18 08 RPT#: [id number] DC DATE: STATUS: ADM IN [facility] [address] [place] [address] END OF REPORT
--- NOTE | 2018-04-22 08:33 | MORECARE ---
CASE MANAGEMENT DISCHARGE SUMMARY PATIENT: DEONTE OWENS UNIT: [id number] ADM DATE: 04/08/18 AGE: 83 : 33 SEX: M ROOM/BED: D.2110 AUTHOR: RANI,DOC PHYSICIAN: REFERRING PHYSICIAN: ALMAZ ALEXANDER MD DATE OF SERVICE: 04/22/18 Discharge Plan Patient Name: DEONTE OWENS Facility: [facility]:[place] : 1935 Planned Disposition: Senior Care Facility Anticipated Discharge Date: 04/22/18 Discharge Date: Expected LOS: 14 Initial Reviewer: [id number] Initial Review Date: 04/08/2018 Generated: 04/22/18 9:32 am Comments DCP- Discharge Planning Updated by [email or web address]: Rola Nails on 04/21/18 3:[address] On 04/20/18 patient states he wants to discharge to [facility]. CM obtained Patient Choice and faxed required information to [facility]. [facility] signed. 04/21/18 order for patient to go [facility] at discharge. Patient Choice signed. Patient's insurance requires prior authorization before he can be admitted there. Patient has changed his mind about place of disposition several times. Required information faxed. Rola Nails RN DCP- Discharge Planning Updated by [id number]: Denise Freeman on 04/19/18 7:[address] Patient Name: DEONTE OWENS Encounter No: [id number] : 1935 Primary Insurance: [employer] MEDICARE PPO or HMO Anticipated DC Date: 04-18-2018 Planned Disposition: Hospice Home External Planned Provider: [facility] DCP follow-up note: CM FAXED UPDATE TO [facility] AT [phone]. IF PT DECIDES FOR CONTINUED REHAB AT [facility], HIS INSURANCE REQUIRES PRIOR AUTHORIZATION FOR SERVICES. CM WAITING PT TO DECIDE IF HE WANTS REHAB SERVICES AT [facility] OR HOME HOSPICE WITH [facility]. CM WILL CONTINUE TO FOLLOW AND ASSIST IF NEEDED. DENISE FREEMAN CASE MANAGEMENT DCP- Discharge Planning Updated by [id number]: Denise Freeman on 04/18/18 11:[address] Patient Name: DEONTE OWENS Encounter No: [id number] : 1935 Primary Insurance: [employer] MEDICARE PPO or HMO Anticipated DC Date: 04-18-2018 Planned Disposition: Hospice Home External Planned Provider: [facility] DCP follow-up note: CM RECEIVED CALL FROM DIGNA OF [facility] WHO REPORTS THAT THEY HAVE EVALUATED PT LAST NIGHT AND PT HAS ASKED FOR HOSPICE AT HOME, THEY ARE IN PROCESS OF DELIVERY MEDICAL EQUIPMENT TODAY TO HOME. DIGNA WILL CALL CM WHEN THEY ARE COMPLETED WITH MEDICAL EQUIPMENT DELIVERY AND READY TO ADMIT PT AT HOME TODAY. CM SPOKE TO PT IN ROOM. PT REPORTS HE HAS DISCUSSED HOSPICE WITH HIS DOCTOR, SON AND OPTED FOR [facility] AT HOME. THEY ARE SETTING UP EQUIPMENT FOR PT TO DISCHARGE TODAY FOR HOME HOSPICE. PT SIGNED CONSENT FOR HOME HOSPICE WITH [facility]. IMPORTANT MESSAGE FROM MEDICARE PROVIDED AND EXPLAINED. CM WAITING ON MEDICAL EQUIPMENT DELIVERY COMPLETION FOR HOME HOSPICE WITH [facility]. CM TO CONTINUE TO FOLLOW AND ASSIST NEEDED. Denise Freeman, CASE MANAGEMENT Appended by Denise Freeman on 04/18/2018 12:03 ORAL AND MAXILLOFACIAL SURGERY: MARY SPOKE TO PT'S SON, CHARLES, WHO INFORMED CM THAT HE (CHARLES), WOULD LIKE TO WAIT AND SEE IF PT WILL IMPROVE AND GO TO REHAB AT [facility] AND IF HE DOESN'T, THEN HOME WITH [facility]. CM SPOKE TO DIGNA OF [facility] WHO HAD MET WITH PT AND CAREGIVER IN ROOM, PT IS NOW WANTING TO THINK ABOUT HOSPICE AND HAS NOT MADE FIRM DECISION AT THIS TIME. CM WAITING PT TO DECIDE IF HE WANTS REHAB SERVICES AT [facility] OR HOME HOSPICE WITH [facility]. DENISE FREEMAN, CASE MANAGEMENT DCP- Discharge Planning Updated by [id number]: Valarie Trinidad on 04/17/18 2:[address] SPOKE WITH MIR Lowry CM WITH [employer]. .QUESTIONED IF THE PATIENT HAS HOSPICE BENEFITS. EXPLAINED THAT HE HAS TAKEN A TURN FOR THE WORSE AND NOW THE SON JUST WANTS TO TAKE HIM HOME WITH HOSPICE. SHE STATED THAT IF THEY CHOOSE THAT OPTION, THEN HIS PLAN WILL REVERT BACK TO THE REGULAR FEDERAL MEDICARE AND HE WILL HAVE THAT HOSPICE BENEFIT. I THANKED HER FOR HER TIME AND EXPLAINED THAT IF THAT IS THE ROAD WE ARE VENTURING DOWN FOR SURE, I WOULD CALL BACK AND LET HER KNOW. DCP- Discharge Planning Updated by [id number]: Denise Freeman on 04/15/18 1:[address] Patient Name: DEONTE OWENS Encounter No: [id number] : 1935 Primary Insurance: [employer]ETNA MEDICARE PPO or HMO Anticipated DC Date: 04-16-2018 Planned Disposition: Senior Care Facility External Planned Provider: [facility], MEDICARE REHAB BED Discharge Planning Comments: CM NOTIFIED JENNIFER CLINICAL LIAISON FOR [facility], , THAT PT IS HAVING PROCEDURE TODAY. CM FAXED HOSPITAL UPDATE TO [facility] [place] AT [phone]. FOR DISCHARGE, FAX DISCHARGE INFORMATION TO [facility] AT [phone]. NURSE REPORT TO BE CALLED TO [facility] AT [phone]. Electric Motor Tester Assembler: Denise Freeman DCP- Discharge Planning Updated by [email or web address]: Denise Freeman on 04/15/18 8:[address] Patient Name: DEONTE OWENS Encounter No: [id number] : Primary Insurance: [employer] MEDICARE PPO or HMO Anticipated DC Date: 04-12-2018 Planned Disposition: [facility], MEDICARE REHAB BED Discharge Planning Comments: CM RECEIVED MESSAGE FROM JENNIFER CLINICAL LIAISON FOR [facility], , INSURANCE AUTHORIZATION RECEIVED FOR ADMISSION TO REHAB AT [facility]. FOR DISCHARGE, FAX DISCHARGE INFORMATION TO [facility] AT [phone]. NURSE REPORT TO BE CALLED TO [facility] AT [phone]. Electric Motor Tester Assembler: Denise Freeman DCP- Discharge Planning Updated by [id number]: Denise Freeman on 04/11/18 3:[address] Patient Name: DEONTE OWENS Admission Status: ER Accout number: [id number] Admission Date: 04-08-2018 : 1935 Admission Diagnosis:SHORTNESS OF BREATH Attending: ALMAZ ALEXANDER Current LOS: 3 Anticipated DC Date: 04-12-2018 Planned Disposition: Senior Care Facility Primary Insurance: [employer] MEDICARE PPO or HMO PLANNED EXTERNAL PROVIDER: [facility], MEDICARE REHAB BED Discharge Planning Comments: CM MET WITH PT IN ROOM TO DISCUSS DISCHARGE PLANNING AND NEEDS. PT REPORTS LIVING AT HOME INDEPENDENTLY AND ALONE. PT HAD PRIVATE CAREGIVING SERVICES AT HOME FROM [facility] ON MONDAYS AND FOR 2 HOURS PER DAY. PT WAS DISCHARGED AFTER LAST HOSPITAL STAY TO [facility] FOR REHAB AND IF DECLINED BY INPATIENT REHAB, PT UNDERSTANDS HIS INSURANCE HAS TO APPROVE. PT WANTS TO RETURN THERE FOR CONTINUED REHAB. PT HAS A ROLLING WALKER AT HOME WITH NO MEDICAL EQUIPMENT PROVIDER PREFERENCE. IMPORTANT MESSAGE FROM MEDICARE PROVIDED AND EXPLAINED. CM REVIEWED INPATIENT REHAB NOTES AND CALLED ERICKA WHO ADVISED THAT PT HAS NOT PROGRESSED WITH THERAPY SINCE LAST HOSPITAL STAY AND IS APPROPRIATE FOR SENIOR LIVING REHAB RETURN. CM NOTIFIED PT WHO IS IN AGREEMENT WITH DISCHARGE BACK TO [facility] FOR CONTINUED REHAB. CM CALLED JENNIFER, CLINICAL LIAISON FOR [facility], , ASKED FOR ASSESSMENT FOR REHAB ADMISSION. CM FAXED REFERRAL TO [facility]IA [facility] AT [phone]. CM WAITING INSURANCE AUTHORIZATION FROM PT'S INSURANCE FOR ADMISSION BACK TO REHAB AT [facility]. Electric Motor Tester Assembler: Denise Freeman DCPIA - Discharge Planning Initial Assessment Updated by [id number]: Denise Freeman on 04/18/18 11:19 am * Is the patient Alert and Oriented? Yes * How many steps to enter\exit or inside your home? NONE * PCP NONE * Pharmacy [facility] * Preadmission Environment Senior Care Facility * Facility Name [facility] * ADLs Partial Dependent * Partial ADLs (Assistance needed) Ambulation Bathing Medication Management Transfers * Equipment Rolling Walker * Other Equipment ROLLING WALKER AT HOME [facility] CURRENTLY PROVIDING EQUIPMENT FOR REHAB SERVICES IN FACILITY * List name and contact numbers for known caregivers / representatives who currently or will assist patient after discharge: CYN KOENIG, CAREGIVER, CHARLES OWENS, SON, * Verbal permission to speak to the caregivers and representatives has been obtained from the patient. Yes * Community resources currently utilized None * Please name any agencies selected above. NONE * Additional services required to return to the preadmission environment? No * Can the patient safely return to the preadmission environment? Yes * Has this patient been hospitalized within the prior 30 days at any hospital? Yes External Providers External Provider: [facility] Next Contact Date: 04/12/2018 Service Request Date: Service Type: Resolution: Reviewer: Comments: Coverage Notice Reviewer: [id number] Nails Notice Issued Date-Time: 04/20/2018 17:51 Notice Type: IM Admission Notice Notice Delivered To: Patient Relationship to Patient: Self Solid Waste Manager Name: Deonte Owens Delivery Method: - Lidya Days: Prior Verbal Notification: Recipient Understood Notice: Recipient Signature: Med Rec Note Co-signed by Attending: Coverage Notice Comment: Reviewer: VIVIANA Freeman Notice Issued Date-Time: 04/18/2018 9:35 Notice Type: IM Discharge Notice Notice Delivered To: Patient Relationship to Patient: Solid Waste Manager Name: Delivery Method: HAND - Hand Delivered Lidya Days: Prior Verbal Notification: Recipient Understood Notice: Yes Recipient Signature: Yes Med Rec Note Co-signed by Attending: Coverage Notice Comment: Reviewer: VIVIANA Freeman Notice Issued Date-Time: 04/11/2018 13:10 Notice Type: IM Discharge Notice Notice Delivered To: Patient Relationship to Patient: Solid Waste Manager Name: Delivery Method: HAND - Hand Delivered Lidya Days: Prior Verbal Notification: Recipient Understood Notice: Yes Recipient Signature: Yes Med Rec Note Co-signed by Attending: Coverage Notice Comment: Reviewer: VIVIANA Freeman Notice Issued Date-Time: 04/18/2018 9:35 Notice Type: Patient Choice Letter Notice Delivered To: Patient Relationship to Patient: Solid Waste Manager Name: Delivery Method: HAND - Hand Delivered Lidya Days: Prior Verbal Notification: Recipient Understood Notice: Yes Recipient Signature: Yes Med Rec Note Co-signed by Attending: Coverage Notice Comment: [facility] Reviewer: [id number] Nails Notice Issued Date-Time: 04/21/2018 17:51 Notice Type: Patient Choice Letter Notice Delivered To: Patient Relationship to Patient: Self Solid Waste Manager Name: Deonte Owens Delivery Method: - Lidya Days: Prior Verbal Notification: Recipient Understood Notice: Recipient Signature: Med Rec Note Co-signed by Attending: Coverage Notice Comment: Last DP export: 04/22/18 7:05 a Patient Name: DEONTE OWENS Page [phone] at 0833 All edits/amendments must be made on the electronic document DICTATION DATE: 04/22/18831 COMMUNITY EDUCATOR: [place] 04/22/18831 RPT#: [id number] DC DATE: STATUS: ADM IN [facility] [address] [place] [address] END OF REPORT
--- NOTE | 2018-04-22 08:39 | MORECARE ---
CASE MANAGEMENT DISCHARGE SUMMARY PATIENT: DEONTE OWENS UNIT: [id number] ADM DATE: 04/08/18 AGE: 83 : 31 SEX: M ROOM/BED: D.2110 AUTHOR: RANI,DOC PHYSICIAN: REFERRING PHYSICIAN: ALMAZ ALEXANDER MD DATE OF SERVICE: 04/22/18 Discharge Plan Patient Name: DEONTE OWENS Facility: [facility]:[place] : 1935 Planned Disposition: Retirement Facility Anticipated Discharge Date: 04/22/18 Discharge Date: Expected LOS: 14 Initial Reviewer: [id number] Initial Review Date: 04/08/2018 Generated: 04/22/18 9:39 am Comments DCP- Discharge Planning Updated by [id number]: Denise Freeman on 04/22/18 7:[address] Patient Name: DEONTE OWENS Encounter No: [id number] : 1935 Primary Insurance: AET[employer] MEDICARE PPO or HMO Anticipated DC Date: 04-22-2018 Planned Disposition: Retirement Facility External Planned Provider: [facility], MEDICARE REHAB BED Discharge Planning Comments: CM NOTIFIED JENNIFER, CLINICAL LIAISON FOR [facility], , THAT PT IS READY FOR DC TODAY AND WANTS REHAB AT [facility]. CM FAXED HOSPITAL UPDATE TO [facility] VIS JENNIFER AT [phone]. CM WAITING INSURANCE AUTHORIZATION FOR REHAB AT [facility]. FOR DISCHARGE, FAX DISCHARGE INFORMATION TO [facility] AT [phone]. NURSE REPORT TO BE CALLED TO [facility] AT [phone]. Assistant Public Defender: Denise Freeman DCP- Discharge Planning Updated by [id number]: Rola Nails on 04/21/18 3:[address] On 04/20/18 patient states he wants to discharge to [facility]. CM obtained Patient Choice and faxed required information to [facility]. IMM signed. 04/21/18 order for patient to go [facility] at discharge. Patient Choice signed. Patient's insurance requires prior authorization before he can be admitted there. Patient has changed his mind about place of disposition several times. Required information faxed. Rola Nails RN CM DCP- Discharge Planning Updated by [id number]: Denise Freeman on 04/19/18 7:[address] Patient Name: DEONTE OWENS Encounter No: [id number] : 1935 Primary Insurance: AET[employer] MEDICARE PPO or HMO Anticipated DC Date: 04-18-2018 Planned Disposition: Hospice Home External Planned Provider: [facility] DCP follow-up note: CM FAXED UPDATE TO [facility] AT [phone]. IF PT DECIDES FOR CONTINUED REHAB AT [facility], HIS INSURANCE REQUIRES PRIOR AUTHORIZATION FOR SERVICES. CM WAITING PT TO DECIDE IF HE WANTS REHAB SERVICES AT [facility] OR HOME HOSPICE WITH [facility]. CM WILL CONTINUE TO FOLLOW AND ASSIST IF NEEDED. DENISE FREEMAN CASE MANAGEMENT DCP- Discharge Planning Updated by [id number]: Denise Freeman on 04/18/18 11:[address] Patient Name: DEONTE OWENS Encounter No: [id number] : 1935 Primary Insurance: [employer]ET[employer] MEDICARE PPO or HMO Anticipated DC Date: 04-18-2018 Planned Disposition: Hospice Home External Planned Provider: [facility] DCP follow-up note: CM RECEIVED CALL FROM DIGNA OF [facility] WHO REPORTS THAT THEY HAVE EVALUATED PT LAST NIGHT AND PT HAS ASKED FOR HOSPICE AT HOME, THEY ARE IN PROCESS OF DELIVERY MEDICAL EQUIPMENT TODAY TO HOME. DIGNA WILL CALL CM WHEN THEY ARE COMPLETED WITH MEDICAL EQUIPMENT DELIVERY AND READY TO ADMIT PT AT HOME TODAY. CM SPOKE TO PT IN ROOM. PT REPORTS HE HAS DISCUSSED HOSPICE WITH HIS DOCTOR, SON AND OPTED FOR [facility] AT HOME. THEY ARE SETTING UP EQUIPMENT FOR PT TO DISCHARGE TODAY FOR HOME HOSPICE. PT SIGNED CONSENT FOR HOME HOSPICE WITH [facility]. IMPORTANT MESSAGE FROM MEDICARE PROVIDED AND EXPLAINED. CM WAITING ON MEDICAL EQUIPMENT DELIVERY COMPLETION FOR HOME HOSPICE WITH [facility]. CM TO CONTINUE TO FOLLOW AND ASSIST NEEDED. Denise Freeman, CASE MANAGEMENT Appended by Denise Freeman on 04/18/2018 12:03 PINION AND WHEEL TRUER: MARY SPOKE TO PT'S SON, CHARLES, WHO INFORMED CM THAT HE (CHARLES), WOULD LIKE TO WAIT AND SEE IF PT WILL IMPROVE AND GO TO REHAB AT [facility] AND IF HE DOESN'T, THEN HOME WITH [facility]. CM SPOKE TO DIGNA OF [facility] WHO HAD MET WITH PT AND CAREGIVER IN ROOM, PT IS NOW WANTING TO THINK ABOUT HOSPICE AND HAS NOT MADE FIRM DECISION AT THIS TIME. CM WAITING PT TO DECIDE IF HE WANTS REHAB SERVICES AT [facility] OR HOME HOSPICE WITH [facility]. DENISE FREEMAN, CASE MANAGEMENT DCP- Discharge Planning Updated by [id number]: Valarie Trinidad on 04/17/18 2:[address] SPOKE WITH MIR Lowry CM WITH [employer]. .QUESTIONED IF THE PATIENT HAS HOSPICE BENEFITS. EXPLAINED THAT HE HAS TAKEN A TURN FOR THE WORSE AND NOW THE SON JUST WANTS TO TAKE HIM HOME WITH HOSPICE. SHE STATED THAT IF THEY CHOOSE THAT OPTION, THEN HIS PLAN WILL REVERT BACK TO THE REGULAR [employer] MEDICARE AND HE WILL HAVE THAT HOSPICE BENEFIT. I THANKED HER FOR HER TIME AND EXPLAINED THAT IF THAT IS THE ROAD WE ARE VENTURING DOWN FOR SURE, I WOULD CALL BACK AND LET HER KNOW. DCP- Discharge Planning Updated by [id number]: Denise Freeman on 04/15/18 1:[address] Patient Name: DEONTE OWENS Encounter No: [id number] : 1935 Primary Insurance: AETNA MEDICARE PPO or HMO Anticipated DC Date: 04-16-2018 Planned Disposition: Retirement Facility External Planned Provider: [facility], MEDICARE REHAB BED Discharge Planning Comments: CM NOTIFIED JENNIFER, CLINICAL LIAISON FOR [facility], , THAT PT IS HAVING PROCEDURE TODAY. CM FAXED HOSPITAL UPDATE TO [facility] VIS JENNIFER AT [phone]. FOR DISCHARGE, FAX DISCHARGE INFORMATION TO [facility] AT [phone]. NURSE REPORT TO BE CALLED TO [facility] AT [phone]. Assistant Public Defender: Denise Freeman DCP- Discharge Planning Updated by [email or web address]: Denise Freeman on 04/15/18 8:[address] Patient Name: DEONTE OWESN Encounter No: [id number] : 1935 Primary Insurance: AETNA MEDICARE PPO or HMO Anticipated DC Date: 04-12-2018 Planned Disposition: [facility], MEDICARE REHAB BED Discharge Planning Comments: CM RECEIVED MESSAGE FROM JENNIFER CLINICAL LIAISON FOR [facility], , INSURANCE AUTHORIZATION RECEIVED FOR ADMISSION TO REHAB AT [facility]. FOR DISCHARGE, FAX DISCHARGE INFORMATION TO [facility] AT [phone]. NURSE REPORT TO BE CALLED TO [facility] AT [phone]. Assistant Public Defender: Denise Freeman DCP- Discharge Planning Updated by [id number]: Denise Freeman on 04/11/18 3:[address] Patient Name: DEONTE OWENS Admission Status: ER Accout number: [id number] Admission Date: 04-08-2018 : 1935 Admission Diagnosis:SHORTNESS OF BREATH Attending: ALMAZ ALEXANDER Current LOS: 3 Anticipated DC Date: 04-12-2018 Planned Disposition: Retirement Facility Primary Insurance: AET[employer] MEDICARE PPO or HMO PLANNED EXTERNAL PROVIDER: [facility], MEDICARE REHAB BED Discharge Planning Comments: CM MET WITH PT IN ROOM TO DISCUSS DISCHARGE PLANNING AND NEEDS. PT REPORTS LIVING AT HOME INDEPENDENTLY AND ALONE. PT HAD PRIVATE CAREGIVING SERVICES AT HOME FROM [employer] ON MONDAYS AND SUNDAY'S FOR 2 HOURS PER DAY. PT WAS DISCHARGED AFTER LAST HOSPITAL STAY TO [facility] FOR REHAB AND IF DECLINED BY INPATIENT REHAB, PT UNDERSTANDS HIS INSURANCE HAS TO APPROVE. PT WANTS TO RETURN THERE FOR CONTINUED REHAB. PT HAS A ROLLING WALKER AT HOME WITH NO MEDICAL EQUIPMENT PROVIDER PREFERENCE. IMPORTANT MESSAGE FROM MEDICARE PROVIDED AND EXPLAINED. CM REVIEWED INPATIENT REHAB NOTES AND CALLED ERICKA WHO ADVISED THAT PT HAS NOT PROGRESSED WITH THERAPY SINCE LAST HOSPITAL STAY AND IS APPROPRIATE FOR [facility] REHAB RETURN. CM NOTIFIED PT WHO IS IN AGREEMENT WITH DISCHARGE BACK TO [facility] FOR CONTINUED REHAB. CM CALLED JENNIFER CLINICAL LIAISON FOR [facility], , ASKED FOR ASSESSMENT FOR REHAB ADMISSION. CM FAXED REFERRAL TO [facility] VIA JENNIFER AT [phone]. CM WAITING INSURANCE AUTHORIZATION FROM PT'S INSURANCE FOR ADMISSION BACK TO REHAB AT [facility]. Assistant Public Defender: Denise Freeman DCPIA - Discharge Planning Initial Assessment Updated by [id number]: Denise Freeman on 04/18/18 11:19 am * Is the patient Alert and Oriented? Yes * How many steps to enter\exit or inside your home? NONE * PCP NONE * Pharmacy [facility] * Preadmission Environment Retirement Facility * Facility Name [facility] * ADLs Partial Dependent * Partial ADLs (Assistance needed) Ambulation Bathing Medication Management Transfers * Equipment Rolling Walker * Other Equipment ROLLING WALKER AT HOME [facility] CURRENTLY PROVIDING EQUIPMENT FOR REHAB SERVICES IN FACILITY * List name and contact numbers for known caregivers / representatives who currently or will assist patient after discharge: CYN KOENIG, CAREGIVER, CHARLES OWENS, SON, * Verbal permission to speak to the caregivers and representatives has been obtained from the patient. Yes * Community resources currently utilized None * Please name any agencies selected above. NONE * Additional services required to return to the preadmission environment? No * Can the patient safely return to the preadmission environment? Yes * Has this patient been hospitalized within the prior 30 days at any hospital? Yes Coverage Notice Reviewer: [id number] Ana Nails Notice Issued Date-Time: 04/20/2018 17:51 Notice Type: IM Admission Notice Notice Delivered To: Patient Relationship to Patient: Self Automobile Inspector Name: Deonte Owens Delivery Method: - Lidya Days: Prior Verbal Notification: Recipient Understood Notice: Recipient Signature: Med Rec Note Co-signed by Attending: Coverage Notice Comment: Reviewer: [id number] Freeman Notice Issued Date-Time: 04/18/2018 9:35 Notice Type: IM Discharge Notice Notice Delivered To: Patient Relationship to Patient: Automobile Inspector Name: Delivery Method: HAND - Hand Delivered Lidya Days: Prior Verbal Notification: Recipient Understood Notice: Yes Recipient Signature: Yes Med Rec Note Co-signed by Attending: Coverage Notice Comment: Reviewer: [id number] Freeman Notice Issued Date-Time: 04/11/2018 13:10 Notice Type: IM Discharge Notice Notice Delivered To: Patient Relationship to Patient: Automobile Inspector Name: Delivery Method: HAND - Hand Delivered Lidya Days: Prior Verbal Notification: Recipient Understood Notice: Yes Recipient Signature: Yes Med Rec Note Co-signed by Attending: Coverage Notice Comment: Reviewer: [id number] Freeman Notice Issued Date-Time: 04/18/2018 9:35 Notice Type: Patient Choice Letter Notice Delivered To: Patient Relationship to Patient: Automobile Inspector Name: Delivery Method: HAND - Hand Delivered Lidya Days: Prior Verbal Notification: Recipient Understood Notice: Yes Recipient Signature: Yes Med Rec Note Co-signed by Attending: Coverage Notice Comment: [facility] Reviewer: [id number] Ana Nails Notice Issued Date-Time: 04/21/2018 17:51 Notice Type: Patient Choice Letter Notice Delivered To: Patient Relationship to Patient: Self Automobile Inspector Name: Deonte Owens Delivery Method: - Lidya Days: Prior Verbal Notification: Recipient Understood Notice: Recipient Signature: Med Rec Note Co-signed by Attending: Coverage Notice Comment: Last DP export: 04/22/18 7:32 a Patient Name: DEONTE OWENS Page [phone] at 0839 All edits/amendments must be made on the electronic document DICTATION DATE: 04/22/18837 PARTY HOST/HOSTESS: [place] 04/22/18837 RPT#: [id number] DC DATE: STATUS: ADM IN [facility] [address] [place] [address] END OF REPORT
[2018-04-22 09:09] LABS: ANTI-GLOMERULAR BASMENT MEMBRN 3 units (0-20)
--- NOTE | 2018-04-22 14:13 | MORECARE ---
CASE MANAGEMENT DISCHARGE SUMMARY PATIENT: DEONTE OWENS UNIT: [id number] ADM DATE: 04/08/18 AGE: 83 : 31 SEX: M ROOM/BED: D.2110 AUTHOR: GATITO SARAVIA PHYSICIAN: REFERRING PHYSICIAN: ALMAZ ALEXANDER MD DATE OF SERVICE: 04/22/18 Discharge Plan Patient Name: DEONTE OWENS Facility: [facility]:[place] : 1935 Planned Disposition: Senior Care Facility Anticipated Discharge Date: 04/22/18 Discharge Date: Expected LOS: 14 Initial Reviewer: [id number] Initial Review Date: 04/08/2018 Generated: 04/22/18 3:13 pm Comments DCP- Discharge Planning Updated by [id number]: Denise Freeman on 04/22/18 1:[address] Patient Name: DEONTE OWENS Encounter No: [id number] : 1935 Primary Insurance: [employer] MEDICARE PPO or HMO Anticipated DC Date: 04-22-2018 Planned Disposition: Senior Care Facility External Planned Provider: [facility], MEDICARE REHAB BED Discharge Planning Comments: CM NOTIFIED GILBERT, CLINICAL LIAISON FOR [facility], , THAT PT IS NOW WANTING SKILLED REHAB, NOT HOSPICE. CM FAXED HOSPITAL UPDATE TO [facility]ENN[facility]ER AT [phone]. CM RECEIVED NOTICE FROM JENNIFER THAT PT'S INSURANCE HAS APPROVED SKILLED REHAB AT [facility]. PT NOTIFIED AND IN AGREEMENT WITH DISCHARGE TO [facility], IMPORTANT MESSAGE FROM MEDICARE PROVIDED AND DISCUSSED. DIRECTOR CPG NURSE AND BARBARA BRO NOTIFIED. FOR DISCHARGE, FAX DISCHARGE INFORMATION TO [facility] AT [phone]. NURSE REPORT TO BE CALLED TO [facility] AT [phone]. [facility] TO ARRANGE VAN TRANSPORTATION. Powder Operator: Denise Freeman DCP- Discharge Planning Updated by [id number]: Denise Freeman on 04/22/18 7:[address] Patient Name: DEONTE OWENS Encounter No: [id number] : 1935 Primary Insurance: [employer] MEDICARE PPO or HMO Anticipated DC Date: 04-22-2018 Planned Disposition: Senior Care Facility External Planned Provider: [facility], MEDICARE REHAB BED Discharge Planning Comments: CM NOTIFIED JENNIFER, CLINICAL LIAISON FOR [facility], , THAT PT IS READY FOR DC TODAY AND WANTS REHAB AT [facility]. CM FAXED HOSPITAL UPDATE TO [facility] AT [phone]. CM WAITING INSURANCE AUTHORIZATION FOR REHAB AT [facility]. FOR DISCHARGE, FAX DISCHARGE INFORMATION TO [facility] AT [phone]. NURSE REPORT TO BE CALLED TO [facility] AT [phone]. Powder Operator: Denise Freeman DCP- Discharge Planning Updated by [id number]: Rola Nails on 04/21/18 3:[address] On 04/20/18 patient states he wants to discharge to [facility]. CM obtained Patient Choice and faxed required information to [facility]. IMM signed. 04/21/18 order for patient to go [facility] at discharge. Patient Choice signed. Patient's insurance requires prior authorization before he can be admitted there. Patient has changed his mind about place of disposition several times. Required information faxed. Rola Nails RN DCP- Discharge Planning Updated by [id number]: Denise Freeman on 04/19/18 7:[address] Patient Name: DEONTE OWENS Encounter No: [id number] : 1935 Primary Insurance: [employer] MEDICARE PPO or HMO Anticipated DC Date: 04-18-2018 Planned Disposition: Hospice Home External Planned Provider: [facility] DCP follow-up note: CM FAXED UPDATE TO [facility] AT [phone]. IF PT DECIDES FOR CONTINUED REHAB AT [facility], HIS INSURANCE REQUIRES PRIOR AUTHORIZATION FOR SERVICES. CM WAITING PT TO DECIDE IF HE WANTS REHAB SERVICES AT [facility] OR HOME HOSPICE WITH [facility]. CM WILL CONTINUE TO FOLLOW AND ASSIST IF NEEDED. DENISE FREEMAN, CASE MANAGEMENT DCP- Discharge Planning Updated by [id number]: Denise Freeman on 04/18/18 11:[address] Patient Name: DEONTE OWENS Encounter No: [id number] : 1935 Primary Insurance: [employer] MEDICARE PPO or HMO Anticipated DC Date: 04-18-2018 Planned Disposition: Hospice Home External Planned Provider: [facility] DCP follow-up note: CM RECEIVED CALL FROM DIGNA OF [facility] WHO REPORTS THAT THEY HAVE EVALUATED PT LAST NIGHT AND PT HAS ASKED FOR HOSPICE AT HOME, THEY ARE IN PROCESS OF DELIVERY MEDICAL EQUIPMENT TODAY TO HOME. DIGNA WILL CALL CM WHEN THEY ARE COMPLETED WITH MEDICAL EQUIPMENT DELIVERY AND READY TO ADMIT PT AT HOME TODAY. CM SPOKE TO PT IN ROOM. PT REPORTS HE HAS DISCUSSED HOSPICE WITH HIS DOCTOR, SON AND OPTED FOR [facility] AT HOME. THEY ARE SETTING UP EQUIPMENT FOR PT TO DISCHARGE TODAY FOR HOME HOSPICE. PT SIGNED CONSENT FOR HOME HOSPICE WITH [facility]. IMPORTANT MESSAGE FROM MEDICARE PROVIDED AND EXPLAINED. CM WAITING ON MEDICAL EQUIPMENT DELIVERY COMPLETION FOR HOME HOSPICE WITH [facility]. CM TO CONTINUE TO FOLLOW AND ASSIST NEEDED. Denise Freeman, CASE MANAGEMENT Appended by Denise Freeman on 04/18/2018 12:03 CURATOR NATURAL HISTORY MUSEUM: CM SPOKE TO PT'S SON, CHARLES, WHO INFORMED CM THAT HE (CHARLES), WOULD LIKE TO WAIT AND SEE IF PT WILL IMPROVE AND GO TO REHAB AT [facility] AND IF HE DOESN'T, THEN HOME WITH [facility]. CM SPOKE TO DIGNA OF [facility] WHO HAD MET WITH PT AND CAREGIVER IN ROOM, PT IS NOW WANTING TO THINK ABOUT HOSPICE AND HAS NOT MADE FIRM DECISION AT THIS TIME. CM WAITING PT TO DECIDE IF HE WANTS REHAB SERVICES AT [facility] OR HOME HOSPICE WITH [facility]. DENISE FREEMAN, CASE MANAGEMENT DCP- Discharge Planning Updated by [id number]: Valarie Trinidad on 04/17/18 2:[address] SPOKE WITH MIR Lowry CM WITH [employer]. .QUESTIONED IF THE PATIENT HAS HOSPICE BENEFITS. EXPLAINED THAT HE HAS TAKEN A TURN FOR THE WORSE AND NOW THE SON JUST WANTS TO TAKE HIM HOME WITH HOSPICE. SHE STATED THAT IF THEY CHOOSE THAT OPTION, THEN HIS PLAN WILL REVERT BACK TO THE REGULAR FEDERAL MEDICARE AND HE WILL HAVE THAT HOSPICE BENEFIT. I THANKED HER FOR HER TIME AND EXPLAINED THAT IF THAT IS THE ROAD WE ARE VENTURING DOWN FOR SURE, I WOULD CALL BACK AND LET HER KNOW. DCP- Discharge Planning Updated by [id number]: Denise Freeman on 04/15/18 1:[address] Patient Name: DEONTE OWENS Encounter No: [id number] : 1935 Primary Insurance: [employer] MEDICARE PPO or HMO Anticipated DC Date: 04-16-2018 Planned Disposition: Senior Care Facility External Planned Provider: [facility], MEDICARE REHAB BED Discharge Planning Comments: CM NOTIFIED JENNIFER CLINICAL LIAISON FOR [facility], , THAT PT IS HAVING PROCEDURE TODAY. CM FAXED HOSPITAL UPDATE TO [facility] AT [phone]. FOR DISCHARGE, FAX DISCHARGE INFORMATION TO [facility] AT [phone]. NURSE REPORT TO BE CALLED TO [facility] AT [phone]. Powder Operator: Denise Freeman DCP- Discharge Planning Updated by [id number]: Denise Freeman on 04/15/18 8:[address] Patient Name: DEONTE OWENS Encounter No: [id number] : 2 Primary Insurance: [employer] MEDICARE PPO or HMO Anticipated DC Date: 04-12-2018 Planned Disposition: [facility], MEDICARE REHAB BED Discharge Planning Comments: CM RECEIVED MESSAGE FROM JENNIFER CLINICAL LIAISON FOR [facility], , INSURANCE AUTHORIZATION RECEIVED FOR ADMISSION TO REHAB AT [facility]. FOR DISCHARGE, FAX DISCHARGE INFORMATION TO [facility] AT [phone]. NURSE REPORT TO BE CALLED TO [facility] AT [phone]. Powder Operator: Denise Freeman DCP- Discharge Planning Updated by [id number]: Denise Freeman on 04/11/18 3:[address] Patient Name: DEONTE OWENS Admission Status: ER Accout number: [id number] Admission Date: 04-08-2018 : 1935 Admission Diagnosis:SHORTNESS OF BREATH Attending: ALMAZ ALEXANDER Current LOS: 3 Anticipated DC Date: 04-12-2018 Planned Disposition: Senior Care Facility Primary Insurance: [employer] MEDICARE PPO or HMO PLANNED EXTERNAL PROVIDER: [facility], MEDICARE REHAB BED Discharge Planning Comments: CM MET WITH PT IN ROOM TO DISCUSS DISCHARGE PLANNING AND NEEDS. PT REPORTS LIVING AT HOME INDEPENDENTLY AND ALONE. PT HAD PRIVATE CAREGIVING SERVICES AT HOME FROM [facility] ON MONDAYS AND FOR 2 HOURS PER DAY. PT WAS DISCHARGED AFTER LAST HOSPITAL STAY TO [facility] FOR REHAB AND IF DECLINED BY INPATIENT REHAB, PT UNDERSTANDS HIS INSURANCE HAS TO APPROVE. PT WANTS TO RETURN THERE FOR CONTINUED REHAB. PT HAS A ROLLING WALKER AT HOME WITH NO MEDICAL EQUIPMENT PROVIDER PREFERENCE. IMPORTANT MESSAGE FROM MEDICARE PROVIDED AND EXPLAINED. CM REVIEWED INPATIENT REHAB NOTES AND CALLED ERICKA WHO ADVISED THAT PT HAS NOT PROGRESSED WITH THERAPY SINCE LAST HOSPITAL STAY AND IS APPROPRIATE FOR [facility] REHAB RETURN. CM NOTIFIED PT WHO IS IN AGREEMENT WITH DISCHARGE BACK TO [facility] FOR CONTINUED REHAB. CM CALLED JENNIFER, CLINICAL LIAISON FOR [facility], , ASKED FOR ASSESSMENT FOR REHAB ADMISSION. CM FAXED REFERRAL TO [facility] VIA JENNIFER AT [phone]. CM WAITING INSURANCE AUTHORIZATION FROM PT'S INSURANCE FOR ADMISSION BACK TO REHAB AT [facility]. Powder Operator: Denise Freeman DCPIA - Discharge Planning Initial Assessment Updated by [id number]: Denise Freeman on 04/18/18 11:19 am * Is the patient Alert and Oriented? Yes * How many steps to enter\exit or inside your home? NONE * PCP NONE * Pharmacy [facility] * Preadmission Environment Senior Care Facility * Facility Name [facility] * ADLs Partial Dependent * Partial ADLs (Assistance needed) Ambulation Bathing Medication Management Transfers * Equipment Rolling Walker * Other Equipment ROLLING WALKER AT HOME [facility] CURRENTLY PROVIDING EQUIPMENT FOR REHAB SERVICES IN FACILITY * List name and contact numbers for known caregivers / representatives who currently or will assist patient after discharge: CYN KOENIG, CAREGIVER, CHARLES OWENS, SON, * Verbal permission to speak to the caregivers and representatives has been obtained from the patient. Yes * Community resources currently utilized None * Please name any agencies selected above. NONE * Additional services required to return to the preadmission environment? No * Can the patient safely return to the preadmission environment? Yes * Has this patient been hospitalized within the prior 30 days at any hospital? Yes Coverage Notice Reviewer: [id number] Freeman Notice Issued Date-Time: 04/11/2018 13:10 Notice Type: IM Discharge Notice Notice Delivered To: Patient Relationship to Patient: Engraver Name: Delivery Method: HAND - Hand Delivered Lidya Days: Prior Verbal Notification: Recipient Understood Notice: Yes Recipient Signature: Yes Med Rec Note Co-signed by Attending: Coverage Notice Comment: Reviewer: VIVIANA Freeman Notice Issued Date-Time: 04/18/2018 9:35 Notice Type: Patient Choice Letter Notice Delivered To: Patient Relationship to Patient: Engraver Name: Delivery Method: HAND - Hand Delivered Lidya Days: Prior Verbal Notification: Recipient Understood Notice: Yes Recipient Signature: Yes Med Rec Note Co-signed by Attending: Coverage Notice Comment: [facility] Reviewer: VIVIANA Fereman Notice Issued Date-Time: 04/18/2018 9:35 Notice Type: IM Discharge Notice Notice Delivered To: Patient Relationship to Patient: Engraver Name: Delivery Method: HAND - Hand Delivered Lidya Days: Prior Verbal Notification: Recipient Understood Notice: Yes Recipient Signature: Yes Med Rec Note Co-signed by Attending: Coverage Notice Comment: Reviewer: [id number] Nails Notice Issued Date-Time: 04/20/2018 17:51 Notice Type: IM Admission Notice Notice Delivered To: Patient Relationship to Patient: Self Engraver Name: Deonte Owens Delivery Method: - Lidya Days: Prior Verbal Notification: Recipient Understood Notice: Recipient Signature: Med Rec Note Co-signed by Attending: Coverage Notice Comment: Reviewer: GALILEO Nails Notice Issued Date-Time: 04/21/2018 17:51 Notice Type: Patient Choice Letter Notice Delivered To: Patient Relationship to Patient: Self Engraver Name: Deonte Owens Delivery Method: - Lidya Days: Prior Verbal Notification: Recipient Understood Notice: Recipient Signature: Med Rec Note Co-signed by Attending: Coverage Notice Comment: Reviewer: VIVIANA Freeman Notice Issued Date-Time: 04/22/2018 13:05 Notice Type: IM Discharge Notice Notice Delivered To: Patient Relationship to Patient: Engraver Name: Delivery Method: HAND - Hand Delivered Lidya Days: Prior Verbal Notification: Recipient Understood Notice: Yes Recipient Signature: Yes Med Rec Note Co-signed by Attending: Coverage Notice Comment: Last DP export: 04/22/18 7:39 a Patient Name: DEONTE OWENS Page [id number] at 1413 All edits/amendments must be made on the electronic document DICTATION DATE: 04/22/181412 PREDATORY ANIMAL HUNTER: [place] 04/22/181412 RPT#: [id number] DC DATE: STATUS: ADM IN [facility] [address] [place] [address] END OF REPORT
--- NOTE | 2018-04-22 15:16 | MORECARE ---
CASE MANAGEMENT DISCHARGE SUMMARY PATIENT: DEONTE OWENS UNIT: [id number] ADM DATE: 04/08/18 AGE: 83 : 31 SEX: M ROOM/BED: D.2110 AUTHOR: RANIDOC PHYSICIAN: REFERRING PHYSICIAN: ALMAZ ALEXANDER MD DATE OF SERVICE: 04/22/18 Discharge Plan Patient Name: DEONTE OWENS Facility: [facility]:[employer] : 1935 Planned Disposition: Retirement Facility Anticipated Discharge Date: 04/22/18 Discharge Date: Expected LOS: 14 Initial Reviewer: [id number] Initial Review Date: 04/08/2018 Generated: 04/22/18 4:16 pm Comments DCP- Discharge Planning Updated by [id number]: Cornel Portillo on 04/22/18 2:[address] Patient Name: DEONTE OWENS Encounter No: [id number] : 1935 Primary Insurance: AETNA MEDICARE PPO or HMO Anticipated DC Date: 04-22-2018 Planned Disposition: Retirement Facility External Planned Provider: [facility], MEDICARE REHAB BED Discharge Planning Comments: CM NOTIFIED JENNIFER, CLINICAL LIAISON FOR [facility], , THAT PT IS NOW WANTING SKILLED REHAB, NOT HOSPICE. CM FAXED HOSPITAL UPDATE TO [facility] AT [phone]. CM RECEIVED NOTICE FROM JENNIFER THAT PT'S INSURANCE HAS APPROVED SKILLED REHAB AT [facility]. PT NOTIFIED AND IN AGREEMENT WITH DISCHARGE TO [facility], IMPORTANT MESSAGE FROM MEDICARE PROVIDED AND DISCUSSED. MARKET RESEARCH INTERN NURSE AND BARBARA BRO NOTIFIED. FOR DISCHARGE, FAX DISCHARGE INFORMATION TO [facility] AT [phone]. NURSE REPORT TO BE CALLED TO [facility] AT [phone]. [facility] TO ARRANGE VAN TRANSPORTATION. Crime Scene Investigator: Cornel Portillo Appended by Cornel Portillo on 04/22/2018 15:10 GRADUATE CIVIL ENGINEER: CM RECEIVED DISCHARGE ORDER, NOTIFIED CHARLES OWENS VIA PHONE WHO REPORTS BEING IN PT'S ROOM AND WANTS TO SEE THE DOCTOR REGARDING PT'S CONFUSION. CM NOTIFIED BARBARA BRO OF FAMILY REQUEST. CM FAXED DISCHARGE INFORMATION TO [facility] AT [phone]. MARKET RESEARCH INTERN NURSE NOTIFIED. NURSE REPORT TO BE CALLED TO [facility] AT [phone]. [facility] TO ARRANGE VAN TRANSPORTATION FOR 4PM TODAY. Crime Scene Investigator: Cornel Portillo DCP- Discharge Planning Updated by [id number]: Cornel Portillo on 04/22/18 7:[address] Patient Name: DEONTE OWENS Encounter No: [id number] : 1935 Primary Insurance: AETNA MEDICARE PPO or HMO Anticipated DC Date: 04-22-2018 Planned Disposition: Retirement Facility External Planned Provider: [facility], MEDICARE REHAB BED Discharge Planning Comments: CM NOTIFIED JENNIFER, CLINICAL LIAISON FOR [facility], , THAT PT IS READY FOR DC TODAY AND WANTS REHAB AT [facility]. CM FAXED HOSPITAL UPDATE TO [facility] AT [phone]. CM WAITING INSURANCE AUTHORIZATION FOR REHAB AT [facility]. FOR DISCHARGE, FAX DISCHARGE INFORMATION TO [facility] AT [phone]. NURSE REPORT TO BE CALLED TO [facility] AT [phone]. Crime Scene Investigator: Cornel Portillo DCP- Discharge Planning Updated by [id number]: Rola Nails on 04/21/18 3:[address] On 04/20/18 patient states he wants to discharge to [facility]. CM obtained Patient Choice and faxed required information to [facility]. IMM signed. 04/21/18 order for patient to go [facility] at discharge. Patient Choice signed. Patient's insurance requires prior authorization before he can be admitted there. Patient has changed his mind about place of disposition several times. Required information faxed. Rola Nails RN, CM DCP- Discharge Planning Updated by [email or web address]: Cornel Portillo on 04/19/18 7:[address] Patient Name: DEONTE OWENS Encounter No: [id number] : 1935 Primary Insurance: AETNA MEDICARE PPO or HMO Anticipated DC Date: 04-18-2018 Planned Disposition: Hospice Home External Planned Provider: [facility] DCP follow-up note: CM FAXED UPDATE TO KALYANI OF [facility] AT [phone]. IF PT DECIDES FOR CONTINUED REHAB AT [facility], HIS INSURANCE REQUIRES PRIOR AUTHORIZATION FOR SERVICES. CM WAITING PT TO DECIDE IF HE WANTS REHAB SERVICES AT [facility] OR HOME HOSPICE WITH [facility]. CM WILL CONTINUE TO FOLLOW AND ASSIST IF NEEDED. HEATHER CALDERON MANAGEMENT DCP- Discharge Planning Updated by [id number]: Cornel Portillo on 04/18/18 11:[address] Patient Name: DEONTE OWENS Encounter No: [id number] : 1935 Primary Insurance: AETNA MEDICARE PPO or HMO Anticipated DC Date: 04-18-2018 Planned Disposition: Hospice Home External Planned Provider: [facility] DCP follow-up note: CM RECEIVED CALL FROM DIGNA OF [facility] WHO REPORTS THAT THEY HAVE EVALUATED PT LAST NIGHT AND PT HAS ASKED FOR HOSPICE AT HOME, THEY ARE IN PROCESS OF DELIVERY MEDICAL EQUIPMENT TODAY TO HOME. DIGNA WILL CALL CM WHEN THEY ARE COMPLETED WITH MEDICAL EQUIPMENT DELIVERY AND READY TO ADMIT PT AT HOME TODAY. CM SPOKE TO PT IN ROOM. PT REPORTS HE HAS DISCUSSED HOSPICE WITH HIS DOCTOR, SON AND OPTED FOR [facility] AT HOME. THEY ARE SETTING UP EQUIPMENT FOR PT TO DISCHARGE TODAY FOR HOME HOSPICE. PT SIGNED CONSENT FOR HOME HOSPICE WITH [facility]. IMPORTANT MESSAGE FROM MEDICARE PROVIDED AND EXPLAINED. CM WAITING ON MEDICAL EQUIPMENT DELIVERY COMPLETION FOR HOME HOSPICE WITH [facility]. CM TO CONTINUE TO FOLLOW AND ASSIST NEEDED. Cornel Portillo, CASE MANAGEMENT Appended by Cornel Portillo on 04/18/2018 12:03 GRADUATE CIVIL ENGINEER: MARY SPOKE TO PT'S SON, CHARLES, WHO INFORMED CM THAT HE (CHARLES), WOULD LIKE TO WAIT AND SEE IF PT WILL IMPROVE AND GO TO REHAB AT [facility] AND IF HE DOESN'T, THEN HOME WITH [facility]. MARY SPOKE TO DIGNA OF [facility] WHO HAD MET WITH PT AND CAREGIVER IN ROOM, PT IS NOW WANTING TO THINK ABOUT HOSPICE AND HAS NOT MADE FIRM DECISION AT THIS TIME. CM WAITING PT TO DECIDE IF HE WANTS REHAB SERVICES AT [facility] OR HOME HOSPICE WITH [facility]. HEATHER CALDERON DCP- Discharge Planning Updated by [id number]: Valarie Trinidad on 04/17/18 2:[address] SPOKE WITH MIR Lowry CM WITH ANNA MARIE. .QUESTIONED IF THE PATIENT HAS HOSPICE BENEFITS. EXPLAINED THAT HE HAS TAKEN A TURN FOR THE WORSE AND NOW THE SON JUST WANTS TO TAKE HIM HOME WITH HOSPICE. SHE STATED THAT IF THEY CHOOSE THAT OPTION, THEN HIS PLAN WILL REVERT BACK TO THE REGULAR FEDERAL MEDICARE AND HE WILL HAVE THAT HOSPICE BENEFIT. I THANKED HER FOR HER TIME AND EXPLAINED THAT IF THAT IS THE ROAD WE ARE VENTURING DOWN FOR SURE, I WOULD CALL BACK AND LET HER KNOW. DCP- Discharge Planning Updated by [id number]: Cornel Portillo on 04/15/18 1:[address] Patient Name: DEONTE OWENS Encounter No: [id number] : 1935 Primary Insurance: AETNA MEDICARE PPO or HMO Anticipated DC Date: 04-16-2018 Planned Disposition: Retirement Facility External Planned Provider: [facility], MEDICARE REHAB BED Discharge Planning Comments: CM NOTIFIED JENNIFER CLINICAL LIAISON FOR [facility], , THAT PT IS HAVING PROCEDURE TODAY. CM FAXED HOSPITAL UPDATE TO [facility] AT [phone]. FOR DISCHARGE, FAX DISCHARGE INFORMATION TO [facility] AT [phone]. NURSE REPORT TO BE CALLED TO [facility] AT [phone]. Crime Scene Investigator: Cornel Portillo DCP- Discharge Planning Updated by [id number]: Cornel Portillo on 04/15/18 8:[address] Patient Name: DEONTE OWENS Encounter No: [id number] : 1935 Primary Insurance: AETNA MEDICARE PPO or HMO Anticipated DC Date: 04-12-2018 Planned Disposition: [facility], MEDICARE REHAB BED Discharge Planning Comments: CM RECEIVED MESSAGE FROM JENNIFER CLINICAL LIAISON FOR [facility], , INSURANCE AUTHORIZATION RECEIVED FOR ADMISSION TO REHAB AT [facility]. FOR DISCHARGE, FAX DISCHARGE INFORMATION TO [facility] AT [phone]. NURSE REPORT TO BE CALLED TO [facility] AT [phone]. Crime Scene Investigator: Cornel Portillo DCP- Discharge Planning Updated by [id number]: Cornel Portillo on 04/11/18 3:[address] Patient Name: DEONTE OWENS Admission Status: ER Accout number: [id number] Admission Date: 04-08-2018 : 1935 Admission Diagnosis:SHORTNESS OF BREATH Attending: ALMAZ ALEXANDER Current LOS: 3 Anticipated DC Date: 04-12-2018 Planned Disposition: Retirement Facility Primary Insurance: AETNA MEDICARE PPO or HMO PLANNED EXTERNAL PROVIDER: [facility], MEDICARE REHAB BED Discharge Planning Comments: CM MET WITH PT IN ROOM TO DISCUSS DISCHARGE PLANNING AND NEEDS. PT REPORTS LIVING AT HOME INDEPENDENTLY AND ALONE. PT HAD PRIVATE CAREGIVING SERVICES AT HOME FROM [facility] [employer] ON MONDAYS AND FOR 2 HOURS PER DAY. PT WAS DISCHARGED AFTER LAST HOSPITAL STAY TO [facility] FOR REHAB AND IF DECLINED BY INPATIENT REHAB, PT UNDERSTANDS HIS INSURANCE HAS TO APPROVE. PT WANTS TO RETURN THERE FOR CONTINUED REHAB. PT HAS A ROLLING WALKER AT HOME WITH NO MEDICAL EQUIPMENT PROVIDER PREFERENCE. IMPORTANT MESSAGE FROM MEDICARE PROVIDED AND EXPLAINED. CM REVIEWED INPATIENT REHAB NOTES AND CALLED ERICKA WHO ADVISED THAT PT HAS NOT PROGRESSED WITH THERAPY SINCE LAST HOSPITAL STAY AND IS APPROPRIATE FOR JAIL REHAB RETURN. CM NOTIFIED PT WHO IS IN AGREEMENT WITH DISCHARGE BACK TO [facility] FOR CONTINUED REHAB. CM CALLED JENNIFER, CLINICAL LIAISON FOR [facility], , ASKED FOR ASSESSMENT FOR REHAB ADMISSION. CM FAXED REFERRAL TO [facility] VIA JENNIFER AT [phone]. CM WAITING INSURANCE AUTHORIZATION FROM PT'S INSURANCE FOR ADMISSION BACK TO REHAB AT [facility]. Crime Scene Investigator: Conrel Portillo DCPIA - Discharge Planning Initial Assessment Updated by [id number]: Cornel Portillo on 04/18/18 11:19 am * Is the patient Alert and Oriented? Yes * How many steps to enter\exit or inside your home? NONE * PCP NONE * Pharmacy [facility] * Preadmission Environment Retirement Facility * Facility Name [facility] * ADLs Partial Dependent * Partial ADLs (Assistance needed) Ambulation Bathing Medication Management Transfers * Equipment Rolling Walker * Other Equipment ROLLING WALKER AT HOME [facility] CURRENTLY PROVIDING EQUIPMENT FOR REHAB SERVICES IN FACILITY * List name and contact numbers for known caregivers / representatives who currently or will assist patient after discharge: CYN KOENIG, CAREGIVER, CHARLES OWENS, SON, * Verbal permission to speak to the caregivers and representatives has been obtained from the patient. Yes * Community resources currently utilized None * Please name any agencies selected above. NONE * Additional services required to return to the preadmission environment? No * Can the patient safely return to the preadmission environment? Yes * Has this patient been hospitalized within the prior 30 days at any hospital? Yes Coverage Notice Reviewer: [id number] Nails Notice Issued Date-Time: 04/21/2018 17:51 Notice Type: Patient Choice Letter Notice Delivered To: Patient Relationship to Patient: Self Psychiatric Social Worker Supervisor Name: Deonte Owens Delivery Method: - Lidya Days: Prior Verbal Notification: Recipient Understood Notice: Recipient Signature: Med Rec Note Co-signed by Attending: Coverage Notice Comment: Reviewer: GALILEO Nails Notice Issued Date-Time: 04/20/2018 17:51 Notice Type: IM Admission Notice Notice Delivered To: Patient Relationship to Patient: Self Psychiatric Social Worker Supervisor Name: Deonte Owens Delivery Method: - Lidya Days: Prior Verbal Notification: Recipient Understood Notice: Recipient Signature: Med Rec Note Co-signed by Attending: Coverage Notice Comment: Reviewer: VIVIANA Portillo Notice Issued Date-Time: 04/18/2018 9:35 Notice Type: Patient Choice Letter Notice Delivered To: Patient Relationship to Patient: Psychiatric Social Worker Supervisor Name: Delivery Method: HAND - Hand Delivered Lidya Days: Prior Verbal Notification: Recipient Understood Notice: Yes Recipient Signature: Yes Med Rec Note Co-signed by Attending: Coverage Notice Comment: [facility] Reviewer: VIVIANA Portillo Notice Issued Date-Time: 04/22/2018 13:05 Notice Type: IM Discharge Notice Notice Delivered To: Patient Relationship to Patient: Psychiatric Social Worker Supervisor Name: Delivery Method: HAND - Hand Delivered Lidya Days: Prior Verbal Notification: Recipient Understood Notice: Yes Recipient Signature: Yes Med Rec Note Co-signed by Attending: Coverage Notice Comment: Reviewer: VIVIANA Portillo Notice Issued Date-Time: 04/18/2018 9:35 Notice Type: IM Discharge Notice Notice Delivered To: Patient Relationship to Patient: Psychiatric Social Worker Supervisor Name: Delivery Method: HAND - Hand Delivered Lidya Days: Prior Verbal Notification: Recipient Understood Notice: Yes Recipient Signature: Yes Med Rec Note Co-signed by Attending: Coverage Notice Comment: Reviewer: [id number] - Cornel Portillo Notice Issued Date-Time: 04/11/2018 13:10 Notice Type: IM Discharge Notice Notice Delivered To: Patient Relationship to Patient: Psychiatric Social Worker Supervisor Name: Delivery Method: HAND - Hand Delivered Lidya Days: Prior Verbal Notification: Recipient Understood Notice: Yes Recipient Signature: Yes Med Rec Note Co-signed by Attending: Coverage Notice Comment: Last DP export: 04/22/18 1:13 p Patient Name: DEONTE OWENS Page [id number] at 1516 All edits/amendments must be made on the electronic document DICTATION DATE: 04/22/181514 DISABILITY LIAISON OFFICER: [place] 04/22/181514 RPT#: [id number] DC DATE: STATUS: ADM IN [facility] [address] [place] [address] END OF REPORT
--- NOTE | 2018-04-22 16:17 | MORECARE ---
CASE MANAGEMENT DISCHARGE SUMMARY PATIENT: DEONTE OWENS UNIT: [id number] ADM DATE: 04/08/18 AGE: 83 : 33 SEX: M ROOM/BED: D.2110 AUTHOR: RANIDOC PHYSICIAN: REFERRING PHYSICIAN: ALMAZ ALEXANDER MD DATE OF SERVICE: 04/22/18 Discharge Plan Patient Name: DEONTE OWENS Facility: [facility]:[place] : 1935 Planned Disposition: Group Home Facility Anticipated Discharge Date: 04/22/18 Discharge Date: Expected LOS: 14 Initial Reviewer: [email or web address] Initial Review Date: 04/08/2018 Generated: 04/22/18 5:17 pm Comments DCP- Discharge Planning Updated by [email or web address]: Cornel Portillo on 04/22/18 2:[address] Patient Name: DEONTE OWENS Encounter No: [id number] : 1935 Primary Insurance: AETNA MEDICARE PPO or HMO Anticipated DC Date: 04-22-2018 Planned Disposition: Group Home Facility External Planned Provider: [facility], MEDICARE REHAB BED Discharge Planning Comments: CM NOTIFIED JENNIFER, CLINICAL LIAISON FOR [facility], , THAT PT IS NOW WANTING SKILLED REHAB, NOT HOSPICE. CM FAXED HOSPITAL UPDATE TO [facility] VIS JENNIFER AT [phone]. CM RECEIVED NOTICE FROM JENNIFER THAT PT'S INSURANCE HAS APPROVED SKILLED REHAB AT [facility]. PT NOTIFIED AND IN AGREEMENT WITH DISCHARGE TO [facility], IMPORTANT MESSAGE FROM MEDICARE PROVIDED AND DISCUSSED. OPTOMECHANICAL ENGINEER NURSE AND BARBARA BRO NOTIFIED. FOR DISCHARGE, FAX DISCHARGE INFORMATION TO [facility] AT [phone]. NURSE REPORT TO BE CALLED TO [facility] AT [phone]. [facility] TO ARRANGE VAN TRANSPORTATION. Automobile Tester: Cornel Portillo Appended by Cornel Portillo on 04/22/2018 15:10 MANAGER OCCUPATIONAL: CM RECEIVED DISCHARGE ORDER, NOTIFIED CHARLES OWENS VIA PHONE WHO REPORTS BEING IN PT'S ROOM AND WANTS TO SEE THE DOCTOR REGARDING PT'S CONFUSION. CM NOTIFIED BARBARA BRO OF FAMILY REQUEST. CM FAXED DISCHARGE INFORMATION TO [facility] AT [phone]. OPTOMECHANICAL ENGINEER NURSE NOTIFIED. NURSE REPORT TO BE CALLED TO [facility] AT [phone]. [facility] TO ARRANGE VAN TRANSPORTATION FOR 4PM TODAY. Automobile Tester: Cornel Portillo DCP- Discharge Planning Updated by [id number]: Cornel Portillo on 04/22/18 7:[address] Patient Name: DEONTE OWENS Encounter No: [id number] : 1935 Primary Insurance: AETNA MEDICARE PPO or HMO Anticipated DC Date: 04-22-2018 Planned Disposition: Group Home Facility External Planned Provider: [facility], MEDICARE REHAB BED Discharge Planning Comments: CM NOTIFIED JENNIFER, CLINICAL LIAISON FOR [facility], , THAT PT IS READY FOR DC TODAY AND WANTS REHAB AT [facility]. CM FAXED HOSPITAL UPDATE TO [facility] VIS JENNIFER AT [phone]. CM WAITING INSURANCE AUTHORIZATION FOR REHAB AT [facility]. FOR DISCHARGE, FAX DISCHARGE INFORMATION TO [facility] AT [phone]. NURSE REPORT TO BE CALLED TO [facility] AT [phone]. Automobile Tester: Cornel Portillo DCP- Discharge Planning Updated by [email or web address]: Rola Nails on 04/21/18 3:[address] On 04/20/18 patient states he wants to discharge to [facility]. CM obtained Patient Choice and faxed required information to [facility]. IMM signed. 04/21/18 order for patient to go [facility] at discharge. Patient Choice signed. Patient's insurance requires prior authorization before he can be admitted there. Patient has changed his mind about place of disposition several times. Required information faxed. Rola Nails RN, CM DCP- Discharge Planning Updated by [id number]: Cornel Portillo on 04/19/18 7:[address] Patient Name: DEONTE OWNES Encounter No: [id number] : 1935 Primary Insurance: AETNA MEDICARE PPO or HMO Anticipated DC Date: 04-18-2018 Planned Disposition: Hospice Home External Planned Provider: [facility] DCP follow-up note: CM FAXED UPDATE TO KALYANI OF [facility] AT [phone]. IF PT DECIDES FOR CONTINUED REHAB AT [facility], HIS INSURANCE REQUIRES PRIOR AUTHORIZATION FOR SERVICES. CM WAITING PT TO DECIDE IF HE WANTS REHAB SERVICES AT [facility] OR HOME HOSPICE WITH [facility]. CM WILL CONTINUE TO FOLLOW AND ASSIST IF NEEDED. HEATHER CALDERON MANAGEMENT DCP- Discharge Planning Updated by [id number]: Cornel Portillo on 04/18/18 11:[address] Patient Name: DEONTE OWENS Encounter No: [id number] : 1935 Primary Insurance: AETNA MEDICARE PPO or HMO Anticipated DC Date: 04-18-2018 Planned Disposition: Hospice Home External Planned Provider: [facility] DCP follow-up note: CM RECEIVED CALL FROM DIGNA OF [facility] WHO REPORTS THAT THEY HAVE EVALUATED PT LAST NIGHT AND PT HAS ASKED FOR HOSPICE AT HOME, THEY ARE IN PROCESS OF DELIVERY MEDICAL EQUIPMENT TODAY TO HOME. DIGNA WILL CALL CM WHEN THEY ARE COMPLETED WITH MEDICAL EQUIPMENT DELIVERY AND READY TO ADMIT PT AT HOME TODAY. CM SPOKE TO PT IN ROOM. PT REPORTS HE HAS DISCUSSED HOSPICE WITH HIS DOCTOR, SON AND OPTED FOR [facility] AT HOME. THEY ARE SETTING UP EQUIPMENT FOR PT TO DISCHARGE TODAY FOR HOME HOSPICE. PT SIGNED CONSENT FOR HOME HOSPICE WITH [facility]. IMPORTANT MESSAGE FROM MEDICARE PROVIDED AND EXPLAINED. CM WAITING ON MEDICAL EQUIPMENT DELIVERY COMPLETION FOR HOME HOSPICE WITH [facility]. CM TO CONTINUE TO FOLLOW AND ASSIST NEEDED. Cornel Portillo, CASE MANAGEMENT Appended by Cornel Portillo on 04/18/2018 12:03 MANAGER OCCUPATIONAL: MARY SPOKE TO PT'S SON, CHARLES, WHO INFORMED CM THAT HE (CHARLES), WOULD LIKE TO WAIT AND SEE IF PT WILL IMPROVE AND GO TO REHAB AT [facility] AND IF HE DOESN'T, THEN HOME WITH [facility]. MARY SPOKE TO DIGNA OF [facility] WHO HAD MET WITH PT AND CAREGIVER IN ROOM, PT IS NOW WANTING TO THINK ABOUT HOSPICE AND HAS NOT MADE FIRM DECISION AT THIS TIME. CM WAITING PT TO DECIDE IF HE WANTS REHAB SERVICES AT [facility] OR HOME HOSPICE WITH [facility]. HEATHER CALDERON DCP- Discharge Planning Updated by [id number]: Valarie Trinidad on 04/17/18 2:[address] SPOKE WITH MIR Lowry CM WITH ANNA MARIE. .QUESTIONED IF THE PATIENT HAS HOSPICE BENEFITS. EXPLAINED THAT HE HAS TAKEN A TURN FOR THE WORSE AND NOW THE SON JUST WANTS TO TAKE HIM HOME WITH HOSPICE. SHE STATED THAT IF THEY CHOOSE THAT OPTION, THEN HIS PLAN WILL REVERT BACK TO THE REGULAR FEDERAL MEDICARE AND HE WILL HAVE THAT HOSPICE BENEFIT. I THANKED HER FOR HER TIME AND EXPLAINED THAT IF THAT IS THE ROAD WE ARE VENTURING DOWN FOR SURE, I WOULD CALL BACK AND LET HER KNOW. DCP- Discharge Planning Updated by [id number]: Cornel Portillo on 04/15/18 1:[address] Patient Name: DEONTE OWENS Encounter No: [id number] : 1935 Primary Insurance: AETNA MEDICARE PPO or HMO Anticipated DC Date: 04-16-2018 Planned Disposition: Group Home Facility External Planned Provider: [facility], MEDICARE REHAB BED Discharge Planning Comments: CM NOTIFIED JENNIFER CLINICAL LIAISON FOR [facility], , THAT PT IS HAVING PROCEDURE TODAY. CM FAXED HOSPITAL UPDATE TO [facility]IS [facility] AT [phone]. FOR DISCHARGE, FAX DISCHARGE INFORMATION TO [facility] AT [phone]. NURSE REPORT TO BE CALLED TO [facility] AT [phone]. Automobile Tester: Cornel Portillo DCP- Discharge Planning Updated by [id number]: Cornel Portillo on 04/15/18 8:[address] Patient Name: DEONTE OWENS Encounter No: [id number] : 1935 Primary Insurance: AETNA MEDICARE PPO or HMO Anticipated DC Date: 04-12-2018 Planned Disposition: [facility], MEDICARE REHAB BED Discharge Planning Comments: CM RECEIVED MESSAGE FROM JENNIFER CLINICAL LIAISON FOR [facility], , INSURANCE AUTHORIZATION RECEIVED FOR ADMISSION TO REHAB AT [facility]. FOR DISCHARGE, FAX DISCHARGE INFORMATION TO [facility] AT [phone]. NURSE REPORT TO BE CALLED TO [facility] AT [phone]. Automobile Tester: Cornel Portillo DCP- Discharge Planning Updated by [id number]: Cornel Portillo on 04/11/18 3:[address] Patient Name: DEONTE OWENS Admission Status: ER Accout number: [id number] Admission Date: 04-08-2018 : 1935 Admission Diagnosis:SHORTNESS OF BREATH Attending: ALMAZ ALEXANDER Current LOS: 3 Anticipated DC Date: 04-12-2018 Planned Disposition: Group Home Facility Primary Insurance: AETNA MEDICARE PPO or HMO PLANNED EXTERNAL PROVIDER: [facility], MEDICARE REHAB BED Discharge Planning Comments: CM MET WITH PT IN ROOM TO DISCUSS DISCHARGE PLANNING AND NEEDS. PT REPORTS LIVING AT HOME INDEPENDENTLY AND ALONE. PT HAD PRIVATE CAREGIVING SERVICES AT HOME FROM [facility] [employer] ON MONDAYS AND FOR 2 HOURS PER DAY. PT WAS DISCHARGED AFTER LAST HOSPITAL STAY TO [facility] FOR REHAB AND IF DECLINED BY INPATIENT REHAB, PT UNDERSTANDS HIS INSURANCE HAS TO APPROVE. PT WANTS TO RETURN THERE FOR CONTINUED REHAB. PT HAS A ROLLING WALKER AT HOME WITH NO MEDICAL EQUIPMENT PROVIDER PREFERENCE. IMPORTANT MESSAGE FROM MEDICARE PROVIDED AND EXPLAINED. CM REVIEWED INPATIENT REHAB NOTES AND CALLED ERICKA WHO ADVISED THAT PT HAS NOT PROGRESSED WITH THERAPY SINCE LAST HOSPITAL STAY AND IS APPROPRIATE FOR LONG-TERM REHAB RETURN. CM NOTIFIED PT WHO IS IN AGREEMENT WITH DISCHARGE BACK TO [facility] FOR CONTINUED REHAB. CM CALLED JENNIFER, CLINICAL LIAISON FOR [facility], , ASKED FOR ASSESSMENT FOR REHAB ADMISSION. CM FAXED REFERRAL TO [facility] VIA JENNIFER AT [phone]. CM WAITING INSURANCE AUTHORIZATION FROM PT'S INSURANCE FOR ADMISSION BACK TO REHAB AT [facility]. Automobile Tester: Cornel Portillo DCPIA - Discharge Planning Initial Assessment Updated by [id number]: Cornel Portillo on 04/18/18 11:19 am * Is the patient Alert and Oriented? Yes * How many steps to enter\exit or inside your home? NONE * PCP NONE * Pharmacy [facility] * Preadmission Environment Group Home Facility * Facility Name [facility] * ADLs Partial Dependent * Partial ADLs (Assistance needed) Ambulation Bathing Medication Management Transfers * Equipment Rolling Walker * Other Equipment ROLLING WALKER AT HOME [facility] CURRENTLY PROVIDING EQUIPMENT FOR REHAB SERVICES IN FACILITY * List name and contact numbers for known caregivers / representatives who currently or will assist patient after discharge: CYN KOENIG, CAREGIVER, CHARLES OWENS, SON, * Verbal permission to speak to the caregivers and representatives has been obtained from the patient. Yes * Community resources currently utilized None * Please name any agencies selected above. NONE * Additional services required to return to the preadmission environment? No * Can the patient safely return to the preadmission environment? Yes * Has this patient been hospitalized within the prior 30 days at any hospital? Yes Coverage Notice Reviewer: VIVIANA Portillo Notice Issued Date-Time: 04/11/2018 13:10 Notice Type: IM Discharge Notice Notice Delivered To: Patient Relationship to Patient: Leaf Sticker Name: Delivery Method: HAND - Hand Delivered Lidya Days: Prior Verbal Notification: Recipient Understood Notice: Yes Recipient Signature: Yes Med Rec Note Co-signed by Attending: Coverage Notice Comment: Reviewer: VIVIANA Portillo Notice Issued Date-Time: 04/18/2018 9:35 Notice Type: Patient Choice Letter Notice Delivered To: Patient Relationship to Patient: Leaf Sticker Name: Delivery Method: HAND - Hand Delivered Lidya Days: Prior Verbal Notification: Recipient Understood Notice: Yes Recipient Signature: Yes Med Rec Note Co-signed by Attending: Coverage Notice Comment: [facility] Reviewer: VIVIANA Portillo Notice Issued Date-Time: 04/18/2018 9:35 Notice Type: IM Discharge Notice Notice Delivered To: Patient Relationship to Patient: Leaf Sticker Name: Delivery Method: HAND - Hand Delivered Lidya Days: Prior Verbal Notification: Recipient Understood Notice: Yes Recipient Signature: Yes Med Rec Note Co-signed by Attending: Coverage Notice Comment: Reviewer: [email or web address] Nails Notice Issued Date-Time: 04/20/2018 17:51 Notice Type: IM Admission Notice Notice Delivered To: Patient Relationship to Patient: Self Leaf Sticker Name: Deonte Owens Delivery Method: - Lidya Days: Prior Verbal Notification: Recipient Understood Notice: Recipient Signature: Med Rec Note Co-signed by Attending: Coverage Notice Comment: Reviewer: [id number] Nails Notice Issued Date-Time: 04/21/2018 17:51 Notice Type: Patient Choice Letter Notice Delivered To: Patient Relationship to Patient: Self Leaf Sticker Name: Deonte Owens Delivery Method: - Lidya Days: Prior Verbal Notification: Recipient Understood Notice: Recipient Signature: Med Rec Note Co-signed by Attending: Coverage Notice Comment: Reviewer: [id number] - Cornel Portillo Notice Issued Date-Time: 04/22/2018 13:05 Notice Type: IM Discharge Notice Notice Delivered To: Patient Relationship to Patient: Leaf Sticker Name: Delivery Method: HAND - Hand Delivered Lidya Days: Prior Verbal Notification: Recipient Understood Notice: Yes Recipient Signature: Yes Med Rec Note Co-signed by Attending: Coverage Notice Comment: Last DP export: 04/22/18 2:16 p Patient Name: DEONTE OWENS Page 52934 at 1617 All edits/amendments must be made on the electronic document DICTATION DATE: 04/22/181616 POLE PEELER: [place] 04/22/181616 RPT#: [id number] DC DATE: STATUS: ADM IN [facility] [address] [place] [address] END OF REPORT
[2018-04-23 14:18] LABS: ANCA - ANTIMYELOPEROXIDASE <9.0 U/mL (0.0-9.0); ANCA - ANTIPROTEINASE 3 <3.5 U/mL (0.0-3.5); ANCA - ATYPICAL <1:20 titer (Neg:<1:20); ANCA - CYTOPLASMIC <1:20 titer (Neg:<1:20); ANCA - PERINUCLEAR <1:20 titer (Neg:<1:20)
== END 2018-04-22 17:09 | DRG 291 ==
LOC: D.ER 13:02 → D.M2 19:02 → D.EDHOLD 19:02 → D.M2 23:11
PROVIDERS: Family Medicine; Internal Medicine Pulmonary Disease; Radiology Diagnostic Radiology; Specialist; ADMIT Internal Medicine Nephrology
PROC: 5A09457 Assistance with Respiratory Ventilation, 24-96 Consecutive Hours, Continuous Positive Airway Pressure (ICD-10-PCS; principal; 2018-04-17)
DX: I11.0 Hypertensive heart disease with heart failure (principal); J96.01 Acute respiratory failure with hypoxia; J69.0 Pneumonitis due to inhalation of food and vomit; N17.9 Acute kidney failure, unspecified; I50.23 Acute on chronic systolic (congestive) heart failure; E78.5 Hyperlipidemia, unspecified; I25.10 Atherosclerotic heart disease of native coronary artery without angina pectoris; I48.0 Paroxysmal atrial fibrillation; M54.9 Dorsalgia, unspecified; G89.29 Other chronic pain; I08.1 Rheumatic disorders of both mitral and tricuspid valves; T46.2X5A Adverse effect of other antidysrhythmic drugs, initial encounter; I27.20 Pulmonary hypertension, unspecified; Z86.73 Personal history of transient ischemic attack (TIA), and cerebral infarction without residual deficits

== ENCOUNTER 2018-04-23 16:43 | Inpatient (IN) | payer MEDICARE ==
[~2018-04-23] VITALS: Ht 182.9 cm; Wt 68.0 kg
[2018-04-23 17:32] LABS: BASOPHILS 0.2 % (0-2); EOSINOPHILS 0 % (0-7); HEMATOCRIT 39.5 % (42.0-54.0); HEMOGLOBIN 12.4 g/dL (13.5-17.5); IMMATURE GRANULOCYTES 0.5 % (0-5); LYMPHOCYTES 9.8 % (15-50); MCH 28.4 pg (26.0-34.0); MCHC 31.4 g/dL (31.0-37.0); MCV 90.6 fL (80.0-100.0); MEAN PLATELET VOLUME 10.7 fL (7.4-10.4); MONOCYTES 7.4 % (2-11); NEUTROPHILS 82.1 % (40-80); RBC 4.36 10x6/uL (4.20-6.10); RDW 16.1 % (11.5-14.5)
[2018-04-23 17:33] LABS: PLATELET COUNT 251 10x3/uL (130-400); WBC 10.3 10x3/uL (4.8-10.8)
[2018-04-23 17:42] LABS: INR 1.49 (0.85-1.17); PROTIME 17.4 SECONDS (11.6-15.0)
[2018-04-23 17:43] LABS: APTT 33.3 SECONDS (22.8-39.4)
[2018-04-23 17:48] LABS: ALBUMIN 2.5 g/dL (3.4-5.0); ALKALINE PHOSPHATASE 103 U/L (46-116); ALT (SGPT) 63 U/L (10-68); CALC OSMOLALITY 290 mosm/kg (275-300); CARBON DIOXIDE 29.3 mmol/L (21.0-32.0); CHLORIDE - SERUM 101 mmol/L (98-107); CREATININE - SERUM 1.6 mg/dL (0.6-1.3); GLUCOSE 140 mg/dL (74-106); POTASSIUM - SERUM 3.9 mmol/L (3.5-5.1); PROTEIN - SERUM 6.6 g/dL (6.4-8.2); SODIUM 139 mmol/L (136-145); UREA NITROGEN 42 mg/dL (7-18); eGFR NON AFRICAN AMERICAN 44 mL/min (90-120)
[2018-04-23 17:55] LABS: CKMB 5.9 U/L (0.0-3.6); CREATINE KINASE 68 UL (21-232); MAGNESIUM - SERUM 2.1 mg/dL (1.8-2.4); THYROID STIMULATING HORMONE 2.14 uIU/mL (0.36-3.74)
[2018-04-23 18:04] LABS: TROPONIN-I 0.222 ng/mL (0.000-0.060)
[2018-04-23 18:27] LABS: PRO BNP 216270 pg/mL (0-450)
--- NOTE | 2018-04-23 19:06 | NUR ---
URINE COLLECTED BY NURSE AND SENT TO LAB.
[2018-04-23 20:27] LABS: UDS - AMPHET NEGATIVE QUAL (NEGATIVE); UDS - BARB NEGATIVE QUAL (NEGATIVE); UDS - BENZO NEGATIVE QUAL (NEGATIVE); UDS - COCAINE NEGATIVE QUAL (NEGATIVE); UDS - OPIATE NEGATIVE QUAL (NEGATIVE); UDS - PCP NEGATIVE QUAL (NEGATIVE); UDS - THC NEGATIVE QUAL (NEGATIVE)
[2018-04-23 20:30] LABS: APPEARANCE CLEAR (CLEAR); BILIRUBIN NEGATIVE (NEGATIVE); COLOR YELLOW (YELLOW); GLUCOSE NEGATIVE (NEGATIVE); KETONE NEGATIVE (NEGATIVE); NITRITE NEGATIVE (NEGATIVE); PROTEIN NEGATIVE (NEGATIVE); UROBILINOGEN NORMAL (NORMAL)
[2018-04-23 21:40] LABS: CREATINE KINASE 53 UL (21-232)
[2018-04-23 21:49] LABS: TROPONIN-I 0.231 ng/mL (0.000-0.060)
--- NOTE | 2018-04-23 22:50 | NUR ---
REPORT GIVEN TO [facility], PATIENT GOING TO RM [id number].
--- NOTE | 2018-04-23 23:07 | NUR ---
[facility] 1 GM IVPB GIVEN IN ERROR, MEDICATION HAD ALREADY BEEN GIVEN. CHARGE NURSE NOTIFIED.
--- NOTE | 2018-04-24 00:05 | NUR ---
WHEN ROUNDING ON PATIENT PATIENT FOUND WITH VENTI MASK DOWN AROUND HIS NECK. PLACED VENTI MASK BACK TO THE APPROPRIATE PLACEMENT AND CHECKED PATIENT O2 SAT OF 81%. WAITED 5 MINUTES WITH MASK ON RECHECKED O2 PATIENT O2 STAT 93%. CHARGE NURSE AWARE.
[2018-04-24 00:26] VITALS: BP 120/68; BMI 20.3
[2018-04-24] MEDS ORDERED: LASIX40 MG PO (01:20)
[2018-04-24] MEDS ORDERED: IPRAT-ALBUT 0.5-3 ML UPD (01:21)
--- NOTE | 2018-04-24 01:58 | NUR ---
WHEN ROUNDING ON PATIENT FOUND PATIENT WITH VENTI MASK DOWN AROUND HIS NECK. REPLACED MASK AND CHECKED O2 PATIENT STATING AT 78%. WAITED 5 MINUTES RECHECK PATIENT O2 PATIENT STATING AT 91%. CHARGE NURSE AWARE. SPOKE WITH RT ON IDEAS TO KEEP MASK IN PLACE.
--- NOTE | 2018-04-24 02:50 | NUR ---
CALLED AND SPOKE WITH DR. ALEXANDER. NEW ORDERS GIVEN BUMEX 2 MG IV. 5 MG GEODON IM. CBC AND BMP IN AM
[2018-04-24 03:04] LABS: BASOPHILS 0.1 % (0-2); EOSINOPHILS 0.3 % (0-7); HEMATOCRIT 35.4 % (42.0-54.0); HEMOGLOBIN 11.1 g/dL (13.5-17.5); IMMATURE GRANULOCYTES 0.4 % (0-5); LYMPHOCYTES 7.5 % (15-50); MCH 28.2 pg (26.0-34.0); MCHC 31.4 g/dL (31.0-37.0); MCV 90.1 fL (80.0-100.0); MEAN PLATELET VOLUME 10.2 fL (7.4-10.4); MONOCYTES 6.6 % (2-11); NEUTROPHILS 85.1 % (40-80); PLATELET COUNT 216 10x3/uL (130-400); RBC 3.93 10x6/uL (4.20-6.10); RDW 16.1 % (11.5-14.5); WBC 11.1 10x3/uL (4.8-10.8)
--- NOTE | 2018-04-24 03:24 | NUR ---
WAITING ON FIBRE CEMENT MOULDER TO PULL NETO OUT OF PYXIS.
[2018-04-24 03:37] LABS: ALBUMIN 2.3 g/dL (3.4-5.0); ALKALINE PHOSPHATASE 93 U/L (46-116); ALT (SGPT) 59 U/L (10-68); BILIRUBIN - TOTAL 0.88 mg/dL (0.2-1.3); CALC OSMOLALITY 296 mosm/kg (275-300); CALCIUM 7.8 mg/dL (8.5-10.1); CARBON DIOXIDE 32.5 mmol/L (21.0-32.0); CHLORIDE - SERUM 103 mmol/L (98-107); CKMB 4.9 U/L (0.0-3.6); CREATINE KINASE 46 UL (21-232); CREATININE - SERUM 1.5 mg/dL (0.6-1.3); GLUCOSE 101 mg/dL (74-106); POTASSIUM - SERUM 3.1 mmol/L (3.5-5.1); PROTEIN - SERUM 6.1 g/dL (6.4-8.2); SODIUM 144 mmol/L (136-145); UREA NITROGEN 40 mg/dL (7-18); eGFR NON AFRICAN AMERICAN 47 mL/min (90-120)
[2018-04-24 03:38] LABS: TROPONIN-I 0.222 ng/mL (0.000-0.060)
[2018-04-24 04:00] VITALS: BP 120/68
--- NOTE | 2018-04-24 04:01 | NUR ---
HELD ONE TIME DOSE OF BUMEX. D/T PATIENT GETTING SCHEDULED LASIX AT 0430.
--- NOTE | 2018-04-24 05:10 | NUR ---
ROUNDED ON PATIENT. PATIENT WAS FOUND WITH VENTI MASK OFF. PLACED VENTI MASK BACK ON. PATIENT NOW STATING AT 90%. AOC AIRSPACE CONTROL OFFICER AND CHARGE NURSE AWARE.
--- NOTE | 2018-04-24 05:34 | NUR ---
SPOKE WITH KENNEL STAFF MEMBER REGARDING PATIENT CONTINUING TO TAKE OFF VENTI MASK. SHE WANTED ME TO CONTACT FAMILY. ATTEMPTED TO CALL SON CHARLES DALE HIS NUMBER IS NO LONGER IN SERVICE AND CYN KOENIG UNABLE TO GET THROUGH WITH THE NUMBER THAT IS LISTED. ATTEMPTING TO CONTACT SIRIA TONEY TO SEE IF THERE ARE OTHER NUMBERS.
--- NOTE | 2018-04-24 05:57 | NUR ---
CALLED SIRIA TONEY REGARDING PT INFORMATION. SPOKE WITH LALITA FIRST, HE STATED THAT HE HADNT ACUTALLY SEEN THE RESIDENT. INFORMED ME THAT THE RESIDENT HADNT BEEN THERE VERY LONG, AND WAS A NEW RESIDENT YESTERDAY. LALITA GAVE ME PT CONTACT NUMBERS, THEN I ASKED IF THERE WAS ANYONE I COULD SPEAK WITH THAT HAD DONE PT CARE WITH THE RESIDENT AND COULD GIVE ME HIS BASELINE. SECOND, SPOKE WITH GENEVA. SHE INFORMED ME THAT PT WAS ALERT YESTERDAY BUT CONFUSED AND HALLUCINATING. SHE SAID THAT HE WAS GOTTEN UP TO DINNER AND ON A MECHANICAL SOFT DIET. SHE ALSO STATED THAT HE WAS GIVEN 40 MG OF LASIX TWICE DUE TO FLUID ON HIS LUNGS, AND 4L 02 VIA NC. SHE NOTED THAT HE HAD A CPAP THAT HE REFUSED TO KEEP ON AT NIGHT. NO FURTHER CONCERNS AT THIS TIME. WILL CPOC.
--- NOTE | 2018-04-24 06:20 | NUR ---
CALLED AND SPOKE WITH SON. SON STATED THAT HE WOULD BE HERE IN ABOUT AND HOUR TO SIT WITH HIS FATHER. WILL INFORM ON COMING NURSE.
--- NOTE | 2018-04-24 08:07 | NUR ---
INITIAL ROUNDING, PATIENT RESTING WITH EYES CLOSED, VENTI MASK IN PLACE, NO S/S OF DISTRESS NOTED. THE SON, DIGNA CALLED AND SAID HE WOULD BE HERE SOON POSSIBLE
[2018-04-24 08:15] VITALS: BP 114/55
[2018-04-24 09:41] LABS: CALC OSMOLALITY 299 mosm/kg (275-300); CALCIUM 7.5 mg/dL (8.5-10.1); CARBON DIOXIDE 34.5 mmol/L (21.0-32.0); CHLORIDE - SERUM 106 mmol/L (98-107); CKMB 4.3 U/L (0.0-3.6); CREATINE KINASE 44 UL (21-232); CREATININE - SERUM 1.5 mg/dL (0.6-1.3); GLUCOSE 84 mg/dL (74-106); POTASSIUM - SERUM 3.1 mmol/L (3.5-5.1); SODIUM 147 mmol/L (136-145); UREA NITROGEN 37 mg/dL (7-18); eGFR NON AFRICAN AMERICAN 47 mL/min (90-120)
[2018-04-24 09:44] LABS: TROPONIN-I 0.192 ng/mL (0.000-0.060)
--- NOTE | 2018-04-24 11:31 | MORECARE ---
CASE MANAGEMENT DISCHARGE SUMMARY PATIENT: DEONTE DALE UNIT: [id number] ADM DATE: 04/23/18 AGE: 83 : 33 SEX: M ROOM/BED: D.2129 AUTHOR: GATITO SARAVIA PHYSICIAN: REFERRING PHYSICIAN: ALMAZ ALEXANDER MD DATE OF SERVICE: 04/24/18 Discharge Plan Patient Name: DEONTE DALE Facility: [facility]:[place] : 1935 Planned Disposition: Hospice Medical Facility Anticipated Discharge Date: 04/24/18 Discharge Date: Expected LOS: 1 Initial Reviewer: [id number] Initial Review Date: 04/24/2018 Generated: 04/24/18 12:31 pm Patient Name: DEONTE DALE Page 56725 at 1131 All edits/amendments must be made on the electronic document DICTATION DATE: 04/24/18 1131 GAS TURBINE MECHANIC: [place] 04/24/18 1131 RPT#: [id number] DC DATE: STATUS: ADM IN [facility] [address] [place] [address] END OF REPORT
--- NOTE | 2018-04-24 11:39 | MORECARE ---
CASE MANAGEMENT DISCHARGE SUMMARY PATIENT: DEONTE DALE UNIT: [id number] ADM DATE: 04/23/18 AGE: 83 : 33 SEX: M ROOM/BED: D.5079 AUTHOR: GATITO SARAVIA PHYSICIAN: REFERRING PHYSICIAN: ALMAZ ALEXANDER MD DATE OF SERVICE: 04/24/18 Discharge Plan Patient Name: DEONTE DALE Facility: [facility]:[place] : 1935 Planned Disposition: Hospice Medical Facility Anticipated Discharge Date: 04/24/18 Discharge Date: Expected LOS: 1 Initial Reviewer: [email or web address] Initial Review Date: 04/24/2018 Generated: 04/24/18 12:39 pm DCPIA - Discharge Planning Initial Assessment Updated by [id number]: Cornel Portillo on 04/24/18 11:32 am * Is the patient Alert and Oriented? Yes * How many steps to enter\exit or inside your home? NONE * PCP NONE * Pharmacy [facility] * Preadmission Environment Custodial Facility * Facility Name [facility] * ADLs Partial Dependent * Partial ADLs (Assistance needed) Ambulation Bathing Dressing Medication Management Toileting Transfers * Equipment Other * Other Equipment ALL MEDICAL EQUIPMENT PROVIDED BY [facility] * List name and contact numbers for known caregivers / representatives who currently or will assist patient after discharge: CHARLES DALE, SON, * Verbal permission to speak to the caregivers and representatives has been obtained from the patient. Yes * Community resources currently utilized None * Please name any agencies selected above. NONE * Additional services required to return to the preadmission environment? Yes * Can the patient safely return to the preadmission environment? Yes * Has this patient been hospitalized within the prior 30 days at any hospital? Yes Last DP export: 04/24/18 10:31 a Patient Name: DEONTE DALE Page 65892 at 1139 All edits/amendments must be made on the electronic document DICTATION DATE: 04/24/18 1138 BRUSH HEAD MAKER: [place] 04/24/18 1138 RPT#: [id number] DC DATE: STATUS: ADM IN [facility] [address] [place] [address] END OF REPORT
[2018-04-24 11:52] VITALS: BP 118/61
--- NOTE | 2018-04-24 11:54 | MORECARE ---
CASE MANAGEMENT DISCHARGE SUMMARY PATIENT: DEONTE DALE UNIT: [id number] ADM DATE: 04/23/18 AGE: 83 : 33 SEX: M ROOM/BED: D.7297 AUTHOR: GATITO SARAVIA PHYSICIAN: REFERRING PHYSICIAN: ALMAZ ALEXANDER MD DATE OF SERVICE: 04/24/18 Discharge Plan Patient Name: DEONTE DALE Facility: [facility]:[place] : 1935 Planned Disposition: Hospice Medical Facility Anticipated Discharge Date: 04/24/18 Discharge Date: Expected LOS: 1 Initial Reviewer: [email or web address] Initial Review Date: 04/24/2018 Generated: 04/24/18 12:53 pm Comments DCP- Discharge Planning Updated by [id number]: Corenl Portillo on 04/24/18 10:[address] Patient Name: DEONTE DALE Admission Status: ER Accout number: [id number] Admission Date: 04-23-2018 : 1935 Admission Diagnosis: Attending: ALMAZ ALEXANDER Current LOS: 1 Anticipated DC Date: 04-24-2018 Planned Disposition: Hospice Medical Facility Primary Insurance: AETNA MEDICARE PPO or HMO PLANNED EXTERNAL PROVIDER: [facility] Discharge Planning Comments: CM MET WITH PT AND SON IN ROOM TO DISCUSS DISCHARGE PLANNING AND NEEDS. DEONTE DALE provided verbal consent to discuss current and ongoing needs with/in the presence of: CHARLES, SON. PT WAS JUST AT [facility] FOR REHAB, SENT BACK BECAUSE OF WOSENING OXYGEN STATUS. PT REPORTS HE COULD NOT BREATHE. PT'S SON NOW WANTS HOSPICE AND WOULD LIKE PT EVALUATED FOR INPATIENT HOSPICE WITH [facility]. PT'S SON HAS ALSO CALLED HOSPICE HOME CARE TO DISCUSS THERE PALLIATIVE CARE PROGRAM. PT REMOVED HIS OXYGEN MASK AND STATED "I AM AWAKE AND HAVE BEEN LISTENING....WHAT YOU ARE SAYING IS THAT I'M AT THE END OF THE LINE." PT STATES HE DID NOT LIKE [facility] AND WANTS TO STAY "HERE". PT DOES WANT HOSPICE CARE. PT'S SON REPORTS THAT HE WOULD PREFER INPATIENT HOSPICE WITH [facility] AND MAY HAVE TO ARRANGE HOME OR INTERMEDIATE HOSPICE AT [place] IF PT DOES NOT QUALIFY FOR INPATIENT HOSPICE. CM CALLED AND SPOKE TO DIGNA MAK OF [facility], , NOTIFIED PT PT'S PRESENCE IN HOSPITAL AND OF PT AND FAMILY DESIRE FOR HOSPICE. CM FAXED HOSPICE ORDER AND REFERRAL TO [facility] AT [phone]. CM WAITING HOSPICE EVALUATION AND ADMIT DETERMINATION FROM [facility]. Dna Analyst: Cornel Portillo DCPIA - Discharge Planning Initial Assessment Updated by [id number]: Cornel Portillo on 04/24/18 11:32 am * Is the patient Alert and Oriented? Yes * How many steps to enter\\exit or inside your home? NONE * PCP NONE * Pharmacy [facility] * Preadmission Environment Group Home Facility * Facility Name [facility] * ADLs Partial Dependent * Partial ADLs (Assistance needed) Ambulation Bathing Dressing Medication Management Toileting Transfers * Equipment Other * Other Equipment ALL MEDICAL EQUIPMENT PROVIDED BY [facility] * List name and contact numbers for known caregivers / representatives who currently or will assist patient after discharge: CHARLES DALE, SON, * Verbal permission to speak to the caregivers and representatives has been obtained from the patient. Yes * Community resources currently utilized None * Please name any agencies selected above. NONE * Additional services required to return to the preadmission environment? Yes * Can the patient safely return to the preadmission environment? Yes * Has this patient been hospitalized within the prior 30 days at any hospital? Yes External Providers External Provider: [facility] Next Contact Date: 04/24/2018 Service Request Date: Service Type: Resolution: Reviewer: Comments: Last DP export: 04/24/18 10:39 a Patient Name: DEONTE DALE Page 76821 at 1154 All edits/amendments must be made on the electronic document DICTATION DATE: 04/24/181152 DIRECT SERVICE PROVIDER: [place] 04/24/181152 RPT#: [id number] DC DATE: STATUS: ADM IN [facility] [address] [facility] [place] [address] END OF REPORT
[2018-04-24 12:54] VITALS: Ht 182.9 cm; Wt 68.0 kg
[2018-04-24 15:26] VITALS: BP 114/53
--- NOTE | 2018-04-24 17:21 | MORECARE ---
CASE MANAGEMENT DISCHARGE SUMMARY PATIENT: DEONTE DALE UNIT: [id number] ADM DATE: 04/23/18 AGE: 83 : 33 SEX: M ROOM/BED: D.7210 AUTHOR: GATITO SARAVIA PHYSICIAN: REFERRING PHYSICIAN: ALMAZ ALEXANDER MD DATE OF SERVICE: 04/24/18 Discharge Plan Patient Name: DEONTE DALE Facility: [facility]:[place] : 1935 Planned Disposition: Hospice Medical Facility Anticipated Discharge Date: 04/24/18 Discharge Date: Expected LOS: 1 Initial Reviewer: [id number] Initial Review Date: 04/24/2018 Generated: 04/24/18 6:21 pm Comments DCP- Discharge Planning Updated by [id number]: Cornel Freeman on 04/24/18 4:[address] Patient Name: DEONTE DALE Admission Status: ER Accout number: [id number] Admission Date: 04-23-2018 : 1935 Admission Diagnosis: Attending: ALMAZ ALEXANDER Current LOS: 1 Anticipated DC Date: 04-24-2018 Planned Disposition: Hospice Medical Facility Primary Insurance: [employer] MEDICARE PPO or HMO PLANNED EXTERNAL PROVIDER: [facility] Discharge Planning Comments: CM MET WITH PT AND SON IN ROOM TO DISCUSS DISCHARGE PLANNING AND NEEDS. DEONTE DALE provided verbal consent to discuss current and ongoing needs with/in the presence of: CHARLES, SON. PT WAS JUST AT [facility] FOR [facility], SENT BACK BECAUSE OF WOSENING OXYGEN STATUS. PT REPORTS HE COULD NOT BREATHE. PT'S SON NOW WANTS HOSPICE AND WOULD LIKE PT EVALUATED FOR INPATIENT HOSPICE WITH [facility]. PT'S SON HAS ALSO CALLED HOSPICE HOME CARE TO DISCUSS THERE PALLIATIVE CARE PROGRAM. PT REMOVED HIS OXYGEN MASK AND STATED "I AM AWAKE AND HAVE BEEN LISTENING....WHAT YOU ARE SAYING IS THAT I'M AT THE END OF THE LINE." PT STATES HE DID NOT LIKE [facility] AND WANTS TO STAY "HERE". PT DOES WANT HOSPICE CARE. PT'S SON REPORTS THAT HE WOULD PREFER INPATIENT HOSPICE WITH [facility] AND MAY HAVE TO ARRANGE HOME OR [facility] [place] IF PT DOES NOT QUALIFY FOR INPATIENT HOSPICE. CM CALLED AND SPOKE TO DIGNA MAK OF [facility], , NOTIFIED PT PT'S PRESENCE IN HOSPITAL AND OF PT AND FAMILY DESIRE FOR HOSPICE. CM FAXED HOSPICE ORDER AND REFERRAL TO [facility] AT [phone]. CM WAITING HOSPICE EVALUATION AND ADMIT DETERMINATION FROM [facility]. Tracer Bullet Section Supervisor: Cornel Freeman Appended by Cornel Freeman on 04/24/2018 17:13 ROAD MIXER OPERATOR: CM SPOKE TO [facility] NURSE WHO INFORMED CM THAT PT HAS BEEN APPROVED FOR INPATIENT HOSPICE. CM SPOKE TO PT'S SON WHO INFORMED CM THAT HE IS NOT SURE ABOUT HOSPICE NOW AND WANTS TO KNOW HOW LONG PT CAN STAY IN HOSPITAL AND CONTINUE TO RECEIVE AGRESSIVE CARE; CM EXPLAINED THAT THE DOCTOR NEEDS TO KNOW WHAT THEY ARE THINKING AND DISCUSS THIS WITH PT AND SON IN ROOM. A LITTLE WHILE LATER, PT'S SON INFORMED CM THAT HE WANTS HOSPICE IN THE HOSPITAL, FINAL ANSWER. CM NOTIFIED HOSPICE NURSE WHO WENT TO PT'S ROOM WITH PT AND SON. HOSPICE NURSE CAME OUT AND INFORMED CM THAT PT'S SON IS NOW UNDECIDED ON HOSICE AND TO CALL WHEN AND IF PT'S SON HAS MADE A DECISION. BARBARA PEGUERO ARRIVED AND NOTIFIED CM TO CALL HIM IF PT'S SON DECIDES FOR INPATIENT HOSPICE SO THAT BARBARA PEGUERO MAY SEE PT FOR ADMISSION. IF PT'S SON DECIDES ON INPATIENT HOSPICE WITH [facility], NOTIFY [facility] AT [phone]. CORNEL FREEMAN, CASE MANAGEMENT DCPIA - Discharge Planning Initial Assessment Updated by [id number]: Cornel Freeman on 04/24/18 11:32 am * Is the patient Alert and Oriented? Yes * How many steps to enter\\exit or inside your home? NONE * PCP NONE * Pharmacy [facility] * Preadmission Environment Jail Facility * Facility Name [facility] * ADLs Partial Dependent * Partial ADLs (Assistance needed) Ambulation Bathing Dressing Medication Management Toileting Transfers * Equipment Other * Other Equipment ALL MEDICAL EQUIPMENT PROVIDED BY [facility] * List name and contact numbers for known caregivers / representatives who currently or will assist patient after discharge: CHARLES DALE, SON, * Verbal permission to speak to the caregivers and representatives has been obtained from the patient. Yes * Community resources currently utilized None * Please name any agencies selected above. NONE * Additional services required to return to the preadmission environment? Yes * Can the patient safely return to the preadmission environment? Yes * Has this patient been hospitalized within the prior 30 days at any hospital? Yes Last DP export: 04/24/18 10:53 a Patient Name: DEONTE DALE Page [id number] at 1721 All edits/amendments must be made on the electronic document DICTATION DATE: 04/24/181720 REINFORCED CONCRETE INSPECTOR: [place] 04/24/181720 RPT#: [id number] DC DATE: STATUS: ADM IN [facility] [address] [place] [address] END OF REPORT
--- NOTE | 2018-04-24 21:04 | NUR ---
PATIENT DISCHARGING. HOSPICE BEING INITATED.
--- NOTE | 2018-04-25 09:02 | MORECARE ---
CASE MANAGEMENT DISCHARGE SUMMARY PATIENT: DEONTE DALE UNIT: [id number] ADM DATE: 04/23/18 AGE: 83 : 33 SEX: M ROOM/BED: D.1034 AUTHOR: GATITO SARAVIA PHYSICIAN: REFERRING PHYSICIAN: ALMAZ ALEXANDER MD DATE OF SERVICE: 04/25/18 Discharge Plan Patient Name: DEONTE DALE Facility: [facility]:[place] : 1935 Planned Disposition: Hospice Medical Facility Anticipated Discharge Date: 04/24/18 Discharge Date: 04/24/2018 Expected LOS: 1 Initial Reviewer: [id number] Initial Review Date: 04/24/2018 Generated: 04/25/18 10:02 am Comments DCP- Discharge Planning Updated by [email or web address]: Cornel Freeman on 04/25/18 7:[address] Patient Name: DEONTE DALE Encounter No: [id number] : 1935 Primary Insurance: AETNA MEDICARE PPO or HMO Anticipated DC Date: 04-24-2018 Planned Disposition: Hospice Medical Facility External Planned Provider: [facility] DCP follow-up note: CM REVIEWED CHART, PT'S SON DECIDED TO ADMIT TO HOSPICE WITH [facility] LAST NIGHT. NO FUTHER NEEDS FROM CASE MANAGEMENT ALL CASE MANAGEMENT SERVICES PROVIDED BY [facility]. Cornel Freeman, CASE MANAGEMENT DCP- Discharge Planning Updated by [id number]: Cornel Freeman on 04/24/18 4:[address] Patient Name: DEONTE DALE Admission Status: ER Accout number: [id number] Admission Date: 04-23-2018 : 1935 Admission Diagnosis: Attending: ALMAZ ALEXANDER Current LOS: 1 Anticipated DC Date: 04-24-2018 Planned Disposition: Hospice Medical Facility Primary Insurance: AETNA MEDICARE PPO or HMO PLANNED EXTERNAL PROVIDER: [facility] Discharge Planning Comments: CM MET WITH PT AND SON IN ROOM TO DISCUSS DISCHARGE PLANNING AND NEEDS. DEONTE DALE provided verbal consent to discuss current and ongoing needs with/in the presence of: CHARLES, SON. PT WAS JUST AT [facility] FOR [facility], SENT BACK BECAUSE OF WOSENING OXYGEN STATUS. PT REPORTS HE COULD NOT BREATHE. PT'S SON NOW WANTS HOSPICE AND WOULD LIKE PT EVALUATED FOR INPATIENT HOSPICE WITH [facility]. PT'S SON HAS ALSO CALLED HOSPICE HOME CARE TO DISCUSS THERE PALLIATIVE CARE PROGRAM. PT REMOVED HIS OXYGEN MASK AND STATED "I AM AWAKE AND HAVE BEEN LISTENING....WHAT YOU ARE SAYING IS THAT I'M AT THE END OF THE LINE." PT STATES HE DID NOT LIKE [facility] AND WANTS TO STAY "HERE". PT DOES WANT HOSPICE CARE. PT'S SON REPORTS THAT HE WOULD PREFER INPATIENT HOSPICE WITH [facility] AND MAY HAVE TO ARRANGE HOME OR ALF HOSPICE AT [facility] IF PT DOES NOT QUALIFY FOR INPATIENT HOSPICE. CM CALLED AND SPOKE TO DIGNA MAK OF [facility], , NOTIFIED PT PT'S PRESENCE IN HOSPITAL AND OF PT AND FAMILY DESIRE FOR HOSPICE. CM FAXED HOSPICE ORDER AND REFERRAL TO [facility] AT [phone]. CM WAITING HOSPICE EVALUATION AND ADMIT DETERMINATION FROM [facility]. Ammunition Components Inspector: Cornel Freeman Appended by Cornel Freeman on 04/24/2018 17:13 LEAN COACH: CM SPOKE TO [facility] NURSE WHO INFORMED CM THAT PT HAS BEEN APPROVED FOR INPATIENT HOSPICE. CM SPOKE TO PT'S SON WHO INFORMED CM THAT HE IS NOT SURE ABOUT HOSPICE NOW AND WANTS TO KNOW HOW LONG PT CAN STAY IN HOSPITAL AND CONTINUE TO RECEIVE AGRESSIVE CARE; CM EXPLAINED THAT THE DOCTOR NEEDS TO KNOW WHAT THEY ARE THINKING AND DISCUSS THIS WITH PT AND SON IN ROOM. A LITTLE WHILE LATER, PT'S SON INFORMED CM THAT HE WANTS HOSPICE IN THE HOSPITAL, FINAL ANSWER. CM NOTIFIED HOSPICE NURSE WHO WENT TO PT'S ROOM WITH PT AND SON. HOSPICE NURSE CAME OUT AND INFORMED CM THAT PT'S SON IS NOW UNDECIDED ON HOSICE AND TO CALL WHEN AND IF PT'S SON HAS MADE A DECISION. BARBARA PEGUERO ARRIVED AND NOTIFIED CM TO CALL HIM IF PT'S SON DECIDES FOR INPATIENT HOSPICE SO THAT BARBARA PEGUERO MAY SEE PT FOR ADMISSION. IF PT'S SON DECIDES ON INPATIENT HOSPICE WITH [facility], NOTIFY [facility] AT [phone]. CORNEL FREEMAN, CASE MANAGEMENT DCPIA - Discharge Planning Initial Assessment Updated by [id number]: Cornel Freeman on 04/24/18 11:32 am * Is the patient Alert and Oriented? Yes * How many steps to enter\\exit or inside your home? NONE * PCP NONE * Pharmacy [facility] * Preadmission Environment Long Term Facility * Facility Name [facility] * ADLs Partial Dependent * Partial ADLs (Assistance needed) Ambulation Bathing Dressing Medication Management Toileting Transfers * Equipment Other * Other Equipment ALL MEDICAL EQUIPMENT PROVIDED BY [facility] * List name and contact numbers for known caregivers / representatives who currently or will assist patient after discharge: CHARLES DALE, SON, * Verbal permission to speak to the caregivers and representatives has been obtained from the patient. Yes * Community resources currently utilized None * Please name any agencies selected above. NONE * Additional services required to return to the preadmission environment? Yes * Can the patient safely return to the preadmission environment? Yes * Has this patient been hospitalized within the prior 30 days at any hospital? Yes Last DP export: 04/24/18 4:21 p Patient Name: DEONTE DALE Page [id number] at 0902 All edits/amendments must be made on the electronic document DICTATION DATE: 04/25/18900 LADLE FILLER: [place] 04/25/18900 RPT#: [id number] DC DATE:04/24/18 STATUS: DIS IN [facility] [address] [place] [address] END OF REPORT
== END 2018-04-24 21:12 | disposition hospice, inpatient (51) | DRG 291 ==
LOC: D.ER 16:43 → D.ICU 20:26 → D.M2 20:26
PROVIDERS: Family Medicine; ADMIT Internal Medicine Nephrology
DX: I11.0 Hypertensive heart disease with heart failure (principal); J96.01 Acute respiratory failure with hypoxia; I50.23 Acute on chronic systolic (congestive) heart failure; I08.1 Rheumatic disorders of both mitral and tricuspid valves; E78.5 Hyperlipidemia, unspecified; I25.10 Atherosclerotic heart disease of native coronary artery without angina pectoris; I48.0 Paroxysmal atrial fibrillation; Z86.73 Personal history of transient ischemic attack (TIA), and cerebral infarction without residual deficits; M54.9 Dorsalgia, unspecified; G89.29 Other chronic pain; J44.9 Chronic obstructive pulmonary disease, unspecified

== ENCOUNTER 2018-04-24 21:58 | Inpatient (IN) | payer OTHER ==
[~2018-04-24] VITALS: Ht 182.9 cm; Wt 67.1 kg
[~2018-04-24 21:58] MED LIST changes: +IPRAT-ALBUT 0.5-3 ML UPD; +LASIX40 MG PO
[2018-04-24 23:47] VITALS: BP 92/40; BMI 20.9
[2018-04-25] VITALS: BP 80/42
--- NOTE | 2018-04-25 05:55 | NUR ---
PATIENT SLEPT COMFORTABLY THROUGH OUT THE NIGHT.
[2018-04-25 09:00] VITALS: BP 87/43
--- NOTE | 2018-04-25 09:02 | MORECARE ---
CASE MANAGEMENT DISCHARGE SUMMARY PATIENT: DEONTE DALE UNIT: [id number] ADM DATE: 04/24/18 AGE: 83 : 33 SEX: M ROOM/BED: D.1858 AUTHOR: GATITO SARAVIA PHYSICIAN: REFERRING PHYSICIAN: CANDY BOLAÑOS MD DATE OF SERVICE: 04/25/18 Discharge Plan Patient Name: DEONTE DALE Facility: [facility]:[place] : 1935 Planned Disposition: Anticipated Discharge Date: Discharge Date: Expected LOS: Initial Reviewer: [id number] Initial Review Date: 04/25/2018 Generated: 04/25/18 10:02 am Comments DCP- Discharge Planning Updated by [email or web address]: Cornel Portillo on 04/25/18 8:[address] Patient Name: DEONTE DALE Admission Status: Elective Accout number: [id number] Admission Date: 04-24-2018 : 1935 Admission Diagnosis: Attending: CANDY BOLAÑOS Current LOS: 1 Anticipated DC Date: Planned Disposition: Primary Insurance: [facility] PLANNED EXTERNAL PROVIDER: [facility] Discharge Planning Comments: CM REVIEWED CHART, PT'S SON DECIDED TO ADMIT TO HOSPICE WITH [facility] LAST NIGHT. NO FUTHER NEEDS FROM CASE MANAGEMENT ALL CASE MANAGEMENT SERVICES PROVIDED BY [facility]. Commercial Intelligence Manager: Cornel Portillo Patient Name: DEONTE DALE Page [phone] at 0902 All edits/amendments must be made on the electronic document DICTATION DATE: 04/25/18 09 GYPSUM ROOFER: [place] 04/25/18901 RPT#: [id number] DC DATE: STATUS: ADM IN [facility] [address] [place] [address] END OF REPORT
[2018-04-25 09:12] VITALS: Ht 182.9 cm; Wt 67.1 kg
[2018-04-25 20:00] VITALS: BP 108/58
--- NOTE | 2018-04-25 23:15 | NUR ---
Received patient in bed, sleeping with HOB elevated 45 degrees, oxygen on via mask @10L/min, PIV is in left upper arm, FOOD CONSULTANT pump infusing with Morphine programmed on demand per doctor's orders. No signs of respiratory distress.
--- NOTE | 2018-04-26 06:35 | NUR ---
During bed bath, noted patient to have red blotchy rash over front torso, under armpits, groins and upper legs. Researched medication list, no new medication noted, query sensitive to laundry soap. Will pass on in report.
--- NOTE | 2018-04-26 07:10 | NUR ---
REPORT RECIEVED FROM TIP INSERTER. PATIENT LAYING IN BED WITH EYES CLOSED AND BREATHING EVENLY . O2 MASK ON NOSE AND MOUTH VS ARE GOOD. WILL CONTINUE WITH PLAN OF CARE. SR UP X 2 BED IN LOW POSTION AND CALL LIGHT IN REACH.
[2018-04-26 09:13] VITALS: BP 110/55
--- NOTE | 2018-04-26 10:30 | NUR ---
PATIENT LAYING IN BED ON BACK WITH O2 MASK . PATIENT AWAKE AND ALERT X 4. PATIENT IS WATCHING TV . PATIENT DENIES ANY NEEDS OR PAIN. SON CAME INTO ROOM THIS NURSE IS LEAVING. WILL CONTINUE TO MONITOR PATIENT.
--- NOTE | 2018-04-26 13:40 | NUR ---
PATIENT IS UNCHANGED. AWAKE AND LAERT. WILL CONTINUE TO MONITOR.
--- NOTE | 2018-04-26 16:42 | NUR ---
EFRAIN RN IN ROOM. PER BAG CHECKER SHE SPOKE WITH DR BOLAÑOS, PATIENT TO BE DC FROM HOSPICE CARE AND DC TO HOME TOMORROW. PATIENT WILL HAVE ALL NEEDED HOME MED EQUIPMENT AT HOME. HOSPICE TO ARRANGE EQUPIMENT AND DELIVERY. PATIENT TO BE DC TO HOME TOMORROW ONCE EQUIPMENT IS ON PLACE.
--- NOTE | 2018-04-26 19:29 | NUR ---
PT IN BED. DENIES NEEDS AT THIS TIME.
[2018-04-26 20:00] VITALS: BP 114/62
[2018-04-27 00:30] VITALS: BP 115/64
[2018-04-27 04:00] VITALS: BP 118/61
--- NOTE | 2018-04-27 04:20 | NUR ---
RESTING IN BED WITH EYES CLOSED. NO S/S OF DISTRESS OBSERVED. CALL LIGHT IN REACH.
[2018-04-27 07:44] VITALS: BP 117/71
[2018-04-27 11:38] VITALS: BP 121/66
--- NOTE | 2018-04-27 17:20 | NUR ---
PER HOSPICE NURSE HER ON UNIT, SHE HAD CALLED [facility] PATIENT IS READY TO DISCHARGE. THIS TRANSFER CLERK ASKED HOSPICE NURSE TO CANCEL THE CALL TO [facility] PATIENT HAS NO DISCHARGE PAPERWORK COMPLETED AT THIS TIME AND THE NURSE WILL CALL WHEN WE ARE READY FOR [facility] TO PICK PATIENT UP. HOSPICE NURSE CANCELED [facility] PICKUP AT THIS TIME.
[2018-04-27 17:26] LABS: APPEARANCE HAZY (CLEAR); BILIRUBIN NEGATIVE (NEGATIVE); COLOR YELLOW (YELLOW); GLUCOSE NEGATIVE (NEGATIVE); KETONE NEGATIVE (NEGATIVE); NITRITE NEGATIVE (NEGATIVE); PROTEIN 1+ mg/dL (NEGATIVE); SPECIFIC GRAVITY 1.015 (1.005-1.020)
[2018-04-27 17:27] LABS: BACTERIA NONE SEEN /hpf (NONE SEEN); EPITHELIAL CELLS NSEEN /hpf (0-5); WHITE CELLS - URINE OCC /hpf (0-5)
--- NOTE | 2018-04-30 09:14 | MORECARE ---
CASE MANAGEMENT DISCHARGE SUMMARY PATIENT: DEONTE DALE UNIT: [id number] ADM DATE: 04/24/18 AGE: 83 : 33 SEX: M ROOM/BED: D.2129 AUTHOR: GATITO SARAVIA PHYSICIAN: REFERRING PHYSICIAN: CANDY BOLAÑOS MD DATE OF SERVICE: 04/30/18 Discharge Plan Patient Name: DEONTE DALE Facility: [facility]:[place] : 1935 Planned Disposition: Home with Hospice Anticipated Discharge Date: 04/27/18 Discharge Date: 04/27/2018 Expected LOS: 3 Initial Reviewer: [id number] Initial Review Date: 04/25/2018 Generated: 04/30/18 10:14 am Comments DCP- Discharge Planning Updated by [email or web address]: Cornel Portillo on 04/25/18 8:[address] Patient Name: DEONTE DALE Admission Status: Elective Accout number: [id number] Admission Date: 04-24-2018 : 1935 Admission Diagnosis: Attending: CANDY BOLAÑOS Current LOS: 1 Anticipated DC Date: Planned Disposition: Primary Insurance: [facility] PLANNED EXTERNAL PROVIDER: [facility] Discharge Planning Comments: CM REVIEWED CHART, PT'S SON DECIDED TO ADMIT TO HOSPICE WITH [facility] LAST NIGHT. NO FUTHER NEEDS FROM CASE MANAGEMENT ALL CASE MANAGEMENT SERVICES PROVIDED BY [facility]. Shelter Case Manager: Cornel Portillo Last DP export: 04/25/18 8:02 a Patient Name: DEONTE DALE Page [phone] at 0914 All edits/amendments must be made on the electronic document DICTATION DATE: 04/30/18913 TOXICOLOGIST: [place] 04/30/18913 RPT#: [id number] DC DATE:04/27/18 STATUS: DIS IN [facility] [address] [place] [address] END OF REPORT
== END 2018-04-27 19:07 | disposition home health service (06) | DRG 951 ==
LOC: D.M2 21:58
PROVIDERS: ADMIT Legal Medicine
DX: Z51.5 Encounter for palliative care (principal)